=== PATIENT | male | born 1955 | race African-American/Black ===

== ENCOUNTER 2017-08-12 15:32 | Inpatient (IN) | payer OTHER ==
[2017-08-12] MEDS ORDERED: LOPERAMIDE HCL 2 MG CAPSULE PO PRN (16:23)
[2017-08-12] MEDS ORDERED: POLYETHYL GLY 3350 17 GM/DOSE PO PRN (16:23)
[2017-08-12] MEDS ORDERED: ALBUTEROL 2.5 MG/3 ML NEB SOL IH PRN (16:23)
[2017-08-12] MEDS ORDERED: DIPHENHYDRAMINE 25 MG TAB/CAP PO PRN (16:23)
[2017-08-12] MEDS ORDERED: ONDANSETRON 4 MG (ODT) TAB PO PRN (16:23)
[2017-08-12 16:47] LABS: Absolute Monocytes 0.9 K/uL (0.1-1.3); Absolute Neutrophil 11.1 K/uL (1.8-8.0); Basophils % 0.3 % (0-1.3); Hematocrit 47.3 % (39.6-49.0); Lymphocytes % 7.4 % (15.3-44.8); MCH 25.8 pg (27.0-35.0); MCV 80.7 fL (80-100); MPV 8.1 fL (7.6-11.3); Monocytes % 7.2 % (3.3-12.3); RBC Red Blood Cell Count 5.86 M/uL (4.33-5.43)
[2017-08-12 16:59] LABS: Magnesium 2.2 mg/dL (1.8-2.5); Potassium 4.8 mEq/L (3.6-5.0)
[2017-08-12] MEDS ORDERED: PNEUMOCOCCAL VACCINE 0.5 ML IMVAC ONE (17:00)
[2017-08-12] MEDS: NACHLORIDE 0.45% 1,000 ML IV SCH (17:31)
[2017-08-12 17:33] VITALS: BMI 28.2
[2017-08-12] MEDS: METOPROLOL TARTRATE 5 MG/5 ML INJ IV SCH ×3 (18:00→23:03)
[2017-08-12] MEDS: LEVALBUTEROL 1.25 MG/3 ML NEB IH SCH (20:00)
[2017-08-12] MEDS: IPRATROPIUM BROM 0.5MG/2.5ML IH SCH (20:03)
--- NOTE | 2017-08-12 20:55 | RAD REPORT ---
EXAM DESCRIPTION: RAD - Chest Pa And Lat (2 Views) - 08/12/2017 8:18 pm CLINICAL HISTORY: Bowel obstruction, abdominal pain COMPARISON: October 2014 TECHNIQUE: PA and lateral views of the chest were obtained. FINDINGS: The lungs are clear. Heart size is normal and central vasculature is within normal limit s. No pleural effusion or pneumothorax seen. No acute bony finding noted. No aortic abnormality. No free air under the diaphragm. IMPRESSION: No acute cardiopulmonary process.
[2017-08-13] MEDS: ONDANSETRON 4 MG/2 ML VIAL IV PRN (00:31)
[2017-08-13] MEDS: IPRATROPIUM BROM 0.5MG/2.5ML IH SCH ×4 (01:52→19:34)
[2017-08-13] MEDS: LEVALBUTEROL 1.25 MG/3 ML NEB IH SCH ×4 (01:53→19:34)
[2017-08-13] MEDS: NACHLORIDE 0.45% 1,000 ML IV SCH ×2 (02:49→17:04)
[2017-08-13 05:02] LABS: Absolute Lymphocytes (CBC) 0.9 K/uL (0.7-4.9); Absolute Monocytes 1.2 K/uL (0.1-1.3); Absolute Neutrophil 7.9 K/uL (1.8-8.0); Basophils % 0.3 % (0-1.3); Hematocrit 41.6 % (39.6-49.0); Lymphocytes % 9.3 % (15.3-44.8); MCH 26.5 pg (27.0-35.0); MCV 80.5 fL (80-100); MPV 8.5 fL (7.6-11.3); RBC Red Blood Cell Count 5.16 M/uL (4.33-5.43)
[2017-08-13 05:19] LABS: Magnesium 2.1 mg/dL (1.8-2.5); Potassium 4.7 mEq/L (3.6-5.0)
[2017-08-13] MEDS: METOPROLOL TARTRATE 5 MG/5 ML INJ IV SCH ×3 (05:28→17:04)
[2017-08-13 06:00] LABS: Urine Appearance CLEAR; Urine Blood NEGATIVE (NEG); Urine Color DK YELLOW; Urine Glucose NEGATIVE (NEG); Urine Protein 2+ (NEG); Urine Specific Gravity >=1.030 (1.005-1.030)
[2017-08-13 06:11] LABS: Urine Bilirubin NEGATIVE (NEG); Urine Microscopic Reflex ORDER UMIC
[2017-08-13 06:18] LABS: Urine Bacteria <20 /HPF (NONE SEEN); Urine RBC NONE SEEN /HPF (NONE SEEN)
[2017-08-13 06:19] LABS: Urine Culture Reflex Order NOT NEEDED; Urine Mucus LIGHT /HPF (NONE SEEN)
--- NOTE | 2017-08-13 07:36 | EKG ---
Test Date: 2017-08-12 Test Time: 16:58:53 Grain Drier Operator: LISA MEASUREMENT RESULTS: Intervals: Rate: 100 MA: 130 QRSD: 74 QT: 328 QTc: 423 [place]: P: 59 MA: 130 QRS: 3 T: 53 INTERPRETIVE STATEMENTS: Normal sinus rhythm Low voltage QRS Borderline ECG Compared to ECG 10/28/2014 07:31:56 Low QRS voltage now present Sinus bradycardia no longer present Electronically Signed On 08-13-17 07:34:55 CDT by Josh Jones
[2017-08-13] MEDS ORDERED: HYDRALAZINE HCL 20 MG/ML VIAL IV PRN ×2 (12:11→20:51)
[2017-08-13] MEDS: Levofloxacin 750mg IV 750 MG/150 ML BAG IV SCH (20:23)
[2017-08-13] MEDS ORDERED: CLONIDINE 0.2 MG/PATCH TD SCH (21:15)
--- NOTE | 2017-08-13 21:19 | P.PN ---
Subjective Date of Service: 08/13/17 Chief Complaint: ABD PAIN, NPO. NOT SURE ABOUT SURGERY. Subjective: No new changes Review of Systems 10-point ROS is otherwise unremarkable General: Weakness Physical Examination - Vital Signs Temperature: 99.6 F Blood Pressure: 187/113 Pulse: 97 Respirations: 18 Pulse Ox (%): 98 - Physical Exam General: Alert, Mild distress HEENT: Atraumatic, PERRLA, EOMI Neck: Supple, JVD not distended Respiratory: Clear to auscultation bilaterally, Normal air movement Cardiovascular: Regular rate/rhythm, Normal S1 S2 Gastrointestinal: Normal bowel sounds, Tenderness Musculoskeletal: No tenderness Integumentary: No rashes Neurological: Normal speech, Normal tone, Normal affect Lymphatics: No axilla or inguinal lymphadenopathy - Studies Laboratory Data (last 24 hrs) 08/13/17 04:10: Sodium 136, Potassium 4.7, BUN 21 H, Creatinine 1.29 H, Glucose 119, Magnesium 2.1 08/13/17 04:10: WBC 10.1 D, Hgb 13.7, Hct 41.6, Plt Count 375 Medications List Reviewed: Yes Assessment And Plan - Current Problems (Diagnosis) (1) Colon cancer Current Visit: Yes Status: Acute (2) Bowel obstruction Current Visit: Yes Status: Acute Plan: MR Ashley GOODSON HAS TR COLON CANCER ABOUT [address] SCAN. THIS WAS DOES HE CAME TO OFFICE WITH ABDOMEN PAIN. HE NEVER WANTED TO DO COLONOSCOPY. HE IS NOT SURE WHY HE NEEDS SURGERY . I EXPLAINED TO HIM AND TODAY HIS UNDERSTANDING LEVEL IS POOR. (3) Uncontrolled hypertension Current Visit: Yes Status: Chronic Plan: HE IS ON HIGH DOSE OF MEDS TO CONTROL BP I HAVE ADDED HYDRLAZINE IV AND CLONIDINE PATCH UNTIL HE IS ABLE TO TAKE PO AGAIN. (4) Preoperative clearance Current Visit: Yes Status: Acute Plan: MEDICALLY CLEARED WITH MILD TO MOD RISK WRITTEN IN ORDER.S Orders (last 24 hrs) 08/12/17 22:55 Cardiac Monitoring (telemetry) CONT 08/13/17 06:07 SBAR Routine 08/13/17 12:12 Nursing Orders Routine 08/13/17 20:51 Hydralazine [Apresoline] 25 mg IV Q6HP PRN 08/13/17 21:15 Clonidine Patch [Catapres-Tts 2] 0.2 mg TD EVERY 7TH DAY 08/14/17 05:00 Basic Metabolic Panel DAILY CBC with Automated Diff DAILY Magnesium DAILY 08/15/17 05:00 Basic Metabolic Panel DAILY CBC with Automated Diff DAILY Magnesium DAILY 08/16/17 05:00 Basic Metabolic Panel DAILY CBC with Automated Diff DAILY Magnesium DAILY 08/17/17 05:00 Basic Metabolic Panel DAILY CBC with Automated Diff DAILY Magnesium DAILY 08/18/17 05:00 Basic Metabolic Panel DAILY CBC with Automated Diff DAILY Magnesium DAILY 08/19/17 05:00 Basic Metabolic Panel DAILY CBC with Automated Diff DAILY Magnesium DAILY 08/20/17 05:00 Basic Metabolic Panel DAILY CBC with Automated Diff DAILY Magnesium DAILY 08/21/17 05:00 Basic Metabolic Panel DAILY CBC with Automated Diff DAILY Magnesium DAILY 08/22/17 05:00 Basic Metabolic Panel DAILY CBC with Automated Diff DAILY Magnesium DAILY
[2017-08-14] MEDS: METRONIDAZOLE 500mg IVPB 500 MG/100 ML BAG IV SCH ×5 (00:57→23:56)
[2017-08-14] MEDS: METOPROLOL TARTRATE 5 MG/5 ML INJ IV SCH ×5 (00:58→23:57)
[2017-08-14] MEDS: IPRATROPIUM BROM 0.5MG/2.5ML IH SCH ×4 (01:10→20:00)
[2017-08-14] MEDS: LEVALBUTEROL 1.25 MG/3 ML NEB IH SCH ×4 (01:11→20:00)
[2017-08-14] MEDS: ONDANSETRON 4 MG/2 ML VIAL IV PRN (04:07)
[2017-08-14 06:09] LABS: Magnesium 2.1 mg/dL (1.8-2.5); Potassium 4.7 mEq/L (3.6-5.0)
[2017-08-14 06:12] LABS: Absolute Lymphocytes (CBC) 0.5 K/uL (0.7-4.9); Absolute Monocytes 0.9 K/uL (0.1-1.3); Absolute Neutrophil 3.4 K/uL (1.8-8.0); Basophils % 0.2 % (0-1.3); Lymphocytes % 9.9 % (15.3-44.8); MCH 26.4 pg (27.0-35.0); MCV 80.8 fL (80-100); MPV 8.1 fL (7.6-11.3); Monocytes % 17.9 % (3.3-12.3); RBC Red Blood Cell Count 4.95 M/uL (4.33-5.43)
[2017-08-14 07:00] LABS: Urine White Blood Cell Casts DIFF
[2017-08-14 07:01] LABS: Blood Morphology Comment NOT SEEN (NOT SEEN); Platelet Estimate ADEQ; Platelets, Giant OCC
--- NOTE | 2017-08-14 09:09 | RAD REPORT ---
EXAM DESCRIPTION: Josie Single View08/14/2017 8:38 am CLINICAL HISTORY: Device placement nasogastric tube placement FINDINGS: A nasogastric tube has its tip at the junction of the gastric fundus and body.
[2017-08-14] MEDS: NACHLORIDE 0.45% 1,000 ML IV SCH ×2 (09:40→22:20)
[2017-08-14] MEDS ORDERED: Ringers Lactate 1,000 ML IV ONE ×2 (16:01→19:00)
[2017-08-14] MEDS ORDERED: LABETALOL HCL 100 MG/20 ML ONE (16:17)
[2017-08-14] MEDS ORDERED: HYDRALAZINE HCL 20 MG/ML VIAL ONE (16:31)
[2017-08-14] MEDS ORDERED: NA CHLORIDE 0.9% 1,000 ML ONE (16:54)
[2017-08-14] MEDS ORDERED: PROPOFOL 200 MG/20 ML VIAL IV ONE (17:15)
[2017-08-14] MEDS ORDERED: MIDAZOLAM HCL 2 MG/2 ML INJ ONE (17:16)
[2017-08-14] MEDS ORDERED: LIDOCAINE 2% MPF 5 ML VIAL ONE (17:16)
[2017-08-14] MEDS ORDERED: ONDANSETRON 4 MG/2 ML VIAL ONE (17:17)
[2017-08-14] MEDS ORDERED: ROCURONIUM 50 MG/5 ML VIAL IV ONE ×2 (17:17→18:05)
[2017-08-14] MEDS ORDERED: FENTANYL CITR 100 MCG/2 ML ONE (17:18)
[2017-08-14] MEDS ORDERED: METRONIDAZOLE 500mg IVPB 500 MG/100 ML BAG IV ONE (17:30)
[2017-08-14] MEDS ORDERED: GLYCOPYRROLATE 0.2 MG/ML SYR ONE ×3 (18:04→19:39)
[2017-08-14] MEDS ORDERED: MORPHINE 10 MG/ML VIAL ONE (18:04)
[2017-08-14] MEDS ORDERED: KETOROLAC 30 MG/ML INJ ONE (18:04)
[2017-08-14] MEDS ORDERED: NEOSTIGMINE 1 MG/ML -5 ML SYRINGE ONE (18:19)
--- NOTE | 2017-08-14 20:13 | P.BOP ---
Preoperative diagnosis: complete colon obtruction, colonic mass possible cancer Postoperative diagnosis: same Primary procedure: 1 Exploratory laparatomy Secondary procedure: 2. Right hemicolectomy Other procedure(s): 3. liver biopsy Fans Clerk: ESTEFANÍA DELACRUZ Estimated blood loss: <150cc Specimen: right colon, liver bx Findings: Large proximal tranverse colon obstructive mass Anesthesia: General Complications: None Drain(s): Nasogastric, Urinary catheter Transferred to: Recovery Room Condition: Good
[2017-08-14] MEDS ORDERED: MEPERIDINE HCL 25 MG/0.5 ML ONE (21:06)
--- NOTE | 2017-08-14 21:19 | P.PN ---
Subjective Date of Service: 08/14/17 Chief Complaint: ABD PAIN, NPO. NOT SURE ABOUT SURGERY. Subjective: Worsening (THIS AM , NAUSEA, VOMITING, DISTENSION. I ASKED FOR NGT WITH LIS URGENTLY. SURGERY IS PLANNED TODAY.) Review of Systems 10-point ROS is otherwise unremarkable Gastrointestinal: Nausea, Vomiting, Abdominal Pain, Distention Physical Examination - Vital Signs Temperature: 98.9 F Blood Pressure: 127/85 Pulse: 95 Respirations: 18 Pulse Ox (%): 18 - Physical Exam General: Alert, Moderate distress HEENT: Atraumatic, PERRLA, EOMI Neck: Supple, JVD not distended Respiratory: Clear to auscultation bilaterally, Normal air movement Cardiovascular: Regular rate/rhythm, Normal S1 S2 Gastrointestinal: Distended, Tenderness Musculoskeletal: No tenderness Integumentary: No rashes Neurological: Normal speech, Normal tone, Normal affect Lymphatics: No axilla or inguinal lymphadenopathy - Studies Laboratory Data (last 24 hrs) 08/14/17 05:18: Sodium 133 L, Potassium 4.7, BUN 19, Creatinine 1.28 H, Glucose 117, Magnesium 2.1 08/14/17 05:18: WBC 4.8 D, Hgb 13.1 L, Hct 40.0, Plt Count 332 Medications List Reviewed: Yes Assessment And Plan - Current Problems (Diagnosis) (1) Colon cancer Current Visit: Yes Status: Acute Plan: SURGERY TO BE DONE TODAY BY THE TIME OF THIS NOTE- DR. FISH CALLED AND HE HAS COMPLETED SURGERY. (2) Bowel obstruction Current Visit: Yes Status: Acute Plan: MR Ashley GOODSON HAS TR COLON CANCER ABOUT [address] SCAN. THIS WAS DOES HE CAME TO OFFICE WITH ABDOMEN PAIN. HE NEVER WANTED TO DO COLONOSCOPY. HE IS NOT SURE WHY HE NEEDS SURGERY . I EXPLAINED TO HIM AND TODAY HIS UNDERSTANDING LEVEL IS POOR. (3) Uncontrolled hypertension Current Visit: Yes Status: Chronic Plan: HE IS ON HIGH DOSE OF MEDS TO CONTROL BP I HAVE ADDED HYDRLAZINE IV AND CLONIDINE PATCH UNTIL HE IS ABLE TO TAKE PO AGAIN. STABLE ON IV MEDS. (4) Preoperative clearance Current Visit: Yes Status: Acute Plan: MEDICALLY CLEARED WITH MILD TO MOD RISK WRITTEN IN ORDER.S Orders (last 24 hrs) 08/12/17 22:55 Cardiac Monitoring (telemetry) CONT 08/13/17 06:07 SBAR Routine 08/13/17 12:12 Nursing Orders Routine 08/13/17 20:51 Hydralazine [Apresoline] 25 mg IV Q6HP PRN 08/13/17 21:15 Clonidine Patch [Catapres-Tts 2] 0.2 mg TD EVERY 7TH DAY 08/14/17 05:00 Basic Metabolic Panel DAILY CBC with Automated Diff DAILY Magnesium DAILY 08/15/17 05:00 Basic Metabolic Panel DAILY CBC with Automated Diff DAILY Magnesium DAILY 08/16/17 05:00 Basic Metabolic Panel DAILY CBC with Automated Diff DAILY Magnesium DAILY 08/17/17 05:00 Basic Metabolic Panel DAILY CBC with Automated Diff DAILY Magnesium DAILY 08/18/17 05:00 Basic Metabolic Panel DAILY CBC with Automated Diff DAILY Magnesium DAILY 08/19/17 05:00 Basic Metabolic Panel DAILY CBC with Automated Diff DAILY Magnesium DAILY 08/20/17 05:00 Basic Metabolic Panel DAILY CBC with Automated Diff DAILY Magnesium DAILY 08/21/17 05:00 Basic Metabolic Panel DAILY CBC with Automated Diff DAILY Magnesium DAILY 08/22/17 05:00 Basic Metabolic Panel DAILY CBC with Automated Diff DAILY Magnesium DAILY
[2017-08-14] MEDS ORDERED: MORPHINE 2 MG/ML SYR IV PRN (21:48)
[2017-08-14] MEDS ORDERED: MORPHINE 5 MG/ML VIAL IV PRN (21:51)
[2017-08-14] MEDS: Ringers Lactate 1,000 ML IV SCH (21:57)
[2017-08-14] MEDS: Levofloxacin 750mg IV 750 MG/150 ML BAG IV SCH (22:07)
[2017-08-14] MEDS: MORPHINE 4 MG/ML SYR IV PRN (22:34)
[2017-08-15] MEDS: MORPHINE 4 MG/ML SYR IV PRN ×2 (01:01→03:11)
[2017-08-15] MEDS: LEVALBUTEROL 1.25 MG/3 ML NEB IH SCH ×4 (01:14→19:41)
[2017-08-15] MEDS: IPRATROPIUM BROM 0.5MG/2.5ML IH SCH ×4 (01:19→19:41)
[2017-08-15] MEDS: ONDANSETRON 4 MG/2 ML VIAL IV PRN (03:11)
[2017-08-15] MEDS: Ringers Lactate 1,000 ML IV SCH ×4 (03:40→23:35)
[2017-08-15 05:39] LABS: Absolute Lymphocytes (CBC) 0.5 K/uL (0.7-4.9); Absolute Monocytes 1.1 K/uL (0.1-1.3); Basophils % 0.1 % (0-1.3); Lymphocytes % 6.1 % (15.3-44.8); MCH 26.3 pg (27.0-35.0); MCV 82.1 fL (80-100); MPV 8.3 fL (7.6-11.3); Monocytes % 12.4 % (3.3-12.3); RBC Red Blood Cell Count 4.63 M/uL (4.33-5.43)
[2017-08-15 05:56] LABS: Magnesium 1.6 mg/dL (1.8-2.5); Potassium 4.6 mEq/L (3.6-5.0)
[2017-08-15] MEDS: METOPROLOL TARTRATE 5 MG/5 ML INJ IV SCH ×4 (06:53→21:55)
[2017-08-15] MEDS: METRONIDAZOLE 500mg IVPB 500 MG/100 ML BAG IV SCH ×4 (06:54→23:36)
[2017-08-15] MEDS: NACHLORIDE 0.45% 1,000 ML IV SCH (11:25)
--- NOTE | 2017-08-15 12:50 | P.PN ---
Subjective Date of Service: 08/15/17 Chief Complaint: s/p Exploratory lapatoromy and right hemicolectomy for obsyructive mass Subjective: Improving Review of Systems General: Unremarkable Eyes: As per HPI ENT: Unremarkable Respiratory: Unremarkable Gastrointestinal: As per HPI (intact surgical site) Musculoskeletal: Unremarkable Integumentary: Unremarkable Physical Examination - Vital Signs Temperature: 98 F Blood Pressure: 146/88 Pulse: 94 Respirations: 20 Pulse Ox (%): 100 - Physical Exam General: Alert, Oriented x3 HEENT: PERRLA, EOMI, Abnormal EOM Respiratory: Normal air movement Cardiovascular: No edema, Normal pulses Gastrointestinal: Soft and benign, Absent bowel sounds, Distended Musculoskeletal: No erythema, No tenderness, No warmth Integumentary: No rashes, No breakdown - Studies Laboratory Data (last 24 hrs) 08/15/17 05:04: Sodium 135, Potassium 4.6, BUN 15, Creatinine 1.33 H, Glucose 115, Magnesium 1.6 L D 08/15/17 05:04: WBC 8.5 D, Hgb 12.2 L, Hct 38.0 L, Plt Count 302 Medications List Reviewed: Yes Assessment And Plan - Plan is oob ngy iv abx npo PPN discussed
--- NOTE | 2017-08-15 13:34 | P.PN ---
Subjective Date of Service: 08/15/17 Chief Complaint: s/p Exploratory lapatoromy and right hemicolectomy for obsyructive mass Subjective: Improving (STABLE) Review of Systems 10-point ROS is otherwise unremarkable General: Weakness, Malaise Physical Examination - Vital Signs Temperature: 98 F Blood Pressure: 146/88 Pulse: 94 Respirations: 20 Pulse Ox (%): 100 - Physical Exam General: Alert, Oriented x3 HEENT: Atraumatic, PERRLA, EOMI Neck: Supple, JVD not distended Respiratory: Clear to auscultation bilaterally, Normal air movement Cardiovascular: Regular rate/rhythm, Normal S1 S2 Gastrointestinal: Tenderness (POST OP) Musculoskeletal: No tenderness Integumentary: No rashes Neurological: Normal speech, Normal tone, Normal affect Lymphatics: No axilla or inguinal lymphadenopathy - Studies Laboratory Data (last 24 hrs) 08/15/17 05:04: Sodium 135, Potassium 4.6, BUN 15, Creatinine 1.33 H, Glucose 115, Magnesium 1.6 L D 08/15/17 05:04: WBC 8.5 D, Hgb 12.2 L, Hct 38.0 L, Plt Count 302 Medications List Reviewed: Yes Assessment And Plan - Current Problems (Diagnosis) (1) Colon cancer Current Visit: Yes Status: Acute Plan: SURGERY TO BE DONE TODAY BY THE TIME OF THIS NOTE- DR. FISH CALLED AND HE HAS COMPLETED SURGERY. SP PARTIAL COLECTOMY STABLE FOR FLOOR. (2) Bowel obstruction Current Visit: Yes Status: Acute Plan: MR Ashley GOODSON HAS TR COLON CANCER ABOUT [address] SCAN. THIS WAS DOES HE CAME TO OFFICE WITH ABDOMEN PAIN. HE NEVER WANTED TO DO COLONOSCOPY. HE IS NOT SURE WHY HE NEEDS SURGERY . I EXPLAINED TO HIM AND TODAY HIS UNDERSTANDING LEVEL IS POOR. (3) Uncontrolled hypertension Current Visit: Yes Status: Chronic Plan: HE IS ON HIGH DOSE OF MEDS TO CONTROL BP I HAVE ADDED HYDRLAZINE IV AND CLONIDINE PATCH UNTIL HE IS ABLE TO TAKE PO AGAIN. STABLE ON IV MEDS. (4) Preoperative clearance Current Visit: Yes Status: Acute Plan: MEDICALLY CLEARED WITH MILD TO MOD RISK WRITTEN IN ORDER.S Orders (last 24 hrs) 08/12/17 22:55 Cardiac Monitoring (telemetry) CONT 08/13/17 06:07 SBAR Routine 08/13/17 12:12 Nursing Orders Routine 08/13/17 20:51 Hydralazine [Apresoline] 25 mg IV Q6HP PRN 08/13/17 21:15 Clonidine Patch [Catapres-Tts 2] 0.2 mg TD EVERY 7TH DAY 08/14/17 05:00 Basic Metabolic Panel DAILY CBC with Automated Diff DAILY Magnesium DAILY 08/15/17 05:00 Basic Metabolic Panel DAILY CBC with Automated Diff DAILY Magnesium DAILY 08/16/17 05:00 Basic Metabolic Panel DAILY CBC with Automated Diff DAILY Magnesium DAILY 08/17/17 05:00 Basic Metabolic Panel DAILY CBC with Automated Diff DAILY Magnesium DAILY 08/18/17 05:00 Basic Metabolic Panel DAILY CBC with Automated Diff DAILY Magnesium DAILY 08/19/17 05:00 Basic Metabolic Panel DAILY CBC with Automated Diff DAILY Magnesium DAILY 08/20/17 05:00 Basic Metabolic Panel DAILY CBC with Automated Diff DAILY Magnesium DAILY 08/21/17 05:00 Basic Metabolic Panel DAILY CBC with Automated Diff DAILY Magnesium DAILY 08/22/17 05:00 Basic Metabolic Panel DAILY CBC with Automated Diff DAILY Magnesium DAILY (5) Hypomagnesemia Current Visit: Yes Status: Acute Plan: STABLE FU REPLACE (6) Dehydration Current Visit: Yes Status: Acute (7) Hypokalemia Onset Date: 10/28/14 Current Visit: No Status: Acute
[2017-08-15] MEDS: Levofloxacin 750mg IV 750 MG/150 ML BAG IV SCH (20:42)
[2017-08-15] MEDS: CLONIDINE 0.2 MG/PATCH TD SCH (20:58)
[2017-08-16] MEDS: LEVALBUTEROL 1.25 MG/3 ML NEB IH SCH ×4 (01:35→19:37)
[2017-08-16] MEDS: IPRATROPIUM BROM 0.5MG/2.5ML IH SCH ×4 (01:35→19:37)
[2017-08-16 05:06] LABS: Absolute Lymphocytes (CBC) 0.6 K/uL (0.7-4.9); Absolute Neutrophil 6.8 K/uL (1.8-8.0); Basophils % 0.2 % (0-1.3); Hematocrit 34.9 % (39.6-49.0); Lymphocytes % 7.5 % (15.3-44.8); MCH 26.5 pg (27.0-35.0); MCV 82.2 fL (80-100); MPV 8.2 fL (7.6-11.3); RBC Red Blood Cell Count 4.25 M/uL (4.33-5.43)
[2017-08-16] MEDS: METRONIDAZOLE 500mg IVPB 500 MG/100 ML BAG IV SCH ×4 (05:17→23:48)
[2017-08-16] MEDS: METOPROLOL TARTRATE 5 MG/5 ML INJ IV SCH ×4 (05:17→23:49)
[2017-08-16 05:21] LABS: Magnesium 1.8 mg/dL (1.8-2.5); Potassium 3.8 mEq/L (3.6-5.0)
--- NOTE | 2017-08-16 14:31 | P.PN ---
Subjective Date of Service: 08/16/17 Chief Complaint: s/p Exploratory lapatoromy and right hemicolectomy for obsyructive mass Subjective: Improving (POST OP DAY 1) Review of Systems 10-point ROS is otherwise unremarkable General: Weakness, Malaise Gastrointestinal: Unremarkable (SP PARTIAL COLECTOMY.) Physical Examination - Vital Signs Temperature: 98.7 F Blood Pressure: 158/97 Pulse: 108 Respirations: 18 Pulse Ox (%): 97 - Physical Exam General: Alert, Mild distress HEENT: Atraumatic, PERRLA, EOMI Neck: Supple, JVD not distended Respiratory: Clear to auscultation bilaterally, Normal air movement Cardiovascular: Regular rate/rhythm, Normal S1 S2 Gastrointestinal: Tenderness (POST OP TENDERNESS.) Musculoskeletal: No tenderness Integumentary: No rashes Neurological: Normal speech, Normal tone, Normal affect Lymphatics: No axilla or inguinal lymphadenopathy - Studies Laboratory Data (last 24 hrs) 08/16/17 04:25: Sodium 137, Potassium 3.8, BUN 12, Creatinine 1.28 H, Glucose 108, Magnesium 1.8 08/16/17 04:25: WBC 8.4, Hgb 11.2 L, Hct 34.9 L, Plt Count 273 Medications List Reviewed: Yes Assessment And Plan - Current Problems (Diagnosis) (1) Colon cancer Current Visit: Yes Status: Acute Plan: SURGERY TO BE DONE TODAY BY THE TIME OF THIS NOTE- DR. FISH CALLED AND HE HAS COMPLETED SURGERY. SP PARTIAL COLECTOMY STABLE FOR FLOOR. SP SURGERY DOING WELL DAY 2 NO ISSUES ADVISED AMBULATION. (2) Bowel obstruction Current Visit: Yes Status: Acute Plan: MR Ashley GOODSON HAS TR COLON CANCER ABOUT [address] SCAN. THIS WAS DOES HE CAME TO OFFICE WITH ABDOMEN PAIN. HE NEVER WANTED TO DO COLONOSCOPY. HE IS NOT SURE WHY HE NEEDS SURGERY . I EXPLAINED TO HIM AND TODAY HIS UNDERSTANDING LEVEL IS POOR. (3) Uncontrolled hypertension Current Visit: Yes Status: Chronic Plan: HE IS ON HIGH DOSE OF MEDS TO CONTROL BP I HAVE ADDED HYDRLAZINE IV AND CLONIDINE PATCH UNTIL HE IS ABLE TO TAKE PO AGAIN. STABLE ON IV MEDS. (4) Preoperative clearance Current Visit: Yes Status: Acute Plan: MEDICALLY CLEARED WITH MILD TO MOD RISK WRITTEN IN ORDER.S Orders (last 24 hrs) 08/12/17 22:55 Cardiac Monitoring (telemetry) CONT 08/13/17 06:07 SBAR Routine 08/13/17 12:12 Nursing Orders Routine 08/13/17 20:51 Hydralazine [Apresoline] 25 mg IV Q6HP PRN 08/13/17 21:15 Clonidine Patch [Catapres-Tts 2] 0.2 mg TD EVERY 7TH DAY 08/14/17 05:00 Basic Metabolic Panel DAILY CBC with Automated Diff DAILY Magnesium DAILY 08/15/17 05:00 Basic Metabolic Panel DAILY CBC with Automated Diff DAILY Magnesium DAILY 08/16/17 05:00 Basic Metabolic Panel DAILY CBC with Automated Diff DAILY Magnesium DAILY 08/17/17 05:00 Basic Metabolic Panel DAILY CBC with Automated Diff DAILY Magnesium DAILY 08/18/17 05:00 Basic Metabolic Panel DAILY CBC with Automated Diff DAILY Magnesium DAILY 08/19/17 05:00 Basic Metabolic Panel DAILY CBC with Automated Diff DAILY Magnesium DAILY 08/20/17 05:00 Basic Metabolic Panel DAILY CBC with Automated Diff DAILY Magnesium DAILY 08/21/17 05:00 Basic Metabolic Panel DAILY CBC with Automated Diff DAILY Magnesium DAILY 08/22/17 05:00 Basic Metabolic Panel DAILY CBC with Automated Diff DAILY Magnesium DAILY (5) Hypomagnesemia Current Visit: Yes Status: Acute Plan: STABLE FU REPLACE (6) Dehydration Current Visit: Yes Status: Acute (7) Hypokalemia Onset Date: 10/28/14 Current Visit: No Status: Acute
[2017-08-16] MEDS: Ringers Lactate 1,000 ML IV SCH ×2 (16:42→21:04)
[2017-08-16] MEDS ORDERED: GLUCAGON 1 MG/VIAL IM PRN (19:52)
[2017-08-16] MEDS ORDERED: D50W 25 GM/50 ML SYRINGE IV PRN (19:52)
[2017-08-16] MEDS: Levofloxacin 750mg IV 750 MG/150 ML BAG IV SCH (21:02)
[2017-08-17] MEDS: IPRATROPIUM BROM 0.5MG/2.5ML IH SCH ×4 (01:20→19:16)
[2017-08-17] MEDS: LEVALBUTEROL 1.25 MG/3 ML NEB IH SCH ×4 (01:20→19:16)
[2017-08-17] MEDS: MORPHINE 4 MG/ML SYR IV PRN ×2 (01:24→22:17)
--- NOTE | 2017-08-17 04:51 | OP ---
Date of Procedure: 08/14/2017 Surgeon: Deonte Chen MD Graining Press Operator: NADIR Gregg. Preoperative Diagnoses: Complete colon obstruction, colonic mass, possible cancer. Postoperative Diagnoses: Complete colon obstruction, colonic mass, possible cancer. Procedures: 1.Exploratory laparotomy. 2.Right hemicolectomy. 3.Liver biopsy. Estimated Blood Loss: 150 cc. Specimen: Right colon and liver biopsy. Findings: A large proximal transverse colon. No obstructive mass. Anesthesia: General plus local. Indication For Procedure: This is the case of a male, who came to us with a complete obstruction of the bowel, found to have a large tumor of that region, suspicious for cancer. The patient fully expl ained the need for laparotomy, possible bowel resection, possible ostomy with benefits, alternatives, and risks including, but not limited to infection, bleeding, damage to adjacent structures, anesthes ia complication, recurrence, [place], and even . He also understands this, may not relieve any sympt oms. He might need more than one surgical intervention. He does understand the importance of no hea vy lifting, the importance also of following with the oncologist if we find out that he has colon can cer. At this moment, bowel prep cannot be done due to complete bowel obstruction, the abdomen is dis tended including small bowel and even stomach. The patient understood and signed a consent. Description Of Procedure: The patient was brought to the operating room, placed in supine position. Anesthesia was done without complication. A time-out was called. The abdomen was prepped and drape d in usual sterile fashion. Nasogastric tube was already in place. Quintana catheter was placed by the ER staff. A vertical midline incision was made from the xiphoid down to the periumbilical region. Incision was carried down to the subcutaneous tissue until we found the fascia, which was opened under direct vis ion. The abdomen was then explored. The patient has lot of distention of the small bowel and large bowel. We were able to eviscerate the intestines to be able to find the area of concern. The mass w as palpated on the right hepatic flexure region in the area of the proximal transverse colon. The om entum seemed to be intact. The small lesion on the liver that was biopsied. This was sent to the pa thologist. The small bowel was inspected. The abdomen was inspected, distended but no masses seen. The area of the pelvis looks free from any masses. Using a combination of electrocautery, LigaSure, and [place] scissors, we proceeded to free the peritoneal attachments of the line of Toldt from the cec um to the hepatic flexure and proximal transverse colon region. The dissection was extended passing the ileocolic junction and terminal ileum also was mobilized. Ureters on left and right side were id entified and protected. As we went into the hepatic flexure, also duodenum, the right kidney was indigo ntified and preserved. The hepatic flexure was carefully mobilized with the help of LigaSure once ag ain protecting the structures mentioned above. The point of the proximal and distal transection was selected. The area of the terminal ileum was transected with the JOSEPH-75. The mesentery was carefull y cauterized. The ileocolic artery was identified and double ligated with 0 silk. The right branch of the middle colic was also identified and the right colic artery ligated with 0 silk. The remainin g mesentery and the rest of the lymph node tissue were divided carefully with the help of LigaSure. Once again, protecting the duodenum, stomach, and ureters. The specimen was removed. The area was i rrigated. Hemostasis was checked. At that moment, we proceeded to place the proximal and distal seg ment together. We connected the terminal ileum, left to the transverse colon. We obtained good posi tion without any traction. Stay sutures were placed to secure the in place. We made sure the bowel was not twisting either. Small incisions were made in the proximal and distal. Suction w as obtained to decompress some of the small bowel that was just so distended from complete obstructio n. After the enterotomies were made, we proceeded to place a JOSEPH-75. This was done in the antimesen teric border. The JOSEPH was fired. No bleeding. The enterotomies were then closed with the use of a TA-55 after checking for hemostasis. Excellent anastomosis. No bleeding. Good color. The area was profusely irrigated. Stomach checked with NG tube in place. Once again, bowel was notic eable with peristalsis. The mesentery was closed with 3-0 chromic. Then, after that, I proceeded to irrigated the abdomen, suctioned, once again checked for hemostasis, and I proceeded then to close w ith #2 nylon in a running fashion and 3-0 chromic for the subcutaneous tissue and skin with gardenia. Sponge count and instrument counts were correct. The patient tolerated the procedure well. The pat ient was sent to the ICU in stable condition. LEX/QIANA Voice ID: [id number] Report ID: [id number]
[2017-08-17 05:28] LABS: Absolute Lymphocytes (CBC) 0.8 K/uL (0.7-4.9); Absolute Neutrophil 7.6 K/uL (1.8-8.0); Basophils % 0.2 % (0-1.3); Eosinophils % 0.2 % (0-4.4); Hematocrit 28.4 % (39.6-49.0); Lymphocytes % 8.5 % (15.3-44.8); MCH 26.9 pg (27.0-35.0); MCV 81.1 fL (80-100); MPV 8.1 fL (7.6-11.3); Monocytes % 10.2 % (3.3-12.3)
[2017-08-17 05:50] LABS: Magnesium 1.9 mg/dL (1.8-2.5); Phosphorus 2.8 mg/dL (2.5-4.3); Potassium 3.8 mEq/L (3.6-5.0)
[2017-08-17] MEDS: METOPROLOL TARTRATE 5 MG/5 ML INJ IV SCH ×3 (06:02→17:15)
[2017-08-17] MEDS: METRONIDAZOLE 500mg IVPB 500 MG/100 ML BAG IV SCH ×3 (06:02→17:15)
[2017-08-17] MEDS: Ringers Lactate 1,000 ML IV SCH ×2 (06:03→15:24)
--- NOTE | 2017-08-17 08:35 | RAD REPORT ---
EXAM DESCRIPTION: RAD - Chest Single View - 08/17/2017 3:44 am CLINICAL HISTORY: Device placement PICC line placement COMPARISON: none FINDINGS: A PICC line has been inserted with its tip in the distal superior vena cava. Nasogastric tube is present within the stomach The lungs appear clear of acute infiltrate. The heart is normal size. Prominence of the ascending tho racic aorta is without significant change from prior exams IMPRESSION: PICC line with its tip in the distal superior vena cava
[2017-08-17] MEDS: AA 5%/D20W/ELECTROLYTES-TPN 2,000 ML, Lipids 20% 250 ML with MULTIVITAMINS INJ 10 ML IV SCH ×3 (09:42)
[2017-08-17] MEDS: INSULIN -REGULAR HUMAN 50 UNIT/0.5 ML ML SQ SCH ×2 (11:34→18:00)
--- NOTE | 2017-08-17 17:20 | P.PN ---
Subjective Date of Service: 08/17/17 Chief Complaint: s/p Exploratory lapatoromy and right hemicolectomy for obsyructive mass Subjective: Improving (DOING GREAT) Review of Systems General: Weakness Gastrointestinal: Abdominal Pain ( POST OP), No Distention Physical Examination - Vital Signs Temperature: 99.1 F Blood Pressure: 121/78 Pulse: 84 Respirations: 16 Pulse Ox (%): 96 - Physical Exam General: Alert, Mild distress HEENT: Atraumatic, PERRLA, EOMI Neck: Supple, JVD not distended Respiratory: Clear to auscultation bilaterally, Normal air movement Cardiovascular: Regular rate/rhythm, Normal S1 S2 Gastrointestinal: Absent bowel sounds (POST OP) Musculoskeletal: No tenderness Integumentary: No rashes Neurological: Normal speech, Normal tone, Normal affect Lymphatics: No axilla or inguinal lymphadenopathy - Studies Laboratory Data (last 24 hrs) 08/17/17 04:59: Sodium 139, Potassium 3.8, BUN 14, Creatinine 1.25 H, Glucose 96 , Phosphorus 2.8, Magnesium 1.9, Triglycerides 60 08/17/17 04:59: WBC 9.3, Hgb 9.4 L, Hct 28.4 L D, Plt Count 207 D Microbiology Data (last 24 hrs): 08/12/17 16:30 Blood - Blood Aerobic Blood Culture - Final No growth in 5 days. 08/12/17 16:30 Blood - Blood Anaerobic Blood Culture - Final No growth in 5 days. Medications List Reviewed: Yes Assessment And Plan - Current Problems (Diagnosis) (1) Colon cancer Current Visit: Yes Status: Acute Plan: SURGERY TO BE DONE TODAY BY THE TIME OF THIS NOTE- DR. FISH CALLED AND HE HAS COMPLETED SURGERY. SP PARTIAL COLECTOMY STABLE FOR FLOOR. SP SURGERY DOING WELL DAY 2 NO ISSUES ADVISED AMBULATION. ILEUS POST OP FEW DAYS WILL TAKE TO RECOVER. (2) Bowel obstruction Current Visit: Yes Status: Acute Plan: MR Ashley GOODSON HAS TR COLON CANCER ABOUT [address] SCAN. THIS WAS DOES HE CAME TO OFFICE WITH ABDOMEN PAIN. HE NEVER WANTED TO DO COLONOSCOPY. HE IS NOT SURE WHY HE NEEDS SURGERY . I EXPLAINED TO HIM AND TODAY HIS UNDERSTANDING LEVEL IS POOR. (3) Uncontrolled hypertension Current Visit: Yes Status: Chronic Plan: HE IS ON HIGH DOSE OF MEDS TO CONTROL BP I HAVE ADDED HYDRLAZINE IV AND CLONIDINE PATCH UNTIL HE IS ABLE TO TAKE PO AGAIN. STABLE ON IV MEDS. (4) Preoperative clearance Current Visit: Yes Status: Acute Plan: MEDICALLY CLEARED WITH MILD TO MOD RISK WRITTEN IN ORDER.S Orders (last 24 hrs) 08/12/17 22:55 Cardiac Monitoring (telemetry) CONT 08/13/17 06:07 SBAR Routine 08/13/17 12:12 Nursing Orders Routine 08/13/17 20:51 Hydralazine [Apresoline] 25 mg IV Q6HP PRN 08/13/17 21:15 Clonidine Patch [Catapres-Tts 2] 0.2 mg TD EVERY 7TH DAY 08/14/17 05:00 Basic Metabolic Panel DAILY CBC with Automated Diff DAILY Magnesium DAILY 08/15/17 05:00 Basic Metabolic Panel DAILY CBC with Automated Diff DAILY Magnesium DAILY 08/16/17 05:00 Basic Metabolic Panel DAILY CBC with Automated Diff DAILY Magnesium DAILY 08/17/17 05:00 Basic Metabolic Panel DAILY CBC with Automated Diff DAILY Magnesium DAILY 08/18/17 05:00 Basic Metabolic Panel DAILY CBC with Automated Diff DAILY Magnesium DAILY 08/19/17 05:00 Basic Metabolic Panel DAILY CBC with Automated Diff DAILY Magnesium DAILY 08/20/17 05:00 Basic Metabolic Panel DAILY CBC with Automated Diff DAILY Magnesium DAILY 08/21/17 05:00 Basic Metabolic Panel DAILY CBC with Automated Diff DAILY Magnesium DAILY 08/22/17 05:00 Basic Metabolic Panel DAILY CBC with Automated Diff DAILY Magnesium DAILY (5) Hypomagnesemia Current Visit: Yes Status: Acute Plan: STABLE FU REPLACE (6) Dehydration Current Visit: Yes Status: Acute (7) Hypokalemia Onset Date: 10/28/14 Current Visit: No Status: Acute
[2017-08-17] MEDS: Levofloxacin 750mg IV 750 MG/150 ML BAG IV SCH (21:05)
[2017-08-18] MEDS: METRONIDAZOLE 500mg IVPB 500 MG/100 ML BAG IV SCH ×4 (00:45→17:01)
[2017-08-18] MEDS: METOPROLOL TARTRATE 5 MG/5 ML INJ IV SCH ×4 (00:46→17:01)
[2017-08-18] MEDS: Ringers Lactate 1,000 ML IV SCH ×3 (01:24→17:01)
[2017-08-18] MEDS: LEVALBUTEROL 1.25 MG/3 ML NEB IH SCH ×4 (01:35→19:44)
[2017-08-18] MEDS: IPRATROPIUM BROM 0.5MG/2.5ML IH SCH ×4 (01:35→19:42)
[2017-08-18 05:11] LABS: Absolute Monocytes 0.7 K/uL (0.1-1.3); Absolute Neutrophil 4.5 K/uL (1.8-8.0); Basophils % 0.5 % (0-1.3); Hematocrit 28.3 % (39.6-49.0); Lymphocytes % 15.3 % (15.3-44.8); MCH 26.9 pg (27.0-35.0); MCV 82.7 fL (80-100); MPV 7.9 fL (7.6-11.3); RBC Red Blood Cell Count 3.42 M/uL (4.33-5.43)
[2017-08-18 05:26] LABS: Magnesium 1.9 mg/dL (1.8-2.5); Potassium 3.2 mEq/L (3.6-5.0)
[2017-08-18] MEDS: INSULIN -REGULAR HUMAN 50 UNIT/0.5 ML ML SQ SCH ×4 (06:00→17:54)
--- NOTE | 2017-08-18 08:59 | P.PN ---
Subjective Date of Service: 08/18/17 Chief Complaint: s/p Exploratory lapatoromy and right hemicolectomy for obsyructive mass Subjective: Improving (NG TUBE IS OUT AND BONILLA IS OUT.) Review of Systems 10-point ROS is otherwise unremarkable Physical Examination - Vital Signs Temperature: 98.1 F Blood Pressure: 131/87 Pulse: 73 Respirations: 16 Pulse Ox (%): 99 - Physical Exam General: Alert, In no apparent distress HEENT: Atraumatic, PERRLA, EOMI Neck: Supple, JVD not distended Respiratory: Clear to auscultation bilaterally, Normal air movement Cardiovascular: Regular rate/rhythm, Normal S1 S2 Gastrointestinal: Hypoactive Musculoskeletal: No tenderness Integumentary: No rashes Neurological: Normal speech, Normal tone, Normal affect Lymphatics: No axilla or inguinal lymphadenopathy - Studies Laboratory Data (last 24 hrs) 08/18/17 04:40: Sodium 138, Potassium 3.2 L, BUN 16, Creatinine 1.05, Glucose 132 H, Magnesium 1.9 08/18/17 04:40: WBC 6.2 D, Hgb 9.2 L, Hct 28.3 L, Plt Count 222 Microbiology Data (last 24 hrs): 08/12/17 16:30 Blood - Blood Aerobic Blood Culture - Final No growth in 5 days. 08/12/17 16:30 Blood - Blood Anaerobic Blood Culture - Final No growth in 5 days. Medications List Reviewed: Yes Assessment And Plan - Current Problems (Diagnosis) (1) Colon cancer Current Visit: Yes Status: Acute Plan: SURGERY TO BE DONE TODAY BY THE TIME OF THIS NOTE- DR. FISH CALLED AND HE HAS COMPLETED SURGERY. SP PARTIAL COLECTOMY STABLE FOR FLOOR. SP SURGERY DOING WELL DAY 2 NO ISSUES ADVISED AMBULATION. ILEUS POST OP FEW DAYS WILL TAKE TO RECOVER. SP SURGERY PENDING PATH ONCOLOGY CONSULT OUT PATIENT. (2) Bowel obstruction Current Visit: Yes Status: Acute Plan: MR Ashley GOODSON HAS TR COLON CANCER ABOUT [address] SCAN. THIS WAS DOES HE CAME TO OFFICE WITH ABDOMEN PAIN. HE NEVER WANTED TO DO COLONOSCOPY. HE IS NOT SURE WHY HE NEEDS SURGERY . I EXPLAINED TO HIM AND TODAY HIS UNDERSTANDING LEVEL IS POOR. (3) Uncontrolled hypertension Current Visit: Yes Status: Chronic Plan: HE IS ON HIGH DOSE OF MEDS TO CONTROL BP I HAVE ADDED HYDRLAZINE IV AND CLONIDINE PATCH UNTIL HE IS ABLE TO TAKE PO AGAIN. STABLE ON IV MEDS. (4) Preoperative clearance Current Visit: Yes Status: Acute Plan: MEDICALLY CLEARED WITH MILD TO MOD RISK WRITTEN IN ORDER.S Orders (last 24 hrs) 08/12/17 22:55 Cardiac Monitoring (telemetry) CONT 08/13/17 06:07 SBAR Routine 08/13/17 12:12 Nursing Orders Routine 08/13/17 20:51 Hydralazine [Apresoline] 25 mg IV Q6HP PRN 08/13/17 21:15 Clonidine Patch [Catapres-Tts 2] 0.2 mg TD EVERY 7TH DAY 08/14/17 05:00 Basic Metabolic Panel DAILY CBC with Automated Diff DAILY Magnesium DAILY 08/15/17 05:00 Basic Metabolic Panel DAILY CBC with Automated Diff DAILY Magnesium DAILY 08/16/17 05:00 Basic Metabolic Panel DAILY CBC with Automated Diff DAILY Magnesium DAILY 08/17/17 05:00 Basic Metabolic Panel DAILY CBC with Automated Diff DAILY Magnesium DAILY 08/18/17 05:00 Basic Metabolic Panel DAILY CBC with Automated Diff DAILY Magnesium DAILY 08/19/17 05:00 Basic Metabolic Panel DAILY CBC with Automated Diff DAILY Magnesium DAILY 08/20/17 05:00 Basic Metabolic Panel DAILY CBC with Automated Diff DAILY Magnesium DAILY 08/21/17 05:00 Basic Metabolic Panel DAILY CBC with Automated Diff DAILY Magnesium DAILY 08/22/17 05:00 Basic Metabolic Panel DAILY CBC with Automated Diff DAILY Magnesium DAILY (5) Hypomagnesemia Current Visit: Yes Status: Acute Plan: STABLE FU REPLACE (6) Dehydration Current Visit: Yes Status: Acute (7) Hypokalemia Onset Date: 10/28/14 Current Visit: No Status: Acute
[2017-08-18] MEDS: AA 5%/D20W/ELECTROLYTES-TPN 2,000 ML, Lipids 20% 250 ML with MULTIVITAMINS INJ 10 ML IV SCH ×3 (09:19)
[2017-08-18] MEDS ORDERED: METOPROLOL TARTRATE 5 MG/5 ML INJ IV PRN (20:19)
--- NOTE | 2017-08-18 20:22 | P.PN ---
Subjective Date of Service: 08/18/17 Chief Complaint: s/p Exploratory lapatoromy and right hemicolectomy for obsyructive mass Subjective: Improving (SP REMOVAL OF NGT, DOING WELL.) Review of Systems 10-point ROS is otherwise unremarkable Gastrointestinal: Abdominal Pain (POST OP) Physical Examination - Vital Signs Temperature: 99.6 F Blood Pressure: 135/85 Pulse: 90 Respirations: 16 Pulse Ox (%): 95 - Physical Exam General: Alert, Mild distress HEENT: Atraumatic, PERRLA, EOMI Neck: Supple, JVD not distended Respiratory: Clear to auscultation bilaterally, Normal air movement Cardiovascular: Regular rate/rhythm, Normal S1 S2 Gastrointestinal: Normal bowel sounds, No tenderness Musculoskeletal: No tenderness Integumentary: No rashes Neurological: Normal speech, Normal tone, Normal affect Lymphatics: No axilla or inguinal lymphadenopathy - Studies Laboratory Data (last 24 hrs) 08/18/17 04:40: Sodium 138, Potassium 3.2 L, BUN 16, Creatinine 1.05, Glucose 132 H, Magnesium 1.9 08/18/17 04:40: WBC 6.2 D, Hgb 9.2 L, Hct 28.3 L, Plt Count 222 Microbiology Data (last 24 hrs): 08/12/17 16:30 Blood - Blood Aerobic Blood Culture - Final No growth in 5 days. 08/12/17 16:30 Blood - Blood Anaerobic Blood Culture - Final No growth in 5 days. Medications List Reviewed: Yes Assessment And Plan - Current Problems (Diagnosis) (1) Colon cancer Current Visit: Yes Status: Acute Plan: SURGERY TO BE DONE TODAY BY THE TIME OF THIS NOTE- DR. FISH CALLED AND HE HAS COMPLETED SURGERY. SP PARTIAL COLECTOMY STABLE FOR FLOOR. SP SURGERY DOING WELL DAY 2 NO ISSUES ADVISED AMBULATION. ILEUS POST OP FEW DAYS WILL TAKE TO RECOVER. SP SURGERY PENDING PATH ONCOLOGY CONSULT OUT PATIENT. 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 MOD DIFF. (2) Bowel obstruction Onset Date: 08/18/17 Current Visit: Yes Status: Acute Plan: MR Ashley GOODSON HAS TR COLON CANCER ABOUT [address] SCAN. THIS WAS DOES HE CAME TO OFFICE WITH ABDOMEN PAIN. HE NEVER WANTED TO DO COLONOSCOPY. HE IS NOT SURE WHY HE NEEDS SURGERY . I EXPLAINED TO HIM AND TODAY HIS UNDERSTANDING LEVEL IS POOR. (3) Uncontrolled hypertension Current Visit: Yes Status: Chronic Plan: HE IS ON HIGH DOSE OF MEDS TO CONTROL BP I HAVE ADDED HYDRLAZINE IV AND CLONIDINE PATCH UNTIL HE IS ABLE TO TAKE PO AGAIN. STABLE ON IV MEDS. CHANGED TO ORAL MEDS. (4) Preoperative clearance Current Visit: Yes Status: Acute Plan: MEDICALLY CLEARED WITH MILD TO MOD RISK WRITTEN IN ORDER.S Orders (last 24 hrs) 08/12/17 22:55 Cardiac Monitoring (telemetry) CONT 08/13/17 06:07 SBAR Routine 08/13/17 12:12 Nursing Orders Routine 08/13/17 20:51 Hydralazine [Apresoline] 25 mg IV Q6HP PRN 08/13/17 21:15 Clonidine Patch [Catapres-Tts 2] 0.2 mg TD EVERY 7TH DAY 08/14/17 05:00 Basic Metabolic Panel DAILY CBC with Automated Diff DAILY Magnesium DAILY 08/15/17 05:00 Basic Metabolic Panel DAILY CBC with Automated Diff DAILY Magnesium DAILY 08/16/17 05:00 Basic Metabolic Panel DAILY CBC with Automated Diff DAILY Magnesium DAILY 08/17/17 05:00 Basic Metabolic Panel DAILY CBC with Automated Diff DAILY Magnesium DAILY 08/18/17 05:00 Basic Metabolic Panel DAILY CBC with Automated Diff DAILY Magnesium DAILY 08/19/17 05:00 Basic Metabolic Panel DAILY CBC with Automated Diff DAILY Magnesium DAILY 08/20/17 05:00 Basic Metabolic Panel DAILY CBC with Automated Diff DAILY Magnesium DAILY 08/21/17 05:00 Basic Metabolic Panel DAILY CBC with Automated Diff DAILY Magnesium DAILY 08/22/17 05:00 Basic Metabolic Panel DAILY CBC with Automated Diff DAILY Magnesium DAILY (5) Hypomagnesemia Current Visit: Yes Status: Acute Plan: STABLE FU REPLACE (6) Dehydration Current Visit: Yes Status: Acute (7) Hypokalemia Onset Date: 10/28/14 Current Visit: No Status: Acute
[2017-08-18] MEDS: Levofloxacin 750mg IV 750 MG/150 ML BAG IV SCH (20:27)
[2017-08-18] MEDS ORDERED: NIFEDIPINE XL 60 MG TABLET PO SCH (21:00)
[2017-08-18] MEDS: CLONIDINE HCL 0.3 MG TAB PO SCH ×2 (21:00→21:49)
[2017-08-18] MEDS: ONDANSETRON 4 MG/2 ML VIAL IV PRN (21:54)
[2017-08-19] MEDS: METRONIDAZOLE 500mg IVPB 500 MG/100 ML BAG IV SCH ×4 (00:42→17:24)
[2017-08-19] MEDS: IPRATROPIUM BROM 0.5MG/2.5ML IH SCH ×4 (01:41→19:46)
[2017-08-19] MEDS: LEVALBUTEROL 1.25 MG/3 ML NEB IH SCH ×4 (01:41→19:46)
[2017-08-19 05:01] LABS: Absolute Lymphocytes (CBC) 0.9 K/uL (0.7-4.9); Absolute Monocytes 0.7 K/uL (0.1-1.3); Absolute Neutrophil 4.8 K/uL (1.8-8.0); Basophils % 0.3 % (0-1.3); Eosinophils % 0.9 % (0-4.4); Hematocrit 28.8 % (39.6-49.0); Lymphocytes % 13.7 % (15.3-44.8); MCH 26.1 pg (27.0-35.0); MCV 82.3 fL (80-100); MPV 7.4 fL (7.6-11.3); Monocytes % 10.9 % (3.3-12.3)
[2017-08-19 05:24] LABS: BUN Blood Urea Nitrogen 14 mg/dL (6-20); Bicarbonate 26 mEq/L (21-31); Glucose Level 141 mg/dL (65-120); Magnesium 1.9 mg/dL (1.8-2.5); Potassium 3.3 mEq/L (3.6-5.0); Sodium Level 137 mEq/L (135-145)
[2017-08-19] MEDS: INSULIN -REGULAR HUMAN 50 UNIT/0.5 ML ML SQ SCH ×4 (05:51→17:46)
[2017-08-19] MEDS: Ringers Lactate 1,000 ML IV SCH ×2 (07:24→16:06)
[2017-08-19] MEDS: AA 5%/D20W/ELECTROLYTES-TPN 2,000 ML, Lipids 20% 250 ML with MULTIVITAMINS INJ 10 ML IV SCH ×3 (08:59)
[2017-08-19] MEDS: CLONIDINE HCL 0.3 MG TAB PO SCH ×2 (09:00→20:58)
[2017-08-19] MEDS: NIFEDIPINE XL 90 MG TABLET PO SCH ×2 (09:00→20:59)
[2017-08-19] MEDS: METOPROLOL XL 25 MG TAB PO SCH (09:00)
[2017-08-19] MEDS: FINASTERIDE 5 MG TAB PO SCH (09:01)
[2017-08-19] MEDS: AMILORIDE HCL 5 MG TABLET PO SCH (16:03)
--- NOTE | 2017-08-19 22:05 | P.PN ---
Subjective Date of Service: 08/19/17 Chief Complaint: s/p Exploratory lapatoromy and right hemicolectomy for obsyructive mass Subjective: Improving Review of Systems 10-point ROS is otherwise unremarkable General: Weakness, Malaise Physical Examination - Vital Signs Temperature: 99.3 F Blood Pressure: 124/81 Pulse: 88 Respirations: 16 Pulse Ox (%): 97 - Physical Exam General: Alert, Mild distress HEENT: Atraumatic, PERRLA, EOMI Neck: Supple, JVD not distended Respiratory: Clear to auscultation bilaterally, Normal air movement Cardiovascular: Regular rate/rhythm, Normal S1 S2 Gastrointestinal: Normal bowel sounds, No tenderness Musculoskeletal: No tenderness Integumentary: No rashes Neurological: Normal speech, Normal tone, Normal affect Lymphatics: No axilla or inguinal lymphadenopathy Urinary: Other (RETAINED 650ML POST VOID RESIDUAL.) - Studies Laboratory Data (last 24 hrs) 08/19/17 04:40: Sodium 137, Potassium 3.3 L, BUN 14, Creatinine 0.96, Glucose 141 H, Magnesium 1.9 08/19/17 04:40: WBC 6.5, Hgb 9.1 L, Hct 28.8 L, Plt Count 256 Medications List Reviewed: Yes Assessment And Plan - Current Problems (Diagnosis) (1) Colon cancer Current Visit: Yes Status: Acute Plan: SURGERY TO BE DONE TODAY BY THE TIME OF THIS NOTE- DR. FISH CALLED AND HE HAS COMPLETED SURGERY. SP PARTIAL COLECTOMY STABLE FOR FLOOR. SP SURGERY DOING WELL DAY 2 NO ISSUES ADVISED AMBULATION. ILEUS POST OP FEW DAYS WILL TAKE TO RECOVER. SP SURGERY PENDING PATH ONCOLOGY CONSULT OUT PATIENT. 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 MOD DIFF. (2) Bowel obstruction Onset Date: 08/18/17 Current Visit: Yes Status: Acute Plan: MR Ashley GOODSON HAS TR COLON CANCER ABOUT [address] SCAN. THIS WAS DOES HE CAME TO OFFICE WITH ABDOMEN PAIN. HE NEVER WANTED TO DO COLONOSCOPY. HE IS NOT SURE WHY HE NEEDS SURGERY . I EXPLAINED TO HIM AND TODAY HIS UNDERSTANDING LEVEL IS POOR. (3) Uncontrolled hypertension Current Visit: Yes Status: Chronic Plan: HE IS ON HIGH DOSE OF MEDS TO CONTROL BP I HAVE ADDED HYDRLAZINE IV AND CLONIDINE PATCH UNTIL HE IS ABLE TO TAKE PO AGAIN. STABLE ON IV MEDS. CHANGED TO ORAL MEDS. (4) Preoperative clearance Current Visit: Yes Status: Acute Plan: MEDICALLY CLEARED WITH MILD TO MOD RISK WRITTEN IN ORDER.S Orders (last 24 hrs) 08/12/17 22:55 Cardiac Monitoring (telemetry) CONT 08/13/17 06:07 SBAR Routine 08/13/17 12:12 Nursing Orders Routine 08/13/17 20:51 Hydralazine [Apresoline] 25 mg IV Q6HP PRN 08/13/17 21:15 Clonidine Patch [Catapres-Tts 2] 0.2 mg TD EVERY 7TH DAY 08/14/17 05:00 Basic Metabolic Panel DAILY CBC with Automated Diff DAILY Magnesium DAILY 08/15/17 05:00 Basic Metabolic Panel DAILY CBC with Automated Diff DAILY Magnesium DAILY 08/16/17 05:00 Basic Metabolic Panel DAILY CBC with Automated Diff DAILY Magnesium DAILY 08/17/17 05:00 Basic Metabolic Panel DAILY CBC with Automated Diff DAILY Magnesium DAILY 08/18/17 05:00 Basic Metabolic Panel DAILY CBC with Automated Diff DAILY Magnesium DAILY 08/19/17 05:00 Basic Metabolic Panel DAILY CBC with Automated Diff DAILY Magnesium DAILY 08/20/17 05:00 Basic Metabolic Panel DAILY CBC with Automated Diff DAILY Magnesium DAILY 08/21/17 05:00 Basic Metabolic Panel DAILY CBC with Automated Diff DAILY Magnesium DAILY 08/22/17 05:00 Basic Metabolic Panel DAILY CBC with Automated Diff DAILY Magnesium DAILY (5) Hypomagnesemia Current Visit: Yes Status: Acute Plan: STABLE FU REPLACE (6) Dehydration Current Visit: Yes Status: Acute (7) Hypokalemia Onset Date: 10/28/14 Current Visit: No Status: Acute (8) Urinary retention Current Visit: Yes Status: Acute Plan: BONILLA RESUME FLOMAX AND PROSCAR.
[2017-08-20] MEDS: METRONIDAZOLE 500mg IVPB 500 MG/100 ML BAG IV SCH
[2017-08-20] MEDS ORDERED: METRONIDAZOLE 500mg IVPB 500 MG/100 ML BAG IV ONE (00:11)
[2017-08-20] MEDS: ONDANSETRON 4 MG/2 ML VIAL IV PRN ×2 (00:38→17:10)
[2017-08-20] MEDS: LEVALBUTEROL 1.25 MG/3 ML NEB IH SCH ×4 (01:11→21:10)
[2017-08-20] MEDS: IPRATROPIUM BROM 0.5MG/2.5ML IH SCH ×4 (01:11→21:11)
[2017-08-20] MEDS: Ringers Lactate 1,000 ML IV SCH ×2 (03:24→13:15)
[2017-08-20 05:08] LABS: Absolute Lymphocytes (CBC) 0.8 K/uL (0.7-4.9); Absolute Monocytes 0.8 K/uL (0.1-1.3); Absolute Neutrophil 5.4 K/uL (1.8-8.0); Basophils % 0.7 % (0-1.3); Hematocrit 28.7 % (39.6-49.0); MCH 27.1 pg (27.0-35.0); MCV 82.6 fL (80-100); MPV 7.9 fL (7.6-11.3); Monocytes % 11.1 % (3.3-12.3); RBC Red Blood Cell Count 3.48 M/uL (4.33-5.43)
[2017-08-20] MEDS: INSULIN -REGULAR HUMAN 50 UNIT/0.5 ML ML SQ SCH ×4 (05:17→17:55)
[2017-08-20 05:28] LABS: BUN Blood Urea Nitrogen 10 mg/dL (6-20); Bicarbonate 26 mEq/L (21-31); Glucose Level 176 mg/dL (65-120); Magnesium 1.9 mg/dL (1.8-2.5); Potassium 3.7 mEq/L (3.6-5.0); Sodium Level 136 mEq/L (135-145)
[2017-08-20] MEDS: AMILORIDE HCL 5 MG TABLET PO SCH (09:00)
[2017-08-20] MEDS: NIFEDIPINE XL 90 MG TABLET PO SCH ×2 (09:02→21:00)
[2017-08-20] MEDS: AA 5%/D20W/ELECTROLYTES-TPN 2,000 ML, Lipids 20% 250 ML with MULTIVITAMINS INJ 10 ML IV SCH ×3 (09:02)
[2017-08-20] MEDS: CLONIDINE HCL 0.3 MG TAB PO SCH ×2 (09:02→21:00)
[2017-08-20] MEDS: FINASTERIDE 5 MG TAB PO SCH (09:03)
[2017-08-20] MEDS: METOPROLOL XL 25 MG TAB PO SCH (09:03)
--- NOTE | 2017-08-20 10:53 | P.PN ---
Subjective Date of Service: 08/20/17 Chief Complaint: s/p Exploratory lapatoromy and right hemicolectomy for obsyructive mass Subjective: Tolerating diet (clears), Ambulating, Improving Review of Systems General: Weakness, As per HPI Eyes: Unremarkable ENT: Unremarkable Respiratory: Unremarkable Gastrointestinal: Nausea, Vomiting (no), No Distention, Melena (no), Hematochezia (n), As per HPI (+flatus) Genitourinary: Retention Physical Examination - Vital Signs Temperature: 98.7 F Blood Pressure: 122/78 Pulse: 96 Respirations: 18 Pulse Ox (%): 99 - Physical Exam General: Alert, Oriented x3, Cooperative HEENT: PERRLA, EOMI Neck: Supple Cardiovascular: Normal pulses Gastrointestinal: Soft and benign, No rebound, No guarding Musculoskeletal: No erythema, No tenderness, No warmth Neurological: Normal speech - Studies Laboratory Data (last 24 hrs) 08/20/17 04:30: Sodium 136, Potassium 3.7, BUN 10, Creatinine 0.99, Glucose 176 H, Magnesium 1.9 08/20/17 04:30: WBC 7.2, Hgb 9.4 L, Hct 28.7 L, Plt Count 256 Medications List Reviewed: Yes Assessment And Plan - Plan is oob advance diet iv abx ok to discharge home from surgical standpoint when tolerating diet PPN tapering
[2017-08-20] MEDS ORDERED: AA 5%/D20W/ELECTROLYTES-TPN 2,000 ML, Lipids 20% 250 ML with MULTIVITAMINS INJ 10 ML IV SCH ×3 (12:01)
--- NOTE | 2017-08-20 13:12 | P.PN ---
Subjective Date of Service: 08/20/17 Chief Complaint: s/p Exploratory lapatoromy and right hemicolectomy for obsyructive mass Subjective: Improving (NOT EATING YET.) Review of Systems 10-point ROS is otherwise unremarkable General: Weakness, Malaise Physical Examination - Vital Signs Temperature: 98.2 F Blood Pressure: 110/72 Pulse: 98 Respirations: 16 Pulse Ox (%): 100 - Physical Exam General: Alert, In no apparent distress HEENT: Atraumatic, PERRLA, EOMI Neck: Supple, JVD not distended Respiratory: Clear to auscultation bilaterally, Normal air movement Cardiovascular: Regular rate/rhythm, Normal S1 S2 Gastrointestinal: Normal bowel sounds, Non-distended, No tenderness Musculoskeletal: No tenderness Integumentary: No rashes Neurological: Normal speech, Normal tone, Normal affect Lymphatics: No axilla or inguinal lymphadenopathy - Studies Laboratory Data (last 24 hrs) 08/20/17 04:30: Sodium 136, Potassium 3.7, BUN 10, Creatinine 0.99, Glucose 176 H, Magnesium 1.9 08/20/17 04:30: WBC 7.2, Hgb 9.4 L, Hct 28.7 L, Plt Count 256 Medications List Reviewed: Yes Assessment And Plan - Current Problems (Diagnosis) (1) Colon cancer Current Visit: Yes Status: Acute Plan: SURGERY TO BE DONE TODAY BY THE TIME OF THIS NOTE- DR. FISH CALLED AND HE HAS COMPLETED SURGERY. SP PARTIAL COLECTOMY STABLE FOR FLOOR. SP SURGERY DOING WELL DAY 2 NO ISSUES ADVISED AMBULATION. ILEUS POST OP FEW DAYS WILL TAKE TO RECOVER. SP SURGERY PENDING PATH ONCOLOGY CONSULT OUT PATIENT. 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 MOD DIFF. NOT EATIN GYET HE HAD SEVERE GASTRO PARESIS FROM BOWEL OBST. PER DR. FISH. (2) Bowel obstruction Onset Date: 08/18/17 Current Visit: Yes Status: Acute Plan: MR Ashley GOODSON HAS TR COLON CANCER ABOUT [address] SCAN. THIS WAS DOES HE CAME TO OFFICE WITH ABDOMEN PAIN. HE NEVER WANTED TO DO COLONOSCOPY. HE IS NOT SURE WHY HE NEEDS SURGERY . I EXPLAINED TO HIM AND TODAY HIS UNDERSTANDING LEVEL IS POOR. (3) Uncontrolled hypertension Current Visit: Yes Status: Chronic Plan: HE IS ON HIGH DOSE OF MEDS TO CONTROL BP I HAVE ADDED HYDRLAZINE IV AND CLONIDINE PATCH UNTIL HE IS ABLE TO TAKE PO AGAIN. STABLE ON IV MEDS. CHANGED TO ORAL MEDS. (4) Preoperative clearance Current Visit: Yes Status: Acute Plan: MEDICALLY CLEARED WITH MILD TO MOD RISK WRITTEN IN ORDER.S Orders (last 24 hrs) 08/12/17 22:55 Cardiac Monitoring (telemetry) CONT 08/13/17 06:07 SBAR Routine 08/13/17 12:12 Nursing Orders Routine 08/13/17 20:51 Hydralazine [Apresoline] 25 mg IV Q6HP PRN 08/13/17 21:15 Clonidine Patch [Catapres-Tts 2] 0.2 mg TD EVERY 7TH DAY 08/14/17 05:00 Basic Metabolic Panel DAILY CBC with Automated Diff DAILY Magnesium DAILY 08/15/17 05:00 Basic Metabolic Panel DAILY CBC with Automated Diff DAILY Magnesium DAILY 08/16/17 05:00 Basic Metabolic Panel DAILY CBC with Automated Diff DAILY Magnesium DAILY 08/17/17 05:00 Basic Metabolic Panel DAILY CBC with Automated Diff DAILY Magnesium DAILY 08/18/17 05:00 Basic Metabolic Panel DAILY CBC with Automated Diff DAILY Magnesium DAILY 08/19/17 05:00 Basic Metabolic Panel DAILY CBC with Automated Diff DAILY Magnesium DAILY 08/20/17 05:00 Basic Metabolic Panel DAILY CBC with Automated Diff DAILY Magnesium DAILY 08/21/17 05:00 Basic Metabolic Panel DAILY CBC with Automated Diff DAILY Magnesium DAILY 08/22/17 05:00 Basic Metabolic Panel DAILY CBC with Automated Diff DAILY Magnesium DAILY (5) Hypomagnesemia Current Visit: Yes Status: Acute Plan: STABLE FU REPLACE (6) Dehydration Current Visit: Yes Status: Acute (7) Hypokalemia Onset Date: 10/28/14 Current Visit: No Status: Acute (8) Urinary retention Current Visit: Yes Status: Acute Plan: BONILLA RESUME FLOMAX AND PROSCAR. FU WITH DR LIAO.
[2017-08-20] MEDS: TAMSULOSIN 0.4 MG SR CAP PO SCH (22:20)
--- NOTE | 2017-08-20 23:00 | CON ---
History Of Present Illness: Mr. 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 He is status post right hemicolectomy, showing invasive ulcerated moderately differentiated colonic adenocarcinoma, 7 cm in diameter. Tumor invades through the muscularis propri a into the pericolic tissue, focally involved the serosal surface, proximal and distal ends. Margins were free of tumor. He had metastatic 1 of 2028 lymph nodes. He also has metastatic lesion to the liver. He also had 2 small colonic tubular adenomas 7 mm and 4 mm. Appendix was negative. Liver we dge biopsy shows metastatic adenocarcinoma compatible with primary colon region. The patient's surge ry was done on 08/15/2017. Today is 08/20/2017. I went into urinary retention postoperative and he has a history BPH. He is on Proscar before surgery, but he was not taking his medications after surg wilina. He says if he misses medication for a day, he will go into some difficulty with lower urinary t ract symptomatology. He has all the classic lower urinary tract symptomatology of BPH including weak stream, nocturia, frequency, or urgency. We have started him on Proscar and tamsulosin for now. I would leave the catheter in until he has recovered up and walking, making bowel movements. Allergies: NO KNOWN DRUG ALLERGIES. Home Medications: He is taking now is Tylenol, Proventil, amiloride, multivitamins, clonidine, Benad ryl, finasteride, glucagon, hydralazine, insulin, Atrovent, Zenapax, metoprolol, morphine p.r.n., stock sulosin. Past Medical History: BPH, benign hypertension, thoracic aneurysm, no rupture, benign hypertension. Review of Systems: General: No fever, no chills. HEENT: Atraumatic, normocephalic. No complaints. Respiratory: No shortness of breath. Cardiovascular: No chest pain or heart irregularities. GI: As mentioned above. : As mentioned above. Musculoskeletal: No joint pain or swelling. Neurology: Alert and orient x3. Skin: No rash. Physical Examination: General: The patient is afebrile. Stable. Vital Signs: Most specifically temperature 98.2, pulse 98, respirations 16, BP 110/72, saturations 1 00% on room air. HEENT: Atraumatic, normocephalic. Eyes, no discharge. PERRLA. Neck: Supple. No JVD. Respiratory: Clear. Abdomen: Soft, nontender. Has an abdominal binder. : Quintana catheter draining dark colored urine. Testicles descended. ANISA enlarged prostate gland 4 050 g. Questionable small lesion on the right. Skin: No rashes. Psych: Normal. Laboratory Data: Reviewed. Had a PSA last year 2017 that was about 2.8, and Proscar, we need to cody ble that, would essentially be about 5.6 in a 62-year-old. Chemistries reviewed, urine reviewed. Cu lture is negative. UA showed no microscopic hematuria. Assessment: Benign prostatic hyperplasia, retention after surgery for stage IV colon cancer. Plan: Plan is for the patient to get well, voiding trial, possible going on to chemo. He does not w ant to have any surgeries on the prostate, does not like visiting doctors, and has been noncompliant with his physician's recommendations in the past. He wants conservative management, so we will treat him with both medications, Flomax and Proscar for now. We may repeat a ANISA at a later date, padmaja de guzman lesion on the right. Thank you very much. ALYSIA/QIANA Voice ID: [id number] Report ID: [id number]
[2017-08-21] MEDS: LEVALBUTEROL 1.25 MG/3 ML NEB IH SCH (01:43)
[2017-08-21] MEDS: IPRATROPIUM BROM 0.5MG/2.5ML IH SCH (01:43)
[2017-08-21 05:41] LABS: Absolute Lymphocytes (CBC) 1.2 K/uL (0.7-4.9); Absolute Neutrophil 6.4 K/uL (1.8-8.0); Basophils % 0.4 % (0-1.3); Eosinophils % 0.8 % (0-4.4); Hematocrit 28.3 % (39.6-49.0); Lymphocytes % 14.2 % (15.3-44.8); MCH 27.5 pg (27.0-35.0); MCV 82.5 fL (80-100); MPV 7.7 fL (7.6-11.3); Monocytes % 11.7 % (3.3-12.3); RBC Red Blood Cell Count 3.43 M/uL (4.33-5.43)
[2017-08-21 05:50] LABS: BUN Blood Urea Nitrogen 13 mg/dL (6-20); Bicarbonate 27 mEq/L (21-31); Glucose Level 122 mg/dL (65-120); Magnesium 1.9 mg/dL (1.8-2.5); Potassium 3.9 mEq/L (3.6-5.0); Sodium Level 133 mEq/L (135-145)
[2017-08-21] MEDS: INSULIN -REGULAR HUMAN 50 UNIT/0.5 ML ML SQ SCH ×4 (05:52→18:00)
[2017-08-21] MEDS: METOPROLOL XL 25 MG TAB PO SCH (09:00)
[2017-08-21] MEDS: CLONIDINE HCL 0.3 MG TAB PO SCH ×2 (09:00→20:58)
[2017-08-21] MEDS: AMILORIDE HCL 5 MG TABLET PO SCH (09:00)
[2017-08-21] MEDS: NIFEDIPINE XL 90 MG TABLET PO SCH ×2 (09:00→20:59)
[2017-08-21] MEDS: ONDANSETRON 4 MG/2 ML VIAL IV PRN ×2 (09:22→20:54)
[2017-08-21] MEDS: ACETAMINOPHEN 325 MG TABLET PO PRN (09:22)
[2017-08-21] MEDS: FINASTERIDE 5 MG TAB PO SCH (11:50)
[2017-08-21] MEDS: AA 5%/D20W/ELECTROLYTES-TPN 2,000 ML, Lipids 20% 250 ML with MULTIVITAMINS INJ 10 ML IV SCH ×3 (16:05)
--- NOTE | 2017-08-21 18:05 | P.PN ---
Subjective Date of Service: 08/21/17 Chief Complaint: s/p Exploratory lapatoromy and right hemicolectomy for obstructive mass Subjective: Ambulating (with assistance), Improving Review of Systems General: Weakness, Malaise ENT: Unremarkable Respiratory: Unremarkable Cardiovascular: Unremarkable Gastrointestinal: Nausea (occasional) Genitourinary: Retention Physical Examination - Vital Signs Temperature: 98.4 F Blood Pressure: 109/67 Pulse: 81 Respirations: 18 Pulse Ox (%): 97 - Physical Exam General: Alert, In no apparent distress, Oriented x3 HEENT: PERRLA, EOMI Neck: Supple Cardiovascular: No edema Gastrointestinal: Hypoactive, Soft and benign - Studies Laboratory Data (last 24 hrs) 08/21/17 05:25: Sodium 133 L, Potassium 3.9, BUN 13, Creatinine 0.98, Glucose 122 H, Magnesium 1.9 08/21/17 05:25: WBC 8.7 D, Hgb 9.4 L, Hct 28.3 L, Plt Count 256 Medications List Reviewed: Yes Assessment And Plan - Plan hx of preoperative gastroparesis and prolongued ileus in part trigger by long standing bowel obstruction . We expect slow recovery with diet advances slowly and rehabilitation, recondition oob advance diet consider REhab/LTAC PPN tapering
[2017-08-21] MEDS: TAMSULOSIN 0.4 MG SR CAP PO SCH (20:55)
--- NOTE | 2017-08-21 22:08 | P.PN ---
Subjective Date of Service: 08/21/17 Chief Complaint: s/p Exploratory lapatoromy and right hemicolectomy for obstructive mass Subjective: No new changes (NOT EATING YET) Review of Systems 10-point ROS is otherwise unremarkable General: Weakness Gastrointestinal: Diarrhea, Distention Physical Examination - Vital Signs Temperature: 98.4 F Blood Pressure: 108/73 Pulse: 93 Respirations: 18 Pulse Ox (%): 97 - Physical Exam General: Alert, In no apparent distress HEENT: Atraumatic, PERRLA, EOMI Neck: Supple, JVD not distended Respiratory: Clear to auscultation bilaterally, Normal air movement Cardiovascular: Regular rate/rhythm, Normal S1 S2 Gastrointestinal: No tenderness, Distended Musculoskeletal: No tenderness Integumentary: No rashes Neurological: Normal speech, Normal tone, Normal affect Lymphatics: No axilla or inguinal lymphadenopathy - Studies Laboratory Data (last 24 hrs) 08/21/17 05:25: Sodium 133 L, Potassium 3.9, BUN 13, Creatinine 0.98, Glucose 122 H, Magnesium 1.9 08/21/17 05:25: WBC 8.7 D, Hgb 9.4 L, Hct 28.3 L, Plt Count 256 Medications List Reviewed: Yes Assessment And Plan - Current Problems (Diagnosis) (1) Colon cancer Current Visit: Yes Status: Acute Plan: SURGERY TO BE DONE TODAY BY THE TIME OF THIS NOTE- DR. FISH CALLED AND HE HAS COMPLETED SURGERY. SP PARTIAL COLECTOMY STABLE FOR FLOOR. SP SURGERY DOING WELL DAY 2 NO ISSUES ADVISED AMBULATION. ILEUS POST OP FEW DAYS WILL TAKE TO RECOVER. SP SURGERY PENDING PATH ONCOLOGY CONSULT OUT PATIENT. 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 MOD DIFF. NOT EATIN GYET HE HAD SEVERE GASTRO PARESIS FROM BOWEL OBST. PER DR. FISH. (2) Bowel obstruction Onset Date: 08/18/17 Current Visit: Yes Status: Acute Plan: MR Ashley GOODSON HAS TR COLON CANCER ABOUT [address] SCAN. THIS WAS DOES HE CAME TO OFFICE WITH ABDOMEN PAIN. HE NEVER WANTED TO DO COLONOSCOPY. HE IS NOT SURE WHY HE NEEDS SURGERY . I EXPLAINED TO HIM AND TODAY HIS UNDERSTANDING LEVEL IS POOR. (3) Uncontrolled hypertension Current Visit: Yes Status: Chronic Plan: HE IS ON HIGH DOSE OF MEDS TO CONTROL BP I HAVE ADDED HYDRLAZINE IV AND CLONIDINE PATCH UNTIL HE IS ABLE TO TAKE PO AGAIN. STABLE ON IV MEDS. CHANGED TO ORAL MEDS. (4) Preoperative clearance Current Visit: Yes Status: Acute Plan: MEDICALLY CLEARED WITH MILD TO MOD RISK WRITTEN IN ORDER.S Orders (last 24 hrs) 08/12/17 22:55 Cardiac Monitoring (telemetry) CONT 08/13/17 06:07 SBAR Routine 08/13/17 12:12 Nursing Orders Routine 08/13/17 20:51 Hydralazine [Apresoline] 25 mg IV Q6HP PRN 08/13/17 21:15 Clonidine Patch [Catapres-Tts 2] 0.2 mg TD EVERY 7TH DAY 08/14/17 05:00 Basic Metabolic Panel DAILY CBC with Automated Diff DAILY Magnesium DAILY 08/15/17 05:00 Basic Metabolic Panel DAILY CBC with Automated Diff DAILY Magnesium DAILY 08/16/17 05:00 Basic Metabolic Panel DAILY CBC with Automated Diff DAILY Magnesium DAILY 08/17/17 05:00 Basic Metabolic Panel DAILY CBC with Automated Diff DAILY Magnesium DAILY 08/18/17 05:00 Basic Metabolic Panel DAILY CBC with Automated Diff DAILY Magnesium DAILY 08/19/17 05:00 Basic Metabolic Panel DAILY CBC with Automated Diff DAILY Magnesium DAILY 08/20/17 05:00 Basic Metabolic Panel DAILY CBC with Automated Diff DAILY Magnesium DAILY 08/21/17 05:00 Basic Metabolic Panel DAILY CBC with Automated Diff DAILY Magnesium DAILY 08/22/17 05:00 Basic Metabolic Panel DAILY CBC with Automated Diff DAILY Magnesium DAILY (5) Hypomagnesemia Current Visit: Yes Status: Acute Plan: STABLE FU REPLACE (6) Dehydration Current Visit: Yes Status: Acute (7) Hypokalemia Onset Date: 10/28/14 Current Visit: No Status: Acute (8) Urinary retention Current Visit: Yes Status: Acute Plan: BONILLA RESUME FLOMAX AND PROSCAR. FU WITH DR LIAO. (9) Gastroparesis Current Visit: Yes Status: Acute Plan: FROM OBSTRUCTION BARIUM TEST IN AM. CHECK STOOL FOR C DIFF.
[2017-08-22 05:35] LABS: Absolute Lymphocytes (CBC) 0.9 K/uL (0.7-4.9); Absolute Monocytes 0.9 K/uL (0.1-1.3); Absolute Neutrophil 6.7 K/uL (1.8-8.0); Basophils % 0.6 % (0-1.3); Eosinophils % 0.6 % (0-4.4); Hematocrit 28.9 % (39.6-49.0); Lymphocytes % 10.5 % (15.3-44.8); MCH 27.3 pg (27.0-35.0); MCV 82.3 fL (80-100); MPV 7.8 fL (7.6-11.3); RBC Red Blood Cell Count 3.51 M/uL (4.33-5.43)
[2017-08-22 05:57] LABS: BUN Blood Urea Nitrogen 15 mg/dL (6-20); Bicarbonate 27 mEq/L (21-31); Glucose Level 150 mg/dL (65-120); Potassium 4.2 mEq/L (3.6-5.0); Sodium Level 135 mEq/L (135-145)
[2017-08-22] MEDS: INSULIN -REGULAR HUMAN 50 UNIT/0.5 ML ML SQ SCH ×4 (06:00→18:00)
[2017-08-22] MEDS: METOPROLOL XL 25 MG TAB PO SCH (09:00)
[2017-08-22] MEDS: CLONIDINE HCL 0.3 MG TAB PO SCH (09:00)
[2017-08-22] MEDS: CLONIDINE 0.2 MG/PATCH TD SCH (09:00)
[2017-08-22] MEDS: NIFEDIPINE XL 90 MG TABLET PO SCH (09:00)
[2017-08-22] MEDS: AMILORIDE HCL 5 MG TABLET PO SCH (09:00)
[2017-08-22] MEDS: FINASTERIDE 5 MG TAB PO SCH (10:59)
[2017-08-22] MEDS: AA 5%/D20W/ELECTROLYTES-TPN 2,000 ML, Lipids 20% 250 ML with MULTIVITAMINS INJ 10 ML IV SCH ×3 (12:41)
[2017-08-22] MEDS ORDERED: DEXAMETHASONE 4 MG/ML VIAL IV ONE (13:02)
--- NOTE | 2017-08-22 13:08 | P.PN ---
Subjective Date of Service: 08/22/17 Chief Complaint: s/p Exploratory lapatoromy and right hemicolectomy for obstructive mass Subjective: No new changes (ATE A BITE TODAY. NOW HAS BACK PAIN R SIDE AFTER WALKING) Review of Systems 10-point ROS is otherwise unremarkable Neurological: As per HPI Physical Examination - Vital Signs Temperature: 98.4 F Blood Pressure: 119/84 Pulse: 95 Respirations: 18 Pulse Ox (%): 100 - Physical Exam General: Alert, Moderate distress (BACK) HEENT: Atraumatic, PERRLA, EOMI Neck: Supple, JVD not distended Respiratory: Clear to auscultation bilaterally, Normal air movement Cardiovascular: Regular rate/rhythm, Normal S1 S2 Gastrointestinal: Normal bowel sounds, No tenderness Musculoskeletal: Tenderness (RIGHT SIDE LAT LOWER BACK) Integumentary: No rashes Neurological: Normal speech, Normal tone, Normal affect Lymphatics: No axilla or inguinal lymphadenopathy - Studies Laboratory Data (last 24 hrs) 08/22/17 05:10: Sodium 135, Potassium 4.2, BUN 15, Creatinine 0.96, Glucose 150 H, Magnesium 2.0 08/22/17 05:10: WBC 8.7, Hgb 9.6 L, Hct 28.9 L, Plt Count 273 Medications List Reviewed: Yes Assessment And Plan - Current Problems (Diagnosis) (1) Colon cancer Current Visit: Yes Status: Acute Plan: SURGERY TO BE DONE TODAY BY THE TIME OF THIS NOTE- DR. FISH CALLED AND HE HAS COMPLETED SURGERY. SP PARTIAL COLECTOMY STABLE FOR FLOOR. SP SURGERY DOING WELL DAY 2 NO ISSUES ADVISED AMBULATION. ILEUS POST OP FEW DAYS WILL TAKE TO RECOVER. SP SURGERY PENDING PATH ONCOLOGY CONSULT OUT PATIENT. 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 MOD DIFF. NOT EATIN GYET HE HAD SEVERE GASTRO PARESIS FROM BOWEL OBST. PER DR. FISH. (2) Bowel obstruction Onset Date: 08/18/17 Current Visit: Yes Status: Acute Plan: MR Ashley GOODSON HAS TR COLON CANCER ABOUT [address] SCAN. THIS WAS DOES HE CAME TO OFFICE WITH ABDOMEN PAIN. HE NEVER WANTED TO DO COLONOSCOPY. HE IS NOT SURE WHY HE NEEDS SURGERY . I EXPLAINED TO HIM AND TODAY HIS UNDERSTANDING LEVEL IS POOR. (3) Uncontrolled hypertension Current Visit: Yes Status: Chronic Plan: HE IS ON HIGH DOSE OF MEDS TO CONTROL BP I HAVE ADDED HYDRLAZINE IV AND CLONIDINE PATCH UNTIL HE IS ABLE TO TAKE PO AGAIN. STABLE ON IV MEDS. CHANGED TO ORAL MEDS. (4) Preoperative clearance Current Visit: Yes Status: Acute Plan: MEDICALLY CLEARED WITH MILD TO MOD RISK WRITTEN IN ORDER.S Orders (last 24 hrs) 08/12/17 22:55 Cardiac Monitoring (telemetry) CONT 08/13/17 06:07 SBAR Routine 08/13/17 12:12 Nursing Orders Routine 08/13/17 20:51 Hydralazine [Apresoline] 25 mg IV Q6HP PRN 08/13/17 21:15 Clonidine Patch [Catapres-Tts 2] 0.2 mg TD EVERY 7TH DAY 08/14/17 05:00 Basic Metabolic Panel DAILY CBC with Automated Diff DAILY Magnesium DAILY 08/15/17 05:00 Basic Metabolic Panel DAILY CBC with Automated Diff DAILY Magnesium DAILY 08/16/17 05:00 Basic Metabolic Panel DAILY CBC with Automated Diff DAILY Magnesium DAILY 08/17/17 05:00 Basic Metabolic Panel DAILY CBC with Automated Diff DAILY Magnesium DAILY 08/18/17 05:00 Basic Metabolic Panel DAILY CBC with Automated Diff DAILY Magnesium DAILY 08/19/17 05:00 Basic Metabolic Panel DAILY CBC with Automated Diff DAILY Magnesium DAILY 08/20/17 05:00 Basic Metabolic Panel DAILY CBC with Automated Diff DAILY Magnesium DAILY 08/21/17 05:00 Basic Metabolic Panel DAILY CBC with Automated Diff DAILY Magnesium DAILY 08/22/17 05:00 Basic Metabolic Panel DAILY CBC with Automated Diff DAILY Magnesium DAILY (5) Hypomagnesemia Current Visit: Yes Status: Acute Plan: STABLE FU REPLACE (6) Dehydration Current Visit: Yes Status: Acute (7) Hypokalemia Onset Date: 10/28/14 Current Visit: No Status: Acute (8) Urinary retention Current Visit: Yes Status: Acute Plan: BONILLA RESUME FLOMAX AND PROSCAR. FU WITH DR LIAO. (9) Gastroparesis Current Visit: Yes Status: Acute Plan: FROM OBSTRUCTION BARIUM TEST IN AM. CHECK STOOL FOR C DIFF. NOT ABLE TO EAT YEAT X RAY ABDOMEN NO GASTROGRAFFIN- DR. FISH STABLE BUT NOT RECOVERING YET
--- NOTE | 2017-08-22 14:26 | RAD REPORT ---
EXAM DESCRIPTION: RAD - Abdomen 1 View (KUB) - 08/22/2017 2:18 pm CLINICAL HISTORY: Abdominal distention COMPARISON: None. FINDINGS: Diffuse nonspecific distention of large and small bowel loops noted in a non-organized pat tern. This likely indicates diffuse adynamic ileus. Midline skin gardenia noted. IMPRESSION: Moderate diffuse adynamic ileus is suspected.
[2017-08-22] MEDS: ACETAMINOPHEN 325 MG TABLET PO PRN (14:55)
[2017-08-22] MEDS: CEPHALEXIN 500 MG CAP PO SCH ×2 (15:09→20:59)
--- NOTE | 2017-08-22 19:02 | PN ---
Subjective: The patient is going to have an x-ray done today, status post exploratory laparotomy, an d right hemicolectomy for colon cancer, stage 4. Objective: Vital Signs: 98.4, 95, 18, 119/84, and sats are 100%. I's and O's, total intake 1180, o utput 1450, negative 270. Assessment: Urinary retention, status post benign prostatic hyperplasia. The patient is on Flomax a nd Proscar. We will wait until the patient is ambulating, doing well to remove his catheter. He is still not ambulating that well. He had some abdominal pain and is going to get an x-ray performed no w. Continue management. ALYSIA/QIANA Voice ID: [id number] Report ID: [id number]
[2017-08-22] MEDS: TAMSULOSIN 0.4 MG SR CAP PO SCH (20:59)
[2017-08-22] MEDS: cloNIDine HCl 0.1 MG TAB PO SCH (20:59)
[2017-08-22] MEDS: ENOXAPARIN 40 MG/0.4 ML SQ SCH (21:00)
[2017-08-23] MEDS: INSULIN -REGULAR HUMAN 50 UNIT/0.5 ML ML SQ SCH ×4 (05:21→18:00)
[2017-08-23] MEDS: ACETAMINOPHEN 325 MG TABLET PO PRN ×2 (09:34→20:37)
[2017-08-23] MEDS: cloNIDine HCl 0.1 MG TAB PO SCH ×2 (09:34→20:37)
[2017-08-23] MEDS: METOPROLOL XL 25 MG TAB PO SCH (09:34)
[2017-08-23] MEDS: CLONIDINE 0.2 MG/PATCH TD SCH (09:35)
[2017-08-23] MEDS: CEPHALEXIN 500 MG CAP PO SCH ×2 (09:35→20:37)
[2017-08-23] MEDS: FINASTERIDE 5 MG TAB PO SCH (09:35)
[2017-08-23] MEDS: AA 5%/D20W/ELECTROLYTES-TPN 2,000 ML, Lipids 20% 250 ML with MULTIVITAMINS INJ 10 ML IV SCH ×3 (11:42)
--- NOTE | 2017-08-23 12:29 | P.PN ---
Subjective Date of Service: 08/23/17 Chief Complaint: s/p Exploratory lapatoromy and right hemicolectomy for obstructive mass Subjective: Improving (somewhat. Eats a little more. Scrotum swelling.) Review of Systems 10-point ROS is otherwise unremarkable General: Weakness, Malaise Gastrointestinal: Distention (mild) Physical Examination - Vital Signs Temperature: 98.8 F Blood Pressure: 150/96 Pulse: 89 Respirations: 18 Pulse Ox (%): 99 - Physical Exam General: Alert, Mild distress HEENT: Atraumatic, PERRLA, EOMI Neck: Supple, JVD not distended Respiratory: Clear to auscultation bilaterally, Normal air movement Cardiovascular: Regular rate/rhythm, Normal S1 S2 Gastrointestinal: Hypoactive Musculoskeletal: No tenderness Integumentary: No rashes Neurological: Normal speech, Normal tone, Normal affect Lymphatics: No axilla or inguinal lymphadenopathy - Studies Medications List Reviewed: Yes Assessment And Plan - Current Problems (Diagnosis) (1) Colon cancer Current Visit: Yes Status: Acute Plan: SURGERY TO BE DONE TODAY BY THE TIME OF THIS NOTE- DR. FISH CALLED AND HE HAS COMPLETED SURGERY. SP PARTIAL COLECTOMY STABLE FOR FLOOR. SP SURGERY DOING WELL DAY 2 NO ISSUES ADVISED AMBULATION. ILEUS POST OP FEW DAYS WILL TAKE TO RECOVER. SP SURGERY PENDING PATH ONCOLOGY CONSULT OUT PATIENT. 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 MOD DIFF. NOT EATIN GYET HE HAD SEVERE GASTRO PARESIS FROM BOWEL OBST. PER DR. FISH. (2) Bowel obstruction Onset Date: 08/18/17 Current Visit: Yes Status: Acute Plan: MR Ashley GOODSON HAS TR COLON CANCER ABOUT [address] SCAN. THIS WAS DOES HE CAME TO OFFICE WITH ABDOMEN PAIN. HE NEVER WANTED TO DO COLONOSCOPY. HE IS NOT SURE WHY HE NEEDS SURGERY . I EXPLAINED TO HIM AND TODAY HIS UNDERSTANDING LEVEL IS POOR. (3) Uncontrolled hypertension Current Visit: Yes Status: Chronic Plan: HE IS ON HIGH DOSE OF MEDS TO CONTROL BP I HAVE ADDED HYDRLAZINE IV AND CLONIDINE PATCH UNTIL HE IS ABLE TO TAKE PO AGAIN. STABLE ON IV MEDS. CHANGED TO ORAL MEDS. (4) Preoperative clearance Current Visit: Yes Status: Acute Plan: MEDICALLY CLEARED WITH MILD TO MOD RISK WRITTEN IN ORDER.S Orders (last 24 hrs) 08/12/17 22:55 Cardiac Monitoring (telemetry) CONT 08/13/17 06:07 SBAR Routine 08/13/17 12:12 Nursing Orders Routine 08/13/17 20:51 Hydralazine [Apresoline] 25 mg IV Q6HP PRN 08/13/17 21:15 Clonidine Patch [Catapres-Tts 2] 0.2 mg TD EVERY 7TH DAY 08/14/17 05:00 Basic Metabolic Panel DAILY CBC with Automated Diff DAILY Magnesium DAILY 08/15/17 05:00 Basic Metabolic Panel DAILY CBC with Automated Diff DAILY Magnesium DAILY 08/16/17 05:00 Basic Metabolic Panel DAILY CBC with Automated Diff DAILY Magnesium DAILY 08/17/17 05:00 Basic Metabolic Panel DAILY CBC with Automated Diff DAILY Magnesium DAILY 08/18/17 05:00 Basic Metabolic Panel DAILY CBC with Automated Diff DAILY Magnesium DAILY 08/19/17 05:00 Basic Metabolic Panel DAILY CBC with Automated Diff DAILY Magnesium DAILY 08/20/17 05:00 Basic Metabolic Panel DAILY CBC with Automated Diff DAILY Magnesium DAILY 08/21/17 05:00 Basic Metabolic Panel DAILY CBC with Automated Diff DAILY Magnesium DAILY 08/22/17 05:00 Basic Metabolic Panel DAILY CBC with Automated Diff DAILY Magnesium DAILY (5) Hypomagnesemia Current Visit: Yes Status: Acute Plan: STABLE FU REPLACE (6) Dehydration Current Visit: Yes Status: Acute (7) Hypokalemia Onset Date: 10/28/14 Current Visit: No Status: Acute (8) Urinary retention Current Visit: Yes Status: Acute Plan: BONILLA RESUME FLOMAX AND PROSCAR. FU WITH DR LIAO. (9) Gastroparesis Current Visit: Yes Status: Acute Plan: FROM OBSTRUCTION BARIUM TEST IN AM. CHECK STOOL FOR C DIFF. NOT ABLE TO EAT YEAT X RAY ABDOMEN NO GASTROGRAFFIN- DR. FISH STABLE BUT NOT RECOVERING YET GRADUAL IMPROVEMENT NOT READY YET. C DIFF PENDING. (10) Adynamic ileus Current Visit: Yes Status: Acute Plan: POST OP NOTABLE TO EAT YET DIARRHEA POS BUT UPPER PART ILEUS CONTINUES.
--- NOTE | 2017-08-23 14:18 | PN ---
Subjective: The patient is doing okay. Objective: KUB shows ileus, still feels like does not want to eat. Assessment: Urinary retention, ileus, stage IV colon cancer. Plan: Ambulation. ALYSIA/QIANA Voice ID: [id number] Report ID: [id number] [id number]
[2017-08-23] MEDS: ENOXAPARIN 40 MG/0.4 ML SQ SCH (16:14)
[2017-08-23] MEDS: TAMSULOSIN 0.4 MG SR CAP PO SCH (20:38)
[2017-08-23 22:53] LABS: Hematocrit 32.6 % (39.6-49.0)
[2017-08-24] MEDS: INSULIN -REGULAR HUMAN 50 UNIT/0.5 ML ML SQ SCH ×4 (06:00→18:00)
[2017-08-24 06:06] LABS: Phosphorus 4.6 mg/dL (2.5-4.3); Prealbumin 25.9 mg/dl (18-38)
[2017-08-24] MEDS: FINASTERIDE 5 MG TAB PO SCH (09:49)
[2017-08-24] MEDS: METOPROLOL XL 25 MG TAB PO SCH (09:49)
[2017-08-24] MEDS: CEPHALEXIN 500 MG CAP PO SCH ×2 (09:49→21:00)
[2017-08-24] MEDS: cloNIDine HCl 0.1 MG TAB PO SCH ×2 (09:50→21:00)
--- NOTE | 2017-08-24 11:19 | P.PN ---
Subjective Date of Service: 08/24/17 Chief Complaint: ILEUS FU, COLON CANCER, SYNCOPE YESTERDAY Subjective: No new changes (HE HAS NO CHEST PAIN, NAUSEA, PALPITATIONS.) HE YESTERDAY HAD SYNCOPE EPISODE WHILE SITTING ON COMMODE. Review of Systems 10-point ROS is otherwise unremarkable General: Weakness, Malaise Physical Examination - Vital Signs Temperature: 98.8 F Blood Pressure: 140/89 Pulse: 99 Respirations: 17 Pulse Ox (%): 98 - Physical Exam General: Alert, In no apparent distress HEENT: Atraumatic, PERRLA, EOMI Neck: Supple, JVD not distended Respiratory: Clear to auscultation bilaterally, Normal air movement Cardiovascular: Regular rate/rhythm, Normal S1 S2 Gastrointestinal: Hypoactive (SOFTER.) Musculoskeletal: No tenderness Integumentary: No rashes Neurological: Normal speech, Normal tone, Normal affect Lymphatics: No axilla or inguinal lymphadenopathy - Studies Laboratory Data (last 24 hrs) 08/24/17 05:15: Phosphorus 4.6 H, Triglycerides 103 08/23/17 22:43: Hgb 10.7 L, Hct 32.6 L Microbiology Data (last 24 hrs): 08/22/17 11:40 Stool Clostridium difficile Toxin Assay - Final Medications List Reviewed: Yes Assessment And Plan - Current Problems (Diagnosis) (1) Colon cancer Current Visit: Yes Status: Acute Plan: SURGERY TO BE DONE TODAY BY THE TIME OF THIS NOTE- DR. FISH CALLED AND HE HAS COMPLETED SURGERY. SP PARTIAL COLECTOMY STABLE FOR FLOOR. SP SURGERY DOING WELL DAY 2 NO ISSUES ADVISED AMBULATION. ILEUS POST OP FEW DAYS WILL TAKE TO RECOVER. SP SURGERY PENDING PATH ONCOLOGY CONSULT OUT PATIENT. 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 MOD DIFF. NOT EATIN GYET HE HAD SEVERE GASTRO PARESIS FROM BOWEL OBST. PER DR. FISH. (2) Bowel obstruction Onset Date: 08/18/17 Current Visit: Yes Status: Acute Plan: MR Ashley GOODSON HAS TR COLON CANCER ABOUT [address] SCAN. THIS WAS DOES HE CAME TO OFFICE WITH ABDOMEN PAIN. HE NEVER WANTED TO DO COLONOSCOPY. HE IS NOT SURE WHY HE NEEDS SURGERY . I EXPLAINED TO HIM AND TODAY HIS UNDERSTANDING LEVEL IS POOR. (3) Uncontrolled hypertension Current Visit: Yes Status: Chronic Plan: HE IS ON HIGH DOSE OF MEDS TO CONTROL BP I HAVE ADDED HYDRLAZINE IV AND CLONIDINE PATCH UNTIL HE IS ABLE TO TAKE PO AGAIN. STABLE ON IV MEDS. CHANGED TO ORAL MEDS. (4) Preoperative clearance Current Visit: Yes Status: Acute Plan: MEDICALLY CLEARED WITH MILD TO MOD RISK WRITTEN IN ORDER.S Orders (last 24 hrs) 08/12/17 22:55 Cardiac Monitoring (telemetry) CONT 08/13/17 06:07 SBAR Routine 08/13/17 12:12 Nursing Orders Routine 08/13/17 20:51 Hydralazine [Apresoline] 25 mg IV Q6HP PRN 08/13/17 21:15 Clonidine Patch [Catapres-Tts 2] 0.2 mg TD EVERY 7TH DAY 08/14/17 05:00 Basic Metabolic Panel DAILY CBC with Automated Diff DAILY Magnesium DAILY 08/15/17 05:00 Basic Metabolic Panel DAILY CBC with Automated Diff DAILY Magnesium DAILY 08/16/17 05:00 Basic Metabolic Panel DAILY CBC with Automated Diff DAILY Magnesium DAILY 08/17/17 05:00 Basic Metabolic Panel DAILY CBC with Automated Diff DAILY Magnesium DAILY 08/18/17 05:00 Basic Metabolic Panel DAILY CBC with Automated Diff DAILY Magnesium DAILY 08/19/17 05:00 Basic Metabolic Panel DAILY CBC with Automated Diff DAILY Magnesium DAILY 08/20/17 05:00 Basic Metabolic Panel DAILY CBC with Automated Diff DAILY Magnesium DAILY 08/21/17 05:00 Basic Metabolic Panel DAILY CBC with Automated Diff DAILY Magnesium DAILY 08/22/17 05:00 Basic Metabolic Panel DAILY CBC with Automated Diff DAILY Magnesium DAILY (5) Hypomagnesemia Current Visit: Yes Status: Acute Plan: STABLE FU REPLACE (6) Dehydration Current Visit: Yes Status: Acute (7) Hypokalemia Onset Date: 10/28/14 Current Visit: No Status: Acute (8) Urinary retention Current Visit: Yes Status: Acute Plan: BONILLA RESUME FLOMAX AND PROSCAR. FU WITH DR LIAO. (9) Gastroparesis Current Visit: Yes Status: Acute Plan: FROM OBSTRUCTION BARIUM TEST IN AM. CHECK STOOL FOR C DIFF. NOT ABLE TO EAT YEAT X RAY ABDOMEN NO GASTROGRAFFIN- DR. FISH STABLE BUT NOT RECOVERING YET GRADUAL IMPROVEMENT NOT READY YET. C DIFF PENDING. (10) Adynamic ileus Current Visit: Yes Status: Acute Plan: POST OP NOTABLE TO EAT YET DIARRHEA POS BUT UPPER PART ILEUS CONTINUES. ABDOMEN IS A LOT SOFTER STILL VERY FEW BS C DIF NEGATIVE RESUME TPN UNTIL ABLE TO EAT (11) Syncope Current Visit: Yes Status: Acute Plan: MOST LIKELY FROM FLOMAX THAT IS NEW FOR HIM. STOP FLOMAX WATCH TELEMETRY I SEE NO SIGNS OF ARRHTYMIA OR CORONARY EVENT.
[2017-08-24] MEDS: METOPROLOL XL 50 MG TAB PO SCH (12:00)
[2017-08-24] MEDS: AA 5%/D20W/ELECTROLYTES-TPN 2,000 ML, Lipids 20% 250 ML with MULTIVITAMINS INJ 10 ML IV SCH ×3 (12:00)
--- NOTE | 2017-08-24 14:13 | PN ---
Subjective: The patient is ambulating more yesterday and is trying to ambulate more today. Objective: Vital Signs: Temperature 98.6, pulse 99, BP 140/89, saturation 98%. I's and O's 1459 in and 1700 out, and his Quintana catheter is draining clear urine. General: He has come down a little bit with some testicular irritation, possible from the Quintana cath eter going to the prostate. Assessment: Small-bowel ileus, status post right hemicolectomy. Plan: To remove his catheter in the morning and see if he can void. ALYSIA/MODL Voice ID: [id number] Report ID: [id number]
[2017-08-24] MEDS: ENOXAPARIN 40 MG/0.4 ML SQ SCH (17:39)
[2017-08-25 05:16] LABS: Absolute Lymphocytes (CBC) 0.8 K/uL (0.7-4.9); Absolute Monocytes 0.8 K/uL (0.1-1.3); Absolute Neutrophil 3.8 K/uL (1.8-8.0); Basophils % 0.3 % (0-1.3); Eosinophils % 0.6 % (0-4.4); Hematocrit 31.1 % (39.6-49.0); Lymphocytes % 14.8 % (15.3-44.8); MCV 82.5 fL (80-100); MPV 8.2 fL (7.6-11.3); Monocytes % 15.2 % (3.3-12.3); RBC Red Blood Cell Count 3.77 M/uL (4.33-5.43)
[2017-08-25] MEDS: INSULIN -REGULAR HUMAN 50 UNIT/0.5 ML ML SQ SCH ×4 (05:18→18:00)
[2017-08-25 05:33] LABS: BUN Blood Urea Nitrogen 17 mg/dL (6-20); Bicarbonate 25 mEq/L (21-31); Glucose Level 136 mg/dL (65-120); Potassium 4.3 mEq/L (3.6-5.0); Sodium Level 133 mEq/L (135-145)
[2017-08-25 06:56] LABS: Blood Morphology Comment NOT SEEN (NOT SEEN); Platelet Estimate ADEQ
[2017-08-25] MEDS: CEPHALEXIN 500 MG CAP PO SCH ×2 (08:23→21:07)
[2017-08-25] MEDS: METOPROLOL XL 50 MG TAB PO SCH (08:23)
[2017-08-25] MEDS: FINASTERIDE 5 MG TAB PO SCH (08:23)
[2017-08-25] MEDS: cloNIDine HCl 0.1 MG TAB PO SCH ×2 (08:23→21:07)
[2017-08-25] MEDS: ACETAMINOPHEN 325 MG TABLET PO PRN (09:23)
--- NOTE | 2017-08-25 12:12 | EKG ---
Test Date: 2017-08-23 Test Time: 22:36:27 Management Technician: RT MEASUREMENT RESULTS: Intervals: Rate: 84 AK: 128 QRSD: 74 QT: 374 QTc: 441 [place]: P: 45 AK: 128 QRS: -2 T: 32 INTERPRETIVE STATEMENTS: Normal sinus rhythm Normal ECG Compared to ECG 08/12/2017 16:58:53 No significant changes Electronically Signed On 08-25-17 12:11:29 CDT by Zaheer Madrid
--- NOTE | 2017-08-25 12:12 | EKG ---
Test Date: 2017-08-24 Test Time: 13:06:13 Sales Coordinator: CHANTE MEASUREMENT RESULTS: Intervals: Rate: 80 [place]: 132 QRSD: 72 QT: 366 QTc: 422 [place]: P: 35 [place]: 132 QRS: -19 T: 13 INTERPRETIVE STATEMENTS: Normal sinus rhythm Possible Lateral infarct, age undetermined Abnormal ECG Compared to ECG 08/23/2017 22:36:27 Myocardial infarct finding now present Electronically Signed On 08-25-17 12:11:26 CDT by Zaheer Madrid
--- NOTE | 2017-08-25 12:30 | P.PN ---
Subjective Date of Service: 08/25/17 Chief Complaint: ILEUS FU, COLON CANCER, SYNCOPE YESTERDAY Subjective: Improving Review of Systems General: Malaise Respiratory: Shortness of Breath (no) Gastrointestinal: No Distention, Melena (no), Hematochezia (no), Other (+ flatus , BM) Physical Examination - Vital Signs Temperature: 99.4 F Blood Pressure: 143/87 Pulse: 84 Respirations: 18 Pulse Ox (%): 99 - Physical Exam HEENT: PERRLA Neck: Supple Gastrointestinal: Hypoactive, Soft and benign, Other (midline intact) Musculoskeletal: No swelling, No erythema, No tenderness, No warmth Integumentary: No rashes, No breakdown - Studies Laboratory Data (last 24 hrs) 08/25/17 04:34: Sodium 133 L, Potassium 4.3, BUN 17, Creatinine 0.88, Glucose 136 H, Magnesium 2.0 08/25/17 04:34: WBC 5.6 D, Hgb 10.2 L, Hct 31.1 L, Plt Count 312 08/24/17 19:59: Troponin I < 0.03 08/24/17 13:00: Troponin I < 0.03 Medications List Reviewed: Yes Assessment And Plan - Plan hx of preoperative gastroparesis and prolongued ileus in part trigger by long standing bowel obstruction . We expect slow recovery with diet advances slowly and rehabilitation, recondition oob advance diet Rehab believe he need LTAC consider LTAC (rehab, nutrition)
[2017-08-25] MEDS: AA 5%/D20W/ELECTROLYTES-TPN 2,000 ML, Lipids 20% 250 ML with MULTIVITAMINS INJ 10 ML IV SCH ×3 (13:39)
--- NOTE | 2017-08-25 13:52 | RAD REPORT ---
EXAM DESCRIPTION: MRI - Brain Wo Cont - 08/25/2017 1:08 pm CLINICAL HISTORY: Left-sided headache, dizziness, altered mental status COMPARISON: MRI 2011 TECHNIQUE: Sagittal T1-weighted images were obtained along with axial PD, heavily T2-weighted and T2 -FLAIR images. Axial DWI and ADC mapping sequences were also obtained along with coronal heavily T2-w eighted images. FINDINGS: No intracranial hemorrhage, mass or acute infarction. There is no edema or shift of midlin e structures. No extra-axial fluid collections. Garcia-matter/white matter junction is preserved. Signa l voids are seen as a normal finding in the major intracranial vessels. No significant atrophy change s are present. There is minimal T2 signal abnormality in the bilateral frontal lobe white matter. In a patient this age this is most likely chronic ischemic change. Ventricles are normal. No globe or orbital content abnormality. No tonsillar ectopia present. Sella and suprasellar regions show no suspicious findings. Mastoid air cells and paranasal sinuses are clear. IMPRESSION: Minimal chronic ischemic changes are present in the frontal lobe white matter. No acute intracranial findings noted.
--- NOTE | 2017-08-25 16:16 | CON ---
History Of Present Illness: Mr. Madrid is a 62-year-old man. I am asked to evaluate him for possibl e syncope. Mr. Madrid has been in our hospital for several days at least. He was found to have colo n cancer. His transverse colon has been resected. He has been lethargic since the surgery. He is o n a lot of medications which might contribute to lethargy. He was having a bowel movement on August 10 at about 10:30 in the evening he was on telemetry. We do not have telemetry strips from the exac t moment. We do have telemetry strips from being in the hospital for more than 5 days. He has had n o pauses. The technicians at that time stated in the chart that he apparently had a vagal reaction. I did not note any pauses or ventricular tachycardia or atrial fibrillation according to written rep orts, but we do not have telemetry strips from right at the moment. He woke up within a few minutes of being laid down in bed. Mr. Madrid has a 4.6 cm ascending aortic diameter. It is a small aneurys m that would not normally be the size that would recommend correcting. His most recent CAT scan of t he chest was done on November 04, 2016, and the aneurysm was said to be 4.5 cm unchanging over about a 4 year period of time. Since he has been on telemetry, he has had a few nonsustained runs of ventricul ar tachycardia, brief episodes of some kind of SVT which most likely is atrial fibrillation. He has not seen us for any of those reasons. His EKG on August 12 revealed normal sinus rhythm low voltage. He has never had coronary heart disease, bypass surgery, stents, myocardial infarction, other vascu lar disease. He uses no tobacco. Rare alcohol. No illegal drugs. He has hypertension and now he h as colon cancer that is metastatic without liver mets. I think it has a more complex staging, but I have not actually seen the staging numbers. Outpatient medications are clonidine, Proscar, metoprolo l, amiloride, and nifedipine. He has mild anemia, most recent hemoglobin 10.2, not really different from hemoglobin on August 23 around the time of his syncope. His creatinine is 0.88. Blood sugars have been running from 120-150. I think the highest 1 we seen is 161. Medications since being in [facility] are Zofran, metoprolol, insulin, hydralazine, glucagon, Proscar, Lovenox, Benadryl, D5W, c lonidine, cephalexin, and acetaminophen. Impression: The patient's cause of syncope most likely was vasovagal. We have recorded impressions of the people who were there at the time. We cannot go back and look at those strips and they were n ot recorded from the exact time that he had syncope, but before and after by about [address], I do not think it is anything more serious than that, keeping him on a beta-silvestre has a good chance of helping to prevent vasovagal syncope. His clonidine could be contributing to his lethargy. Like caroline, the Zofran and neurological consult might be in order to see if he has had a stroke associated with his episode. At this point, I am not really able to assess his condition for ruling out or ruli ng in a stroke. TAE/QIANA Voice ID: [id number] Report ID: [id number]
[2017-08-25] MEDS: ENOXAPARIN 40 MG/0.4 ML SQ SCH (16:44)
[2017-08-25] MEDS: METOCLOPRAMIDE 5 MG TAB PO SCH ×2 (16:44→21:07)
--- NOTE | 2017-08-25 18:01 | PN ---
Subjective: The patient went for MRI today for change in mental status, neurological changes. Objective: Quintana catheter came out this morning, voided 2 or 3 times so far, 200 cc each. We are go ing to be checking a postvoid residual today, which was emptying well. Plan: Plan is to continue Flomax, continue Proscar, and continue medical treatment and check a postv oid residual. ALYSIA/QIANA Voice ID: [id number] Report ID: [id number]
--- NOTE | 2017-08-25 21:17 | P.PN ---
Subjective Date of Service: 08/25/17 Chief Complaint: ILEUS FU, COLON CANCER, SYNCOPE YESTERDAY HE YESTERDAY HAD SYNCOPE EPISODE WHILE SITTING ON COMMODE. HE GETS GROGGY AFTER FOOD AND HAD ONE EPISODE OF SYNCOPE. Review of Systems 10-point ROS is otherwise unremarkable General: Weakness, Malaise Gastrointestinal: As per HPI Physical Examination - Vital Signs Temperature: 99 F Blood Pressure: 151/94 Pulse: 88 Respirations: 18 Pulse Ox (%): 100 - Physical Exam General: Alert, Mild distress HEENT: Atraumatic, PERRLA, EOMI Neck: Supple, JVD not distended Respiratory: Clear to auscultation bilaterally, Normal air movement Cardiovascular: Regular rate/rhythm, Normal S1 S2 Gastrointestinal: Hypoactive Musculoskeletal: No tenderness Integumentary: No rashes Neurological: Normal speech, Normal tone, Normal affect Lymphatics: No axilla or inguinal lymphadenopathy - Studies Laboratory Data (last 24 hrs) 08/25/17 04:34: Sodium 133 L, Potassium 4.3, BUN 17, Creatinine 0.88, Glucose 136 H, Magnesium 2.0 08/25/17 04:34: WBC 5.6 D, Hgb 10.2 L, Hct 31.1 L, Plt Count 312 Medications List Reviewed: Yes Assessment And Plan - Current Problems (Diagnosis) (1) Colon cancer Current Visit: Yes Status: Acute Plan: SURGERY TO BE DONE TODAY BY THE TIME OF THIS NOTE- DR. FISH CALLED AND HE HAS COMPLETED SURGERY. SP PARTIAL COLECTOMY STABLE FOR FLOOR. SP SURGERY DOING WELL DAY 2 NO ISSUES ADVISED AMBULATION. ILEUS POST OP FEW DAYS WILL TAKE TO RECOVER. SP SURGERY PENDING PATH ONCOLOGY CONSULT OUT PATIENT. 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 MOD DIFF. NOT EATIN GYET HE HAD SEVERE GASTRO PARESIS FROM BOWEL OBST. PER DR. FISH. (2) Bowel obstruction Onset Date: 08/18/17 Current Visit: Yes Status: Acute Plan: MR Ashley GOODSON HAS TR COLON CANCER ABOUT [address] SCAN. THIS WAS DOES HE CAME TO OFFICE WITH ABDOMEN PAIN. HE NEVER WANTED TO DO COLONOSCOPY. HE IS NOT SURE WHY HE NEEDS SURGERY . I EXPLAINED TO HIM AND TODAY HIS UNDERSTANDING LEVEL IS POOR. (3) Uncontrolled hypertension Current Visit: Yes Status: Chronic Plan: HE IS ON HIGH DOSE OF MEDS TO CONTROL BP I HAVE ADDED HYDRLAZINE IV AND CLONIDINE PATCH UNTIL HE IS ABLE TO TAKE PO AGAIN. STABLE ON IV MEDS. CHANGED TO ORAL MEDS. (4) Preoperative clearance Current Visit: Yes Status: Acute Plan: MEDICALLY CLEARED WITH MILD TO MOD RISK WRITTEN IN ORDER.S Orders (last 24 hrs) 08/12/17 22:55 Cardiac Monitoring (telemetry) CONT 08/13/17 06:07 SBAR Routine 08/13/17 12:12 Nursing Orders Routine 08/13/17 20:51 Hydralazine [Apresoline] 25 mg IV Q6HP PRN 08/13/17 21:15 Clonidine Patch [Catapres-Tts 2] 0.2 mg TD EVERY 7TH DAY 08/14/17 05:00 Basic Metabolic Panel DAILY CBC with Automated Diff DAILY Magnesium DAILY 08/15/17 05:00 Basic Metabolic Panel DAILY CBC with Automated Diff DAILY Magnesium DAILY 08/16/17 05:00 Basic Metabolic Panel DAILY CBC with Automated Diff DAILY Magnesium DAILY 08/17/17 05:00 Basic Metabolic Panel DAILY CBC with Automated Diff DAILY Magnesium DAILY 08/18/17 05:00 Basic Metabolic Panel DAILY CBC with Automated Diff DAILY Magnesium DAILY 08/19/17 05:00 Basic Metabolic Panel DAILY CBC with Automated Diff DAILY Magnesium DAILY 08/20/17 05:00 Basic Metabolic Panel DAILY CBC with Automated Diff DAILY Magnesium DAILY 08/21/17 05:00 Basic Metabolic Panel DAILY CBC with Automated Diff DAILY Magnesium DAILY 08/22/17 05:00 Basic Metabolic Panel DAILY CBC with Automated Diff DAILY Magnesium DAILY (5) Hypomagnesemia Current Visit: Yes Status: Acute Plan: STABLE FU REPLACE (6) Dehydration Current Visit: Yes Status: Acute (7) Hypokalemia Onset Date: 10/28/14 Current Visit: No Status: Acute (8) Urinary retention Current Visit: Yes Status: Acute Plan: BONILLA RESUME FLOMAX AND PROSCAR. FU WITH DR LIAO. (9) Gastroparesis Current Visit: Yes Status: Acute Plan: FROM OBSTRUCTION BARIUM TEST IN AM. CHECK STOOL FOR C DIFF. NOT ABLE TO EAT YEAT X RAY ABDOMEN NO GASTROGRAFFIN- DR. FISH STABLE BUT NOT RECOVERING YET GRADUAL IMPROVEMENT NOT READY YET. C DIFF PENDING. (10) Adynamic ileus Current Visit: Yes Status: Acute Plan: POST OP NOTABLE TO EAT YET DIARRHEA POS BUT UPPER PART ILEUS CONTINUES. ABDOMEN IS A LOT SOFTER STILL VERY FEW BS C DIF NEGATIVE RESUME TPN UNTIL ABLE TO EAT (11) Syncope Current Visit: Yes Status: Acute Plan: MOST LIKELY FROM FLOMAX THAT IS NEW FOR HIM. STOP FLOMAX WATCH TELEMETRY I SEE NO SIGNS OF ARRHTYMIA OR CORONARY EVENT. VASOVAGAL LIKELY BUT TODAY HE HAD NO BRADYCARDIA OR LOW BP WHEN I VISITED HIM AND HE DID NOT PASS OUT BUT HE HAD PRESYCOPE EPISODE.
--- NOTE | 2017-08-26 00:49 | CON ---
Reason For Consultation: Consultation called by Dr. Salomon because of syncopal type episodes to rule out a neurological cause. History Of Present Illness: Mr. Madrid is a 62-year-old patient who is admitted with bowel obstructi on and colon cancer. The patient reportedly has history of orthostatic type related syncopal episode s, in particular in relationship to taking alpha blockers for prostate related problems. The patient said his symptoms of near-syncope and syncope only occur on changing position from sitting to standi ng or while ambulating. He denies any history of syncopal episodes or near-syncope while lying flat. A review of his blood pressures during hospitalization do indicate a few readings with systolic in the high 90s and low 100s. The patient says that his symptoms do resolve on lying back. He did have a brain MRI done, which showed minimal small-vessel ischemic disease and was otherwise un remarkable. Past Medical History: Hypertension, atrial fibrillation. Past Surgical History: Abdominal surgery. Allergies: NO KNOWN DRUG ALLERGIES. Medications: Keflex 500 mg twice daily, clonidine 0.2 mg patch every 7 today, Lovenox 40 mg subcutan eously daily, Proscar 5 mg daily, Apresoline 25 mg 6 hours as needed, Reglan 5 mg at night, Toprol 50 mg daily. Review of Systems: The patient does report some abdominal pain at surgical site. Otherwise, denies any myalgias, arthra lgias, headache, weight change, or rash. No psychiatric complaints. No gastrointestinal or genitour inary issues. Physical Examination: Vital Signs: Blood pressure currently 121/88, pulse 93, respiratory rate 18, temperature 99, oxygen saturation 100% on 2 L oxygen. General: Mr. Madrid is resting in bed. He is in no acute distress. HEENT: He is normocephalic, atraumatic. Sclerae anicteric. Oropharynx is moist and pink. Neck: Supple chest. Chest: Clear. Heart: Regular. Extremities: No cyanosis or edema in his extremities. Neurologic: Alert, oriented to situation, place, and person. Cranial nerves 2 through 12 intact by exam. Motor examination in the upper and lower extremities 5/5 proximally and distally. Sensory exa m intact in upper and lower extremities. Reflexes 1 to 2 +in upper and lower extremities. Coordinat ion intact. Gait with stance, stride, and arm swing. Laboratory Studies: White blood cell count 5.6, hemoglobin 10.2, hematocrit 31.1, platelets 312. Ch emistry; sodium 131, potassium 4.3, chloride 102, carbon dioxide 25. BUN 17, glucose ranged from 97- 140, calcium 8.5, magnesium 2.0. Assessment: Mr. Madrid is a 62-year-old patient with blood pressure medication and orthostasis relat ed to prostate hypertrophy medications. The patient has no evidence of focal neurologic deficits and no evidence of stroke on brain MRI. Plan: 1.We will do routine EEG in the morning. 2.No other neurological workup required at this point. 3.The patient should continue with management as per primary care, and if able to, should be on aspi rin 81 mg daily to reduce risk of stroke. May also, if his LDL is greater than 70, be on high-dose s tatin and may be on folate 1 mg daily for additional stroke risk reduction. NILES Voice ID: [id number] Report ID: [id number]
[2017-08-26 05:09] LABS: Absolute Lymphocytes (CBC) 1.1 K/uL (0.7-4.9); Absolute Neutrophil 4.3 K/uL (1.8-8.0); Basophils % 0.4 % (0-1.3); Eosinophils % 0.8 % (0-4.4); Hematocrit 32.6 % (39.6-49.0); Lymphocytes % 16.5 % (15.3-44.8); MCH 26.9 pg (27.0-35.0); MCV 82.5 fL (80-100); MPV 8.4 fL (7.6-11.3); Monocytes % 15.9 % (3.3-12.3); RBC Red Blood Cell Count 3.95 M/uL (4.33-5.43)
[2017-08-26 05:25] LABS: BUN Blood Urea Nitrogen 17 mg/dL (6-20); Bicarbonate 23 mEq/L (21-31); Glucose Level 125 mg/dL (65-120); Potassium 4.1 mEq/L (3.6-5.0); Sodium Level 132 mEq/L (135-145)
[2017-08-26] MEDS: INSULIN -REGULAR HUMAN 50 UNIT/0.5 ML ML SQ SCH ×4 (05:57→18:00)
[2017-08-26] MEDS: METOCLOPRAMIDE 5 MG TAB PO SCH ×4 (07:43→21:37)
[2017-08-26] MEDS: CEPHALEXIN 500 MG CAP PO SCH ×2 (08:56→21:37)
[2017-08-26] MEDS: FINASTERIDE 5 MG TAB PO SCH (08:56)
[2017-08-26] MEDS: METOPROLOL XL 50 MG TAB PO SCH (09:00)
[2017-08-26] MEDS: cloNIDine HCl 0.1 MG TAB PO SCH ×2 (09:00→21:38)
--- NOTE | 2017-08-26 11:30 | PN ---
Date of Progress Note: 08/26/2017 The patient was seen by Dr. Madrid yesterday for possible vasovagal syncope. It was suggested to get off the Zofran and consider weaning off clonidine. Urology consultation is pending. Overnight, he is in sinus rhythm. No syncope. No pauses. We will sign off his case. DOUG/QIANA Voice ID: [id number] Report ID: [id number]
[2017-08-26] MEDS: AA 5%/D20W/ELECTROLYTES-TPN 2,000 ML, Lipids 20% 250 ML with MULTIVITAMINS INJ 10 ML IV SCH ×3 (11:45)
--- NOTE | 2017-08-26 12:17 | P.PN ---
Subjective Date of Service: 08/26/17 Chief Complaint: colon cancer with complete obstruction Review of Systems General: Weakness Cardiovascular: As per HPI Gastrointestinal: As per HPI Musculoskeletal: Pedal edema (no) Integumentary: Unremarkable Neurological: Weakness Physical Examination - Vital Signs Temperature: 98.7 F Blood Pressure: 115/78 Pulse: 93 Respirations: 18 Pulse Ox (%): 100 - Physical Exam General: Alert, In no apparent distress, Oriented x3 HEENT: PERRLA, EOMI Gastrointestinal: Soft and benign, Other (intact midline incision) Musculoskeletal: No erythema, No tenderness, No warmth - Studies Laboratory Data (last 24 hrs) 08/26/17 04:25: Sodium 132 L, Potassium 4.1, BUN 17, Creatinine 0.92, Glucose 125 H 08/26/17 04:25: WBC 6.5 D, Hgb 10.7 L, Hct 32.6 L, Plt Count 361 Medications List Reviewed: Yes Assessment And Plan - Plan . We expect slow recovery with diet advances slowly and rehabilitation, recondition oob advance diet consider LTAC (rehab, nutrition) oob
--- NOTE | 2017-08-26 13:36 | PN ---
Subjective: The patient is feeling well. Objective: MR study was negative for any acute brain changes. Assessment: The thought was that the hypotensive episode was most likely due to Flomax, so Flomax lazo s been stopped. His post-voided residual volume is 380 cc, but he is still voiding well. I am not s ure what his baseline post-voided residual volume was, but I would not be surprised if it is somethin g like that, so I would have him continue just the finasteride alone, no alpha blockers, and most lik katiuska is going to need a TURP in the future. I will like him to get over his ileus and his right hemic olectomy recovery first. He is also going to need chemo, so possible no TURP until 6-12 months out. His PSA screen was 2.8, done in October 2016. ALYSIA/QIANA Voice ID: [id number] Report ID: [id number]
[2017-08-26] MEDS: ENOXAPARIN 40 MG/0.4 ML SQ SCH (16:34)
[2017-08-26 18:28] LABS: RBC Red Blood Cell Count 4.17 M/uL (4.33-5.43)
[2017-08-26 19:09] LABS: Bilirubin Direct 0.1 mg/dL (0-0.2); Bilirubin Total 0.4 mg/dL (0.3-1.2); C-Reactive Protein 5.7 mg/L (<10.0); Ferritin 46.1 ng/ml (23.9-336.2); Protein, Total 6.5 g/dL (6.0-8.3)
--- NOTE | 2017-08-26 21:29 | P.PN ---
Subjective Date of Service: 08/26/17 Chief Complaint: ILEUS, ANOREXIA, NEAR SYNCOPE Subjective: Improving HE YESTERDAY HAD SYNCOPE EPISODE WHILE SITTING ON COMMODE. HE GETS GROGGY AFTER FOOD AND HAD ONE EPISODE OF SYNCOPE. MR GOODSON LOKS LITTLE BETTER TODAY. HOPEFULLY HE WILL CONTINUE TO IMPROVE. Physical Examination - Vital Signs Temperature: 99 F Blood Pressure: 121/78 Pulse: 95 Respirations: 18 Pulse Ox (%): 100 - Studies Laboratory Data (last 24 hrs) 08/26/17 17:55: Total Bilirubin 0.4, AST 50 H, ALT 56, Alkaline Phosphatase 150 H 08/26/17 04:25: Sodium 132 L, Potassium 4.1, BUN 17, Creatinine 0.92, Glucose 125 H 08/26/17 04:25: WBC 6.5 D, Hgb 10.7 L, Hct 32.6 L, Plt Count 361 Medications List Reviewed: Yes Assessment And Plan - Current Problems (Diagnosis) (1) Colon cancer Current Visit: Yes Status: Acute Plan: SURGERY TO BE DONE TODAY BY THE TIME OF THIS NOTE- DR. FISH CALLED AND HE HAS COMPLETED SURGERY. SP PARTIAL COLECTOMY STABLE FOR FLOOR. SP SURGERY DOING WELL DAY 2 NO ISSUES ADVISED AMBULATION. ILEUS POST OP FEW DAYS WILL TAKE TO RECOVER. SP SURGERY PENDING PATH ONCOLOGY CONSULT OUT PATIENT. 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 MOD DIFF. NOT EATIN GYET HE HAD SEVERE GASTRO PARESIS FROM BOWEL OBST. PER DR. FISH. (2) Bowel obstruction Onset Date: 08/18/17 Current Visit: Yes Status: Acute Plan: MR Ashley GOODSON HAS TR COLON CANCER ABOUT [address] SCAN. THIS WAS DOES HE CAME TO OFFICE WITH ABDOMEN PAIN. HE NEVER WANTED TO DO COLONOSCOPY. HE IS NOT SURE WHY HE NEEDS SURGERY . I EXPLAINED TO HIM AND TODAY HIS UNDERSTANDING LEVEL IS POOR. (3) Uncontrolled hypertension Current Visit: Yes Status: Chronic Plan: HE IS ON HIGH DOSE OF MEDS TO CONTROL BP I HAVE ADDED HYDRLAZINE IV AND CLONIDINE PATCH UNTIL HE IS ABLE TO TAKE PO AGAIN. STABLE ON IV MEDS. CHANGED TO ORAL MEDS. (4) Preoperative clearance Current Visit: Yes Status: Acute Plan: MEDICALLY CLEARED WITH MILD TO MOD RISK WRITTEN IN ORDER.S Orders (last 24 hrs) 08/12/17 22:55 Cardiac Monitoring (telemetry) CONT 08/13/17 06:07 SBAR Routine 08/13/17 12:12 Nursing Orders Routine 08/13/17 20:51 Hydralazine [Apresoline] 25 mg IV Q6HP PRN 08/13/17 21:15 Clonidine Patch [Catapres-Tts 2] 0.2 mg TD EVERY 7TH DAY 08/14/17 05:00 Basic Metabolic Panel DAILY CBC with Automated Diff DAILY Magnesium DAILY 08/15/17 05:00 Basic Metabolic Panel DAILY CBC with Automated Diff DAILY Magnesium DAILY 08/16/17 05:00 Basic Metabolic Panel DAILY CBC with Automated Diff DAILY Magnesium DAILY 08/17/17 05:00 Basic Metabolic Panel DAILY CBC with Automated Diff DAILY Magnesium DAILY 08/18/17 05:00 Basic Metabolic Panel DAILY CBC with Automated Diff DAILY Magnesium DAILY 08/19/17 05:00 Basic Metabolic Panel DAILY CBC with Automated Diff DAILY Magnesium DAILY 08/20/17 05:00 Basic Metabolic Panel DAILY CBC with Automated Diff DAILY Magnesium DAILY 08/21/17 05:00 Basic Metabolic Panel DAILY CBC with Automated Diff DAILY Magnesium DAILY 08/22/17 05:00 Basic Metabolic Panel DAILY CBC with Automated Diff DAILY Magnesium DAILY (5) Hypomagnesemia Current Visit: Yes Status: Acute Plan: STABLE FU REPLACE (6) Dehydration Current Visit: Yes Status: Acute (7) Hypokalemia Onset Date: 10/28/14 Current Visit: No Status: Acute (8) Urinary retention Current Visit: Yes Status: Acute Plan: BONILLA RESUME FLOMAX AND PROSCAR. FU WITH DR LIAO. (9) Gastroparesis Current Visit: Yes Status: Acute Plan: FROM OBSTRUCTION BARIUM TEST IN AM. CHECK STOOL FOR C DIFF. NOT ABLE TO EAT YEAT X RAY ABDOMEN NO GASTROGRAFFIN- DR. FISH STABLE BUT NOT RECOVERING YET GRADUAL IMPROVEMENT NOT READY YET. C DIFF PENDING. (10) Adynamic ileus Current Visit: Yes Status: Acute Plan: POST OP NOTABLE TO EAT YET DIARRHEA POS BUT UPPER PART ILEUS CONTINUES. ABDOMEN IS A LOT SOFTER STILL VERY FEW BS C DIF NEGATIVE RESUME TPN UNTIL ABLE TO EAT (11) Syncope Current Visit: Yes Status: Acute Plan: MOST LIKELY FROM FLOMAX THAT IS NEW FOR HIM. STOP FLOMAX WATCH TELEMETRY I SEE NO SIGNS OF ARRHTYMIA OR CORONARY EVENT. VASOVAGAL LIKELY BUT TODAY HE HAD NO BRADYCARDIA OR LOW BP WHEN I VISITED HIM AND HE DID NOT PASS OUT BUT HE HAD PRESYCOPE EPISODE.
--- NOTE | 2017-08-26 21:42 | CON ---
Date of Consultation: 08/26/2017 Additional Consulting Physician: Rd Salomon M.D. Reason For Consultation: Metastatic colon cancer. History Of Present Illness: Mr. Madrid is a 62-year-old gentleman, who was hospitalized on the August with complaints of nausea and vomiting, a 20-pound weight loss, and abdominal pain. He was diagnosed with colon cancer on a CT scan, which revealed an irregular circumferential mass 6 cm in length in the right side of the transverse colon with numerous adjacent enlarged lymph nodes suspicious for cancer. There was evidence of dilatation of the right colon and small bowel due to an obstruction from the mass. Few subcentimeter low-density lesions were seen in the liver on the CAT scan, not definitive for metastases. He underwent right hemicolectomy with wedge biopsy of liver lesion on 08/15/2017. Final pathology revealed a moderately differentiated adenocarcinoma invading through the muscularis propria into the pericolonic soft tissue and focally into the serosal surface with 1 of 28 lymph nodes positive for metastatic carcinoma. The wedge biopsy of the liver revealed metastatic adenocarcinoma compatible with his colon primary. Final pathological stage was a T4a N1a M1a i.e. stage IV metastatic colon cancer. Mr. Madrid' postoperative course has been complicated by prolonged ileus necessitating parenteral nutrition through a central line. More recently, he suffered a syncopal episode yesterday and Neurological evaluation with an EEG was done earlier today. He continues to be weak and taking very small amounts orally. He denies any abdominal pain at this time. No complaints of nausea or vomiting. He says he has diarrhea intermittently, but no rectal bleeding. He denies any chest pain, shortness of breath or hemoptysis. He denies any headaches, dizziness, diplopia or paresis. There is no history of fever or night sweats, as noted he has lost approximately 20 pounds since the beginning of this illness. Past Medical History: Significant for: 1. Hypertension. 2. Hyperlipidemia. 3. Benign prostatic hypertrophy. 4. Atrial fibrillation. Past Surgical History: Consists of this abdominal surgery done on the 15 of August. Current Medications: As follows; Keflex 500 mg p.o. b.i.d., clonidine 0.2 mg transdermally every seventh day, clonidine 0.1 mg p.o. b.i.d. scheduled, parental nutrition, Lovenox 40 mg subcu daily, Proscar 5 mg p.o. daily, hydralazine 25 mg IV push q.6 hours p.r.n. for elevated blood pressure, Reglan 5 mg p.o. before meals and at bedtime, metoprolol 50 mg p.o. daily, ondansetron 4 mg IV q.6 hours p.r.n. for nausea, and insulin on a sliding scale. Allergies: HE HAS NO KNOWN DRUG ALLERGIES. Social And Family History: Mr. Madrid is . 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 He denies any family history of colorectal cancer in his immediate family. They have 1 son who was in generally good health. Mr. Madrid is a nonsmoker and denies any excess alcohol use or drug use. Physical Examination: Vital Signs: Reveal that he has been afebrile. Temperature was 98.7 around noon today, pulse 93, respirations 18 per minute, blood pressure 115/78, saturating at 100% on 2 L by nasal cannula. General: He is in no significant pain. General physical examination reveals pallor. No cyanosis or clubbing or icterus is noted. HEENT: Examination is unremarkable for mucositis or thrush. Lymph Node: Survey reveals no palpable lymphadenopathy in the neck, axilla, or groin. Chest: Clear to auscultation. Heart: Sounds reveal normal S1, S2 with an LV S4 gallop at the base. No murmurs were heard. Abdomen: Somewhat distended, soft to palpation. Bowel sounds are sluggish. Neurologic: He is alert and oriented with no acute deficits. Extremities: Show no significant edema. Lab Studies: CBC earlier today revealed a white count of 6500, hemoglobin is 10.7, hematocrit 32.6 with a platelet count of 361,000. Chemistries revealed a sodium of 132, BUN and creatinine was normal. Blood glucose has been mildly elevated. CEA done preoperatively on 08/14/2017 was normal at 1.3 ng/mL. Assessment And Plan: 1. Stage IV metastatic colon cancer. Mr. Madrid has biopsy documented metastases to the liver from his primary colon cancer. We discussed that this is not a curable cancer. However, palliative chemotherapy can help improve symptoms and prolong survival. His current performance status is poor, he is on parenteral nutrition and the goal is to have him to where he is able to maintain his weight per orally. He is most likely going to be transitioned to a long-term acute care setting. We will reassess his performance status 1 week after discharge and discuss details of chemotherapy at that time. His has my contact information and will let us know ahead of time so that he can be seen through the clinic. 2. Anemia,. Most likely due to chronic blood loss and/or chronic disease given the numerous complications postoperatively. I will check his iron profile and replace iron as necessary. Thank you for asking me to see him. Please do not hesitate to call me if you have any other questions. MITCH/QIANA Voice ID: [id number] Report ID: [id number] HERBER
[2017-08-27 05:16] LABS: Absolute Lymphocytes (CBC) 1.2 K/uL (0.7-4.9); Absolute Monocytes 0.9 K/uL (0.1-1.3); Absolute Neutrophil 4.7 K/uL (1.8-8.0); Basophils % 0.6 % (0-1.3); Eosinophils % 1.3 % (0-4.4); Hematocrit 31.3 % (39.6-49.0); Lymphocytes % 17.7 % (15.3-44.8); MCH 26.9 pg (27.0-35.0); MPV 8.5 fL (7.6-11.3); Monocytes % 12.9 % (3.3-12.3); RBC Red Blood Cell Count 3.77 M/uL (4.33-5.43)
[2017-08-27 05:32] LABS: Potassium 4.1 mEq/L (3.6-5.0)
[2017-08-27] MEDS: INSULIN -REGULAR HUMAN 50 UNIT/0.5 ML ML SQ SCH ×4 (05:58→18:00)
[2017-08-27] MEDS: FINASTERIDE 5 MG TAB PO SCH (08:33)
[2017-08-27] MEDS: CEPHALEXIN 500 MG CAP PO SCH ×2 (08:33→20:21)
[2017-08-27] MEDS: METOCLOPRAMIDE 5 MG TAB PO SCH ×4 (08:33→20:21)
[2017-08-27] MEDS: cloNIDine HCl 0.1 MG TAB PO SCH ×2 (08:34→20:21)
[2017-08-27] MEDS: METOPROLOL XL 50 MG TAB PO SCH (08:35)
[2017-08-27] MEDS: AA 5%/D20W/ELECTROLYTES-TPN 2,000 ML, Lipids 20% 250 ML with MULTIVITAMINS INJ 10 ML IV SCH ×3 (12:31)
[2017-08-27] MEDS: ENOXAPARIN 40 MG/0.4 ML SQ SCH (17:25)
--- NOTE | 2017-08-27 19:52 | PN ---
Diagnosis: Metastatic colon cancer with gastroparesis and also complete bowel obstruction. Subjective: The patient is improving. He is trying to tolerate some liquid diet, but it is a small quantity. Calorie count is very minimal, so TPN will continue. Objective: Abdomen: Soft and depressible. Intact surgical site. Extremities: No calf tenderness. Laboratory Data: Blood work shows WBC count of 7 and 10.1. Chemistry shows potassium 4.1. Assessment: A 62-year-old patient with complete obstruction of intestines, relieved with right hemic olectomy after found to have a metastatic colon cancer. The patient is cachectic, is very weak, and nutrition is very poor. So, we have requested LTAC evaluation for nutrition, conditioning including rehab, and getting him ready for the next step in the future that may require more treatment for his colon cancer that may include also chemotherapy. He understands the plan. It was explained to him i n details. Incentive spirometry. Ambulation is important too. LEX/QIANA Voice ID: [id number] Report ID: [id number]
--- NOTE | 2017-08-27 20:31 | P.PN ---
Subjective Date of Service: 08/27/17 Chief Complaint: STARTED TO FEEL BETTER Subjective: Ambulating HE YESTERDAY HAD SYNCOPE EPISODE WHILE SITTING ON COMMODE. HE GETS GROGGY AFTER FOOD AND HAD ONE EPISODE OF SYNCOPE. MR GOODSON LOKS LITTLE BETTER TODAY. HOPEFULLY HE WILL CONTINUE TO IMPROVE. Review of Systems 10-point ROS is otherwise unremarkable General: Weakness, Malaise Musculoskeletal: As per HPI Physical Examination - Vital Signs Temperature: 98.8 F Blood Pressure: 140/86 Pulse: 93 Respirations: 16 Pulse Ox (%): 100 - Physical Exam General: Mild distress HEENT: Atraumatic, PERRLA, EOMI Neck: Supple, JVD not distended Respiratory: Clear to auscultation bilaterally, Normal air movement Cardiovascular: Regular rate/rhythm, Normal S1 S2 Gastrointestinal: Normal bowel sounds (LOT BETTER SOUNDS NOW.), No tenderness Musculoskeletal: No tenderness Integumentary: No rashes Neurological: Normal speech, Normal tone, Normal affect Lymphatics: No axilla or inguinal lymphadenopathy - Studies Laboratory Data (last 24 hrs) 08/27/17 04:35: Sodium 135, Potassium 4.1, BUN 22 H, Creatinine 1.05, Glucose 124 H 08/27/17 04:35: WBC 7.0, Hgb 10.1 L, Hct 31.3 L, Plt Count 386 Medications List Reviewed: Yes Assessment And Plan - Current Problems (Diagnosis) (1) Colon cancer Current Visit: Yes Status: Acute Plan: SURGERY TO BE DONE TODAY BY THE TIME OF THIS NOTE- DR. FISH CALLED AND HE HAS COMPLETED SURGERY. SP PARTIAL COLECTOMY STABLE FOR FLOOR. SP SURGERY DOING WELL DAY 2 NO ISSUES ADVISED AMBULATION. ILEUS POST OP FEW DAYS WILL TAKE TO RECOVER. SP SURGERY PENDING PATH ONCOLOGY CONSULT OUT PATIENT. 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 MOD DIFF. NOT EATIN GYET HE HAD SEVERE GASTRO PARESIS FROM BOWEL OBST. PER DR. FISH. (2) Bowel obstruction Onset Date: 08/18/17 Current Visit: Yes Status: Acute Plan: MR Ashley GOODSON HAS TR COLON CANCER ABOUT [address] SCAN. THIS WAS DOES HE CAME TO OFFICE WITH ABDOMEN PAIN. HE NEVER WANTED TO DO COLONOSCOPY. HE IS NOT SURE WHY HE NEEDS SURGERY . I EXPLAINED TO HIM AND TODAY HIS UNDERSTANDING LEVEL IS POOR. (3) Uncontrolled hypertension Current Visit: Yes Status: Chronic Plan: HE IS ON HIGH DOSE OF MEDS TO CONTROL BP I HAVE ADDED HYDRLAZINE IV AND CLONIDINE PATCH UNTIL HE IS ABLE TO TAKE PO AGAIN. STABLE ON IV MEDS. CHANGED TO ORAL MEDS. (4) Preoperative clearance Current Visit: Yes Status: Acute Plan: MEDICALLY CLEARED WITH MILD TO MOD RISK WRITTEN IN ORDER.S Orders (last 24 hrs) 08/12/17 22:55 Cardiac Monitoring (telemetry) CONT 08/13/17 06:07 SBAR Routine 08/13/17 12:12 Nursing Orders Routine 08/13/17 20:51 Hydralazine [Apresoline] 25 mg IV Q6HP PRN 08/13/17 21:15 Clonidine Patch [Catapres-Tts 2] 0.2 mg TD EVERY 7TH DAY 08/14/17 05:00 Basic Metabolic Panel DAILY CBC with Automated Diff DAILY Magnesium DAILY 08/15/17 05:00 Basic Metabolic Panel DAILY CBC with Automated Diff DAILY Magnesium DAILY 08/16/17 05:00 Basic Metabolic Panel DAILY CBC with Automated Diff DAILY Magnesium DAILY 08/17/17 05:00 Basic Metabolic Panel DAILY CBC with Automated Diff DAILY Magnesium DAILY 08/18/17 05:00 Basic Metabolic Panel DAILY CBC with Automated Diff DAILY Magnesium DAILY 08/19/17 05:00 Basic Metabolic Panel DAILY CBC with Automated Diff DAILY Magnesium DAILY 08/20/17 05:00 Basic Metabolic Panel DAILY CBC with Automated Diff DAILY Magnesium DAILY 08/21/17 05:00 Basic Metabolic Panel DAILY CBC with Automated Diff DAILY Magnesium DAILY 08/22/17 05:00 Basic Metabolic Panel DAILY CBC with Automated Diff DAILY Magnesium DAILY (5) Hypomagnesemia Current Visit: Yes Status: Acute Plan: STABLE FU REPLACE (6) Dehydration Current Visit: Yes Status: Acute (7) Hypokalemia Onset Date: 10/28/14 Current Visit: No Status: Acute (8) Urinary retention Current Visit: Yes Status: Acute Plan: BONILLA RESUME FLOMAX AND PROSCAR. FU WITH DR LIAO. (9) Gastroparesis Current Visit: Yes Status: Acute Plan: FROM OBSTRUCTION BARIUM TEST IN AM. CHECK STOOL FOR C DIFF. NOT ABLE TO EAT YEAT X RAY ABDOMEN NO GASTROGRAFFIN- DR. FISH STABLE BUT NOT RECOVERING YET GRADUAL IMPROVEMENT NOT READY YET. C DIFF PENDING. (10) Adynamic ileus Current Visit: Yes Status: Acute Plan: POST OP NOTABLE TO EAT YET DIARRHEA POS BUT UPPER PART ILEUS CONTINUES. ABDOMEN IS A LOT SOFTER STILL VERY FEW BS C DIF NEGATIVE RESUME TPN UNTIL ABLE TO EAT (11) Syncope Current Visit: Yes Status: Acute Plan: MOST LIKELY FROM FLOMAX THAT IS NEW FOR HIM. STOP FLOMAX WATCH TELEMETRY I SEE NO SIGNS OF ARRHTYMIA OR CORONARY EVENT. VASOVAGAL LIKELY BUT TODAY HE HAD NO BRADYCARDIA OR LOW BP WHEN I VISITED HIM AND HE DID NOT PASS OUT BUT HE HAD PRESYCOPE EPISODE. (12) Hypoalbuminemia due to protein-calorie malnutrition Current Visit: Yes Status: Acute Plan: THIS IS FROM ACUTE CONDITION. IT SHOULD IMPROVE WHEN HE IS ABLE TO FULLY RECOVER. HE CURRENTLY IS ON TPN.
[2017-08-28 04:56] LABS: Absolute Lymphocytes (CBC) 1.3 K/uL (0.7-4.9); Absolute Monocytes 0.8 K/uL (0.1-1.3); Absolute Neutrophil 4.8 K/uL (1.8-8.0); Basophils % 1.1 % (0-1.3); Eosinophils % 0.8 % (0-4.4); Hematocrit 33.3 % (39.6-49.0); MCH 26.6 pg (27.0-35.0); MCV 82.9 fL (80-100); MPV 8.3 fL (7.6-11.3); Monocytes % 11.2 % (3.3-12.3); RBC Red Blood Cell Count 4.02 M/uL (4.33-5.43)
[2017-08-28 05:05] LABS: Potassium 4.1 mEq/L (3.6-5.0)
[2017-08-28] MEDS: INSULIN -REGULAR HUMAN 50 UNIT/0.5 ML ML SQ SCH ×4 (06:00→18:00)
[2017-08-28] MEDS: FINASTERIDE 5 MG TAB PO SCH (08:34)
[2017-08-28] MEDS: CEPHALEXIN 500 MG CAP PO SCH ×2 (08:34→21:04)
[2017-08-28] MEDS: METOCLOPRAMIDE 5 MG TAB PO SCH ×4 (08:34→21:00)
[2017-08-28] MEDS: cloNIDine HCl 0.1 MG TAB PO SCH ×2 (08:35→21:04)
[2017-08-28] MEDS: METOPROLOL XL 50 MG TAB PO SCH (08:35)
--- NOTE | 2017-08-28 09:50 | EEG ---
CHART: [id number] TEST ID#: [id number] DATE OF STUDY: 08/26/2017 THE EEG WAS RECORDED PORTABLE IN THE PATIENT'S ROOM ON A 17 CHANNEL MACHINE. ELECTRODES WERE APPLIED IN THE USUAL MANNER USING THE INTERNATIONAL 10-20 SYSTEM. THE WAKING BACKGROUND RHYTHM IN THIS RECORD CONSISTS OF FAIRLY WELL DEVELOPED AND FAIRLY WELL ORGANIZED WAVES OF 9.5 HZ., MAXIMAL IN THE POSTERIOR HEAD REGIONS WHICH ATTENUATE NORMALLY WITH EYE OPENING. LOW-VOLTAGE 18-22 HZ ACTIVITY IS EXPRESSED IN THE FRONTAL REGIONS. THERE ARE NO FOCAL OR LATERALIZING FEATURES. NO EPILEPTIFORM ACTIVITY APPEARS. SLEEP OCCURRED NATURALLY. IN ADDITION NORMAL SLEEP PATTERNS ARE PRESENT. HYPERVENTILATION WAS NOT PERFORMED. PHOTIC STIMULATION PRODUCED FAIR DRIVING BILATERALLY. IMPRESSION: NORMAL EEG FOR THE AGE OF THE PATIENT IN [place], DROWSINESS AND SLEEP.
[2017-08-28] MEDS: AA 5%/D20W/ELECTROLYTES-TPN 2,000 ML, Lipids 20% 250 ML with MULTIVITAMINS INJ 10 ML IV SCH ×3 (12:51)
[2017-08-28] MEDS ORDERED: SUMATRIPTAN SUCCI 50 MG TAB PO PRN (13:38)
[2017-08-28] MEDS ORDERED: TOPIRAMATE 25 MG TAB PO ONE (14:00)
[2017-08-28] MEDS: ENOXAPARIN 40 MG/0.4 ML SQ SCH (16:49)
[2017-08-28] MEDS ORDERED: TOPIRAMATE 25 MG TAB PO SCH (21:00)
--- NOTE | 2017-08-28 21:10 | P.PN ---
Subjective Date of Service: 08/28/17 Chief Complaint: EPISODE TODAY HE YESTERDAY HAD SYNCOPE EPISODE WHILE SITTING ON COMMODE. HE GETS GROGGY AFTER FOOD AND HAD ONE EPISODE OF SYNCOPE. MR GOODSON LOKS LITTLE BETTER TODAY. HOPEFULLY HE WILL CONTINUE TO IMPROVE. MR. GOODSON HAS SOME STRANGE EPISODE WHEN HE FEELS THAT NECK, HEAD ARE GETTING HOT AND HE BECOMES VERY SENSITIVE TO NOISE PER . Review of Systems 10-point ROS is otherwise unremarkable General: Weakness, Malaise Physical Examination - Vital Signs Temperature: 98.3 F Blood Pressure: 134/87 Pulse: 95 Respirations: 17 Pulse Ox (%): 100 - Physical Exam General: Alert, Mild distress HEENT: Atraumatic, PERRLA, EOMI Neck: Supple, JVD not distended Respiratory: Clear to auscultation bilaterally, Normal air movement Cardiovascular: Regular rate/rhythm, Normal S1 S2 Gastrointestinal: Normal bowel sounds, No tenderness Musculoskeletal: No tenderness Integumentary: No rashes Neurological: Normal speech, Normal tone, Normal affect Lymphatics: No axilla or inguinal lymphadenopathy - Studies Laboratory Data (last 24 hrs) 08/28/17 04:35: Sodium 133 L, Potassium 4.1, BUN 21 H, Creatinine 1.12, Glucose 129 H 08/28/17 04:35: WBC 7.0, Hgb 10.7 L, Hct 33.3 L, Plt Count 399 Medications List Reviewed: Yes Assessment And Plan - Current Problems (Diagnosis) (1) Colon cancer Current Visit: Yes Status: Acute Plan: SURGERY TO BE DONE TODAY BY THE TIME OF THIS NOTE- DR. FISH CALLED AND HE HAS COMPLETED SURGERY. SP PARTIAL COLECTOMY STABLE FOR FLOOR. SP SURGERY DOING WELL DAY 2 NO ISSUES ADVISED AMBULATION. ILEUS POST OP FEW DAYS WILL TAKE TO RECOVER. SP SURGERY PENDING PATH ONCOLOGY CONSULT OUT PATIENT. 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 MOD DIFF. NOT EATIN GYET HE HAD SEVERE GASTRO PARESIS FROM BOWEL OBST. PER DR. FISH. DR. HARTMAN SAW HIM. WILL SEE HIM AFTER DC (2) Bowel obstruction Onset Date: 08/18/17 Current Visit: Yes Status: Acute Plan: MR Ashley GOODSON HAS TR COLON CANCER ABOUT [address] SCAN. THIS WAS DOES HE CAME TO OFFICE WITH ABDOMEN PAIN. HE NEVER WANTED TO DO COLONOSCOPY. HE IS NOT SURE WHY HE NEEDS SURGERY . I EXPLAINED TO HIM AND TODAY HIS UNDERSTANDING LEVEL IS POOR. (3) Uncontrolled hypertension Current Visit: Yes Status: Chronic Plan: HE IS ON HIGH DOSE OF MEDS TO CONTROL BP I HAVE ADDED HYDRLAZINE IV AND CLONIDINE PATCH UNTIL HE IS ABLE TO TAKE PO AGAIN. STABLE ON IV MEDS. CHANGED TO ORAL MEDS. (4) Preoperative clearance Current Visit: Yes Status: Acute Plan: MEDICALLY CLEARED WITH MILD TO MOD RISK WRITTEN IN ORDER.S Orders (last 24 hrs) 08/12/17 22:55 Cardiac Monitoring (telemetry) CONT 08/13/17 06:07 SBAR Routine 08/13/17 12:12 Nursing Orders Routine 08/13/17 20:51 Hydralazine [Apresoline] 25 mg IV Q6HP PRN 08/13/17 21:15 Clonidine Patch [Catapres-Tts 2] 0.2 mg TD EVERY 7TH DAY 08/14/17 05:00 Basic Metabolic Panel DAILY CBC with Automated Diff DAILY Magnesium DAILY 08/15/17 05:00 Basic Metabolic Panel DAILY CBC with Automated Diff DAILY Magnesium DAILY 08/16/17 05:00 Basic Metabolic Panel DAILY CBC with Automated Diff DAILY Magnesium DAILY 08/17/17 05:00 Basic Metabolic Panel DAILY CBC with Automated Diff DAILY Magnesium DAILY 08/18/17 05:00 Basic Metabolic Panel DAILY CBC with Automated Diff DAILY Magnesium DAILY 08/19/17 05:00 Basic Metabolic Panel DAILY CBC with Automated Diff DAILY Magnesium DAILY 08/20/17 05:00 Basic Metabolic Panel DAILY CBC with Automated Diff DAILY Magnesium DAILY 08/21/17 05:00 Basic Metabolic Panel DAILY CBC with Automated Diff DAILY Magnesium DAILY 08/22/17 05:00 Basic Metabolic Panel DAILY CBC with Automated Diff DAILY Magnesium DAILY (5) Hypomagnesemia Current Visit: Yes Status: Acute Plan: STABLE FU REPLACE (6) Dehydration Current Visit: Yes Status: Acute (7) Hypokalemia Onset Date: 10/28/14 Current Visit: No Status: Acute (8) Urinary retention Current Visit: Yes Status: Acute Plan: BONILLA RESUME FLOMAX AND PROSCAR. FU WITH DR LIAO. (9) Gastroparesis Current Visit: Yes Status: Acute Plan: FROM OBSTRUCTION BARIUM TEST IN AM. CHECK STOOL FOR C DIFF. NOT ABLE TO EAT YEAT X RAY ABDOMEN NO GASTROGRAFFIN- DR. FISH STABLE BUT NOT RECOVERING YET GRADUAL IMPROVEMENT NOT READY YET. C DIFF PENDING. (10) Adynamic ileus Current Visit: Yes Status: Acute Plan: POST OP NOTABLE TO EAT YET DIARRHEA POS BUT UPPER PART ILEUS CONTINUES. ABDOMEN IS A LOT SOFTER STILL VERY FEW BS C DIF NEGATIVE RESUME TPN UNTIL ABLE TO EAT (11) Syncope Current Visit: Yes Status: Acute Plan: MOST LIKELY FROM FLOMAX THAT IS NEW FOR HIM. STOP FLOMAX WATCH TELEMETRY I SEE NO SIGNS OF ARRHTYMIA OR CORONARY EVENT. VASOVAGAL LIKELY BUT TODAY HE HAD NO BRADYCARDIA OR LOW BP WHEN I VISITED HIM AND HE DID NOT PASS OUT BUT HE HAD PRESYCOPE EPISODE. (12) Hypoalbuminemia due to protein-calorie malnutrition Current Visit: Yes Status: Acute Plan: THIS IS FROM ACUTE CONDITION. IT SHOULD IMPROVE WHEN HE IS ABLE TO FULLY RECOVER. HE CURRENTLY IS ON TPN. (13) Migraine variant Current Visit: Yes Status: Acute Plan: I TALKED TO DR. SANCHEZ I HAVE SEEN THIS KIND OF INCREASED SENSITIVITY TO SOUND IS SEEN IN PATIENTS WITH MIGRAINES. I GAVE HIM A DOSE OF SUMATRIPTAN AND HE STARTED HIM ON TOPIRAMATE.
--- NOTE | 2017-08-29 00:59 | PN ---
Subjective: Mr. Madrid reports having an episode today where he felt a tingling, flushing sensation in his jaws, associated with pressure in his head along with light and sound hypersensitivity and sen sitivity to touch. Dr. Salomon had seen him earlier and prescribed an Imitrex to help resolve the mike ent's symptoms with consideration for migraine being in the patient's differential. He did receive t he injection; however at this point, it is not clear if the patient's pain had resolved, although rev iewing the chart earlier on noon time, the patient did have a pain score of 0, and a repeat pain eval uation done at 4 o'clock did show a pain level of 3/10. Objective: Vital Signs: Blood pressure 137/87, pulse ranged from 80 to 95, respiratory rate 14 to 1 8, temperature 98.3 up to 99.2, oxygen saturation 100% on room air. General: Mr. Madrid is resting comfortably. He is in no acute distress. He has no focal deficits. He does report as mentioned above pain around the face along with light and sound hypersensitivity, and some sensitivity to touch in the face and scalp. Laboratory Studies: White blood cell count 7.2, hemoglobin 10.7, hematocrit 33.3, platelets 399. So dium 133, potassium 4.1, chloride of 105, carbon dioxide of 25, BUN 21, creatinine 1.12, glucose rang ed from 129 to 132, calcium 8.8. EEG from 2 days ago was unremarkable. Assessment: Mr. Madrid is a 62-year-old patient with potential migraines and migraines with aura. H e has had a normal EEG and his brain MRI shows no focal findings. There is however small-vessel dise ase that is minimal. Possibility of migraine with aura is being considered. Plan: 1.We will start Topamax 25 mg at night, give the patient first dose now, and see if he can decrease hypersensitivity of the fifth cranial nerve. 2.Okay to try Imitrex for management of the pain for abortive treatment. 3.The patient will have an event diary maintained. 4.The patient will be followed again in the morning. TIFFANY/QIANA Voice ID: [id number] Report ID: [id number]
[2017-08-29 05:50] LABS: Absolute Lymphocytes (CBC) 0.9 K/uL (0.7-4.9); Absolute Neutrophil 5.4 K/uL (1.8-8.0); Basophils % 0.6 % (0-1.3); Eosinophils % 0.4 % (0-4.4); Hematocrit 32.6 % (39.6-49.0); Lymphocytes % 12.2 % (15.3-44.8); MCH 27.1 pg (27.0-35.0); MCV 82.4 fL (80-100); MPV 8.1 fL (7.6-11.3); Monocytes % 13.3 % (3.3-12.3); RBC Red Blood Cell Count 3.96 M/uL (4.33-5.43)
[2017-08-29] MEDS: INSULIN -REGULAR HUMAN 50 UNIT/0.5 ML ML SQ SCH ×3 (06:00→12:00)
[2017-08-29 06:09] LABS: BUN Blood Urea Nitrogen 22 mg/dL (6-20); Bicarbonate 23 mEq/L (21-31); Glucose Level 123 mg/dL (65-120); Potassium 4.6 mEq/L (3.6-5.0); Sodium Level 131 mEq/L (135-145)
[2017-08-29] MEDS: METOCLOPRAMIDE 5 MG TAB PO SCH ×3 (07:30→16:30)
[2017-08-29 08:18] VITALS: O2SAT 99
[2017-08-29] MEDS ORDERED: SUMATRIPTAN SUCCI 50 MG TAB PO SCH (09:00)
[2017-08-29] MEDS: cloNIDine HCl 0.1 MG TAB PO SCH (09:00)
[2017-08-29] MEDS: CEPHALEXIN 500 MG CAP PO SCH (09:26)
[2017-08-29] MEDS: METOPROLOL XL 50 MG TAB PO SCH (09:26)
[2017-08-29] MEDS: CLONIDINE 0.2 MG/PATCH TD SCH (09:27)
[2017-08-29] MEDS: FINASTERIDE 5 MG TAB PO SCH (09:31)
[2017-08-29] MEDS: AA 5%/D20W/ELECTROLYTES-TPN 2,000 ML, Lipids 20% 250 ML with MULTIVITAMINS INJ 10 ML IV SCH ×3 (12:32)
[2017-08-29] MEDS: ENOXAPARIN 40 MG/0.4 ML SQ SCH (17:04)
--- NOTE | 2017-08-29 17:23 | P.DS ---
Admission Date: 08/12/17 Discharge Date: 08/29/17 Reason for Admission: EPISODE TODAY - Problems (1) Colon cancer Current Visit: Yes Status: Acute (2) Bowel obstruction Onset Date: 08/18/17 Current Visit: Yes Status: Acute (3) Uncontrolled hypertension Current Visit: Yes Status: Chronic (4) Preoperative clearance Current Visit: Yes Status: Acute (5) Hypomagnesemia Current Visit: Yes Status: Acute (6) Dehydration Current Visit: Yes Status: Acute (7) Hypokalemia Onset Date: 10/28/14 Current Visit: No Status: Acute (8) Urinary retention Current Visit: Yes Status: Acute (9) Gastroparesis Current Visit: Yes Status: Acute (10) Adynamic ileus Current Visit: Yes Status: Acute (11) Syncope Current Visit: Yes Status: Acute (12) Hypoalbuminemia due to protein-calorie malnutrition Current Visit: Yes Status: Acute (13) Migraine variant Current Visit: Yes Status: Acute Hospital Course: MR. GOODSON COMES TO OFFICE WITH SEVERE ABDOMEN PAIN WAS FOUND TO HAVE BOWEL OBSTRUCTION. HE UNDERWENT URGENT SURGERY, FOUND TO HAVE COLON CANCER, MOD DIFF WITH METS TO LIVER. HE HAS TAKEN LONG TIME TO RECOVER. HE HAS SEVERE ILEUS AND GASTROPARESIS FROM THE PROLONGED OBSTRUCTION BEFORE HE CAME TO OFFICE. HE HAS BEEN ON TPN, HE HAS BEEN ABLE TO EAT ONLY A FEW BITES DAILY. HE GETS SOME STRANGE EPISODE OF WARM ,HEAVY FEELING IN THE HEAD. ONCE HE HAD SYNCOPE. THIS CAN BE FROM VASOVAGAL EPISODE. I STOPPED HIS FLOMAX THAT CAN BE A REASON. WE DID MRI AND EEG WITHOUT ANY CLUES. HE HAS NOT SHOWN TO HAVE ANY ARRHTHMIAS. HE HAD MORE SYMPTOMS FROM REGLAN WITH HOT BODY AND HE DOES NOT WANT TO TAKE IT. HE IS STABLE FOR REHAB BUT NOT READY TO GO HOME YET. Vital Signs/Physical Exam: Temp Pulse Resp BP Pulse Ox 98.3 F 96 H 16 133/92 H 100 08/29/17 12:00 08/29/17 12:00 08/29/17 12:00 08/29/17 12:00 08/29/17 12:00 Laboratory Data at Discharge: WBC 7.3 K/uL (4.3-10.9) 08/29/17 05:35 Hgb 10.7 g/dL (13.6-17.9) L 08/29/17 05:35 Hct 32.6 % (39.6-49.0) L 08/29/17 05:35 Plt Count 428 K/uL (152-406) H 08/29/17 05:35 Sodium 131 mEq/L (135-145) L 08/29/17 05:35 Potassium 4.6 mEq/L (3.6-5.0) 08/29/17 05:35 BUN 22 mg/dL (6-20) H 08/29/17 05:35 Creatinine 0.94 mg/dL (0.61-1.24) 08/29/17 05:35 Glucose 123 mg/dL (65-120) H 08/29/17 05:35 Phosphorus 4.6 mg/dL (2.5-4.3) H 08/24/17 05:15 Magnesium 2.0 mg/dL (1.8-2.5) 08/25/17 04:34 Total Bilirubin 0.4 mg/dL (0.3-1.2) 08/26/17 17:55 AST 50 IU/L (10-42) H 08/26/17 17:55 ALT 56 IU/L (10-60) 08/26/17 17:55 Alkaline Phosphatase 150 IU/L (42-121) H 08/26/17 17:55 Troponin I < 0.03 ng/mL (<0.03) 08/24/17 19:59 Triglycerides 103 mg/dL (35-160) 08/24/17 05:15 Home Medications: Finasteride [Proscar*] 5 mg PO DAILY 10/28/14 Metoprolol Succinate [Toprol Xl] 25 mg PO DAILY 08/12/17 Amino Acids 5 %/Dextrose 20 % [Clinimix 5%-20% Solution] 90 ml IV DIRECTED # 1 iv.soln 08/29/17 Clonidine HCl [Catapres*] 0.1 mg PO BID #60 tab 08/29/17 Clonidine [Catapres-Tts 2] 0.2 mg TD Q7D #10 patch.tdwk 08/29/17 Enoxaparin Sodium [Lovenox 40 MG INJ] 40 mg SQ DAILY #30 syr 08/29/17 Insulin -Regular Human [Novolin -R*] See Protocol SQ Q6H #30 ml 04/20/18 Sumatriptan [Imitrex] 25 mg PO DAILY PRN #30 tab 08/29/17 Topiramate [Topamax] 25 mg PO BEDTIME #30 tab 08/29/17 New Medications: Amino Acids 5 %/Dextrose 20 % [Clinimix 5%-20% Solution] 90 ml IV DIRECTED # 1 iv.soln Clonidine [Catapres-Tts 2] 0.2 mg TD Q7D #10 patch.tdwk Clonidine HCl [Catapres*] 0.1 mg PO BID #60 tab Enoxaparin Sodium [Lovenox 40 MG INJ] 40 mg SQ DAILY #30 syr Insulin -Regular Human [Novolin -R*] See Protocol SQ Q6H #30 ml Sumatriptan [Imitrex] 25 mg PO DAILY PRN #30 tab PRN Reason: Headache Topiramate [Topamax] 25 mg PO BEDTIME #30 tab Followup: Rd Salomon MD [Primary Care Provider] - (WILL CONTINUE TO FOLLOW UP IN REHAB)
[2017-08-29 17:25] VITALS: BP 130/88; TEMP 99.3
[2017-08-29] MEDS ORDERED: TOPIRAMATE 25 MG TAB PO SCH (21:00)
--- NOTE | 2017-09-14 14:21 | P.CNS ---
Date of Consult: 08/12/17 Reason for Consult: bowel obstruction Chief Complaint: EPISODE TODAY History of Present Illness: 62 y/o male with complete bowel obstruction by a mass. Pt has no previous colonoscopy. Allergies No Known Drug Allergies Allergy (Verified 10/27/14 20:58) Unknown Home Medications: Finasteride [Proscar*] 5 mg PO DAILY 10/28/14 Metoprolol Succinate [Toprol Xl*] 25 mg PO DAILY 08/12/17 Clonidine HCl [Catapres*] 0.1 mg PO BID #60 tab 08/29/17 Sumatriptan [Imitrex*] 25 mg PO DAILY PRN #30 tab 08/29/17 Aspirin 81 mg PO DAILY #30 tab.chew 09/11/17 Colestipol HCl [Colestid] 1 gm PO BID #60 tab 09/11/17 Nifedipine Xl [Procardia Xl*] 90 mg PO DAILY #30 tab 09/11/17 Tamsulosin [Flomax*] 0.4 mg PO BEDTIME #30 cap 09/11/17 - Past Medical/Surgical History Diabetic: No -: HTN -: A-FIB -: PROSTRATE PROBLEMS - Family History Father Medical History: Hypertension, Other (see notes) Notes: prostrate problems Mother Medical History: Hypertension, Diabetes, Other (see notes) Notes: Pacemaker - Social History Alcohol use: No CD- Drugs: No Caffeine use: Yes Place of Residence: Home Review of Systems General: Weakness, Malaise Eyes: Unremarkable ENT: Unremarkable Respiratory: Unremarkable Cardiovascular: Unremarkable Gastrointestinal: Nausea, Vomiting, Abdominal Pain, Distention, Melena (no), Hematochezia (no), As per HPI Genitourinary: Unremarkable Musculoskeletal: Unremarkable Integumentary: Unremarkable Neurological: Unremarkable Physical Examination Temp Pulse Resp BP Pulse Ox 99.3 F 96 H 16 130/88 99 08/29/17 16:00 08/29/17 16:00 08/29/17 16:00 08/29/17 16:00 08/29/17 16:00 General: Alert, In no apparent distress, Oriented x3, Cooperative HEENT: PERRLA, EOMI Neck: Supple Respiratory: Clear to auscultation bilaterally Cardiovascular: No edema, Normal pulses Gastrointestinal: No rebound, No guarding, Hyperactive, Distended, Tenderness Musculoskeletal: No erythema, No tenderness, No warmth Integumentary: No erythema, No warmth, No cyanosis Neurological: Normal speech Imagings Data: ct scan reviewed with pt and Conclusions/Impression: npo.. Exploratory laparotomy, possible bowel resection BAR fully explained including but not limited to infection, bleeding, damage to adjacent structures , recurrence Mi even Pt explained the diff dx. He will discuss with family and make a decision
--- NOTE | 2017-09-14 14:25 | P.PN ---
Subjective Date of Service: 08/13/17 Chief Complaint: obstructive colonic mass Subjective: No new changes Review of Systems General: Unremarkable Eyes: Unremarkable ENT: Unremarkable Respiratory: Unremarkable Cardiovascular: Unremarkable Gastrointestinal: Abdominal Pain, Distention Musculoskeletal: Unremarkable Physical Examination - Vital Signs Temperature: 99.3 F Blood Pressure: 130/88 Pulse: 96 Respirations: 16 Pulse Ox (%): 99 - Physical Exam General: Alert, In no apparent distress, Oriented x3, Cooperative HEENT: PERRLA, EOMI Neck: Supple Gastrointestinal: No rebound, No guarding, Distended, Tenderness (mild) - Studies Medications List Reviewed: Yes Assessment And Plan - Plan no major improvements Surgery options BAR fully explaines again oob
== END 2017-08-29 17:34 | DRG 330 ==
LOC: 2ND 15:38 → OBSVTOIN 15:38 → 3RD-ICU 08-14 20:31 → 2ND 08-15 14:36
PROVIDERS: ADMIT Internal Medicine; ATTEND Internal Medicine
PROC: 0DTF0ZZ Resection of Right Large Intestine, Open Approach (ICD-10-PCS; principal; 2017-08-16)
PROC: 0FB00ZX Excision of Liver, Open Approach, Diagnostic (ICD-10-PCS; 2017-08-16)
PROC: 02HV33Z Insertion of Infusion Device into Superior Vena Cava, Percutaneous Approach (ICD-10-PCS; 2017-08-17)
DX: C18.9 Malignant neoplasm of colon, unspecified (principal); K56.0 Paralytic ileus; C78.7 Secondary malignant neoplasm of liver and intrahepatic bile duct; D50.0 Iron deficiency anemia secondary to blood loss (chronic); K31.84 Gastroparesis; I10 Essential (primary) hypertension; E83.42 Hypomagnesemia; E86.0 Dehydration; E87.6 Hypokalemia; R33.8 Other retention of urine; R55 Syncope and collapse; N40.1 Benign prostatic hyperplasia with lower urinary tract symptoms
CPT/HCPCS: 36415; 70551; 71045; 71046; 74018; 80048; 80076; 81003; 81015; 82378; 82728; 82962; 83540; 83735; 84100; 84134; 84466; 84478; 84484; 85014; 85018; 85025; 85044; 85652; 86140; 86850; 86900; 86901; 87040; 87493; 88305; 88307; 88309; 93005; 94640; 95816; 97163; J0360; J1650; J2175; J2250; J2405; J2710; J3010; J7030

== ENCOUNTER 2017-08-29 12:13 | Inpatient (IN) | payer OTHER ==
--- NOTE | 2017-08-29 15:02 | R.PREADM ---
SCREENING DATE AND TIME 08/29/2017 12:23 (CDT) ANTICIPATED REHAB ADMISSION DATE 08/31/2017 REFERRING FACILITY [facility] REFERRAL DATE AND TIME 08/29/2017 12:23 (CDT) ACUTE ADMIT DATE 08/12/2017 Previous Rehabilitation(s): No. ATTENDING PHYSICIAN Dr. Migel Ray REFERRING PHYSICIAN [facility] CLINICAL LIAISON Sofia Pastor PHYSICIAN REVIEWER Dr. Migel Ray M.D. MR# [id number] NAME BETY MADRID ADDRESS [address] [place] [place] [address] DATE OF 1955 AGE 62 SSN# [id number] GENDER male MARITAL STATUS RACE white ADMIT FROM 02 - [facility] PRE-HOSPITAL LIVING SETTING 01 - Home (private home/apt. board/care, assisted living, senior care, transitional living) HOME TYPE AND DETAILS Type of home: single family house # of steps within the residence: 0 # of steps to enter the residence: 3 # of levels in the residence: 1 PRE-HOSPITAL LIVING WITH Family/Relatives FAMILY SUPPORT Yes PRIMARY FAMILY CONTACT NAME Briana Madrid PRIMARY FAMILY CONTACT PHONE PRIMARY FAMILY CONTACT ALT. PHONE PRIMARY FAMILY CONTACT RELATIONSHIP Spouse PHONE PRIMARY FAMILY CONTACT ON ADM.? no IS PRIMARY FAMILY CONTACT AUTH. REP.? no 1ST EMERGENCY CONTACT Briana Madrid 1ST CONTACT PHONE 1ST CONTACT ALT. PHONE 1ST CONTACT RELATIONSHIP Spouse PHONE 1ST CONTACT ON ADM. no IS 1ST CONTACT AUTH. REP.? no PHONE 2ND CONTACT ON ADM.? no PATIENT EMPLOYMENT STATUS Not Working PATIENT EMPLOYER No Employer PAYOR INFORMATION: 1ST PAYOR NAME [employer] 1ST PAYOR PHONE [phone] 1ST PAYOR INJURY/ILLNESS DUE TO ACCIDENT? No ANOTHER GREEN PARTY RESPONSIBLE? No PRIMARY REHAB/ACUTE DIAGNOSIS: Bowel Obstruction, Colon Cancer ONSET DATE 08/12/2017 REHAB IMPAIRMENT CATEGORY (DENZEL): 20 Miscellaneous (Misc) does NOT meet 60% rule PRIMARY DIAGNOSIS-RELATED SURGERIES: Exlap R Hemicolectomy Liver Biopsy COMORBID REHAB/ACUTE DIAGNOSES: - N/A Colon Cancer, Bowel Obstruction,Uncontrolled HTN, BPH,Atrial Fibrillation, Hyperlipidimia SUMMARY OF ACUTE HOSPITALIZATION: Pt. is a 62 yo Right-handed white male. On 08/12/2017 he was admitted to [facility] with diagnosis Bowel Obstruction, C olon Cancer. His impairment category is Debility 16 - Debility (16). Pre-morbidly, Pt. was independent/mod-I in Self-Care, Locomotion, Sphincter Control, Transfers Contro l, Communication, and Social Cognition; and he had good Sphincter Control. Currently, he has deficits of Locomotion, Endurance, Safety Awareness, Transfers Control, Balance, an d Self-Care. Pt. is now referred to [facility] for acute in-patient rehabilitation in order to maximize patient's functional independence in activities of daily living, strength, ROM, and mobi lity. Patient has realistic goal of being discharged at assistance level 6-Lucero to reside at Home with Fam nereida/Relatives. PAST MEDICAL HISTORY Colon Cancer, Bowel Obstruction,Uncontrolled HTN, BPH,Atrial Fibrillation, Hyperlipidimia MEDICATION ALLERGIES: No Known Drug Allergies (NKDA) ENVIRONMENTAL ALLERGIES: None Known - Substance Allergies None Known - Other Allergies None Known CODE STATUS: Full code WEIGHT/HEIGHT/BMI: WEIGHT 169 lbs HEIGHT 5' 6" BMI 27.3 DIET: - Diet Type GI SOFT - Diet - Solid Texture Regular - Diet - Liquid Texture Regular - Tube Feed N/A SKIN DIAGRAM: Incision on Abdomen; extent - small; stage - NS(Not Stageable). Treatment - Per Physician's Orders. REVIEW OF SYSTEMS: - Gen Alert and awake Lying in bed No apparent distress Oriented to: person, time, and place - Vital Signs Temperature: 98 F SBP/DBP: 125/87 Pulse: 82 Resp: 16 Vital signs stable, afebrile - CVS RRR VITAL SIGNS Temperature: 98 F SBP/DBP: 125/87 Pulse: 82 Resp: 16 Vital signs stable, afebrile CURRENT SPHINCTER CONTROL: Pre-hospital bladder status: continent # of bladder accidents in the last 7 days prior to screenin Pre-hospital bowel status: continent # of bowel accidents in the last 7 days prior to screenin Last Bowel Movement Date: 08/29/2017 DETAILED CURRENT FUNCTIONAL STATUS: - Bladder accident frequency: Dep - No accidents in the past 7 days - Bowel accident frequency: Ind - No accidents in the past 7 days - Walking score based on distance walked: 3(>=150ft) - Wheelchair score based on distance traveled: 0(N/A) FUNCTIONAL STATUS: - Self-Care A. Eating Ind [place] B. Grooming Ind [place] C. Bathing Ind sup D. Dressing - Upper Ind sup E. Dressing - Lower Ind sup F. Toileting Ind sup - Sphincter Control G: Bladder control Ind Dep H: Bowel control Ind Ind - Transfers Control I. Bed/Chair/Wheelchair Ind sup J. Toilet Ind sup K. Tub/Shower Ind sup - Locomotion L. Walk/Wheelchair (C) Ind sup L. Walk/Wheelchair (W) Ind sup M. Stairs Ind ADNO - Communication N. Comprehension (B) Ind Ind O. Expression (B) Ind Ind - Social Cognition P. Social Interaction Ind Ind Q. Problem Solving Ind Ind R. Memory Ind Ind - Endurance Fair - Balance Fair - Safety Awareness Fair CURRENT FUNC. DEFICITS: Locomotion, Endurance, Safety Awareness, Transfers Control, Balance, and Self-Care THERAPY NOTES FROM ACUTE CARE: Attached. SPECIAL NEEDS: - Safety Concerns Skin breakdown precautions needed due to skin breakdown risk PRECAUTIONS: - Fall Precaution chair alarm,bed alarm PATIENT NEEDS ACTIVE AND ONGOING THERAPEUTIC INTERVENTION OF MULTIPLE THERAPY DISCIPLINES, INCLUDING: - Occupational Therapy Evaluate and Treat. - Physical Therapy Evaluate and Treat. PATIENT NEEDS CLOSE MEDICAL SUPERVISION BY A REHABILITATION PHYSICIAN FOR: Bowel and Bladder Management Coordination of Treatment Team Medical and Co-Morbidity Management Wound Care Pain Management Post-Op Complications Balance/Coordination Medication Management DVT Management PATIENT REQUIRES 24X7 REHAB NURSING FOR MEDICAL AND FUNCTIONAL MGT. OF THE FOLLOWING DEFICITS: ADL's Ambulation Bowel and Bladder Management Communication Disease Management Medication Management Patient/Family Education Providing Safe Environment Skin Integrity Transfers Pain Management Muscle weakness PATIENT REQUIRES INTENSIVE, COORDINATED INTERDISCIPLINARY APPROACH TO REHAB: Arranging Home Equipment/Services Discharge Planning Family Intervention/Training Engineer Design And Construction/Case Management PATIENT REHAB POTENTIAL: Expected level of measurable improvement will be of a practical value to patient's functional capacit y or adaptations to impairments Has a viable Discharge Plan Medically appropriate; condition is sufficiently stable to participate in intensive rehab program Patient is able and expected to receive 3 hours of individualized therapy daily on at least 5 of ever y 7 days Patient's prognosis for significant practical improvement within a reasonable period of time appears Good DISCHARGE PLAN: - Estimated Length of Stay (days) 13. - Consensus on plan Discharge plan has been discussed with primary caregiver. Patient/Family is in agreement with the melba n. Primary caregiver is in agreement with the plan. - Patient/Family Goals Return home with assistance. - Planned Living Setting Upon Discharge Home, to live with Family/Relatives. RECOMMENDED CARE LEVEL: IRF RECOMMENDATION DETAILS: Recommended Admission to Comprehensive Rehabilitation Program to Increase Functional [place] SCREENER'S COMPLETENESS CONFIRMATION: - Screening Confirmation The patient data collection on this preadmission screening form is finished PHYSICIANS REVIEW AND ADMISSION DETERMINATION Admit - Based on my review of the Pre-Admission Screening results, in my medical judgment and experie nce, I concur with the findings and recommend admission to [facility], as this patient requires an IRF level of care. SIGNATURE PANEL: Clinical Liaison - [electronically] signed by Kiley Dinero on 08/29/2017 at 13:46 (CDT) Clinical Liaison - [electronically] signed by Kiley Dinero on 08/29/2017 at 13:48 (CDT) Clinical Liaison - [electronically] signed by Sofia Pastor RN on 08/29/2017 at 13:50 (CDT) Physician Reviewer - [electronically] signed by Dr. Migel Ray M.D. on 08/29/2017 at 14:03 (CDT )
[2017-08-29] MEDS ORDERED: SUMATRIPTAN SUCCI 50 MG TAB PO PRN (18:37)
[2017-08-29] MEDS ORDERED: GLUCAGON 1 MG/VIAL IM PRN (18:44)
[2017-08-29] MEDS ORDERED: D50W 25 GM/50 ML SYRINGE IV PRN (18:44)
[2017-08-29] MEDS ORDERED: TOPIRAMATE 25 MG TAB PO SCH (21:00)
[2017-08-29] MEDS: cloNIDine HCl 0.1 MG TAB PO SCH (21:33)
[2017-08-30 03:46] LABS: Urine Appearance CLEAR; Urine Bilirubin NEGATIVE (NEG); Urine Blood NEGATIVE (NEG); Urine Color YELLOW; Urine Glucose NEGATIVE (NEG); Urine Protein NEGATIVE (NEG); Urine Urobilinogen 0.2 mg/dL (0.2-1.0); Urine pH 5.5 (5.0-7.0)
[2017-08-30 04:18] LABS: Urine Bacteria <20 /HPF (NONE SEEN); Urine Culture Reflex Order NOT NEEDED; Urine RBC <5 /HPF (NONE SEEN)
[2017-08-30] MEDS: METOPROLOL XL 25 MG TAB PO SCH (05:36)
[2017-08-30] MEDS: INSULIN -REGULAR HUMAN 50 UNIT/0.5 ML ML SQ SCH ×5 (05:47→23:27)
[2017-08-30 06:00] VITALS: BMI 28.1
[2017-08-30 06:27] LABS: Absolute Lymphocytes (CBC) 0.9 K/uL (0.7-4.9); Absolute Neutrophil 2.2 K/uL (1.8-8.0); Basophils % 0.5 % (0-1.3); Eosinophils % 0.8 % (0-4.4); Hematocrit 33.4 % (39.6-49.0); Lymphocytes % 21.6 % (15.3-44.8); MCH 26.7 pg (27.0-35.0); MPV 8.3 fL (7.6-11.3); Monocytes % 23.2 % (3.3-12.3); RBC Red Blood Cell Count 4.08 M/uL (4.33-5.43)
[2017-08-30 06:51] LABS: Potassium 4.4 mEq/L (3.6-5.0); Prealbumin 30.5 mg/dl (18-38)
[2017-08-30] MEDS: FINASTERIDE 5 MG TAB PO SCH (07:51)
[2017-08-30] MEDS: cloNIDine HCl 0.1 MG TAB PO SCH ×2 (07:51→19:09)
[2017-08-30] MEDS: ENOXAPARIN 40 MG/0.4 ML SQ SCH (07:52)
[2017-08-30] MEDS ORDERED: ENOXAPARIN 40 MG/0.4 ML SQ SCH (08:00)
[2017-08-30 08:28] LABS: Blood Morphology Comment NOT SEEN (NOT SEEN); Platelet Estimate ADEQ; Urine White Blood Cell Casts OK
[2017-08-30] MEDS ORDERED: AA 5%/D20W/ELECTROLYTES-TPN 2,000 ML, Lipids 20% 250 ML with MULTIVITAMINS INJ 10 ML IV SCH ×3 (12:00)
--- NOTE | 2017-08-30 12:03 | P.PN ---
Subjective Date of Service: 08/30/17 Chief Complaint: SP SURGERY FOR COLON CANCER INDUCED OBST OF COLON. MR GOODSON HAD COME WITH BOWEL OBSTRUCTION. HAS HAD SURGERY BY DR FISH, TOOK A LONG TIME TO RECOVER. STILL IS VERY WEAK, HAS HAD STRANGE EPISODE OF HEAD LAZO,ONE EPISODE OF SYNCOPE AND HYPERSENSITIVE TO NOISE. I ASKED DR SANCHEZ IF IT CAN BE MIGRAINE VARIANT. HE STARTED TOPAMAX. MRI AND EEG WERE NEGATIVE. HE IS SENT TO REHAB TO GET STRONGER. Review of Systems 10-point ROS is otherwise unremarkable General: Weakness, Malaise Physical Examination - Vital Signs Temperature: 97.2 F Blood Pressure: 107/76 Pulse: 106 Respirations: 16 Pulse Ox (%): 99 - Physical Exam General: Alert, Mild distress HEENT: Atraumatic, PERRLA, EOMI Neck: Supple, JVD not distended Respiratory: Clear to auscultation bilaterally, Normal air movement Cardiovascular: Regular rate/rhythm, Normal S1 S2 Gastrointestinal: Normal bowel sounds, No tenderness Musculoskeletal: No tenderness Integumentary: No rashes Neurological: Normal speech, Normal tone, Normal affect Lymphatics: No axilla or inguinal lymphadenopathy - Studies Laboratory Data (last 24 hrs) 08/30/17 05:52: Sodium 128 L, Potassium 4.4, BUN 19, Creatinine 1.05, Glucose 132 H, Magnesium 2.0 08/30/17 05:52: WBC 4.1 L D, Hgb 10.9 L, Hct 33.4 L, Plt Count 445 H Medications List Reviewed: Yes Assessment And Plan - Current Problems (Diagnosis) (1) Adynamic ileus Current Visit: No Status: Acute Plan: POST SURGICAL HE HAS LIQUD DIARRHEA NOW AND WILL FU WITH X .RAY ABLE TO EAT A LITTLE. (2) Colon cancer Current Visit: No Status: Chronic Plan: DR HARTMAN WILL FU (3) Hypoalbuminemia due to protein-calorie malnutrition Current Visit: No Status: Acute (4) Syncope Current Visit: No Status: Acute Plan: NO MOER BUT WILL FU ON WEAK SPELLS HE GETS WITH NO NEUROLOGICAL SYMPTOMS. (5) Urinary retention Current Visit: No Status: Acute
--- NOTE | 2017-08-30 13:58 | R.HP ---
FACILITY: [facility] ENCOUNTER DATE AND TIME: 08/30/2017 12:56 (CDT) MR#: [id number] NAME BETY GOODSON ADDRESS: [address] [place] [address]: [place]IP [id number] PHONE: DATE OF : 1955 AGE: 62 SSN# [id number] GENDER: Male DEXTERITY Right-handed MARITAL STATUS RACE White PRE-HOSPITAL LIVING SETTING 01 - Home (private home/apt. board/care, assisted living, intermediate, transitional living) PRE-HOSPITAL LIVING WITH Family/Relatives ENCOUNTER PHYSICIAN: Dr. Migel Ray M.D. REFERRING DOCTOR: LEYDI ERICKSON DATE OF ADMISSION: 08/30/2017 12:57 (Central Daylight Time) REFERRING FACILITY [facility] HOME TYPE AND DETAILS: Type of home: single family house # of steps within the residence: 0 # of steps to enter the residence: 3 # of levels in the residence: 1 ADMISSION DIAGNOSIS: Bowel Obstruction, Colon Cancer ONSET DATE: 08/12/2017 PRIMARY DIAGNOSIS-RELATED SURGERIES: Exlap R Hemicolectomy Liver Biopsy SECONDARY/COMORBID DIAGNOSES (TIERED): - N/A Colon Cancer, Bowel Obstruction,Uncontrolled HTN, BPH,Atrial Fibrillation, Hyperlipidimia HISTORY OF PRESENT ILLNESS (HPI): Pt. is a 62 yo Right-handed white male. On 08/12/2017 he was admitted to [facility] with diagnosis Bowel Obstruction, C olon Cancer. His impairment category is Debility 16 - Debility (16). Pre-morbidly, Pt. was independent/mod-I in Self-Care, Locomotion, Sphincter Control, Transfers Contro l, Communication, and Social Cognition; and he had good Sphincter Control. Currently, he has deficits of Locomotion, Endurance, Safety Awareness, Transfers Control, Balance, an d Self-Care. Pt. is now referred to [facility] for acute in-patient rehabilitation in order to maximize patient's functional independence in activities of daily living, strength, ROM, and mobi lity. Patient has realistic goal of being discharged at assistance level 6-Lucero to reside at Home with Fam nereida/Relatives. MEDICATION ALLERGIES: No Known Drug Allergies (NKDA) ENVIRONMENTAL ALLERGIES: None Known - Substance Allergies None Known - Other Allergies None Known PAST MEDICAL HISTORY: Colon Cancer, Bowel Obstruction,Uncontrolled HTN, BPH,Atrial Fibrillation, Hyperlipidimia FAMILY HISTORY: Family history is not contributory. SOCIAL HISTORY: - Home Living Family/Relatives REVIEW OF SYSTEMS: - Gen No Chills No Fatigue No Fever - Eyes No Double Vision No itchiness - ENMT No Difficulty Swallowing - CVS No Chest Discomfort No Chest Pain No Fatigue No Weight Gain - Resp No Cough No Shortness of Breath - GI Continent No Abdominal Pain No Constipation No Diarrhea - Continent No Kidney Pain No Painful Urination No Urinary Urgency - MSK No Joint Pain No Muscle Cramps No Stiffness - Skin No Itching No Rash No Suspicious Lesions - Neuro No Coordination Difficulty No Difficulty with Concentration No Memory Loss No Seizures No Weakness - Psych No Anxiety No Depression No HIV Exposure No Persistent Infections No Seasonal Allergies - Endo No Cold/Heat Intolerance No Excessive Hunger No Excessive Thirst No Excessive Urination PHYSICAL EXAM - Gen Alert and awake Lying in bed No apparent distress Oriented to: person, time, and place - Vital Signs Temperature: 98 F SBP/DBP: 125/87 Pulse: 82 Resp: 16 Vital signs stable, afebrile - Skin incisions intact Normacephalic - Eyes No abnormalities - ENMT No abnormalities - Neck No abnormalities - CVS RRR - Chest Clear - Abd Soft - GI nondistended Deferred - No abnormalities - Ext No significant edema - MSK 4/5 weakness in both lower extremities. - Neuro No focal deficits - Psych No abnormalities VITAL SIGNS Temperature: 98 F SBP/DBP: 125/87 Pulse: 82 Resp: 16 Vital signs stable, afebrile NURSING: - Shower allowing shower PRECAUTIONS: - Fall Precaution chair alarm,bed alarm ACTIVITIES OOB only with supervision FUNCTIONAL STATUS: - Self-Care A. Eating Ind Lucero B. Grooming Ind Lucero C. Bathing Ind sup D. Dressing - Upper Ind sup E. Dressing - Lower Ind sup F. Toileting Ind sup - Sphincter Control G: Bladder control Ind Dep H: Bowel control Ind Ind - Transfers Control I. Bed/Chair/Wheelchair Ind sup J. Toilet Ind sup K. Tub/Shower Ind sup - Locomotion L. Walk/Wheelchair (C) Ind sup L. Walk/Wheelchair (W) Ind sup M. Stairs Ind ADNO - Communication N. Comprehension (B) Ind Ind O. Expression (B) Ind Ind - Social Cognition P. Social Interaction Ind Ind Q. Problem Solving Ind Ind R. Memory Ind Ind - Endurance Fair - Balance Fair - Safety Awareness Fair CURRENT FUNC. DEFICITS: Locomotion, Endurance, Safety Awareness, Transfers Control, Balance, and Self-Care ASSESSMENT: Pt. is a 62 yo Right-handed white male.On 08/12/2017 he was admitted to [facility] with diagnosis Bowel Obstruction, Colon Cancer.His impairment category is Debility 16 - Debility (16).Pre-morbidly, Pt. was independent/mod-I in Self-Care, Locomotion, Sphincter Control, Transfers Control, Communication, and Social Cognition; and he had good Sphincter Control.Currently, he has def icits of Locomotion, Endurance, Safety Awareness, Transfers Control, Balance, and Self-Care.Pt. is no w referred to [facility] for acute in-patient rehabilitation in order to maxim ize patient's functional independence in activities of daily living, strength, ROM, and mobility.- Re hab Goal Patient has realistic goal of being discharged at assistance level 6-Lucero to reside at Home with Fam nereida/Relatives. REHAB PLAN: - Physical Therapy Gait dysfunction - to improve, our physical therapists will perform initial evaluation of pt's status upon admission and devise an individualized program for Gait Training, and Wheel Chair mobility Inability to transfer - to improve, our physical therapists will perform initial evaluation of pt's s tatus upon admission and devise an individualized program for Bed mobility Need for home safety evaluation - to improve, our physical therapists will perform initial evaluation of pt's status upon admission and devise an individualized program for Home Evaluation Need in caregiver upon discharge - to improve, our physical therapists will perform initial evaluatio n of pt's status upon admission and devise an individualized program for Caregiver Training New precaution - to improve, our physical therapists will perform initial evaluation of pt's status u imelda admission and devise an individualized program for Patient precaution education Edema - to improve, our physical therapists will perform initial evaluation of pt's status upon admi ssion and devise an individualized program for Elevation Training, and Lymphedema Therapy Poor balance - to improve, our physical therapists will perform initial evaluation of pt's status upo n admission and devise an individualized program for Balance Training Poor endurance - to improve, our physical therapists will perform initial evaluation of pt's status u imelda admission and devise an individualized program for Endurance Training Weakness - to improve, our physical therapists will perform initial evaluation of pt's status upon ad mission and devise an individualized program for Aquatic Therapy, Neuromuscular Reeducation, and Stre ngthening Achieving independence - to improve, our physical therapists will perform initial evaluation of pt's status upon admission and devise an individualized program for Community Reintegration Activities - Occupational Therapy ADL deficits - to improve, our occupation therapists will perform initial evaluation of pt's status u imelda admission and devise an individualized program for Bathing, Bed mobility, Community Reintegration , Cooking, Dressing, Eating, Fine Motor Skills, Grooming, Homemaking, Kitchen Mobility, Laundry, Meghana ent Education, Safety Awareness, Splinting - Positioning, Transfers(Toilet, Tub, Shower), and Wheel C hair Management Need for geriatric care manager - to improve, our occupation therapists will perform initial evaluation of pt's s tatus upon admission and devise an individualized program for Caregiver Training Weakness - to improve, our occupation therapists will perform initial evaluation of pt's status upon admission and devise an individualized program for Aquatic Therapy, Balance, Endurance, UE ROM, and U E strengthening MEDICAL PLAN: - Diet Type Start GI SOFT - Diet - Liquid Texture Start Regular - Tube Feed Start N/A - Fall Precaution chair alarm,bed alarm - Diet - Solid Texture Regular - Shower shower DISCHARGE PLAN: - Estimated Length of Stay (days) 13. - Consensus on plan Discharge plan has been discussed with primary caregiver. Patient/Family is in agreement with the melba n. Primary caregiver is in agreement with the plan. - Patient/Family Goals Return home with assistance. - Planned Living Setting Upon Discharge Home, to live with Family/Relatives. SIGNATURE PANEL: (CDT)
--- NOTE | 2017-08-30 13:59 | PAPE ---
PATIENT: [facility] MR# [id number] REFERRING DOCTOR LEYDI ERICKSON EVALUATION DATE AND TIME 08/30/2017 12:59 (CDT) NAME BETY GOODSON DATE OF 1955 AGE 62 PHONE N# [id number] GENDER male EVALUATING PHYSICIAN Dr. Migel Ray M.D. ADMISSION DIAGNOSIS: Bowel Obstruction, Colon Cancer ONSET DATE 08/12/2017 SECONDARY/COMORBID DIAGNOSES TIERED: - N/A Colon Cancer, Bowel Obstruction,Uncontrolled HTN, BPH,Atrial Fibrillation, Hyperlipidimia POST-ADMISSION FUNCTIONAL/MEDICAL STATUS: - Bladder Same accident frequency: Dep - No accidents in the past 7 days - Bowel Same accident frequency: Ind - No accidents in the past 7 days - Walking Same score based on distance walked: 3(>=150ft) - Wheelchair Same score based on distance traveled: 0(N/A) STATUS CHANGE EVALUATION: No change in Functional or Medical Status is identified compared with Pre-Admission screening. PATIENT NEEDS CLOSE MEDICAL SUPERVISION BY A REHABILITATION PHYSICIAN FOR: Bowel and Bladder Management Coordination of Treatment Team Medical and Co-Morbidity Management Wound Care Pain Management Post-Op Complications Balance/Coordination Medication Management DVT Management PATIENT REQUIRES 24X7 REHAB NURSING FOR MEDICAL AND FUNCTIONAL MGT. OF THE FOLLOWING DEFICITS: ADL's Ambulation Bowel and Bladder Management Communication Disease Management Medication Management Patient/Family Education Providing Safe Environment Skin Integrity Transfers Pain Management Muscle weakness PATIENT REQUIRES INTENSIVE, COORDINATED INTERDISCIPLINARY APPROACH TO REHAB: Arranging Home Equipment/Services Discharge Planning Family Intervention/Training Dental Laboratory Worker/Case Management LIST OF IDENTIFIED AND POTENTIAL PROBLEMS: Alteration in leisure activities Bladder, Incontinence Bowel, Incontinence Infection, Actual or Potential Mobility Impaired Pain, Alteration in Comfort Self Care Deficit Skin Integrity, Actual or Potential Urinary Tract Infection (UTI), Actual or Potential PATIENT COULD BE AT RISK FOR COMPLICATIONS FROM ADVERSE MEDICAL CONDITIONS DUE TO HIS/HER COMORBIDITI ES AND THE RIGORS OF THE INTENSIVE REHABILLITATION PROGRAM. METHODS OR INTERVENTIONS TO AVOID COMPLIC ATIONS INCLUDE: - Deep Vein Thrombosis (DVT) Prophylaxis therapy for prevention . Sequential Compression Device (SCD). TE D Hosjean. - Bleeding Assess lab values and manage abnormalities. Nursing to teach precautions for anti-coagulation therapy . Wound to be assessed every shift. - Infection Clinical staff to assess and manage the signs and symptoms of infection including fever, redness, war mth, etc. - Urinary Tract Infection - Falls Patient will be evaluated for Fall Precautions and will be placed on Fall Precautions as indicated pe r protocol. - Skin Breakdown Nursing will assess skin daily using assessment tool and will place on Skin Breakdown Precautions as indicated per protocol. - Pain Clinical staff may employ non-medication methods such as massage, distraction, decrease stimulus, etc . as needed. Clinical staff will assess patient's pain level every shift per protocol to assess and e nsure pain management effectiveness. Medications will be given and the pain level re-assessed. PRELIMINARY PLAN OF CARE: - Physical Therapy Patient needs Physical Therapy for a daily minimum of 1.5 hours at least 5 out of 7 days, to improve: Mobility, Strengthening, Transfers, Stretching, ROM, Endurance, Ability to manage stairs, Gait, and Balance. - Speech Therapy Patient needs Speech Therapy for a daily minimum of 0.5 hours at least 5 out of 7 days, to improve: S wallowing, Cognition, Language Skills, and Compensatory Strategies. - Rehabilitation Nursing Patient requires 24x7 Rehabilitation Nursing for: Pain Issues, Identifying and preventing risk factor s, Monitoring and reporting current medical conditions, Assisting with ambulation and transfer, Luz ting with all ADL-s, Teaching patients about disease process and medications, Family teaching, Provid ing safe environment, Bowel and Bladder Issues, Skin Integrity, and Medication Management. Patient needs Dental Laboratory Worker and/or Case Management for: Discharge Planning, Arranging Home Equipmen t or Services, and Family Interventions. - Dietary and Nutrition Services Patient needs Dietary and Nutrition Services for: Adequate Nutrition, Nutritional Supplements, and Nu tritional Education. - Occupational Therapy Patient needs Occupational Therapy for a daily minimum of 1.5 hours at least 5 out of 7 days, to impr ove Activities of Daily Living, including: Eating, Grooming, Bathing, Dressing, Toileting, Toilet Tra nsfers, Community Reintegration, Higher functional activities, Adaptive Equipment, Splinting, Househo ld Tasks, and Other activities as determined. POTENTIAL FUNCTIONAL GOALS FOR PATIENT TO ACHIEVE BY DISCHARGE: - Safety Precaution Patient will remain free from falls or injury at time of discharge. - Bed Mobility Patient will perform bed mobility at 4-Sirena level of assistance. - Transfers Patient will complete transfers from bed to chair at 4-Sirena level of assistance. - Mobility Patient will ambulate 150 ft with 4-Sirena level of assistance with RW. PATIENT REHAB POTENTIAL Expected level of measurable improvement will be of a practical value to patient's functional capacit y or adaptations to impairments Has a viable Discharge Plan Medically appropriate; condition is sufficiently stable to participate in intensive rehab program Patient is able and expected to receive 3 hours of individualized therapy daily on at least 5 of ever y 7 days Patient's prognosis for significant practical improvement within a reasonable period of time appears Good DISCHARGE PLAN: - Estimated Length of Stay (days) 13. - Consensus on plan Discharge plan has been discussed with primary caregiver. Patient/Family is in agreement with the melba n. Primary caregiver is in agreement with the plan. - Patient/Family Goals Return home with assistance. - Planned Living Setting Upon Discharge Home, to live with Family/Relatives. CONCLUSION ON REHABILITATION NECESSITY: I have evaluated patient's pre-admission functional status and, comparing it to the patient's post-ad mission functional status now, I conclude that the pre-admission assessment was accurate. Patient's c ondition on admission supports the medical necessity of admission to [facility]. It is safe to proceed with patient's therapy program. SIGNATURE PANEL: (CDT)
--- NOTE | 2017-08-30 14:56 | FAST ---
ENCOUNTER DATE AND TIME: 08/30/2017 08:00 (CDT) NAME BETY GOODSON DATE OF : 1955 DATE OF ADMISSION: 08/30/2017 12:57 (CDT) PHONE: AGE: 62 N# [id number] GENDER: Male ENCOUNTER PHYSICIAN: Dr. Migel Ray M.D. ADMISSION DIAGNOSIS: - Debility 16 - Debility (16) Bowel Obstruction, Colon Cancer. EATING: Activity did not occur on this shift EATING - SCORE: 0-UNK GROOMING: Activity did not occur on this shift GROOMING - SCORE: 0-UNK BATHING: Activity did not occur on this shift BATHING - SCORE: 0-UNK DRESSING - UPPER BODY: Activity did not occur on this shift Patient is not dressing in public clothing ARTICLES SCORE Total number of steps: 0 DRESSING - UPPER BODY - SCORE: 0-UNK DRESSING - LOWER BODY: Activity did not occur on this shift Patient is not dressing in public clothing ARTICLES SCORE Total number of steps: 0 DRESSING - LOWER BODY - SCORE: 0-UNK TOILETING: Activity did not occur on this shift TOILETING - SCORE: 0-UNK BLADDER MANAGEMENT: Activity did not occur on this shift BLADDER MANAGEMENT - SCORE: 7-IND BOWEL MANAGEMENT: Activity did not occur on this shift BOWEL MANAGEMENT - SCORE: 7-IND TRANSFERS: BED, CHAIR, WHEELCHAIR: TRANSFERS: BED, CHAIR, WHEELCHAIR - STEP 1: Does the patient require assistance with bed, chair, or wheelchair transfers? Yes. TRANSFERS: BED, CHAIR, WHEELCHAIR - STEP 2: Does the patient require the assistance of a helper? Yes. TRANSFERS: BED, CHAIR, WHEELCHAIR - STEP 3: How much assistance does the patient require from the helper? Only supervision TRANSFERS: BED, CHAIR, WHEELCHAIR - SCORE: 5-SUP TRANSFERS: TOILET: TRANSFERS: TOILET - STEP 1: Does the patient require assistance with toilet transfers? Yes. TRANSFERS: TOILET - STEP 2: Does the patient require the assistance of a helper? Yes. TRANSFERS: TOILET - STEP 3: How much assistance does the patient require from the helper? Only supervision, cuing, coaxing, OR he lp to set out transfer equipment or to lock brakes and/or lift foot rests TRANSFERS: TOILET - SCORE: 5-SUP TRANSFERS: SHOWER: Activity did not occur on this shift TRANSFERS: SHOWER - SCORE: 0-UNK TRANSFERS: TUB: Activity did not occur on this shift TRANSFERS: TUB - SCORE: 0-UNK LOCOMOTION: WALK: LOCOMOTION: WALK - STEP 1: Does the patient need help to walk 150 feet? Yes. LOCOMOTION: WALK - STEP 2: How much assistance does the patient require to walk a minimum of 150 feet? Only supervision, cuing, or coaxing LOCOMOTION: WALK - SCORE: 5-SUP LOCOMOTION: WHEELCHAIR: LOCOMOTION: WHEELCHAIR - STEP 1: Does the patient need help to go 150 feet in a wheelchair? Yes. LOCOMOTION: WHEELCHAIR - STEP 2: How much assistance does the patient need from the helper? Only supervision, cuing, or coaxing LOCOMOTION: WHEELCHAIR - SCORE: 5-SUP LOCOMOTION: STAIRS: Activity did not occur on this shift LOCOMOTION: STAIRS - SCORE: 0-UNK COMPREHENSION: COMPREHENSION - SCORE: 0-UNK EXPRESSION EXPRESSION - SCORE: 0-UNK SOCIAL INTERACTION: SOCIAL INTERACTION - SCORE: 0-UNK PROBLEM SOLVING: PROBLEM SOLVING - SCORE: 0-UNK MEMORY: MEMORY - SCORE: 0-UNK SIGNATURE PANEL: The following modified sections: Transfers: Bed, Chair, Wheelchair - Score, Transfers: Toilet - Score , Locomotion: Walk - Score, Locomotion: Wheelchair - Score, Locomotion: Stairs - Score were [spencer [email or web address]] signed by Dorcas Olivia PTA on Sat Aug 30 2017 13:58:07 GMT-0500 (Central Daylight Time)
--- NOTE | 2017-08-30 15:49 | FAST ---
SHIFT START DATE/TIME: 08/30/2017 07:00 (CDT) SHIFT END DATE/TIME: 08/30/2017 19:00 (CDT) NAME BETY GOODSON DATE OF : 1955 DATE OF ADMISSION: 08/30/2017 12:57 (CDT) PHONE: AGE: 62 [facility]# [id number] GENDER: Male ENCOUNTER PHYSICIAN: Dr. Migel Ray M.D. ADMISSION DIAGNOSIS: - Debility 16 - Debility (16) Bowel Obstruction, Colon Cancer. EATING: EATING - STEP 1: Does the patient require assistance when eating? Yes. EATING - STEP 2: Does the patient require the assistance of a helper? Yes. EATING - STEP 3: Does the patient perform half or more of the eating tasks? Yes. EATING - STEP 4: Does the patient need only supervision, cuing, coaxing OR help to apply an orthosis OR help to cut fo od, open containers, pour liquids, or butter bread? Yes. EATING - SCORE: 5-SUP GROOMING: Comb/brush hair Oral care Wash, rinse, and dry face Wash, rinse, and dry hands GROOMING - STEP 1: Does the patient require assistance when grooming? Yes. GROOMING - STEP 2: Does the patient require the assistance of a helper? No. The patient only requires an assistive devic e, OR takes more than reasonable time to groom, OR there is a concern for safety as the patient groom s GROOMING - SCORE: 6-CAIO BATHING: Activity did not occur on this shift BATHING - SCORE: 0-UNK DRESSING - UPPER BODY: Activity did not occur on this shift ARTICLES SCORE Total number of steps: 0 DRESSING - UPPER BODY - SCORE: 0-UNK DRESSING - LOWER BODY: Activity did not occur on this shift ARTICLES SCORE Total number of steps: 0 DRESSING - LOWER BODY - SCORE: 0-UNK TOILETING: TOILETING - STEP 1: Does the patient require assistance with toileting? Yes. TOILETING - STEP 2: Does the patient require the assistance of a helper? Yes. TOILETING - STEP 3: How much assistance does the patient require from the helper? Hands-on assistance from the helper TOILETING - STEP 4: Of the 3 tasks: 1) Adjusting clothing prior to use, 2) Cleansing of perineal area, 3) Adjusting clot jer after use; How many tasks does the patient perform WITHOUT assistance of the helper? Three tasks with steadying assistance from the helper TOILETING - SCORE: 4-MIN BLADDER MANAGEMENT: BLADDER MANAGEMENT - STEP 1: Does the patient control the bladder completely and intentionally without equipment or devices or med ications, and is always continent? No. BLADDER MANAGEMENT - STEP 2: Does the patient require the assistance of a helper? No, patient requires and independently uses an a ssistive device, such as a urinal, bedpan, bedside commode, catheter, absorbent pad, or collecting de vice BLADDER MANAGEMENT - SCORE: 6-CAIO BOWEL MANAGEMENT: Activity did not occur on this shift BOWEL MANAGEMENT - SCORE: 7-IND TRANSFERS: BED, CHAIR, WHEELCHAIR: TRANSFERS: BED, CHAIR, WHEELCHAIR - STEP 1: Does the patient require assistance with bed, chair, or wheelchair transfers? Yes. TRANSFERS: BED, CHAIR, WHEELCHAIR - STEP 2: Does the patient require the assistance of a helper? Yes. TRANSFERS: BED, CHAIR, WHEELCHAIR - STEP 3: How much assistance does the patient require from the helper? Steadying/guiding assistance TRANSFERS: BED, CHAIR, WHEELCHAIR - SCORE: 4-MIN TRANSFERS: TOILET: TRANSFERS: TOILET - STEP 1: Does the patient require assistance with toilet transfers? Yes. TRANSFERS: TOILET - STEP 2: Does the patient require the assistance of a helper? Yes. TRANSFERS: TOILET - STEP 3: How much assistance does the patient require from the helper? Patient performs half or more of the tr ansferring tasks TRANSFERS: TOILET - STEP 4: Does the patient need only incidental help such as contact guard or steadying during toilet transfer? Yes. TRANSFERS: TOILET - SCORE: 4-MIN TRANSFERS: SHOWER: Activity did not occur on this shift TRANSFERS: SHOWER - SCORE: 0-UNK TRANSFERS: TUB: Activity did not occur on this shift TRANSFERS: TUB - SCORE: 0-UNK LOCOMOTION: WALK: Activity did not occur on this shift LOCOMOTION: WALK - SCORE: 0-UNK LOCOMOTION: WHEELCHAIR: Activity did not occur on this shift LOCOMOTION: WHEELCHAIR - SCORE: 0-UNK COMPREHENSION: COMPREHENSION - SCORE: 0-UNK EXPRESSION EXPRESSION - SCORE: 0-UNK SOCIAL INTERACTION: SOCIAL INTERACTION - SCORE: 0-UNK PROBLEM SOLVING: PROBLEM SOLVING - SCORE: 0-UNK MEMORY: MEMORY - SCORE: 0-UNK SIGNATURE PANEL: The following modified sections: Eating - Score, Grooming - Score, Bathing - Score, Dressing - Upper Body - Score, Dressing - Lower Body - Score, Toileting - Score, Bladder Management - Score, Bowel Man agement - Score, Transfers: Bed, Chair, Wheelchair - Score, Transfers: Toilet - Score, Transfers: Yessica wer - Score, Transfers: Tub - Score, Locomotion: Walk - Score, Locomotion: Wheelchair - Score, Compre hension - Score, Expression - Score, Social Interaction - Score, Problem Solving - Score, Memory - Sc ore were [electronically] signed by Xavier Lange on Sat Aug 30 2017 14:51:41 [id number] (Central Daylight Time)
[2017-08-30] MEDS: TOPIRAMATE 25 MG TAB PO SCH (19:09)
--- NOTE | 2017-08-30 20:36 | RAD REPORT ---
EXAM DESCRIPTION: RAD - Abdomen 1 View (KUB) - 08/30/2017 8:26 pm CLINICAL HISTORY: Abdomen pain. FINDINGS: Loops of small and large bowel are mildly to moderately dilated probably representing an a dynamic ileus. The dilatation is mildly diminished when compared to an August 22 exam Surgical staple overlies the abdomen and pelvis.
--- NOTE | 2017-08-31 04:28 | FAST ---
SHIFT START DATE/TIME: 08/30/2017 19:00 (CDT) SHIFT END DATE/TIME: 08/31/2017 07:00 (CDT) NAME BETY GOODSON DATE OF : 1955 DATE OF ADMISSION: 08/30/2017 12:57 (CDT) PHONE: AGE: 62 [facility]# [id number] GENDER: Male ENCOUNTER PHYSICIAN: Dr. Migel Ray M.D. ADMISSION DIAGNOSIS: - Debility 16 - Debility (16) Bowel Obstruction, Colon Cancer. EATING: Patient requires I/V fluids for hydration and/or caloric supplementation EATING - SCORE: 1-DEP GROOMING: Wash, rinse, and dry face Wash, rinse, and dry hands GROOMING - STEP 1: Does the patient require assistance when grooming? Yes. GROOMING - STEP 2: Does the patient require the assistance of a helper? Yes. GROOMING - STEP 3: How much assistance does the patient require from the helper? Only prior equipment preparation/set up from the helper GROOMING - SCORE: 5-SUP BATHING: Activity did not occur on this shift BATHING - SCORE: 0-UNK DRESSING - UPPER BODY: Patient is not dressing in public clothing ARTICLES SCORE Total number of steps: 0 DRESSING - UPPER BODY - SCORE: 0-UNK DRESSING - LOWER BODY: Patient is not dressing in public clothing ARTICLES SCORE Total number of steps: 0 DRESSING - LOWER BODY - SCORE: 0-UNK TOILETING: TOILETING - STEP 1: Does the patient require assistance with toileting? Yes. TOILETING - STEP 2: Does the patient require the assistance of a helper? Yes. TOILETING - STEP 3: How much assistance does the patient require from the helper? Hands-on assistance from the helper TOILETING - STEP 4: Of the 3 tasks: 1) Adjusting clothing prior to use, 2) Cleansing of perineal area, 3) Adjusting clot jer after use; How many tasks does the patient perform WITHOUT assistance of the helper? Three tasks with steadying assistance from the helper TOILETING - SCORE: 4-MIN BLADDER MANAGEMENT: BLADDER MANAGEMENT - STEP 1: Does the patient control the bladder completely and intentionally without equipment or devices or med ications, and is always continent? No. BLADDER MANAGEMENT - STEP 2: Does the patient require the assistance of a helper? Yes. BLADDER MANAGEMENT - STEP 3: How much assistance does the patient require from the helper? Only set-up of equipment - such as plac ing it within reach of the patient or emptying a device - to maintain either satisfactory voiding pat tern or managing an external device, such as an absorbent pad, ileal device, or catheter BLADDER MANAGEMENT - SCORE: 5-SUP BLADDER MANAGEMENT - FREQUENCY OF ACCIDENTS: BLADDER MANAGEMENT(FA) - STEP 1: How many accidents has the patient had during the current shift? 0 BOWEL MANAGEMENT: BOWEL MANAGEMENT - STEP 1: Does the patient control bowels completely and intentionally without equipment devices or medications AND is always continent? No. BOWEL MANAGEMENT - STEP 2: Does the patient require the assistance of a helper? Yes. BOWEL MANAGEMENT - STEP 3: How much assistance does the patient require from the helper? [place] provides less than 25% assistanc e to position patient on / off bedpan BOWEL MANAGEMENT - SCORE: 4-MIN BOWEL MANAGEMENT - FREQUENCY OF ACCIDENTS: BOWEL MANAGEMENT(FA) - STEP 1: How many accidents has the patient had during the current shift? 0 TRANSFERS: BED, CHAIR, WHEELCHAIR: TRANSFERS: BED, CHAIR, WHEELCHAIR - STEP 1: Does the patient require assistance with bed, chair, or wheelchair transfers? Yes. TRANSFERS: BED, CHAIR, WHEELCHAIR - STEP 2: Does the patient require the assistance of a helper? Yes. TRANSFERS: BED, CHAIR, WHEELCHAIR - STEP 3: How much assistance does the patient require from the helper? Steadying/guiding assistance TRANSFERS: BED, CHAIR, WHEELCHAIR - SCORE: 4-MIN TRANSFERS: TOILET: TRANSFERS: TOILET - STEP 1: Does the patient require assistance with toilet transfers? Yes. TRANSFERS: TOILET - STEP 2: Does the patient require the assistance of a helper? Yes. TRANSFERS: TOILET - STEP 3: How much assistance does the patient require from the helper? Patient performs half or more of the tr ansferring tasks TRANSFERS: TOILET - STEP 4: Does the patient need only incidental help such as contact guard or steadying during toilet transfer? Yes. TRANSFERS: TOILET - SCORE: 4-MIN TRANSFERS: SHOWER: Activity did not occur on this shift TRANSFERS: SHOWER - SCORE: 0-UNK TRANSFERS: TUB: Activity did not occur on this shift TRANSFERS: TUB - SCORE: 0-UNK LOCOMOTION: WALK: Activity did not occur on this shift LOCOMOTION: WALK - SCORE: 0-UNK LOCOMOTION: WHEELCHAIR: Activity did not occur on this shift LOCOMOTION: WHEELCHAIR - SCORE: 0-UNK COMPREHENSION: COMPREHENSION: TYPE: Both COMPREHENSION - STEP 1: Does the patient require help to understand complex and abstract ideas (such as current events, finan uma, discharge planning, medical issues, relationships, etc)? No. COMPREHENSION - STEP 2: Does the patient need extra time, require an assistive device (such as glasses, hearing aids, or an a ugmentative communication system), OR does s/he have mild difficulty expressing complex and abstract ideas (including mild dysarthria or mild word-finding problems)? Yes. COMPREHENSION - SCORE: 6-CAIO EXPRESSION EXPRESSION: TYPE: Both EXPRESSION - STEP 1: Does the patient require help expressing complex and abstract ideas (such as current events, finances , discharge planning, medical issues, relationships, etc)? No. EXPRESSION - STEP 2: Does the patient need extra time, require an assistive device (such as augmentive communication syste m or a communication board), OR does s/he have mild difficulty expressing complex and abstract ideas (including mild dysarthria or mild word-find problems)? Yes. EXPRESSION - SCORE: 6-CAIO SOCIAL INTERACTION: SOCIAL INTERACTION - STEP 1: Does the patient require a helper to interact with others in social and therapeutic situations? No. SOCIAL INTERACTION - STEP 2: Does the patient need extra time in social situations, OR does s/he interact with staff, other patien ts, and family members ONLY in structured environments, OR does s/he require medication for social in teraction? Yes, patient needs extra time SOCIAL INTERACTION - SCORE: 6-CAIO PROBLEM SOLVING: PROBLEM SOLVING - STEP 1: Does the patient need help to solve complex problems such as managing a checking account or confronti ng interpersonal problems? No. PROBLEM SOLVING - STEP 2: Does the patient require extra time to make decisions or solve problems, OR does s/he have slight dif ficulty reading, initiating, or self-correcting in unfamiliar situations? Yes, patient needs extra ti me. PROBLEM SOLVING - SCORE: 6-CAIO MEMORY: MEMORY - STEP 1: Does the patient need help to remember frequently encountered people, daily routines, and executing r equests? No. MEMORY - STEP 2: Does the patient have slight difficulty recognizing frequently encountered people, daily routines, or executing requests without the need for repetition or using self-initiated or environmental cues to remember? Yes. MEMORY - SCORE: 6-CAIO SIGNATURE PANEL: The following modified sections: Eating - Score, Grooming - Score, Bathing - Score, Dressing - Upper Body - Score, Dressing - Lower Body - Score, Toileting - Score, Bladder Management - Score, Bowel Man agement - Score, Transfers: Bed, Chair, Wheelchair - Score, Transfers: Toilet - Score, Transfers: Yessica wer - Score, Transfers: Tub - Score, Locomotion: Walk - Score, Locomotion: Wheelchair - Score, Compre hension - Score, Expression - Score, Social Interaction - Score, Problem Solving - Score, Memory - Sc ore were [electronically] signed by Cathy SaucedaNAmrit on FriAug 31 2017 03:29:49 T-0500 ( Central Daylight Time)
[2017-08-31] MEDS: METOPROLOL XL 25 MG TAB PO SCH (05:37)
[2017-08-31] MEDS: INSULIN -REGULAR HUMAN 50 UNIT/0.5 ML ML SQ SCH (05:37)
[2017-08-31] MEDS: cloNIDine HCl 0.1 MG TAB PO SCH ×2 (08:00→19:43)
[2017-08-31] MEDS: TOPIRAMATE 25 MG TAB PO SCH (08:35)
[2017-08-31] MEDS: FINASTERIDE 5 MG TAB PO SCH (08:36)
[2017-08-31] MEDS: ENOXAPARIN 40 MG/0.4 ML SQ SCH (08:37)
--- NOTE | 2017-08-31 11:27 | P.PN ---
Subjective Date of Service: 08/31/17 Chief Complaint: FEELS BETTER, DID NOT LIKE TOPAMAX, SIDE EFFECT, STILL HAS CLONIDINE PATCH Subjective: Improving MR GOODSON HAD COME WITH BOWEL OBSTRUCTION. HAS HAD SURGERY BY DR FISH, TOOK A LONG TIME TO RECOVER. STILL IS VERY WEAK, HAS HAD STRANGE EPISODE OF HEAD LAZO,ONE EPISODE OF SYNCOPE AND HYPERSENSITIVE TO NOISE. I ASKED DR SANCHEZ IF IT CAN BE MIGRAINE VARIANT. HE STARTED TOPAMAX. MRI AND EEG WERE NEGATIVE. HE IS SENT TO REHAB TO GET STRONGER. Review of Systems 10-point ROS is otherwise unremarkable Physical Examination - Vital Signs Temperature: 97.4 F Blood Pressure: 132/86 Pulse: 83 Respirations: 16 Pulse Ox (%): 99 - Physical Exam General: Alert, In no apparent distress HEENT: Atraumatic, PERRLA, EOMI Neck: Supple, JVD not distended Respiratory: Clear to auscultation bilaterally, Normal air movement Cardiovascular: Regular rate/rhythm, Normal S1 S2 Gastrointestinal: Normal bowel sounds, No tenderness Musculoskeletal: No tenderness Integumentary: No rashes Neurological: Normal speech, Normal tone, Normal affect Lymphatics: No axilla or inguinal lymphadenopathy - Studies Medications List Reviewed: Yes Assessment And Plan - Current Problems (Diagnosis) (1) Adynamic ileus Current Visit: No Status: Acute Plan: POST SURGICAL HE HAS LIQUD DIARRHEA NOW AND WILL FU WITH X .RAY ABLE TO EAT A LITTLE. LOT BETTER RESUME CARE STOP TPN ATE BF TODAY. (2) Colon cancer Current Visit: No Status: Chronic Plan: DR HARTMAN WILL FU (3) Hypoalbuminemia due to protein-calorie malnutrition Current Visit: No Status: Acute (4) Syncope Current Visit: No Status: Acute Plan: NO MOER BUT WILL FU ON WEAK SPELLS HE GETS WITH NO NEUROLOGICAL SYMPTOMS. (5) Urinary retention Current Visit: No Status: Acute (6) Syncope Current Visit: Yes Status: Suspected Plan: EPISODES OF NEAR SYNCOPE. UNCLEAR ETIOLOGY. TOPAMAX DID NOT WORK. HE HAS SE. STOP IT. AND WILL DO IMITREX PRN.
--- NOTE | 2017-08-31 12:11 | FAST ---
SHIFT START DATE/TIME: 08/31/2017 07:00 (CDT) SHIFT END DATE/TIME: 08/31/2017 19:00 (CDT) NAME BETY GOODSON DATE OF : 1955 DATE OF ADMISSION: 08/30/2017 12:57 (CDT) PHONE: AGE: 62 [facility]# [id number] GENDER: Male ENCOUNTER PHYSICIAN: Dr. Migel Ray M.D. ADMISSION DIAGNOSIS: - Debility 16 - Debility (16) Bowel Obstruction, Colon Cancer. EATING: EATING - STEP 1: Does the patient require assistance when eating? Yes. EATING - STEP 2: Does the patient require the assistance of a helper? No, patient only requires an assistive device, O R s/he takes more than reasonable time to eat, OR there is a safety concern, OR s/he requires modifie d food consistency EATING - SCORE: 6-CAIO GROOMING: Comb/brush hair Oral care Wash, rinse, and dry face Wash, rinse, and dry hands GROOMING - STEP 1: Does the patient require assistance when grooming? Yes. GROOMING - STEP 2: Does the patient require the assistance of a helper? No. The patient only requires an assistive devic e, OR takes more than reasonable time to groom, OR there is a concern for safety as the patient groom s GROOMING - SCORE: 6-CAIO BATHING: Activity did not occur on this shift BATHING - SCORE: 0-UNK DRESSING - UPPER BODY: Patient is not dressing in public clothing ARTICLES SCORE Total number of steps: 0 DRESSING - UPPER BODY - SCORE: 0-UNK DRESSING - LOWER BODY: Patient is not dressing in public clothing ARTICLES SCORE Total number of steps: 0 DRESSING - LOWER BODY - SCORE: 0-UNK TOILETING: TOILETING - STEP 1: Does the patient require assistance with toileting? Yes. TOILETING - STEP 2: Does the patient require the assistance of a helper? Yes. TOILETING - STEP 3: How much assistance does the patient require from the helper? Only supervision TOILETING - SCORE: 5-SUP BLADDER MANAGEMENT: BLADDER MANAGEMENT - STEP 1: Does the patient control the bladder completely and intentionally without equipment or devices or med ications, and is always continent? Yes. BLADDER MANAGEMENT - SCORE: 7-IND BOWEL MANAGEMENT: BOWEL MANAGEMENT - STEP 1: Does the patient control bowels completely and intentionally without equipment devices or medications AND is always continent? Yes. BOWEL MANAGEMENT - SCORE: 7-IND TRANSFERS: BED, CHAIR, WHEELCHAIR: TRANSFERS: BED, CHAIR, WHEELCHAIR - STEP 1: Does the patient require assistance with bed, chair, or wheelchair transfers? Yes. TRANSFERS: BED, CHAIR, WHEELCHAIR - STEP 2: Does the patient require the assistance of a helper? Yes. TRANSFERS: BED, CHAIR, WHEELCHAIR - STEP 3: How much assistance does the patient require from the helper? Only supervision TRANSFERS: BED, CHAIR, WHEELCHAIR - SCORE: 5-SUP TRANSFERS: TOILET: TRANSFERS: TOILET - STEP 1: Does the patient require assistance with toilet transfers? Yes. TRANSFERS: TOILET - STEP 2: Does the patient require the assistance of a helper? Yes. TRANSFERS: TOILET - STEP 3: How much assistance does the patient require from the helper? Only supervision, cuing, coaxing, OR he lp to set out transfer equipment or to lock brakes and/or lift foot rests TRANSFERS: TOILET - SCORE: 5-SUP TRANSFERS: SHOWER: Activity did not occur on this shift TRANSFERS: SHOWER - SCORE: 0-UNK TRANSFERS: TUB: Activity did not occur on this shift TRANSFERS: TUB - SCORE: 0-UNK LOCOMOTION: WALK: Activity did not occur on this shift LOCOMOTION: WALK - SCORE: 0-UNK LOCOMOTION: WHEELCHAIR: Activity did not occur on this shift LOCOMOTION: WHEELCHAIR - SCORE: 0-UNK COMPREHENSION: COMPREHENSION - STEP 1: Does the patient require help to understand complex and abstract ideas (such as current events, finan uma, discharge planning, medical issues, relationships, etc)? No. COMPREHENSION - STEP 2: Does the patient need extra time, require an assistive device (such as glasses, hearing aids, or an a ugmentative communication system), OR does s/he have mild difficulty expressing complex and abstract ideas (including mild dysarthria or mild word-finding problems)? Yes. COMPREHENSION - SCORE: 6-CAIO EXPRESSION EXPRESSION - STEP 1: Does the patient require help expressing complex and abstract ideas (such as current events, finances , discharge planning, medical issues, relationships, etc)? No. EXPRESSION - STEP 2: Does the patient need extra time, require an assistive device (such as augmentive communication syste m or a communication board), OR does s/he have mild difficulty expressing complex and abstract ideas (including mild dysarthria or mild word-find problems)? Yes. EXPRESSION - SCORE: 6-CAIO SOCIAL INTERACTION: SOCIAL INTERACTION - STEP 1: Does the patient require a helper to interact with others in social and therapeutic situations? No. SOCIAL INTERACTION - STEP 2: Does the patient need extra time in social situations, OR does s/he interact with staff, other patien ts, and family members ONLY in structured environments, OR does s/he require medication for social in teraction? No. SOCIAL INTERACTION - SCORE: 7-IND PROBLEM SOLVING: PROBLEM SOLVING - STEP 1: Does the patient need help to solve complex problems such as managing a checking account or confronti ng interpersonal problems? No. PROBLEM SOLVING - STEP 2: Does the patient require extra time to make decisions or solve problems, OR does s/he have slight dif ficulty reading, initiating, or self-correcting in unfamiliar situations? Yes, patient needs extra ti me. PROBLEM SOLVING - SCORE: 6-CAIO MEMORY: MEMORY - STEP 1: Does the patient need help to remember frequently encountered people, daily routines, and executing r equests? No. MEMORY - STEP 2: Does the patient have slight difficulty recognizing frequently encountered people, daily routines, or executing requests without the need for repetition or using self-initiated or environmental cues to remember? Yes. MEMORY - SCORE: 6-CAIO SIGNATURE PANEL: The following modified sections: Eating - Score, Grooming - Score, Bathing - Score, Dressing - Upper Body - Score, Dressing - Lower Body - Score, Toileting - Score, Bladder Management - Score, Bowel Man agement - Score, Transfers: Bed, Chair, Wheelchair - Score, Transfers: Toilet - Score, Transfers: Yessica wer - Score, Transfers: Tub - Score, Locomotion: Walk - Score, Locomotion: Wheelchair - Score, Compre hension - Score, Expression - Score, Social Interaction - Score, Problem Solving - Score, Memory - Sc ore were [electronically] signed by Xavier Lange on FriAug 31 2017 11:13:06 GMT-0500 (Central Daylight Time)
--- NOTE | 2017-09-01 03:43 | FAST ---
SHIFT START DATE/TIME: 08/31/2017 19:00 (CDT) SHIFT END DATE/TIME: 09/01/2017 07:00 (CDT) NAME BETY GOODSON DATE OF : 1955 DATE OF ADMISSION: 08/30/2017 12:57 (CDT) PHONE: AGE: 62 [facility]# [id number] GENDER: Male ENCOUNTER PHYSICIAN: Dr. Migel Ray M.D. ADMISSION DIAGNOSIS: - Debility 16 - Debility (16) Bowel Obstruction, Colon Cancer. EATING: EATING - STEP 1: Does the patient require assistance when eating? Yes. EATING - STEP 2: Does the patient require the assistance of a helper? Yes. EATING - STEP 3: Does the patient perform half or more of the eating tasks? Yes. EATING - STEP 4: Does the patient need only supervision, cuing, coaxing OR help to apply an orthosis OR help to cut fo od, open containers, pour liquids, or butter bread? Yes. EATING - SCORE: 5-SUP GROOMING: Oral care Wash, rinse, and dry face Wash, rinse, and dry hands GROOMING - STEP 1: Does the patient require assistance when grooming? Yes. GROOMING - STEP 2: Does the patient require the assistance of a helper? Yes. GROOMING - STEP 3: How much assistance does the patient require from the helper? Steadying assistance from the helper GROOMING - SCORE: 4-MIN BATHING: Activity did not occur on this shift BATHING - SCORE: 0-UNK DRESSING - UPPER BODY: Patient is not dressing in public clothing ARTICLES SCORE Total number of steps: 0 DRESSING - UPPER BODY - SCORE: 0-UNK DRESSING - LOWER BODY: Patient is not dressing in public clothing ARTICLES SCORE Total number of steps: 0 DRESSING - LOWER BODY - SCORE: 0-UNK TOILETING: TOILETING - STEP 1: Does the patient require assistance with toileting? Yes. TOILETING - STEP 2: Does the patient require the assistance of a helper? Yes. TOILETING - STEP 3: How much assistance does the patient require from the helper? Hands-on assistance from the helper TOILETING - STEP 4: Of the 3 tasks: 1) Adjusting clothing prior to use, 2) Cleansing of perineal area, 3) Adjusting clot jer after use; How many tasks does the patient perform WITHOUT assistance of the helper? Three tasks with steadying assistance from the helper TOILETING - SCORE: 4-MIN BLADDER MANAGEMENT: BLADDER MANAGEMENT - STEP 1: Does the patient control the bladder completely and intentionally without equipment or devices or med ications, and is always continent? No. BLADDER MANAGEMENT - STEP 2: Does the patient require the assistance of a helper? Yes. BLADDER MANAGEMENT - STEP 3: How much assistance does the patient require from the helper? Patient requires contact assistance fro m the helper BLADDER MANAGEMENT - STEP 4: How much contact assistance does the patient require from the helper? Patient requires minimal assist ance to maintain an external device - by positioning, and the patient performs 75% or more of bladder management tasks, while the helper provides less than 25% of the assistance to position patient on / off bedpan BLADDER MANAGEMENT - SCORE: 4-MIN BLADDER MANAGEMENT - FREQUENCY OF ACCIDENTS: BLADDER MANAGEMENT(FA) - STEP 1: How many accidents has the patient had during the current shift? 0 BOWEL MANAGEMENT: BOWEL MANAGEMENT - STEP 1: Does the patient control bowels completely and intentionally without equipment devices or medications AND is always continent? No. BOWEL MANAGEMENT - STEP 2: Does the patient require the assistance of a helper? Yes. BOWEL MANAGEMENT - STEP 3: How much assistance does the patient require from the helper? [place] provides less than 25% assistanc e to position patient on / off bedpan BOWEL MANAGEMENT - SCORE: 4-MIN BOWEL MANAGEMENT - FREQUENCY OF ACCIDENTS: BOWEL MANAGEMENT(FA) - STEP 1: How many accidents has the patient had during the current shift? 0 TRANSFERS: BED, CHAIR, WHEELCHAIR: TRANSFERS: BED, CHAIR, WHEELCHAIR - STEP 1: Does the patient require assistance with bed, chair, or wheelchair transfers? Yes. TRANSFERS: BED, CHAIR, WHEELCHAIR - STEP 2: Does the patient require the assistance of a helper? Yes. TRANSFERS: BED, CHAIR, WHEELCHAIR - STEP 3: How much assistance does the patient require from the helper? Steadying/guiding assistance TRANSFERS: BED, CHAIR, WHEELCHAIR - SCORE: 4-MIN TRANSFERS: TOILET: TRANSFERS: TOILET - STEP 1: Does the patient require assistance with toilet transfers? Yes. TRANSFERS: TOILET - STEP 2: Does the patient require the assistance of a helper? Yes. TRANSFERS: TOILET - STEP 3: How much assistance does the patient require from the helper? Patient performs half or more of the tr ansferring tasks TRANSFERS: TOILET - STEP 4: Does the patient need only incidental help such as contact guard or steadying during toilet transfer? Yes. TRANSFERS: TOILET - SCORE: 4-MIN TRANSFERS: SHOWER: Activity did not occur on this shift TRANSFERS: SHOWER - SCORE: 0-UNK TRANSFERS: TUB: Activity did not occur on this shift TRANSFERS: TUB - SCORE: 0-UNK LOCOMOTION: WALK: Activity did not occur on this shift LOCOMOTION: WALK - SCORE: 0-UNK LOCOMOTION: WHEELCHAIR: Activity did not occur on this shift LOCOMOTION: WHEELCHAIR - SCORE: 0-UNK COMPREHENSION: COMPREHENSION: TYPE: Both COMPREHENSION - STEP 1: Does the patient require help to understand complex and abstract ideas (such as current events, finan uma, discharge planning, medical issues, relationships, etc)? No. COMPREHENSION - STEP 2: Does the patient need extra time, require an assistive device (such as glasses, hearing aids, or an a ugmentative communication system), OR does s/he have mild difficulty expressing complex and abstract ideas (including mild dysarthria or mild word-finding problems)? Yes. COMPREHENSION - SCORE: 6-CAIO EXPRESSION EXPRESSION: TYPE: Both EXPRESSION - STEP 1: Does the patient require help expressing complex and abstract ideas (such as current events, finances , discharge planning, medical issues, relationships, etc)? No. EXPRESSION - STEP 2: Does the patient need extra time, require an assistive device (such as augmentive communication syste m or a communication board), OR does s/he have mild difficulty expressing complex and abstract ideas (including mild dysarthria or mild word-find problems)? Yes. EXPRESSION - SCORE: 6-CAIO SOCIAL INTERACTION: SOCIAL INTERACTION - STEP 1: Does the patient require a helper to interact with others in social and therapeutic situations? No. SOCIAL INTERACTION - STEP 2: Does the patient need extra time in social situations, OR does s/he interact with staff, other patien ts, and family members ONLY in structured environments, OR does s/he require medication for social in teraction? No. SOCIAL INTERACTION - SCORE: 7-IND PROBLEM SOLVING: PROBLEM SOLVING - STEP 1: Does the patient need help to solve complex problems such as managing a checking account or confronti ng interpersonal problems? No. PROBLEM SOLVING - STEP 2: Does the patient require extra time to make decisions or solve problems, OR does s/he have slight dif ficulty reading, initiating, or self-correcting in unfamiliar situations? Yes, patient needs extra ti me. PROBLEM SOLVING - SCORE: 6-CAIO MEMORY: MEMORY - STEP 1: Does the patient need help to remember frequently encountered people, daily routines, and executing r equests? No. MEMORY - STEP 2: Does the patient have slight difficulty recognizing frequently encountered people, daily routines, or executing requests without the need for repetition or using self-initiated or environmental cues to remember? Yes. MEMORY - SCORE: 6-CAIO SIGNATURE PANEL: The following modified sections: Eating - Score, Grooming - Score, Bathing - Score, Dressing - Upper Body - Score, Dressing - Lower Body - Score, Toileting - Score, Bladder Management - Score, Bowel Man agement - Score, Transfers: Bed, Chair, Wheelchair - Score, Transfers: Toilet - Score, Transfers: Yessica wer - Score, Transfers: Tub - Score, Locomotion: Walk - Score, Locomotion: Wheelchair - Score, Compre hension - Score, Expression - Score, Social Interaction - Score, Problem Solving - Score, Memory - Sc ore were [electronically] signed by Cathy SaucedaNAmrit on FriSep 01 2017 02:44:48 T-0500 ( Central Daylight Time)
[2017-09-01] MEDS: METOPROLOL XL 25 MG TAB PO SCH (05:15)
[2017-09-01] MEDS: ENOXAPARIN 40 MG/0.4 ML SQ SCH (07:19)
[2017-09-01] MEDS: FINASTERIDE 5 MG TAB PO SCH (08:17)
[2017-09-01] MEDS: cloNIDine HCl 0.1 MG TAB PO SCH ×2 (08:17→19:54)
--- NOTE | 2017-09-01 16:01 | FAST ---
ENCOUNTER DATE AND TIME: 09/01/2017 08:00 (CDT) NAME BETY GOODSON DATE OF : 1955 DATE OF ADMISSION: 08/30/2017 12:57 (CDT) PHONE: AGE: 62 N# [id number] GENDER: Male ENCOUNTER PHYSICIAN: Dr. Migel Ray M.D. ADMISSION DIAGNOSIS: - Debility 16 - Debility (16) Bowel Obstruction, Colon Cancer. EATING: Activity did not occur on this shift EATING - SCORE: 0-UNK GROOMING: Activity did not occur on this shift GROOMING - SCORE: 0-UNK BATHING: Activity did not occur on this shift BATHING - SCORE: 0-UNK DRESSING - UPPER BODY: Activity did not occur on this shift Patient is not dressing in public clothing ARTICLES SCORE Total number of steps: 0 DRESSING - UPPER BODY - SCORE: 0-UNK DRESSING - LOWER BODY: Activity did not occur on this shift Patient is not dressing in public clothing ARTICLES SCORE Total number of steps: 0 DRESSING - LOWER BODY - SCORE: 0-UNK TOILETING: Activity did not occur on this shift TOILETING - SCORE: 0-UNK BLADDER MANAGEMENT: Activity did not occur on this shift BLADDER MANAGEMENT - SCORE: 7-IND BOWEL MANAGEMENT: Activity did not occur on this shift BOWEL MANAGEMENT - SCORE: 7-IND TRANSFERS: BED, CHAIR, WHEELCHAIR: TRANSFERS: BED, CHAIR, WHEELCHAIR - STEP 1: Does the patient require assistance with bed, chair, or wheelchair transfers? Yes. TRANSFERS: BED, CHAIR, WHEELCHAIR - STEP 2: Does the patient require the assistance of a helper? Yes. TRANSFERS: BED, CHAIR, WHEELCHAIR - STEP 3: How much assistance does the patient require from the helper? Only supervision TRANSFERS: BED, CHAIR, WHEELCHAIR - SCORE: 5-SUP TRANSFERS: TOILET: Activity did not occur on this shift TRANSFERS: TOILET - SCORE: 0-UNK TRANSFERS: SHOWER: Activity did not occur on this shift TRANSFERS: SHOWER - SCORE: 0-UNK TRANSFERS: TUB: Activity did not occur on this shift TRANSFERS: TUB - SCORE: 0-UNK LOCOMOTION: WALK: LOCOMOTION: WALK - STEP 1: Does the patient need help to walk 150 feet? No. LOCOMOTION: WALK - STEP 2: Does the patient need an assistive device (such as an orthosis, prosthesis, crutches, or walker) to g o 150 feet, OR does s/he take more than reasonable time, OR is there a concern for safety? Yes, the p atient needs an assistive device LOCOMOTION: WALK - SCORE: 6-CAIO LOCOMOTION: WHEELCHAIR: LOCOMOTION: WHEELCHAIR - STEP 1: Does the patient need help to go 150 feet in a wheelchair? Yes. LOCOMOTION: WHEELCHAIR - STEP 2: How much assistance does the patient need from the helper? Only supervision, cuing, or coaxing LOCOMOTION: WHEELCHAIR - SCORE: 5-SUP LOCOMOTION: STAIRS: LOCOMOTION: STAIRS - STEP 1: Does the patient need help to go up and down 12 to 14 stairs? No. LOCOMOTION: STAIRS - STEP 2: Does the patient require an assistive device - such as handrails or cane - to go up and down one flig ht of stairs, OR does s/he take more than reasonable time, OR is there a concern for safety? Yes, the patient requires an assistive device LOCOMOTION: STAIRS - SCORE: 6-CAIO COMPREHENSION: COMPREHENSION - SCORE: 0-UNK EXPRESSION EXPRESSION - SCORE: 0-UNK SOCIAL INTERACTION: SOCIAL INTERACTION - SCORE: 0-UNK PROBLEM SOLVING: PROBLEM SOLVING - SCORE: 0-UNK MEMORY: MEMORY - SCORE: 0-UNK SIGNATURE PANEL: The following modified sections: Transfers: Bed, Chair, Wheelchair - Score, Transfers: Toilet - Score , Locomotion: Walk - Score, Locomotion: Wheelchair - Score, Locomotion: Stairs - Score were [electron elyssa] signed by Madhu Paez PTA on FriSep 01 2017 15:03:42 GMT-0500 (Central Daylight Time)
--- NOTE | 2017-09-01 16:09 | FAST ---
SHIFT START DATE/TIME: 09/01/2017 07:00 (CDT) SHIFT END DATE/TIME: 09/01/2017 19:00 (CDT) NAME BETY GOODSON DATE OF : 1955 DATE OF ADMISSION: 08/30/2017 12:57 (CDT) PHONE: AGE: 62 [facility]# [id number] GENDER: Male ENCOUNTER PHYSICIAN: Dr. Migel Ray M.D. ADMISSION DIAGNOSIS: - Debility 16 - Debility (16) Bowel Obstruction, Colon Cancer. EATING: EATING - STEP 1: Does the patient require assistance when eating? Yes. EATING - STEP 2: Does the patient require the assistance of a helper? No, patient only requires an assistive device, O R s/he takes more than reasonable time to eat, OR there is a safety concern, OR s/he requires modifie d food consistency EATING - SCORE: 6-CAIO GROOMING: Comb/brush hair Oral care Wash, rinse, and dry face Wash, rinse, and dry hands GROOMING - STEP 1: Does the patient require assistance when grooming? Yes. GROOMING - STEP 2: Does the patient require the assistance of a helper? No. The patient only requires an assistive devic e, OR takes more than reasonable time to groom, OR there is a concern for safety as the patient groom s GROOMING - SCORE: 6-CAIO BATHING: Activity did not occur on this shift BATHING - SCORE: 0-UNK DRESSING - UPPER BODY: Activity did not occur on this shift ARTICLES SCORE Total number of steps: 0 DRESSING - UPPER BODY - SCORE: 0-UNK DRESSING - LOWER BODY: Activity did not occur on this shift ARTICLES SCORE Total number of steps: 0 DRESSING - LOWER BODY - SCORE: 0-UNK TOILETING: TOILETING - STEP 1: Does the patient require assistance with toileting? Yes. TOILETING - STEP 2: Does the patient require the assistance of a helper? Yes. TOILETING - STEP 3: How much assistance does the patient require from the helper? Only supervision TOILETING - SCORE: 5-SUP BLADDER MANAGEMENT: BLADDER MANAGEMENT - STEP 1: Does the patient control the bladder completely and intentionally without equipment or devices or med ications, and is always continent? Yes. BLADDER MANAGEMENT - SCORE: 7-IND BLADDER MANAGEMENT - FREQUENCY OF ACCIDENTS: BLADDER MANAGEMENT(FA) - STEP 1: How many accidents has the patient had during the current shift? 0 BOWEL MANAGEMENT: BOWEL MANAGEMENT - STEP 1: Does the patient control bowels completely and intentionally without equipment devices or medications AND is always continent? No. BOWEL MANAGEMENT - STEP 2: Does the patient require the assistance of a helper? No, patient requires extra time BOWEL MANAGEMENT - SCORE: 6-CAIO BOWEL MANAGEMENT - FREQUENCY OF ACCIDENTS: BOWEL MANAGEMENT(FA) - STEP 1: How many accidents has the patient had during the current shift? 0 TRANSFERS: BED, CHAIR, WHEELCHAIR: TRANSFERS: BED, CHAIR, WHEELCHAIR - STEP 1: Does the patient require assistance with bed, chair, or wheelchair transfers? Yes. TRANSFERS: BED, CHAIR, WHEELCHAIR - STEP 2: Does the patient require the assistance of a helper? Yes. TRANSFERS: BED, CHAIR, WHEELCHAIR - STEP 3: How much assistance does the patient require from the helper? Steadying/guiding assistance TRANSFERS: BED, CHAIR, WHEELCHAIR - SCORE: 4-MIN TRANSFERS: TOILET: TRANSFERS: TOILET - STEP 1: Does the patient require assistance with toilet transfers? Yes. TRANSFERS: TOILET - STEP 2: Does the patient require the assistance of a helper? No. Patient only requires an assistive device ospina ch as a grab bar or special seat, OR s/he takes more than reasonable time to perform toilet transfers , OR there is a safety concern when s/he performs toilet transfers. TRANSFERS: TOILET - SCORE: 6-CAIO TRANSFERS: SHOWER: Activity did not occur on this shift TRANSFERS: SHOWER - SCORE: 0-UNK TRANSFERS: TUB: Activity did not occur on this shift TRANSFERS: TUB - SCORE: 0-UNK LOCOMOTION: WALK: Activity did not occur on this shift LOCOMOTION: WALK - SCORE: 0-UNK LOCOMOTION: WHEELCHAIR: LOCOMOTION: WHEELCHAIR - STEP 1: Does the patient need help to go 150 feet in a wheelchair? Yes. LOCOMOTION: WHEELCHAIR - STEP 2: How much assistance does the patient need from the helper? Only supervision, cuing, or coaxing LOCOMOTION: WHEELCHAIR - SCORE: 5-SUP COMPREHENSION: COMPREHENSION: TYPE: Both COMPREHENSION - STEP 1: Does the patient require help to understand complex and abstract ideas (such as current events, finan uma, discharge planning, medical issues, relationships, etc)? No. COMPREHENSION - STEP 2: Does the patient need extra time, require an assistive device (such as glasses, hearing aids, or an a ugmentative communication system), OR does s/he have mild difficulty expressing complex and abstract ideas (including mild dysarthria or mild word-finding problems)? Yes. COMPREHENSION - SCORE: 6-CAIO EXPRESSION EXPRESSION: TYPE: Both EXPRESSION - STEP 1: Does the patient require help expressing complex and abstract ideas (such as current events, finances , discharge planning, medical issues, relationships, etc)? No. EXPRESSION - STEP 2: Does the patient need extra time, require an assistive device (such as augmentive communication syste m or a communication board), OR does s/he have mild difficulty expressing complex and abstract ideas (including mild dysarthria or mild word-find problems)? Yes. EXPRESSION - SCORE: 6-CAIO SOCIAL INTERACTION: SOCIAL INTERACTION - STEP 1: Does the patient require a helper to interact with others in social and therapeutic situations? No. SOCIAL INTERACTION - STEP 2: Does the patient need extra time in social situations, OR does s/he interact with staff, other patien ts, and family members ONLY in structured environments, OR does s/he require medication for social in teraction? No. SOCIAL INTERACTION - SCORE: 7-IND PROBLEM SOLVING: PROBLEM SOLVING - STEP 1: Does the patient need help to solve complex problems such as managing a checking account or confronti ng interpersonal problems? No. PROBLEM SOLVING - STEP 2: Does the patient require extra time to make decisions or solve problems, OR does s/he have slight dif ficulty reading, initiating, or self-correcting in unfamiliar situations? Yes, patient needs extra ti me. PROBLEM SOLVING - SCORE: 6-CAIO MEMORY: MEMORY - STEP 1: Does the patient need help to remember frequently encountered people, daily routines, and executing r equests? No. MEMORY - STEP 2: Does the patient have slight difficulty recognizing frequently encountered people, daily routines, or executing requests without the need for repetition or using self-initiated or environmental cues to remember? Yes. MEMORY - SCORE: 6-CAIO SIGNATURE PANEL: The following modified sections: Eating - Score, Grooming - Score, Bathing - Score, Dressing - Upper Body - Score, Dressing - Lower Body - Score, Toileting - Score, Bladder Management - Score, Bowel Man agement - Score, Transfers: Bed, Chair, Wheelchair - Score, Transfers: Toilet - Score, Transfers: Yessica wer - Score, Transfers: Tub - Score, Locomotion: Walk - Score, Locomotion: Wheelchair - Score, Compre hension - Score, Expression - Score, Social Interaction - Score, Problem Solving - Score, Memory - Sc ore were [electronically] signed by Santa Nam C.N.A. on FriSep 01 2017 15:10:58 T-0500 (Centra l Daylight Time)
--- NOTE | 2017-09-01 19:42 | R.PN ---
ENCOUNTER DATE AND TIME: 09/01/2017 18:40 (CDT) NAME BETY GOODSON DATE OF : 1955 DATE OF ADMISSION: 08/30/2017 12:57 (CDT) Bowel Obstruction, Colon CancerCHIEF COMPLAINT: Debility, bowel obstruction SUBJECTIVE: Pt denied any Shortness of Breath. Pt denied any depression. He ambulated 750' with modified independence using a rolling walker. Up and down 15 steps with modifi ed independence. VITAL SIGNS Temperature: 98 F SBP/DBP: 136/90 Pulse: 95 Resp: 16 MEDICATION ALLERGIES: No Known Drug Allergies (NKDA) ENVIRONMENTAL ALLERGIES: None Known - Substance Allergies None Known - Other Allergies None Known NURSING: - Shower allowing shower PRECAUTIONS: - Fall Precaution chair alarm,bed alarm ACTIVITIES OOB only with supervision THERAPIES: - Occupational Therapy Evaluate and Treat. - Physical Therapy Evaluate and Treat. PHYSICAL EXAM - Gen Alert and awake Lying in bed No apparent distress Oriented to: person, time, and place - Vital Signs Temperature: 98 F SBP/DBP: 125/87 Pulse: 82 Resp: 16 Vital signs stable, afebrile - Skin incisions intact Normacephalic - Eyes No abnormalities - ENMT No abnormalities - Neck No abnormalities - CVS RRR - Chest Clear - Abd Soft - GI nondistended Deferred - No abnormalities - Ext No significant edema - MSK 4/5 weakness in both lower extremities. - Neuro No focal deficits - Psych No abnormalities ASSESSMENT: Pt. is a 62 yo Right-handed white male.On 08/12/2017 he was admitted to [facility] with diagnosis Bowel Obstruction, Colon Cancer.His impairment category is Debility 16 - Debility (16).Pre-morbidly, Pt. was independent/mod-I in Self-Care, Locomotion, Sphincter Control, Transfers Control, Communication, and Social Cognition; and he had good Sphincter Control.Currently, he has def icits of Locomotion, Endurance, Safety Awareness, Transfers Control, Balance, and Self-Care.Pt. is no w referred to [facility] for acute in-patient rehabilitation in order to maxim ize patient's functional independence in activities of daily living, strength, ROM, and mobility.- Re hab Goal Patient has realistic goal of being discharged at assistance level 6-Lucero to reside at Home with Fam nereida/Relatives. MDM/PLAN: - Diet Type Continue GI SOFT - Physical Therapy Gait dysfunction - to improve, our physical therapists will perform initial evaluation of pt's statu s upon admission and devise an individualized program for Gait Training, and Wheel Chair mobility Inability to transfer - to improve, our physical therapists will perform initial evaluation of pt's status upon admission and devise an individualized program for Bed mobility Need for home safety evaluation - to improve, our physical therapists will perform initial evaluatio n of pt's status upon admission and devise an individualized program for Home Evaluation Need in caregiver upon discharge - to improve, our physical therapists will perform initial evaluati on of pt's status upon admission and devise an individualized program for Caregiver Training New precaution - to improve, our physical therapists will perform initial evaluation of pt's status upon admission and devise an individualized program for Patient precaution education Edema - to improve, our physical therapists will perform initial evaluation of pt's status upon admis chantale and devise an individualized program for Elevation Training, and Lymphedema Therapy Poor balance - to improve, our physical therapists will perform initial evaluation of pt's status up on admission and devise an individualized program for Balance Training Poor endurance - to improve, our physical therapists will perform initial evaluation of pt's status upon admission and devise an individualized program for Endurance Training Weakness - to improve, our physical therapists will perform initial evaluation of pt's status upon a dmission and devise an individualized program for Aquatic Therapy, Neuromuscular Reeducation, and Str engthening Achieving independence - to improve, our physical therapists will perform initial evaluation of pt's status upon admission and devise an individualized program for Community Reintegration Activities - Diet - Liquid Texture Continue Regular - Tube Feed Continue N/A - Fall Precaution chair alarm,bed alarm - Diet - Solid Texture Continue Regular - Shower allowing shower - Occupational Therapy ADL deficits - to improve, our occupation therapists will perform initial evaluation of pt's status upon admission and devise an individualized program for Bathing, Bed mobility, Community Reintegratio n, Cooking, Dressing, Eating, Fine Motor Skills, Grooming, Homemaking, Kitchen Mobility, Laundry, Pat ient Education, Safety Awareness, Splinting - Positioning, Transfers(Toilet, Tub, Shower), and Wheel Chair Management Need for care rep - to improve, our occupation therapists will perform initial evaluation of pt's status upon admission and devise an individualized program for Caregiver Training Weakness - to improve, our occupation therapists will perform initial evaluation of pt's status upon admission and devise an individualized program for Aquatic Therapy, Balance, Endurance, UE ROM, and UE strengthening FUNCTIONAL STATUS: UPDATED AT WEEKLY TEAM CONFERENCE - Bladder Same accident frequency: 1-Dep - No accidents in the past 7 days - Bowel Same accident frequency: 7-Ind - No accidents in the past 7 days - Walking Same score based on distance walked: 3(>=150ft) - Wheelchair Same score based on distance traveled: 0(N/A) FUNCTIONAL STATUS: - Self-Care A. Eating [place] B. Grooming [place] C. Bathing sup D. Dressing - Upper sup E. Dressing - Lower sup F. Toileting sup - Sphincter Control G: Bladder control Dep H: Bowel control Ind - Transfers Control I. Bed/Chair/Wheelchair sup J. Toilet sup K. Tub/Shower sup - Locomotion L. Walk/Wheelchair (C) sup L. Walk/Wheelchair (W) sup M. Stairs ADNO - Communication N. Comprehension (B) Ind O. Expression (B) Ind - Social Cognition P. Social Interaction Ind Q. Problem Solving Ind R. Memory Ind - Endurance Fair - Balance Fair - Safety Awareness Fair CURRENT FUNC. DEFICITS: Locomotion, Endurance, Safety Awareness, Transfers Control, Balance, and Self-Care SIGNATURE PANEL: (CDT)
--- NOTE | 2017-09-01 20:18 | P.PN ---
Subjective Date of Service: 09/01/17 Chief Complaint: FEELS BETTER, DID NOT LIKE TOPAMAX, SIDE EFFECT, STILL HAS CLONIDINE PATCH MR GOODSON HAD COME WITH BOWEL OBSTRUCTION. HAS HAD SURGERY BY DR FISH, TOOK A LONG TIME TO RECOVER. STILL IS VERY WEAK, HAS HAD STRANGE EPISODE OF HEAD LAZO,ONE EPISODE OF SYNCOPE AND HYPERSENSITIVE TO NOISE. I ASKED DR SANCHEZ IF IT CAN BE MIGRAINE VARIANT. HE STARTED TOPAMAX. MRI AND EEG WERE NEGATIVE. HE IS SENT TO REHAB TO GET STRONGER. HE IS A LOT BETTER STARTING TO EAT Review of Systems 10-point ROS is otherwise unremarkable Physical Examination - Vital Signs Temperature: 97 F Blood Pressure: 125/89 Pulse: 107 Respirations: 16 Pulse Ox (%): 99 - Physical Exam General: Alert, In no apparent distress HEENT: Atraumatic, PERRLA, EOMI Neck: Supple, JVD not distended Respiratory: Clear to auscultation bilaterally, Normal air movement Cardiovascular: Regular rate/rhythm, Normal S1 S2 Gastrointestinal: Normal bowel sounds, No tenderness Musculoskeletal: No tenderness Integumentary: No rashes Neurological: Normal speech, Normal tone, Normal affect Lymphatics: No axilla or inguinal lymphadenopathy - Studies Microbiology Data (last 24 hrs): 08/30/17 02:54 Clean Catch Urine [place] Count - Final <10,000 CFU/ML. 08/30/17 02:54 Clean Catch Urine - Final Medications List Reviewed: Yes Assessment And Plan - Current Problems (Diagnosis) (1) Adynamic ileus Current Visit: No Status: Acute Plan: POST SURGICAL HE HAS LIQUD DIARRHEA NOW AND WILL FU WITH X .RAY ABLE TO EAT A LITTLE. LOT BETTER RESUME CARE STOP TPN ATE BF TODAY. X RAY SHOWS IMPROVEMENT. (2) Colon cancer Onset Date: 09/01/17 Current Visit: Yes Status: Chronic Plan: DR HARTMAN WILL FU (3) Hypoalbuminemia due to protein-calorie malnutrition Current Visit: No Status: Acute (4) Syncope Current Visit: No Status: Acute Plan: NO MOER BUT WILL FU ON WEAK SPELLS HE GETS WITH NO NEUROLOGICAL SYMPTOMS. (5) Urinary retention Current Visit: No Status: Acute (6) Syncope Onset Date: 09/01/17 Current Visit: Yes Status: Suspected Plan: EPISODES OF NEAR SYNCOPE. UNCLEAR ETIOLOGY. TOPAMAX DID NOT WORK. HE HAS SE. STOP IT. AND WILL DO IMITREX PRN.
--- NOTE | 2017-09-02 02:50 | FAST ---
SHIFT START DATE/TIME: 09/01/2017 19:00 (CDT) SHIFT END DATE/TIME: 09/02/2017 07:00 (CDT) NAME BETY GOODSON DATE OF : 1955 DATE OF ADMISSION: 08/30/2017 12:57 (CDT) PHONE: AGE: 62 [facility]# [id number] GENDER: Male ENCOUNTER PHYSICIAN: Dr. Migel Ray M.D. ADMISSION DIAGNOSIS: - Debility 16 - Debility (16) Bowel Obstruction, Colon Cancer. EATING: Activity did not occur on this shift EATING - SCORE: 0-UNK GROOMING: Wash, rinse, and dry face Wash, rinse, and dry hands GROOMING - STEP 1: Does the patient require assistance when grooming? Yes. GROOMING - STEP 2: Does the patient require the assistance of a helper? Yes. GROOMING - STEP 3: How much assistance does the patient require from the helper? Only prior equipment preparation/set up from the helper GROOMING - SCORE: 5-SUP BATHING: Activity did not occur on this shift BATHING - SCORE: 0-UNK DRESSING - UPPER BODY: Patient is not dressing in public clothing ARTICLES SCORE Total number of steps: 0 DRESSING - UPPER BODY - SCORE: 0-UNK DRESSING - LOWER BODY: Patient is not dressing in public clothing ARTICLES SCORE Total number of steps: 0 DRESSING - LOWER BODY - SCORE: 0-UNK TOILETING: TOILETING - STEP 1: Does the patient require assistance with toileting? Yes. TOILETING - STEP 2: Does the patient require the assistance of a helper? Yes. TOILETING - STEP 3: How much assistance does the patient require from the helper? Hands-on assistance from the helper TOILETING - STEP 4: Of the 3 tasks: 1) Adjusting clothing prior to use, 2) Cleansing of perineal area, 3) Adjusting clot jer after use; How many tasks does the patient perform WITHOUT assistance of the helper? Three tasks with steadying assistance from the helper TOILETING - SCORE: 4-MIN BLADDER MANAGEMENT: BLADDER MANAGEMENT - STEP 1: Does the patient control the bladder completely and intentionally without equipment or devices or med ications, and is always continent? No. BLADDER MANAGEMENT - STEP 2: Does the patient require the assistance of a helper? Yes. BLADDER MANAGEMENT - STEP 3: How much assistance does the patient require from the helper? Only set-up of equipment - such as plac ing it within reach of the patient or emptying a device - to maintain either satisfactory voiding pat tern or managing an external device, such as an absorbent pad, ileal device, or catheter BLADDER MANAGEMENT - SCORE: 5-SUP BOWEL MANAGEMENT: BOWEL MANAGEMENT - STEP 1: Does the patient control bowels completely and intentionally without equipment devices or medications AND is always continent? No. BOWEL MANAGEMENT - STEP 2: Does the patient require the assistance of a helper? Yes. BOWEL MANAGEMENT - STEP 3: How much assistance does the patient require from the helper? Patient requires supervision, stand by, cueing, coaxing, or setup of equipment - placing within reach of patient and emptying device / bedpa nd or BSC bucket - to maintain either satisfactory bowel pattern or managing an external device such as an absorbent pad, colostomy bag / ileostomy bag BOWEL MANAGEMENT - SCORE: 5-SUP TRANSFERS: BED, CHAIR, WHEELCHAIR: TRANSFERS: BED, CHAIR, WHEELCHAIR - STEP 1: Does the patient require assistance with bed, chair, or wheelchair transfers? Yes. TRANSFERS: BED, CHAIR, WHEELCHAIR - STEP 2: Does the patient require the assistance of a helper? Yes. TRANSFERS: BED, CHAIR, WHEELCHAIR - STEP 3: How much assistance does the patient require from the helper? Steadying/guiding assistance TRANSFERS: BED, CHAIR, WHEELCHAIR - SCORE: 4-MIN TRANSFERS: TOILET: TRANSFERS: TOILET - STEP 1: Does the patient require assistance with toilet transfers? Yes. TRANSFERS: TOILET - STEP 2: Does the patient require the assistance of a helper? Yes. TRANSFERS: TOILET - STEP 3: How much assistance does the patient require from the helper? Only supervision, cuing, coaxing, OR he lp to set out transfer equipment or to lock brakes and/or lift foot rests TRANSFERS: TOILET - SCORE: 5-SUP TRANSFERS: SHOWER: Activity did not occur on this shift TRANSFERS: SHOWER - SCORE: 0-UNK TRANSFERS: TUB: Activity did not occur on this shift TRANSFERS: TUB - SCORE: 0-UNK LOCOMOTION: WALK: Activity did not occur on this shift LOCOMOTION: WALK - SCORE: 0-UNK LOCOMOTION: WHEELCHAIR: Activity did not occur on this shift LOCOMOTION: WHEELCHAIR - SCORE: 0-UNK COMPREHENSION: COMPREHENSION - STEP 1: Does the patient require help to understand complex and abstract ideas (such as current events, finan uma, discharge planning, medical issues, relationships, etc)? No. COMPREHENSION - STEP 2: Does the patient need extra time, require an assistive device (such as glasses, hearing aids, or an a ugmentative communication system), OR does s/he have mild difficulty expressing complex and abstract ideas (including mild dysarthria or mild word-finding problems)? Yes. COMPREHENSION - SCORE: 6-CAIO EXPRESSION EXPRESSION - STEP 1: Does the patient require help expressing complex and abstract ideas (such as current events, finances , discharge planning, medical issues, relationships, etc)? No. EXPRESSION - STEP 2: Does the patient need extra time, require an assistive device (such as augmentive communication syste m or a communication board), OR does s/he have mild difficulty expressing complex and abstract ideas (including mild dysarthria or mild word-find problems)? No. EXPRESSION - SCORE: 7-IND SOCIAL INTERACTION: SOCIAL INTERACTION - STEP 1: Does the patient require a helper to interact with others in social and therapeutic situations? No. SOCIAL INTERACTION - STEP 2: Does the patient need extra time in social situations, OR does s/he interact with staff, other patien ts, and family members ONLY in structured environments, OR does s/he require medication for social in teraction? No. SOCIAL INTERACTION - SCORE: 7-IND PROBLEM SOLVING: PROBLEM SOLVING - STEP 1: Does the patient need help to solve complex problems such as managing a checking account or confronti ng interpersonal problems? No. PROBLEM SOLVING - STEP 2: Does the patient require extra time to make decisions or solve problems, OR does s/he have slight dif ficulty reading, initiating, or self-correcting in unfamiliar situations? Yes, patient needs extra ti me. PROBLEM SOLVING - SCORE: 6-CAIO MEMORY: MEMORY - STEP 1: Does the patient need help to remember frequently encountered people, daily routines, and executing r equests? No. MEMORY - STEP 2: Does the patient have slight difficulty recognizing frequently encountered people, daily routines, or executing requests without the need for repetition or using self-initiated or environmental cues to remember? No. MEMORY - SCORE: 7-IND SIGNATURE PANEL: The following modified sections: Eating - Score, Grooming - Score, Dressing - Upper Body - Score, James ssing - Lower Body - Score, Toileting - Score, Bladder Management - Score, Bowel Management - Score, Transfers: Bed, Chair, Wheelchair - Score, Transfers: Toilet - Score, Transfers: Shower - Score, Ordaz sfers: Tub - Score, Locomotion: Walk - Score, Locomotion: Wheelchair - Score, Comprehension - Score, Expression - Score, Social Interaction - Score, Problem Solving - Score, Memory - Score were [electro nically] signed by Giovanna Jean-Baptiste CNA on FriSep 02 2017 01:52:01 T-0500 (Central Daylight Time)
[2017-09-02] MEDS: METOPROLOL XL 25 MG TAB PO SCH (05:17)
[2017-09-02] MEDS: ENOXAPARIN 40 MG/0.4 ML SQ SCH (07:43)
[2017-09-02] MEDS: FINASTERIDE 5 MG TAB PO SCH (07:43)
[2017-09-02] MEDS: cloNIDine HCl 0.1 MG TAB PO SCH ×2 (07:44→19:43)
[2017-09-02] MEDS: PROMOD 30 ML DOSE PO SCH ×2 (08:00→19:43)
[2017-09-02] MEDS: ENSURE CLEAR 200 ML CAN PO SCH ×2 (08:00→19:42)
--- NOTE | 2017-09-02 15:42 | FAST ---
ENCOUNTER DATE AND TIME: 09/02/2017 08:00 (CDT) NAME BETY GOODSON DATE OF : 1955 DATE OF ADMISSION: 08/29/2017 17:49 (CDT) PHONE: AGE: 62 N# [id number] GENDER: Male ENCOUNTER PHYSICIAN: Dr. Migel Ray M.D. ADMISSION DIAGNOSIS: - Debility 16 - Debility (16) Bowel Obstruction, Colon Cancer. EATING: Activity did not occur on this shift EATING - SCORE: 0-UNK GROOMING: Activity did not occur on this shift GROOMING - SCORE: 0-UNK BATHING: Activity did not occur on this shift BATHING - SCORE: 0-UNK DRESSING - UPPER BODY: Activity did not occur on this shift Patient is not dressing in public clothing ARTICLES SCORE Total number of steps: 0 DRESSING - UPPER BODY - SCORE: 0-UNK DRESSING - LOWER BODY: Activity did not occur on this shift Patient is not dressing in public clothing ARTICLES SCORE Total number of steps: 0 DRESSING - LOWER BODY - SCORE: 0-UNK TOILETING: Activity did not occur on this shift TOILETING - SCORE: 0-UNK BLADDER MANAGEMENT: Activity did not occur on this shift BLADDER MANAGEMENT - SCORE: 7-IND BOWEL MANAGEMENT: Activity did not occur on this shift BOWEL MANAGEMENT - SCORE: 7-IND TRANSFERS: BED, CHAIR, WHEELCHAIR: TRANSFERS: BED, CHAIR, WHEELCHAIR - STEP 1: Does the patient require assistance with bed, chair, or wheelchair transfers? Yes. TRANSFERS: BED, CHAIR, WHEELCHAIR - STEP 2: Does the patient require the assistance of a helper? No. Patient only requires an assistive device fo r bed, chair, wheelchair transfers such as a sliding board, grab bar, or brace, OR s/he takes more th an reasonable time, OR there is a safety concern when s/he performs the transfers TRANSFERS: BED, CHAIR, WHEELCHAIR - SCORE: 6-CAIO TRANSFERS: TOILET: Activity did not occur on this shift TRANSFERS: TOILET - SCORE: 0-UNK TRANSFERS: SHOWER: Activity did not occur on this shift TRANSFERS: SHOWER - SCORE: 0-UNK TRANSFERS: TUB: Activity did not occur on this shift TRANSFERS: TUB - SCORE: 0-UNK LOCOMOTION: WALK: LOCOMOTION: WALK - STEP 1: Does the patient need help to walk 150 feet? No. LOCOMOTION: WALK - STEP 2: Does the patient need an assistive device (such as an orthosis, prosthesis, crutches, or walker) to g o 150 feet, OR does s/he take more than reasonable time, OR is there a concern for safety? Yes, the p atient needs an assistive device LOCOMOTION: WALK - SCORE: 6-CAIO LOCOMOTION: WHEELCHAIR: LOCOMOTION: WHEELCHAIR - STEP 1: Does the patient need help to go 150 feet in a wheelchair? Yes. LOCOMOTION: WHEELCHAIR - STEP 2: How much assistance does the patient need from the helper? Only supervision, cuing, or coaxing LOCOMOTION: WHEELCHAIR - SCORE: 5-SUP LOCOMOTION: STAIRS: LOCOMOTION: STAIRS - STEP 1: Does the patient need help to go up and down 12 to 14 stairs? No. LOCOMOTION: STAIRS - STEP 2: Does the patient require an assistive device - such as handrails or cane - to go up and down one flig ht of stairs, OR does s/he take more than reasonable time, OR is there a concern for safety? Yes, the patient requires an assistive device LOCOMOTION: STAIRS - SCORE: 6-CAIO COMPREHENSION: COMPREHENSION - SCORE: 0-UNK EXPRESSION EXPRESSION - SCORE: 0-UNK SOCIAL INTERACTION: SOCIAL INTERACTION - SCORE: 0-UNK PROBLEM SOLVING: PROBLEM SOLVING - SCORE: 0-UNK MEMORY: MEMORY - SCORE: 0-UNK SIGNATURE PANEL: The following modified sections: Transfers: Bed, Chair, Wheelchair - Score, Transfers: Toilet - Score , Locomotion: Walk - Score, Locomotion: Wheelchair - Score, Locomotion: Stairs - Score were [spencer bergeron] signed by Madhu Paez PTA on FriSep 02 2017 14:44:07 T-0500 (Central Daylight Time)
--- NOTE | 2017-09-02 15:50 | FAST ---
SHIFT START DATE/TIME: 09/02/2017 07:00 (CDT) SHIFT END DATE/TIME: 09/02/2017 19:00 (CDT) NAME BETY GOODSON DATE OF : 1955 DATE OF ADMISSION: 08/29/2017 17:49 (CDT) PHONE: AGE: 62 [facility]# [id number] GENDER: Male ENCOUNTER PHYSICIAN: Dr. Migel Ray M.D. ADMISSION DIAGNOSIS: - Debility 16 - Debility (16) Bowel Obstruction, Colon Cancer. EATING: EATING - STEP 1: Does the patient require assistance when eating? Yes. EATING - STEP 2: Does the patient require the assistance of a helper? No, patient only requires an assistive device, O R s/he takes more than reasonable time to eat, OR there is a safety concern, OR s/he requires modifie d food consistency EATING - SCORE: 6-CAIO GROOMING: Comb/brush hair Oral care Wash, rinse, and dry face Wash, rinse, and dry hands GROOMING - STEP 1: Does the patient require assistance when grooming? Yes. GROOMING - STEP 2: Does the patient require the assistance of a helper? No. The patient only requires an assistive devic e, OR takes more than reasonable time to groom, OR there is a concern for safety as the patient groom s GROOMING - SCORE: 6-CAIO BATHING: Activity did not occur on this shift BATHING - SCORE: 0-UNK DRESSING - UPPER BODY: Activity did not occur on this shift ARTICLES SCORE Total number of steps: 0 DRESSING - UPPER BODY - SCORE: 0-UNK DRESSING - LOWER BODY: Activity did not occur on this shift ARTICLES SCORE Total number of steps: 0 DRESSING - LOWER BODY - SCORE: 0-UNK TOILETING: TOILETING - STEP 1: Does the patient require assistance with toileting? Yes. TOILETING - STEP 2: Does the patient require the assistance of a helper? Yes. TOILETING - STEP 3: How much assistance does the patient require from the helper? Only supervision TOILETING - SCORE: 5-SUP BLADDER MANAGEMENT: BLADDER MANAGEMENT - STEP 1: Does the patient control the bladder completely and intentionally without equipment or devices or med ications, and is always continent? No. BLADDER MANAGEMENT - STEP 2: Does the patient require the assistance of a helper? No, patient requires and independently uses an a ssistive device, such as a urinal, bedpan, bedside commode, catheter, absorbent pad, or collecting de vice BLADDER MANAGEMENT - SCORE: 6-CAIO BLADDER MANAGEMENT - FREQUENCY OF ACCIDENTS: BLADDER MANAGEMENT(FA) - STEP 1: How many accidents has the patient had during the current shift? 0 BOWEL MANAGEMENT: BOWEL MANAGEMENT - STEP 1: Does the patient control bowels completely and intentionally without equipment devices or medications AND is always continent? No. BOWEL MANAGEMENT - STEP 2: Does the patient require the assistance of a helper? No, patient requires and manages independently a n assistive device such as a bedpan, bedside commode, absorbent pad, incontinent device, or collectin g device BOWEL MANAGEMENT - SCORE: 6-CAIO BOWEL MANAGEMENT - FREQUENCY OF ACCIDENTS: BOWEL MANAGEMENT(FA) - STEP 1: How many accidents has the patient had during the current shift? 0 TRANSFERS: BED, CHAIR, WHEELCHAIR: TRANSFERS: BED, CHAIR, WHEELCHAIR - STEP 1: Does the patient require assistance with bed, chair, or wheelchair transfers? Yes. TRANSFERS: BED, CHAIR, WHEELCHAIR - STEP 2: Does the patient require the assistance of a helper? Yes. TRANSFERS: BED, CHAIR, WHEELCHAIR - STEP 3: How much assistance does the patient require from the helper? Only supervision TRANSFERS: BED, CHAIR, WHEELCHAIR - SCORE: 5-SUP TRANSFERS: TOILET: TRANSFERS: TOILET - STEP 1: Does the patient require assistance with toilet transfers? Yes. TRANSFERS: TOILET - STEP 2: Does the patient require the assistance of a helper? Yes. TRANSFERS: TOILET - STEP 3: How much assistance does the patient require from the helper? Only supervision, cuing, coaxing, OR he lp to set out transfer equipment or to lock brakes and/or lift foot rests TRANSFERS: TOILET - SCORE: 5-SUP TRANSFERS: SHOWER: Activity did not occur on this shift TRANSFERS: SHOWER - SCORE: 0-UNK TRANSFERS: TUB: Activity did not occur on this shift TRANSFERS: TUB - SCORE: 0-UNK LOCOMOTION: WALK: Activity did not occur on this shift LOCOMOTION: WALK - SCORE: 0-UNK LOCOMOTION: WHEELCHAIR: LOCOMOTION: WHEELCHAIR - STEP 1: Does the patient need help to go 150 feet in a wheelchair? Yes. LOCOMOTION: WHEELCHAIR - STEP 2: How much assistance does the patient need from the helper? Only supervision, cuing, or coaxing LOCOMOTION: WHEELCHAIR - SCORE: 5-SUP COMPREHENSION: COMPREHENSION: TYPE: Both COMPREHENSION - STEP 1: Does the patient require help to understand complex and abstract ideas (such as current events, finan uma, discharge planning, medical issues, relationships, etc)? No. COMPREHENSION - STEP 2: Does the patient need extra time, require an assistive device (such as glasses, hearing aids, or an a ugmentative communication system), OR does s/he have mild difficulty expressing complex and abstract ideas (including mild dysarthria or mild word-finding problems)? Yes. COMPREHENSION - SCORE: 6-CAIO EXPRESSION EXPRESSION: TYPE: Both EXPRESSION - STEP 1: Does the patient require help expressing complex and abstract ideas (such as current events, finances , discharge planning, medical issues, relationships, etc)? No. EXPRESSION - STEP 2: Does the patient need extra time, require an assistive device (such as augmentive communication syste m or a communication board), OR does s/he have mild difficulty expressing complex and abstract ideas (including mild dysarthria or mild word-find problems)? Yes. EXPRESSION - SCORE: 6-CAIO SOCIAL INTERACTION: SOCIAL INTERACTION - STEP 1: Does the patient require a helper to interact with others in social and therapeutic situations? No. SOCIAL INTERACTION - STEP 2: Does the patient need extra time in social situations, OR does s/he interact with staff, other patien ts, and family members ONLY in structured environments, OR does s/he require medication for social in teraction? No. SOCIAL INTERACTION - SCORE: 7-IND PROBLEM SOLVING: PROBLEM SOLVING - STEP 1: Does the patient need help to solve complex problems such as managing a checking account or confronti ng interpersonal problems? No. PROBLEM SOLVING - STEP 2: Does the patient require extra time to make decisions or solve problems, OR does s/he have slight dif ficulty reading, initiating, or self-correcting in unfamiliar situations? Yes, patient needs extra ti me. PROBLEM SOLVING - SCORE: 6-CAIO MEMORY: MEMORY - STEP 1: Does the patient need help to remember frequently encountered people, daily routines, and executing r equests? No. MEMORY - STEP 2: Does the patient have slight difficulty recognizing frequently encountered people, daily routines, or executing requests without the need for repetition or using self-initiated or environmental cues to remember? Yes. MEMORY - SCORE: 6-CAIO SIGNATURE PANEL: The following modified sections: Eating - Score, Grooming - Score, Bathing - Score, Dressing - Upper Body - Score, Dressing - Lower Body - Score, Toileting - Score, Bladder Management - Score, Bowel Man agement - Score, Transfers: Bed, Chair, Wheelchair - Score, Transfers: Toilet - Score, Transfers: Yessica wer - Score, Transfers: Tub - Score, Locomotion: Walk - Score, Locomotion: Wheelchair - Score, Compre hension - Score, Expression - Score, Social Interaction - Score, Problem Solving - Score, Memory - Sc ore were [electronically] signed by Santa Nam C.N.A. on FriSep 02 2017 14:52:20 T-0500 (Centra l Daylight Time)
--- NOTE | 2017-09-02 16:19 | FAST ---
ENCOUNTER DATE AND TIME: 09/02/2017 08:00 (CDT) NAME BETY GOODSON DATE OF : 1955 DATE OF ADMISSION: 08/29/2017 17:49 (CDT) PHONE: AGE: 62 N# [id number] GENDER: Male ENCOUNTER PHYSICIAN: Dr. Migel Ray M.D. ADMISSION DIAGNOSIS: - Debility 16 - Debility (16) Bowel Obstruction, Colon Cancer. EATING: Activity did not occur on this shift EATING - SCORE: 0-UNK GROOMING: Activity did not occur on this shift GROOMING - SCORE: 0-UNK BATHING: Activity did not occur on this shift BATHING - SCORE: 0-UNK DRESSING - UPPER BODY: Activity did not occur on this shift ARTICLES SCORE Total number of steps: 0 DRESSING - UPPER BODY - SCORE: 0-UNK DRESSING - LOWER BODY: Activity did not occur on this shift ARTICLES SCORE Total number of steps: 0 DRESSING - LOWER BODY - SCORE: 0-UNK TOILETING: Activity did not occur on this shift TOILETING - SCORE: 0-UNK BLADDER MANAGEMENT: Activity did not occur on this shift BLADDER MANAGEMENT - SCORE: 7-IND BOWEL MANAGEMENT: Activity did not occur on this shift BOWEL MANAGEMENT - SCORE: 7-IND TRANSFERS: BED, CHAIR, WHEELCHAIR: Activity did not occur on this shift TRANSFERS: BED, CHAIR, WHEELCHAIR - SCORE: 0-UNK TRANSFERS: TOILET: Activity did not occur on this shift TRANSFERS: TOILET - SCORE: 0-UNK TRANSFERS: SHOWER: Activity did not occur on this shift TRANSFERS: SHOWER - SCORE: 0-UNK TRANSFERS: TUB: Activity did not occur on this shift TRANSFERS: TUB - SCORE: 0-UNK LOCOMOTION: WALK: Activity did not occur on this shift LOCOMOTION: WALK - SCORE: 0-UNK LOCOMOTION: WHEELCHAIR: Activity did not occur on this shift LOCOMOTION: WHEELCHAIR - SCORE: 0-UNK LOCOMOTION: STAIRS: Activity did not occur on this shift LOCOMOTION: STAIRS - SCORE: 0-UNK COMPREHENSION: COMPREHENSION - STEP 1: Does the patient require help to understand complex and abstract ideas (such as current events, finan uma, discharge planning, medical issues, relationships, etc)? No. COMPREHENSION - STEP 2: Does the patient need extra time, require an assistive device (such as glasses, hearing aids, or an a ugmentative communication system), OR does s/he have mild difficulty expressing complex and abstract ideas (including mild dysarthria or mild word-finding problems)? No. COMPREHENSION - SCORE: 7-IND EXPRESSION EXPRESSION: TYPE: Non-Vocal EXPRESSION - STEP 1: Does the patient require help expressing complex and abstract ideas (such as current events, finances , discharge planning, medical issues, relationships, etc)? No. EXPRESSION - STEP 2: Does the patient need extra time, require an assistive device (such as augmentive communication syste m or a communication board), OR does s/he have mild difficulty expressing complex and abstract ideas (including mild dysarthria or mild word-find problems)? No. EXPRESSION - SCORE: 7-IND SOCIAL INTERACTION: SOCIAL INTERACTION - STEP 1: Does the patient require a helper to interact with others in social and therapeutic situations? No. SOCIAL INTERACTION - STEP 2: Does the patient need extra time in social situations, OR does s/he interact with staff, other patien ts, and family members ONLY in structured environments, OR does s/he require medication for social in teraction? No. SOCIAL INTERACTION - SCORE: 7-IND PROBLEM SOLVING: PROBLEM SOLVING - STEP 1: Does the patient need help to solve complex problems such as managing a checking account or confronti ng interpersonal problems? No. PROBLEM SOLVING - STEP 2: Does the patient require extra time to make decisions or solve problems, OR does s/he have slight dif ficulty reading, initiating, or self-correcting in unfamiliar situations? No. PROBLEM SOLVING - SCORE: 7-IND MEMORY: MEMORY - STEP 1: Does the patient need help to remember frequently encountered people, daily routines, and executing r equests? No. MEMORY - STEP 2: Does the patient have slight difficulty recognizing frequently encountered people, daily routines, or executing requests without the need for repetition or using self-initiated or environmental cues to remember? No. MEMORY - SCORE: 7-IND SIGNATURE PANEL: The following modified sections: Eating - Score, Grooming - Score, Bathing - Score, Dressing - Upper Body - Score, Dressing - Lower Body - Score, Toileting - Score, Transfers: Bed, Chair, Wheelchair - S core, Transfers: Toilet - Score, Transfers: Shower - Score, Transfers: Tub - Score, Comprehension - S core, Expression - Score, Social Interaction - Score, Problem Solving - Score, Memory - Score were [e lectronically] signed by VANDANA Fofana on FriSep 02 2017 15:21:00 [facility]-0500 (Formerly [facility], 1928–1983 Time)
--- NOTE | 2017-09-02 19:29 | R.PN ---
ENCOUNTER DATE AND TIME: 09/02/2017 18:29 (CDT) NAME BETY GOODSON DATE OF : 1955 DATE OF ADMISSION: 08/29/2017 17:49 (CDT) Bowel Obstruction, Colon CancerCHIEF COMPLAINT: Debility, bowel obstruction SUBJECTIVE: Pt denied any Shortness of Breath. Pt denied any depression. He ambulated 500' with modified independence using a rolling walker. Up and down 15 steps with modifi ed independence. VITAL SIGNS Temperature: 97.2 F SBP/DBP: 139/90 Pulse: 89 Resp: 16 MEDICATION ALLERGIES: No Known Drug Allergies (NKDA) ENVIRONMENTAL ALLERGIES: None Known - Substance Allergies None Known - Other Allergies None Known NURSING: - Shower allowing shower PRECAUTIONS: - Fall Precaution chair alarm,bed alarm ACTIVITIES OOB only with supervision THERAPIES: - Occupational Therapy Evaluate and Treat. - Physical Therapy Evaluate and Treat. PHYSICAL EXAM - Gen Alert and awake Lying in bed No apparent distress Oriented to: person, time, and place - Vital Signs Temperature: 98 F SBP/DBP: 125/87 Pulse: 82 Resp: 16 Vital signs stable, afebrile - Skin incisions intact Normacephalic - Eyes No abnormalities - ENMT No abnormalities - Neck No abnormalities - CVS RRR - Chest Clear - Abd Soft - GI nondistended Deferred - No abnormalities - Ext No significant edema - MSK 4/5 weakness in both lower extremities. - Neuro No focal deficits - Psych No abnormalities ASSESSMENT: Pt. is a 62 yo Right-handed white male.On 08/12/2017 he was admitted to [facility] with diagnosis Bowel Obstruction, Colon Cancer.His impairment category is Debility 16 - Debility (16).Pre-morbidly, Pt. was independent/mod-I in Self-Care, Locomotion, Sphincter Control, Transfers Control, Communication, and Social Cognition; and he had good Sphincter Control.Currently, he has def icits of Locomotion, Endurance, Safety Awareness, Transfers Control, Balance, and Self-Care.Pt. is no w referred to [facility] for acute in-patient rehabilitation in order to maxim ize patient's functional independence in activities of daily living, strength, ROM, and mobility.- Re hab Goal Patient has realistic goal of being discharged at assistance level 6-[place] to reside at Home with Fam nereida/Relatives. MDM/PLAN: - Diet Type Continue GI SOFT - Physical Therapy Gait dysfunction - to improve, our physical therapists will perform initial evaluation of pt's statu s upon admission and devise an individualized program for Gait Training, and Wheel Chair mobility Inability to transfer - to improve, our physical therapists will perform initial evaluation of pt's status upon admission and devise an individualized program for Bed mobility Need for home safety evaluation - to improve, our physical therapists will perform initial evaluatio n of pt's status upon admission and devise an individualized program for Home Evaluation Need in caregiver upon discharge - to improve, our physical therapists will perform initial evaluati on of pt's status upon admission and devise an individualized program for Caregiver Training New precaution - to improve, our physical therapists will perform initial evaluation of pt's status upon admission and devise an individualized program for Patient precaution education Edema - to improve, our physical therapists will perform initial evaluation of pt's status upon admi ssion and devise an individualized program for Elevation Training, and Lymphedema Therapy Poor balance - to improve, our physical therapists will perform initial evaluation of pt's status up on admission and devise an individualized program for Balance Training Poor endurance - to improve, our physical therapists will perform initial evaluation of pt's status upon admission and devise an individualized program for Endurance Training Weakness - to improve, our physical therapists will perform initial evaluation of pt's status upon a dmission and devise an individualized program for Aquatic Therapy, Neuromuscular Reeducation, and Str engthening Achieving independence - to improve, our physical therapists will perform initial evaluation of pt's status upon admission and devise an individualized program for Community Reintegration Activities - Diet - Liquid Texture Continue Regular - Tube Feed Continue N/A - Fall Precaution chair alarm,bed alarm - Diet - Solid Texture Continue Regular - Shower allowing shower - Occupational Therapy ADL deficits - to improve, our occupation therapists will perform initial evaluation of pt's status upon admission and devise an individualized program for Bathing, Bed mobility, Community Reintegratio n, Cooking, Dressing, Eating, Fine Motor Skills, Grooming, Homemaking, Kitchen Mobility, Laundry, Pat ient Education, Safety Awareness, Splinting - Positioning, Transfers(Toilet, Tub, Shower), and Wheel Chair Management Need for child care leader - to improve, our occupation therapists will perform initial evaluation of pt's status upon admission and devise an individualized program for Caregiver Training Weakness - to improve, our occupation therapists will perform initial evaluation of pt's status upon admission and devise an individualized program for Aquatic Therapy, Balance, Endurance, UE ROM, and UE strengthening FUNCTIONAL STATUS: UPDATED AT WEEKLY TEAM CONFERENCE - Bladder Same accident frequency: 1-Dep - No accidents in the past 7 days - Bowel Same accident frequency: 7-Ind - No accidents in the past 7 days - Walking Same score based on distance walked: 3(>=150ft) - Wheelchair Same score based on distance traveled: 0(N/A) FUNCTIONAL STATUS: - Self-Care A. Eating [place] B. Grooming [place] C. Bathing sup D. Dressing - Upper sup E. Dressing - Lower sup F. Toileting sup - Sphincter Control G: Bladder control Dep H: Bowel control Ind - Transfers Control I. Bed/Chair/Wheelchair sup J. Toilet sup K. Tub/Shower sup - Locomotion L. Walk/Wheelchair (C) sup L. Walk/Wheelchair (W) sup M. Stairs ADNO - Communication N. Comprehension (B) Ind O. Expression (B) Ind - Social Cognition P. Social Interaction Ind Q. Problem Solving Ind R. Memory Ind - Endurance Fair - Balance Fair - Safety Awareness Fair CURRENT FUNC. DEFICITS: Locomotion, Endurance, Safety Awareness, Transfers Control, Balance, and Self-Care SIGNATURE PANEL: (CDT)
--- NOTE | 2017-09-02 19:54 | P.PN ---
Subjective Date of Service: 09/02/17 Chief Complaint: FEELS BETTER, DID NOT LIKE TOPAMAX, SIDE EFFECT, STILL HAS CLONIDINE PATCH Subjective: Improving (ATE WHOLE ORDER OF CHICKEN TODAY AT LUNCH.) MR GOODSON HAD COME WITH BOWEL OBSTRUCTION. HAS HAD SURGERY BY DR FISH, TOOK A LONG TIME TO RECOVER. STILL IS VERY WEAK, HAS HAD STRANGE EPISODE OF HEAD LAZO,ONE EPISODE OF SYNCOPE AND HYPERSENSITIVE TO NOISE. I ASKED DR SANCHEZ IF IT CAN BE MIGRAINE VARIANT. HE STARTED TOPAMAX. MRI AND EEG WERE NEGATIVE. HE IS SENT TO REHAB TO GET STRONGER. HE IS A LOT BETTER STARTING TO EAT Review of Systems 10-point ROS is otherwise unremarkable General: Weakness Physical Examination - Vital Signs Temperature: 97.2 F Blood Pressure: 121/86 Pulse: 113 Respirations: 20 Pulse Ox (%): 99 - Physical Exam General: Alert, Mild distress HEENT: Atraumatic, PERRLA, EOMI Neck: Supple, JVD not distended Respiratory: Clear to auscultation bilaterally, Normal air movement Cardiovascular: Regular rate/rhythm, Normal S1 S2 Gastrointestinal: Normal bowel sounds, No tenderness Musculoskeletal: No tenderness Integumentary: No rashes Neurological: Normal speech, Normal tone, Normal affect Lymphatics: No axilla or inguinal lymphadenopathy - Studies Medications List Reviewed: Yes Assessment And Plan - Current Problems (Diagnosis) (1) Adynamic ileus Current Visit: No Status: Acute Plan: POST SURGICAL HE HAS LIQUD DIARRHEA NOW AND WILL FU WITH X .RAY ABLE TO EAT A LITTLE. LOT BETTER RESUME CARE STOP TPN ATE BF TODAY. X RAY SHOWS IMPROVEMENT. STARTING TO EAT LOT BETTER HOPEFULLY WELL TO GO HOME SOON. (2) Colon cancer Onset Date: 09/01/17 Current Visit: Yes Status: Chronic Plan: DR HARTMAN WILL FU (3) Hypoalbuminemia due to protein-calorie malnutrition Current Visit: No Status: Acute (4) Syncope Current Visit: No Status: Acute Plan: NO MOER BUT WILL FU ON WEAK SPELLS HE GETS WITH NO NEUROLOGICAL SYMPTOMS. (5) Urinary retention Current Visit: No Status: Acute (6) Syncope Onset Date: 09/01/17 Current Visit: Yes Status: Suspected Plan: EPISODES OF NEAR SYNCOPE. UNCLEAR ETIOLOGY. TOPAMAX DID NOT WORK. HE HAS SE. STOP IT. AND WILL DO IMITREX PRN.
--- NOTE | 2017-09-03 03:04 | FAST ---
SHIFT START DATE/TIME: 09/02/2017 19:00 (CDT) SHIFT END DATE/TIME: 09/03/2017 07:00 (CDT) NAME BETY GOODSON DATE OF : 1955 DATE OF ADMISSION: 08/29/2017 17:49 (CDT) PHONE: AGE: 62 [facility]# [id number] GENDER: Male ENCOUNTER PHYSICIAN: Dr. Migel Ray M.D. ADMISSION DIAGNOSIS: - Debility 16 - Debility (16) Bowel Obstruction, Colon Cancer. EATING: Activity did not occur on this shift EATING - SCORE: 0-UNK GROOMING: Wash, rinse, and dry hands GROOMING - STEP 1: Does the patient require assistance when grooming? Yes. GROOMING - STEP 2: Does the patient require the assistance of a helper? Yes. GROOMING - STEP 3: How much assistance does the patient require from the helper? Only prior equipment preparation/set up from the helper GROOMING - SCORE: 5-SUP BATHING: Activity did not occur on this shift BATHING - SCORE: 0-UNK DRESSING - UPPER BODY: Patient is not dressing in public clothing ARTICLES SCORE Total number of steps: 0 DRESSING - UPPER BODY - SCORE: 0-UNK DRESSING - LOWER BODY: Patient is not dressing in public clothing ARTICLES SCORE Total number of steps: 0 DRESSING - LOWER BODY - SCORE: 0-UNK TOILETING: TOILETING - STEP 1: Does the patient require assistance with toileting? Yes. TOILETING - STEP 2: Does the patient require the assistance of a helper? Yes. TOILETING - STEP 3: How much assistance does the patient require from the helper? Hands-on assistance from the helper TOILETING - STEP 4: Of the 3 tasks: 1) Adjusting clothing prior to use, 2) Cleansing of perineal area, 3) Adjusting clot jer after use; How many tasks does the patient perform WITHOUT assistance of the helper? Two tasks TOILETING - SCORE: 3-MOD BLADDER MANAGEMENT: BLADDER MANAGEMENT - STEP 1: Does the patient control the bladder completely and intentionally without equipment or devices or med ications, and is always continent? No. BLADDER MANAGEMENT - STEP 2: Does the patient require the assistance of a helper? Yes. BLADDER MANAGEMENT - STEP 3: How much assistance does the patient require from the helper? Only set-up of equipment - such as plac ing it within reach of the patient or emptying a device - to maintain either satisfactory voiding pat tern or managing an external device, such as an absorbent pad, ileal device, or catheter BLADDER MANAGEMENT - SCORE: 5-SUP BOWEL MANAGEMENT: BOWEL MANAGEMENT - STEP 1: Does the patient control bowels completely and intentionally without equipment devices or medications AND is always continent? No. BOWEL MANAGEMENT - STEP 2: Does the patient require the assistance of a helper? Yes. BOWEL MANAGEMENT - STEP 3: How much assistance does the patient require from the helper? Patient requires minimal contact assist ance / incidental help to maintain an external device such as removing / applying wafer BOWEL MANAGEMENT - SCORE: 4-MIN BOWEL MANAGEMENT - FREQUENCY OF ACCIDENTS: BOWEL MANAGEMENT(FA) - STEP 1: How many accidents has the patient had during the current shift? 1 TRANSFERS: BED, CHAIR, WHEELCHAIR: TRANSFERS: BED, CHAIR, WHEELCHAIR - STEP 1: Does the patient require assistance with bed, chair, or wheelchair transfers? Yes. TRANSFERS: BED, CHAIR, WHEELCHAIR - STEP 2: Does the patient require the assistance of a helper? Yes. TRANSFERS: BED, CHAIR, WHEELCHAIR - STEP 3: How much assistance does the patient require from the helper? Steadying/guiding assistance TRANSFERS: BED, CHAIR, WHEELCHAIR - SCORE: 4-MIN TRANSFERS: TOILET: TRANSFERS: TOILET - STEP 1: Does the patient require assistance with toilet transfers? Yes. TRANSFERS: TOILET - STEP 2: Does the patient require the assistance of a helper? Yes. TRANSFERS: TOILET - STEP 3: How much assistance does the patient require from the helper? Only supervision, cuing, coaxing, OR he lp to set out transfer equipment or to lock brakes and/or lift foot rests TRANSFERS: TOILET - SCORE: 5-SUP TRANSFERS: SHOWER: Activity did not occur on this shift TRANSFERS: SHOWER - SCORE: 0-UNK TRANSFERS: TUB: Activity did not occur on this shift TRANSFERS: TUB - SCORE: 0-UNK LOCOMOTION: WALK: Activity did not occur on this shift LOCOMOTION: WALK - SCORE: 0-UNK LOCOMOTION: WHEELCHAIR: Activity did not occur on this shift LOCOMOTION: WHEELCHAIR - SCORE: 0-UNK COMPREHENSION: COMPREHENSION - STEP 1: Does the patient require help to understand complex and abstract ideas (such as current events, finan uma, discharge planning, medical issues, relationships, etc)? No. COMPREHENSION - STEP 2: Does the patient need extra time, require an assistive device (such as glasses, hearing aids, or an a ugmentative communication system), OR does s/he have mild difficulty expressing complex and abstract ideas (including mild dysarthria or mild word-finding problems)? Yes. COMPREHENSION - SCORE: 6-CAIO EXPRESSION EXPRESSION - STEP 1: Does the patient require help expressing complex and abstract ideas (such as current events, finances , discharge planning, medical issues, relationships, etc)? No. EXPRESSION - STEP 2: Does the patient need extra time, require an assistive device (such as augmentive communication syste m or a communication board), OR does s/he have mild difficulty expressing complex and abstract ideas (including mild dysarthria or mild word-find problems)? No. EXPRESSION - SCORE: 7-IND SOCIAL INTERACTION: SOCIAL INTERACTION - STEP 1: Does the patient require a helper to interact with others in social and therapeutic situations? No. SOCIAL INTERACTION - STEP 2: Does the patient need extra time in social situations, OR does s/he interact with staff, other patien ts, and family members ONLY in structured environments, OR does s/he require medication for social in teraction? No. SOCIAL INTERACTION - SCORE: 7-IND PROBLEM SOLVING: PROBLEM SOLVING - STEP 1: Does the patient need help to solve complex problems such as managing a checking account or confronti ng interpersonal problems? No. PROBLEM SOLVING - STEP 2: Does the patient require extra time to make decisions or solve problems, OR does s/he have slight dif ficulty reading, initiating, or self-correcting in unfamiliar situations? Yes, patient needs extra ti me. PROBLEM SOLVING - SCORE: 6-CAIO MEMORY: MEMORY - STEP 1: Does the patient need help to remember frequently encountered people, daily routines, and executing r equests? No. MEMORY - STEP 2: Does the patient have slight difficulty recognizing frequently encountered people, daily routines, or executing requests without the need for repetition or using self-initiated or environmental cues to remember? No. MEMORY - SCORE: 7-IND SIGNATURE PANEL: The following modified sections: Eating - Score, Grooming - Score, Dressing - Upper Body - Score, James ssing - Lower Body - Score, Toileting - Score, Bladder Management - Score, Bowel Management - Score, Transfers: Bed, Chair, Wheelchair - Score, Transfers: Toilet - Score, Transfers: Shower - Score, Ordaz sfers: Tub - Score, Locomotion: Walk - Score, Locomotion: Wheelchair - Score, Comprehension - Score, Expression - Score, Social Interaction - Score, Problem Solving - Score, Memory - Score were [electro nically] signed by Giovanna Jean-Baptiste CNA on FriSep 03 2017 02:05:55 GMT-0500 (Central Daylight Time)
[2017-09-03] MEDS: METOPROLOL XL 25 MG TAB PO SCH (05:27)
[2017-09-03] MEDS: LOPERAMIDE HCL 2 MG CAPSULE PO SCH (06:13)
[2017-09-03] MEDS: cloNIDine HCl 0.1 MG TAB PO SCH ×2 (08:14→19:19)
[2017-09-03] MEDS: FINASTERIDE 5 MG TAB PO SCH (08:14)
[2017-09-03] MEDS: ENOXAPARIN 40 MG/0.4 ML SQ SCH (08:14)
[2017-09-03] MEDS: ENSURE CLEAR 200 ML CAN PO SCH ×2 (08:16→19:19)
[2017-09-03] MEDS: PROMOD 30 ML DOSE PO SCH ×2 (08:16→19:19)
[2017-09-03 09:41] LABS: Absolute Lymphocytes (CBC) 1.1 K/uL (0.7-4.9); Absolute Monocytes 0.8 K/uL (0.1-1.3); Absolute Neutrophil 2.6 K/uL (1.8-8.0); Basophils % 0.4 % (0-1.3); Eosinophils % 0.5 % (0-4.4); Lymphocytes % 23.9 % (15.3-44.8); MCH 26.6 pg (27.0-35.0); MCV 81.9 fL (80-100); MPV 8.2 fL (7.6-11.3); Monocytes % 17.4 % (3.3-12.3); RBC Red Blood Cell Count 4.15 M/uL (4.33-5.43)
[2017-09-03 09:58] LABS: Magnesium 1.8 mg/dL (1.8-2.5); Potassium 3.5 mEq/L (3.6-5.0)
[2017-09-03 10:14] LABS: Blood Morphology Comment NOT SEEN (NOT SEEN); Platelet Estimate ADEQ; Urine White Blood Cell Casts OK
--- NOTE | 2017-09-03 15:47 | FAST ---
SHIFT START DATE/TIME: 09/03/2017 07:00 (CDT) SHIFT END DATE/TIME: 09/03/2017 19:00 (CDT) NAME BETY GOODSON DATE OF : 1955 DATE OF ADMISSION: 08/29/2017 17:49 (CDT) PHONE: AGE: 62 [facility]# [id number] GENDER: Male ENCOUNTER PHYSICIAN: Dr. Migel Ray M.D. ADMISSION DIAGNOSIS: - Debility 16 - Debility (16) Bowel Obstruction, Colon Cancer. EATING: EATING - STEP 1: Does the patient require assistance when eating? Yes. EATING - STEP 2: Does the patient require the assistance of a helper? No, patient only requires an assistive device, O R s/he takes more than reasonable time to eat, OR there is a safety concern, OR s/he requires modifie d food consistency EATING - SCORE: 6-CAIO GROOMING: Comb/brush hair Oral care Wash, rinse, and dry face Wash, rinse, and dry hands GROOMING - STEP 1: Does the patient require assistance when grooming? Yes. GROOMING - STEP 2: Does the patient require the assistance of a helper? No. The patient only requires an assistive devic e, OR takes more than reasonable time to groom, OR there is a concern for safety as the patient groom s GROOMING - SCORE: 6-CAIO BATHING: Activity did not occur on this shift BATHING - SCORE: 0-UNK DRESSING - UPPER BODY: Activity did not occur on this shift ARTICLES SCORE Total number of steps: 0 DRESSING - UPPER BODY - SCORE: 0-UNK DRESSING - LOWER BODY: Activity did not occur on this shift ARTICLES SCORE Total number of steps: 0 DRESSING - LOWER BODY - SCORE: 0-UNK TOILETING: TOILETING - STEP 1: Does the patient require assistance with toileting? Yes. TOILETING - STEP 2: Does the patient require the assistance of a helper? No. TOILETING - SCORE: 6-CAIO BLADDER MANAGEMENT: BLADDER MANAGEMENT - STEP 1: Does the patient control the bladder completely and intentionally without equipment or devices or med ications, and is always continent? No. BLADDER MANAGEMENT - STEP 2: Does the patient require the assistance of a helper? No, patient requires and independently uses an a ssistive device, such as a urinal, bedpan, bedside commode, catheter, absorbent pad, or collecting de vice BLADDER MANAGEMENT - SCORE: 6-CAIO BOWEL MANAGEMENT: BOWEL MANAGEMENT - STEP 1: Does the patient control bowels completely and intentionally without equipment devices or medications AND is always continent? No. BOWEL MANAGEMENT - STEP 2: Does the patient require the assistance of a helper? No, patient requires and manages independently a n assistive device such as a bedpan, bedside commode, absorbent pad, incontinent device, or collectin g device BOWEL MANAGEMENT - SCORE: 6-CAIO TRANSFERS: BED, CHAIR, WHEELCHAIR: TRANSFERS: BED, CHAIR, WHEELCHAIR - STEP 1: Does the patient require assistance with bed, chair, or wheelchair transfers? Yes. TRANSFERS: BED, CHAIR, WHEELCHAIR - STEP 2: Does the patient require the assistance of a helper? No. Patient only requires an assistive device fo r bed, chair, wheelchair transfers such as a sliding board, grab bar, or brace, OR s/he takes more th an reasonable time, OR there is a safety concern when s/he performs the transfers TRANSFERS: BED, CHAIR, WHEELCHAIR - SCORE: 6-CAIO TRANSFERS: TOILET: TRANSFERS: TOILET - STEP 1: Does the patient require assistance with toilet transfers? Yes. TRANSFERS: TOILET - STEP 2: Does the patient require the assistance of a helper? No. Patient only requires an assistive device ospina ch as a grab bar or special seat, OR s/he takes more than reasonable time to perform toilet transfers , OR there is a safety concern when s/he performs toilet transfers. TRANSFERS: TOILET - SCORE: 6-CAIO TRANSFERS: SHOWER: Activity did not occur on this shift TRANSFERS: SHOWER - SCORE: 0-UNK TRANSFERS: TUB: Activity did not occur on this shift TRANSFERS: TUB - SCORE: 0-UNK LOCOMOTION: WALK: Activity did not occur on this shift LOCOMOTION: WALK - SCORE: 0-UNK LOCOMOTION: WHEELCHAIR: Activity did not occur on this shift LOCOMOTION: WHEELCHAIR - SCORE: 0-UNK COMPREHENSION: COMPREHENSION - SCORE: 0-UNK EXPRESSION EXPRESSION - SCORE: 0-UNK SOCIAL INTERACTION: SOCIAL INTERACTION - SCORE: 0-UNK PROBLEM SOLVING: PROBLEM SOLVING - SCORE: 0-UNK MEMORY: MEMORY - SCORE: 0-UNK SIGNATURE PANEL: The following modified sections: Eating - Score, Grooming - Score, Bathing - Score, Dressing - Upper Body - Score, Dressing - Lower Body - Score, Toileting - Score, Bladder Management - Score, Bowel Man agement - Score, Transfers: Bed, Chair, Wheelchair - Score, Transfers: Toilet - Score, Transfers: Yessica wer - Score, Transfers: Tub - Score, Locomotion: Walk - Score, Locomotion: Wheelchair - Score, Compre hension - Score, Expression - Score, Social Interaction - Score, Problem Solving - Score, Memory - Sc ore were [electronically] signed by Xavier Lange on FriSep 03 2017 14:49:06 GMT-0500 (Central Daylight Time)
--- NOTE | 2017-09-03 16:47 | FAST ---
ENCOUNTER DATE AND TIME: 09/03/2017 08:00 (CDT) NAME BETY GOODSON DATE OF : 1955 DATE OF ADMISSION: 08/29/2017 17:49 (CDT) PHONE: AGE: 62 N# [id number] GENDER: Male ENCOUNTER PHYSICIAN: Dr. Migel Ray M.D. ADMISSION DIAGNOSIS: - Debility 16 - Debility (16) Bowel Obstruction, Colon Cancer. EATING: Activity did not occur on this shift EATING - SCORE: 0-UNK GROOMING: Activity did not occur on this shift GROOMING - SCORE: 0-UNK BATHING: Activity did not occur on this shift BATHING - SCORE: 0-UNK DRESSING - UPPER BODY: Activity did not occur on this shift Patient is not dressing in public clothing ARTICLES SCORE Total number of steps: 0 DRESSING - UPPER BODY - SCORE: 0-UNK DRESSING - LOWER BODY: Activity did not occur on this shift Patient is not dressing in public clothing ARTICLES SCORE Total number of steps: 0 DRESSING - LOWER BODY - SCORE: 0-UNK TOILETING: Activity did not occur on this shift TOILETING - SCORE: 0-UNK BLADDER MANAGEMENT: Activity did not occur on this shift BLADDER MANAGEMENT - SCORE: 7-IND BOWEL MANAGEMENT: Activity did not occur on this shift BOWEL MANAGEMENT - SCORE: 7-IND TRANSFERS: BED, CHAIR, WHEELCHAIR: TRANSFERS: BED, CHAIR, WHEELCHAIR - STEP 1: Does the patient require assistance with bed, chair, or wheelchair transfers? Yes. TRANSFERS: BED, CHAIR, WHEELCHAIR - STEP 2: Does the patient require the assistance of a helper? No. Patient only requires an assistive device fo r bed, chair, wheelchair transfers such as a sliding board, grab bar, or brace, OR s/he takes more th an reasonable time, OR there is a safety concern when s/he performs the transfers TRANSFERS: BED, CHAIR, WHEELCHAIR - SCORE: 6-CAIO TRANSFERS: TOILET: Activity did not occur on this shift TRANSFERS: TOILET - SCORE: 0-UNK TRANSFERS: SHOWER: Activity did not occur on this shift TRANSFERS: SHOWER - SCORE: 0-UNK TRANSFERS: TUB: Activity did not occur on this shift TRANSFERS: TUB - SCORE: 0-UNK LOCOMOTION: WALK: LOCOMOTION: WALK - STEP 1: Does the patient need help to walk 150 feet? No. LOCOMOTION: WALK - STEP 2: Does the patient need an assistive device (such as an orthosis, prosthesis, crutches, or walker) to g o 150 feet, OR does s/he take more than reasonable time, OR is there a concern for safety? Yes, the p atient needs an assistive device LOCOMOTION: WALK - SCORE: 6-CAIO LOCOMOTION: WHEELCHAIR: LOCOMOTION: WHEELCHAIR - STEP 1: Does the patient need help to go 150 feet in a wheelchair? No. LOCOMOTION: WHEELCHAIR - SCORE: 6-CAIO LOCOMOTION: STAIRS: LOCOMOTION: STAIRS - STEP 1: Does the patient need help to go up and down 12 to 14 stairs? No. LOCOMOTION: STAIRS - STEP 2: Does the patient require an assistive device - such as handrails or cane - to go up and down one flig ht of stairs, OR does s/he take more than reasonable time, OR is there a concern for safety? Yes, the patient requires an assistive device LOCOMOTION: STAIRS - SCORE: 6-CAIO COMPREHENSION: COMPREHENSION - SCORE: 0-UNK EXPRESSION EXPRESSION - SCORE: 0-UNK SOCIAL INTERACTION: SOCIAL INTERACTION - SCORE: 0-UNK PROBLEM SOLVING: PROBLEM SOLVING - SCORE: 0-UNK MEMORY: MEMORY - SCORE: 0-UNK SIGNATURE PANEL: The following modified sections: Transfers: Bed, Chair, Wheelchair - Score, Transfers: Toilet - Score , Locomotion: Walk - Score, Locomotion: Wheelchair - Score, Locomotion: Stairs - Score were [electron ically] signed by Madhu Paez PTA on FriSep 03 2017 15:48:44 GMT-0500 (Central Daylight Time)
--- NOTE | 2017-09-03 17:57 | R.PN ---
ENCOUNTER DATE AND TIME: 09/03/2017 16:56 (CDT) NAME BETY GOODSON DATE OF : 1955 DATE OF ADMISSION: 08/29/2017 17:49 (CDT) Bowel Obstruction, Colon CancerCHIEF COMPLAINT: Debility, bowel obstruction SUBJECTIVE: Pt denied any Shortness of Breath. Pt denied any depression. Performed bed mobility with modified independence. He ambulated 500' with modified independence using a rolling walker. Up and down 15 steps with modified independence. VITAL SIGNS Temperature: 97.4 F SBP/DBP: 141/87 Pulse: 90 Resp: 16 MEDICATION ALLERGIES: No Known Drug Allergies (NKDA) ENVIRONMENTAL ALLERGIES: None Known - Substance Allergies None Known - Other Allergies None Known NURSING: - Shower allowing shower PRECAUTIONS: - Fall Precaution chair alarm,bed alarm ACTIVITIES OOB only with supervision THERAPIES: - Occupational Therapy Evaluate and Treat. - Physical Therapy Evaluate and Treat. PHYSICAL EXAM - Gen Alert and awake Lying in bed No apparent distress Oriented to: person, time, and place - Vital Signs Temperature: 98 F SBP/DBP: 125/87 Pulse: 82 Resp: 16 Vital signs stable, afebrile - Skin incisions intact Normacephalic - Eyes No abnormalities - ENMT No abnormalities - Neck No abnormalities - CVS RRR - Chest Clear - Abd Soft - GI nondistended Deferred - No abnormalities - Ext No significant edema - MSK 4/5 weakness in both lower extremities. - Neuro No focal deficits - Psych No abnormalities ASSESSMENT: Pt. is a 62 yo Right-handed white male.On 08/12/2017 he was admitted to [facility] with diagnosis Bowel Obstruction, Colon Cancer.His impairment category is Debility 16 - Debility (16).Pre-morbidly, Pt. was independent/mod-I in Self-Care, Locomotion, Sphincter Control, Transfers Control, Communication, and Social Cognition; and he had good Sphincter Control.Currently, he has def icits of Locomotion, Endurance, Safety Awareness, Transfers Control, Balance, and Self-Care.Pt. is no w referred to [facility] for acute in-patient rehabilitation in order to maxim ize patient's functional independence in activities of daily living, strength, ROM, and mobility.- Re hab Goal Patient has realistic goal of being discharged at assistance level 6-Lucero to reside at Home with Fam nereida/Relatives. MDM/PLAN: - Diet Type Continue GI SOFT - Physical Therapy Gait dysfunction - to improve, our physical therapists will perform initial evaluation of pt's statu s upon admission and devise an individualized program for Gait Training, and Wheel Chair mobility Inability to transfer - to improve, our physical therapists will perform initial evaluation of pt's status upon admission and devise an individualized program for Bed mobility Need for home safety evaluation - to improve, our physical therapists will perform initial evaluatio n of pt's status upon admission and devise an individualized program for Home Evaluation Need in caregiver upon discharge - to improve, our physical therapists will perform initial evaluati on of pt's status upon admission and devise an individualized program for Caregiver Training New precaution - to improve, our physical therapists will perform initial evaluation of pt's status upon admission and devise an individualized program for Patient precaution education Edema - to improve, our physical therapists will perform initial evaluation of pt's status upon admi ssion and devise an individualized program for Elevation Training, and Lymphedema Therapy Poor balance - to improve, our physical therapists will perform initial evaluation of pt's status up on admission and devise an individualized program for Balance Training Poor endurance - to improve, our physical therapists will perform initial evaluation of pt's status upon admission and devise an individualized program for Endurance Training Weakness - to improve, our physical therapists will perform initial evaluation of pt's status upon a dmission and devise an individualized program for Aquatic Therapy, Neuromuscular Reeducation, and Str engthening Achieving independence - to improve, our physical therapists will perform initial evaluation of pt's status upon admission and devise an individualized program for Community Reintegration Activities - Diet - Liquid Texture Continue Regular - Tube Feed Continue N/A - Fall Precaution chair alarm,bed alarm - Diet - Solid Texture Continue Regular - Shower allowing shower - Occupational Therapy ADL deficits - to improve, our occupation therapists will perform initial evaluation of pt's status upon admission and devise an individualized program for Bathing, Bed mobility, Community Reintegratio n, Cooking, Dressing, Eating, Fine Motor Skills, Grooming, Homemaking, Kitchen Mobility, Laundry, Pat ient Education, Safety Awareness, Splinting - Positioning, Transfers(Toilet, Tub, Shower), and Wheel Chair Management Need for health care / medical job titles - to improve, our occupation therapists will perform initial evaluation of pt's status upon admission and devise an individualized program for Caregiver Training Weakness - to improve, our occupation therapists will perform initial evaluation of pt's status upon admission and devise an individualized program for Aquatic Therapy, Balance, Endurance, UE ROM, and UE strengthening FUNCTIONAL STATUS: UPDATED AT WEEKLY TEAM CONFERENCE - Bladder Same accident frequency: 1-Dep - No accidents in the past 7 days - Bowel Same accident frequency: 7-Ind - No accidents in the past 7 days - Walking Same score based on distance walked: 3(>=150ft) - Wheelchair Same score based on distance traveled: 0(N/A) FUNCTIONAL STATUS: - Self-Care A. Eating [place] B. Grooming [place] C. Bathing sup D. Dressing - Upper sup E. Dressing - Lower sup F. Toileting sup - Sphincter Control G: Bladder control Dep H: Bowel control Ind - Transfers Control I. Bed/Chair/Wheelchair sup J. Toilet sup K. Tub/Shower sup - Locomotion L. Walk/Wheelchair (C) sup L. Walk/Wheelchair (W) sup M. Stairs ADNO - Communication N. Comprehension (B) Ind O. Expression (B) Ind - Social Cognition P. Social Interaction Ind Q. Problem Solving Ind R. Memory Ind - Endurance Fair - Balance Fair - Safety Awareness Fair CURRENT FUNC. DEFICITS: Locomotion, Endurance, Safety Awareness, Transfers Control, Balance, and Self-Care SIGNATURE PANEL: (CDT)
--- NOTE | 2017-09-03 18:36 | FAST ---
ENCOUNTER DATE AND TIME: 09/01/2017 08:00 (CDT) NAME BETY GOODSON DATE OF : 1955 DATE OF ADMISSION: 08/29/2017 17:49 (CDT) PHONE: AGE: 62 N# [id number] GENDER: Male ENCOUNTER PHYSICIAN: Dr. Migel Ray M.D. ADMISSION DIAGNOSIS: - Debility 16 - Debility (16) Bowel Obstruction, Colon Cancer. EATING: EATING - STEP 1: Does the patient require assistance when eating? No. EATING - SCORE: 7-IND GROOMING: Oral care Wash, rinse, and dry face Wash, rinse, and dry hands GROOMING - STEP 1: Does the patient require assistance when grooming? No. GROOMING - SCORE: 7-IND BATHING: Abdomen Buttocks Chest Left arm Left lower leg and foot Left upper leg Perineal area Right arm Right lower leg and foot Right upper leg BATHING - STEP 1: Does the patient require assistance when bathing? Yes. BATHING - STEP 2: Does the patient require the assistance of a helper? Yes. BATHING - STEP 3: How much assistance does the patient require from the helper? Only supervision, cuing, coaxing, instr uctions, encouragement BATHING - SCORE: 5-SUP DRESSING - UPPER BODY: T-shirt/pullover shirt (four steps) ARTICLES SCORE Total number of steps: 4 DRESSING - UPPER BODY - STEP 1: Does the patient require help when dressing above the waist? Yes. DRESSING - UPPER BODY - STEP 2: Does the patient require the assistance of a helper? Yes. DRESSING - UPPER BODY - STEP 3: Does the helper touch the patient while dressing? No. DRESSING - UPPER BODY - SCORE: 5-SUP DRESSING - LOWER BODY: Elastic waist pants (three steps) Slip-on shoe - Left foot (one step) Slip-on shoe - Right foot (one step) Sock - Left foot (one step) Sock - Right foot (one step) Underwear (three steps) ARTICLES SCORE Total number of steps: 10 DRESSING - LOWER BODY - STEP 1: Does the patient require help when dressing below the waist? Yes. DRESSING - LOWER BODY - STEP 2: Does the patient require the assistance of a helper? Yes. DRESSING - LOWER BODY - STEP 3: Does the helper touch the patient while dressing? No. DRESSING - LOWER BODY - SCORE: 5-SUP TOILETING: TOILETING - STEP 1: Does the patient require assistance with toileting? Yes. TOILETING - STEP 2: Does the patient require the assistance of a helper? No. TOILETING - SCORE: 6-CAIO BLADDER MANAGEMENT: Activity did not occur on this shift BLADDER MANAGEMENT - SCORE: 7-IND BOWEL MANAGEMENT: Activity did not occur on this shift BOWEL MANAGEMENT - SCORE: 7-IND TRANSFERS: BED, CHAIR, WHEELCHAIR: Activity did not occur on this shift TRANSFERS: BED, CHAIR, WHEELCHAIR - SCORE: 0-UNK TRANSFERS: TOILET: TRANSFERS: TOILET - STEP 1: Does the patient require assistance with toilet transfers? Yes. TRANSFERS: TOILET - STEP 2: Does the patient require the assistance of a helper? No. Patient only requires an assistive device ospina ch as a grab bar or special seat, OR s/he takes more than reasonable time to perform toilet transfers , OR there is a safety concern when s/he performs toilet transfers. TRANSFERS: TOILET - SCORE: 6-CAIO TRANSFERS: SHOWER: Activity did not occur on this shift TRANSFERS: SHOWER - SCORE: 0-UNK TRANSFERS: TUB: TRANSFERS: TUB - STEP 1: Does the patient require assistance with tub transfers? Yes. TRANSFERS: TUB - STEP 2: Does the patient require the assistance of a helper? Yes. TRANSFERS: TUB - STEP 3: How much assistance does the patient require from the helper? Only supervision, cuing, coaxing, or he lp to set out transfer equipment or to lock brakes and/or lift foot rests TRANSFERS: TUB - SCORE: 5-SUP LOCOMOTION: WALK: Activity did not occur on this shift LOCOMOTION: WALK - SCORE: 0-UNK LOCOMOTION: WHEELCHAIR: Activity did not occur on this shift LOCOMOTION: WHEELCHAIR - SCORE: 0-UNK LOCOMOTION: STAIRS: Activity did not occur on this shift LOCOMOTION: STAIRS - SCORE: 0-UNK COMPREHENSION: COMPREHENSION: TYPE: Both COMPREHENSION - STEP 1: Does the patient require help to understand complex and abstract ideas (such as current events, finan uma, discharge planning, medical issues, relationships, etc)? No. COMPREHENSION - STEP 2: Does the patient need extra time, require an assistive device (such as glasses, hearing aids, or an a ugmentative communication system), OR does s/he have mild difficulty expressing complex and abstract ideas (including mild dysarthria or mild word-finding problems)? No. COMPREHENSION - SCORE: 7-IND EXPRESSION EXPRESSION: TYPE: Both EXPRESSION - STEP 1: Does the patient require help expressing complex and abstract ideas (such as current events, finances , discharge planning, medical issues, relationships, etc)? No. EXPRESSION - STEP 2: Does the patient need extra time, require an assistive device (such as augmentive communication syste m or a communication board), OR does s/he have mild difficulty expressing complex and abstract ideas (including mild dysarthria or mild word-find problems)? No. EXPRESSION - SCORE: 7-IND SOCIAL INTERACTION: SOCIAL INTERACTION - STEP 1: Does the patient require a helper to interact with others in social and therapeutic situations? No. SOCIAL INTERACTION - STEP 2: Does the patient need extra time in social situations, OR does s/he interact with staff, other patien ts, and family members ONLY in structured environments, OR does s/he require medication for social in teraction? Yes, patient needs extra time SOCIAL INTERACTION - SCORE: 6-CAIO PROBLEM SOLVING: PROBLEM SOLVING - STEP 1: Does the patient need help to solve complex problems such as managing a checking account or confronti ng interpersonal problems? No. PROBLEM SOLVING - STEP 2: Does the patient require extra time to make decisions or solve problems, OR does s/he have slight dif ficulty reading, initiating, or self-correcting in unfamiliar situations? Yes, patient needs extra ti me. PROBLEM SOLVING - SCORE: 6-CAIO MEMORY: MEMORY - STEP 1: Does the patient need help to remember frequently encountered people, daily routines, and executing r equests? No. MEMORY - STEP 2: Does the patient have slight difficulty recognizing frequently encountered people, daily routines, or executing requests without the need for repetition or using self-initiated or environmental cues to remember? Yes. MEMORY - SCORE: 6-CAIO SIGNATURE PANEL: The following modified sections: Eating - Score, Grooming - Score, Bathing - Score, Dressing - Upper Body - Score, Dressing - Lower Body - Score, Toileting - Score, Transfers: Bed, Chair, Wheelchair - S core, Transfers: Toilet - Score, Transfers: Shower - Score, Transfers: Tub - Score, Comprehension - S core, Expression - Score, Social Interaction - Score, Problem Solving - Score, Memory - Score were [e lectronically] signed by Dipti Romero OT on FriSep 03 2017 17:38:34 [facility]-0500 ([facility])
--- NOTE | 2017-09-03 22:24 | P.PN ---
Subjective Date of Service: 09/03/17 Chief Complaint: FEELS BETTER, DID NOT LIKE TOPAMAX, SIDE EFFECT, STILL HAS CLONIDINE PATCH Subjective: Improving (EATS WELL.) MR GOODSON HAD COME WITH BOWEL OBSTRUCTION. HAS HAD SURGERY BY DR FISH, TOOK A LONG TIME TO RECOVER. STILL IS VERY WEAK, HAS HAD STRANGE EPISODE OF HEAD LAZO,ONE EPISODE OF SYNCOPE AND HYPERSENSITIVE TO NOISE. I ASKED DR SANCHEZ IF IT CAN BE MIGRAINE VARIANT. HE STARTED TOPAMAX. MRI AND EEG WERE NEGATIVE. HE IS SENT TO REHAB TO GET STRONGER. HE IS A LOT BETTER STARTING TO EAT Review of Systems 10-point ROS is otherwise unremarkable General: Weakness, Malaise Physical Examination - Vital Signs Temperature: 98.4 F Blood Pressure: 127/87 Pulse: 118 Respirations: 16 Pulse Ox (%): 94 - Physical Exam General: Alert, In no apparent distress HEENT: Atraumatic, PERRLA, EOMI Neck: Supple, JVD not distended Respiratory: Clear to auscultation bilaterally, Normal air movement Cardiovascular: Regular rate/rhythm, Normal S1 S2 Gastrointestinal: Normal bowel sounds, Other (POST OP) Musculoskeletal: No tenderness Integumentary: No rashes Neurological: Normal speech, Normal tone, Normal affect Lymphatics: No axilla or inguinal lymphadenopathy - Studies Laboratory Data (last 24 hrs) 09/03/17 08:55: Sodium 130 L, Potassium 3.5 L, BUN 22 H, Creatinine 1.33 H, Glucose 132 H, Magnesium 1.8 09/03/17 08:55: WBC 4.6, Hgb 11.0 L, Hct 34.0 L, Plt Count 388 Medications List Reviewed: Yes Assessment And Plan - Current Problems (Diagnosis) (1) Adynamic ileus Current Visit: No Status: Acute Plan: POST SURGICAL HE HAS LIQUD DIARRHEA NOW AND WILL FU WITH X .RAY ABLE TO EAT A LITTLE. LOT BETTER RESUME CARE STOP TPN ATE BF TODAY. X RAY SHOWS IMPROVEMENT. STARTING TO EAT LOT BETTER HOPEFULLY WELL TO GO HOME SOON. (2) Colon cancer Onset Date: 09/01/17 Current Visit: Yes Status: Chronic Plan: DR HARTMAN WILL FU (3) Hypoalbuminemia due to protein-calorie malnutrition Current Visit: No Status: Acute (4) Syncope Current Visit: No Status: Acute Plan: NO MOER BUT WILL FU ON WEAK SPELLS HE GETS WITH NO NEUROLOGICAL SYMPTOMS. (5) Urinary retention Current Visit: No Status: Acute (6) Syncope Onset Date: 09/01/17 Current Visit: Yes Status: Suspected Plan: EPISODES OF NEAR SYNCOPE. UNCLEAR ETIOLOGY. TOPAMAX DID NOT WORK. HE HAS SE. STOP IT. AND WILL DO IMITREX PRN. (7) Tachycardia Current Visit: Yes Status: Acute Plan: ON B ANITA ALREADY DO EKG. (8) Renal dysfunction Current Visit: Yes Status: Acute Plan: REPEAT SONOGRAM OF ABDOMEN AND CHECK FOR PVR
[2017-09-04] MEDS: METOPROLOL XL 25 MG TAB PO SCH (05:10)
--- NOTE | 2017-09-04 05:11 | FAST ---
SHIFT START DATE/TIME: 09/03/2017 19:00 (CDT) SHIFT END DATE/TIME: 09/04/2017 07:00 (CDT) NAME BETY GOODSON DATE OF : 1955 DATE OF ADMISSION: 08/29/2017 17:49 (CDT) PHONE: AGE: 62 [facility]# [id number] GENDER: Male ENCOUNTER PHYSICIAN: Dr. Migel Ray M.D. ADMISSION DIAGNOSIS: - Debility 16 - Debility (16) Bowel Obstruction, Colon Cancer. EATING: EATING - STEP 1: Does the patient require assistance when eating? Yes. EATING - STEP 2: Does the patient require the assistance of a helper? No, patient only requires an assistive device, O R s/he takes more than reasonable time to eat, OR there is a safety concern, OR s/he requires modifie d food consistency EATING - SCORE: 6-CAIO GROOMING: Comb/brush hair Oral care Wash, rinse, and dry face Wash, rinse, and dry hands GROOMING - STEP 1: Does the patient require assistance when grooming? Yes. GROOMING - STEP 2: Does the patient require the assistance of a helper? No. The patient only requires an assistive devic e, OR takes more than reasonable time to groom, OR there is a concern for safety as the patient groom s GROOMING - SCORE: 6-CAIO BATHING: Activity did not occur on this shift BATHING - SCORE: 0-UNK DRESSING - UPPER BODY: Patient is not dressing in public clothing ARTICLES SCORE Total number of steps: 0 DRESSING - UPPER BODY - SCORE: 0-UNK DRESSING - LOWER BODY: Patient is not dressing in public clothing ARTICLES SCORE Total number of steps: 0 DRESSING - LOWER BODY - SCORE: 0-UNK TOILETING: TOILETING - STEP 1: Does the patient require assistance with toileting? Yes. TOILETING - STEP 2: Does the patient require the assistance of a helper? Yes. TOILETING - STEP 3: How much assistance does the patient require from the helper? Only supervision TOILETING - SCORE: 5-SUP BLADDER MANAGEMENT: BLADDER MANAGEMENT - STEP 1: Does the patient control the bladder completely and intentionally without equipment or devices or med ications, and is always continent? No. BLADDER MANAGEMENT - STEP 2: Does the patient require the assistance of a helper? Yes. BLADDER MANAGEMENT - STEP 3: How much assistance does the patient require from the helper? Only supervision, stand-by, cuing, or c oaxing BLADDER MANAGEMENT - SCORE: 5-SUP BLADDER MANAGEMENT - FREQUENCY OF ACCIDENTS: BLADDER MANAGEMENT(FA) - STEP 1: How many accidents has the patient had during the current shift? 0 BOWEL MANAGEMENT: BOWEL MANAGEMENT - STEP 1: Does the patient control bowels completely and intentionally without equipment devices or medications AND is always continent? No. BOWEL MANAGEMENT - STEP 2: Does the patient require the assistance of a helper? Yes. BOWEL MANAGEMENT - STEP 3: How much assistance does the patient require from the helper? Patient requires supervision, stand by, cueing, coaxing, or setup of equipment - placing within reach of patient and emptying device / bedpa nd or BSC bucket - to maintain either satisfactory bowel pattern or managing an external device such as an absorbent pad, colostomy bag / ileostomy bag BOWEL MANAGEMENT - SCORE: 5-SUP BOWEL MANAGEMENT - FREQUENCY OF ACCIDENTS: BOWEL MANAGEMENT(FA) - STEP 1: How many accidents has the patient had during the current shift? 0 TRANSFERS: BED, CHAIR, WHEELCHAIR: TRANSFERS: BED, CHAIR, WHEELCHAIR - STEP 1: Does the patient require assistance with bed, chair, or wheelchair transfers? Yes. TRANSFERS: BED, CHAIR, WHEELCHAIR - STEP 2: Does the patient require the assistance of a helper? Yes. TRANSFERS: BED, CHAIR, WHEELCHAIR - STEP 3: How much assistance does the patient require from the helper? Only supervision TRANSFERS: BED, CHAIR, WHEELCHAIR - SCORE: 5-SUP TRANSFERS: TOILET: TRANSFERS: TOILET - STEP 1: Does the patient require assistance with toilet transfers? Yes. TRANSFERS: TOILET - STEP 2: Does the patient require the assistance of a helper? Yes. TRANSFERS: TOILET - STEP 3: How much assistance does the patient require from the helper? Only supervision, cuing, coaxing, OR he lp to set out transfer equipment or to lock brakes and/or lift foot rests TRANSFERS: TOILET - SCORE: 5-SUP TRANSFERS: SHOWER: Activity did not occur on this shift TRANSFERS: SHOWER - SCORE: 0-UNK TRANSFERS: TUB: Activity did not occur on this shift TRANSFERS: TUB - SCORE: 0-UNK LOCOMOTION: WALK: Activity did not occur on this shift LOCOMOTION: WALK - SCORE: 0-UNK LOCOMOTION: WHEELCHAIR: Activity did not occur on this shift LOCOMOTION: WHEELCHAIR - SCORE: 0-UNK COMPREHENSION: COMPREHENSION: TYPE: Both COMPREHENSION - STEP 1: Does the patient require help to understand complex and abstract ideas (such as current events, finan uma, discharge planning, medical issues, relationships, etc)? No. COMPREHENSION - STEP 2: Does the patient need extra time, require an assistive device (such as glasses, hearing aids, or an a ugmentative communication system), OR does s/he have mild difficulty expressing complex and abstract ideas (including mild dysarthria or mild word-finding problems)? Yes. COMPREHENSION - SCORE: 6-CAIO EXPRESSION EXPRESSION: TYPE: Both EXPRESSION - STEP 1: Does the patient require help expressing complex and abstract ideas (such as current events, finances , discharge planning, medical issues, relationships, etc)? No. EXPRESSION - STEP 2: Does the patient need extra time, require an assistive device (such as augmentive communication syste m or a communication board), OR does s/he have mild difficulty expressing complex and abstract ideas (including mild dysarthria or mild word-find problems)? Yes. EXPRESSION - SCORE: 6-CAIO SOCIAL INTERACTION: SOCIAL INTERACTION - STEP 1: Does the patient require a helper to interact with others in social and therapeutic situations? No. SOCIAL INTERACTION - STEP 2: Does the patient need extra time in social situations, OR does s/he interact with staff, other patien ts, and family members ONLY in structured environments, OR does s/he require medication for social in teraction? Yes, patient needs extra time SOCIAL INTERACTION - SCORE: 6-CAIO PROBLEM SOLVING: PROBLEM SOLVING - STEP 1: Does the patient need help to solve complex problems such as managing a checking account or confronti ng interpersonal problems? No. PROBLEM SOLVING - STEP 2: Does the patient require extra time to make decisions or solve problems, OR does s/he have slight dif ficulty reading, initiating, or self-correcting in unfamiliar situations? Yes, patient needs extra ti me. PROBLEM SOLVING - SCORE: 6-CAIO MEMORY: MEMORY - STEP 1: Does the patient need help to remember frequently encountered people, daily routines, and executing r equests? No. MEMORY - STEP 2: Does the patient have slight difficulty recognizing frequently encountered people, daily routines, or executing requests without the need for repetition or using self-initiated or environmental cues to remember? Yes. MEMORY - SCORE: 6-CAIO SIGNATURE PANEL: The following modified sections: Eating - Score, Grooming - Score, Bathing - Score, Dressing - Upper Body - Score, Dressing - Lower Body - Score, Toileting - Score, Bladder Management - Score, Bowel Man agement - Score, Transfers: Bed, Chair, Wheelchair - Score, Transfers: Toilet - Score, Transfers: Yessica wer - Score, Transfers: Tub - Score, Locomotion: Walk - Score, Locomotion: Wheelchair - Score, Compre hension - Score, Expression - Score, Social Interaction - Score, Problem Solving - Score, Memory - Sc ore were [electronically] signed by Lois Mora [email or web address] on FriSep 04 2017 04:12:56 T-0500 ( [facility] Time)
[2017-09-04 06:23] LABS: Absolute Monocytes 0.9 K/uL (0.1-1.3); Absolute Neutrophil 2.3 K/uL (1.8-8.0); Basophils % 0.4 % (0-1.3); Eosinophils % 0.7 % (0-4.4); Lymphocytes % 23.3 % (15.3-44.8); MCH 26.2 pg (27.0-35.0); MCV 81.6 fL (80-100); MPV 8.3 fL (7.6-11.3); Monocytes % 21.3 % (3.3-12.3)
[2017-09-04] MEDS: cloNIDine HCl 0.1 MG TAB PO SCH ×2 (08:00→19:34)
[2017-09-04] MEDS: ENSURE CLEAR 200 ML CAN PO SCH ×2 (08:00→19:33)
[2017-09-04 08:04] LABS: Albumin 3.1 g/dL (3.2-5.5); Potassium 3.5 mEq/L (3.6-5.0)
[2017-09-04] MEDS: ENOXAPARIN 40 MG/0.4 ML SQ SCH (08:23)
[2017-09-04] MEDS: FINASTERIDE 5 MG TAB PO SCH (08:24)
[2017-09-04] MEDS: LOPERAMIDE HCL 2 MG CAPSULE PO SCH (08:24)
[2017-09-04] MEDS: PROMOD 30 ML DOSE PO SCH ×2 (08:24→19:33)
--- NOTE | 2017-09-04 08:57 | FAST ---
ENCOUNTER DATE AND TIME: 09/03/2017 08:00 (CDT) NAME BETY GOODSON DATE OF : 1955 DATE OF ADMISSION: 08/29/2017 17:49 (CDT) PHONE: AGE: 62 N# [id number] GENDER: Male ENCOUNTER PHYSICIAN: Dr. Migel Ray M.D. ADMISSION DIAGNOSIS: - Debility 16 - Debility (16) Bowel Obstruction, Colon Cancer. EATING: Activity did not occur on this shift EATING - SCORE: 0-UNK GROOMING: Comb/brush hair Oral care Patient shaved Wash, rinse, and dry face Wash, rinse, and dry hands GROOMING - STEP 1: Does the patient require assistance when grooming? No. GROOMING - SCORE: 7-IND BATHING: Abdomen Buttocks Chest Left arm Left lower leg and foot Left upper leg Perineal area Right arm Right lower leg and foot Right upper leg BATHING - STEP 1: Does the patient require assistance when bathing? Yes. BATHING - STEP 2: Does the patient require the assistance of a helper? Yes. BATHING - STEP 3: How much assistance does the patient require from the helper? Only supervision, cuing, coaxing, instr uctions, encouragement BATHING - SCORE: 5-SUP DRESSING - UPPER BODY: T-shirt/pullover shirt (four steps) ARTICLES SCORE Total number of steps: 4 DRESSING - UPPER BODY - STEP 1: Does the patient require help when dressing above the waist? Yes. DRESSING - UPPER BODY - STEP 2: Does the patient require the assistance of a helper? Yes. DRESSING - UPPER BODY - STEP 3: Does the helper touch the patient while dressing? No. DRESSING - UPPER BODY - SCORE: 5-SUP DRESSING - LOWER BODY: Elastic waist pants (three steps) Slip-on shoe - Left foot (one step) Slip-on shoe - Right foot (one step) Sock - Left foot (one step) Sock - Right foot (one step) Underwear (three steps) ARTICLES SCORE Total number of steps: 10 DRESSING - LOWER BODY - STEP 1: Does the patient require help when dressing below the waist? Yes. DRESSING - LOWER BODY - STEP 2: Does the patient require the assistance of a helper? Yes. DRESSING - LOWER BODY - STEP 3: Does the helper touch the patient while dressing? No. DRESSING - LOWER BODY - SCORE: 5-SUP TOILETING: Activity did not occur on this shift TOILETING - SCORE: 0-UNK BLADDER MANAGEMENT: Activity did not occur on this shift BLADDER MANAGEMENT - SCORE: 7-IND BOWEL MANAGEMENT: Activity did not occur on this shift BOWEL MANAGEMENT - SCORE: 7-IND TRANSFERS: BED, CHAIR, WHEELCHAIR: Activity did not occur on this shift TRANSFERS: BED, CHAIR, WHEELCHAIR - SCORE: 0-UNK TRANSFERS: TOILET: TRANSFERS: TOILET - STEP 1: Does the patient require assistance with toilet transfers? Yes. TRANSFERS: TOILET - STEP 2: Does the patient require the assistance of a helper? Yes. TRANSFERS: TOILET - STEP 3: How much assistance does the patient require from the helper? Only supervision, cuing, coaxing, OR he lp to set out transfer equipment or to lock brakes and/or lift foot rests TRANSFERS: TOILET - SCORE: 5-SUP TRANSFERS: SHOWER: Activity did not occur on this shift TRANSFERS: SHOWER - SCORE: 0-UNK TRANSFERS: TUB: TRANSFERS: TUB - STEP 1: Does the patient require assistance with tub transfers? Yes. TRANSFERS: TUB - STEP 2: Does the patient require the assistance of a helper? Yes. TRANSFERS: TUB - STEP 3: How much assistance does the patient require from the helper? Only supervision, cuing, coaxing, or he lp to set out transfer equipment or to lock brakes and/or lift foot rests TRANSFERS: TUB - SCORE: 5-SUP LOCOMOTION: WALK: Activity did not occur on this shift LOCOMOTION: WALK - SCORE: 0-UNK LOCOMOTION: WHEELCHAIR: Activity did not occur on this shift LOCOMOTION: WHEELCHAIR - SCORE: 0-UNK LOCOMOTION: STAIRS: Activity did not occur on this shift LOCOMOTION: STAIRS - SCORE: 0-UNK COMPREHENSION: COMPREHENSION - STEP 1: Does the patient require help to understand complex and abstract ideas (such as current events, finan uma, discharge planning, medical issues, relationships, etc)? No. COMPREHENSION - STEP 2: Does the patient need extra time, require an assistive device (such as glasses, hearing aids, or an a ugmentative communication system), OR does s/he have mild difficulty expressing complex and abstract ideas (including mild dysarthria or mild word-finding problems)? No. COMPREHENSION - SCORE: 7-IND EXPRESSION EXPRESSION: TYPE: Non-Vocal EXPRESSION - STEP 1: Does the patient require help expressing complex and abstract ideas (such as current events, finances , discharge planning, medical issues, relationships, etc)? No. EXPRESSION - STEP 2: Does the patient need extra time, require an assistive device (such as augmentive communication syste m or a communication board), OR does s/he have mild difficulty expressing complex and abstract ideas (including mild dysarthria or mild word-find problems)? No. EXPRESSION - SCORE: 7-IND SOCIAL INTERACTION: SOCIAL INTERACTION - STEP 1: Does the patient require a helper to interact with others in social and therapeutic situations? No. SOCIAL INTERACTION - STEP 2: Does the patient need extra time in social situations, OR does s/he interact with staff, other patien ts, and family members ONLY in structured environments, OR does s/he require medication for social in teraction? No. SOCIAL INTERACTION - SCORE: 7-IND PROBLEM SOLVING: PROBLEM SOLVING - STEP 1: Does the patient need help to solve complex problems such as managing a checking account or confronti ng interpersonal problems? No. PROBLEM SOLVING - STEP 2: Does the patient require extra time to make decisions or solve problems, OR does s/he have slight dif ficulty reading, initiating, or self-correcting in unfamiliar situations? No. PROBLEM SOLVING - SCORE: 7-IND MEMORY: MEMORY - STEP 1: Does the patient need help to remember frequently encountered people, daily routines, and executing r equests? No. MEMORY - STEP 2: Does the patient have slight difficulty recognizing frequently encountered people, daily routines, or executing requests without the need for repetition or using self-initiated or environmental cues to remember? No. MEMORY - SCORE: 7-IND SIGNATURE PANEL: The following modified sections: Eating - Score, Grooming - Score, Bathing - Score, Dressing - Upper Body - Score, Dressing - Lower Body - Score, Toileting - Score, Transfers: Bed, Chair, Wheelchair - S core, Transfers: Toilet - Score, Transfers: Shower - Score, Transfers: Tub - Score, Comprehension - S core, Expression - Score, Social Interaction - Score, Problem Solving - Score, Memory - Score were [e lectronically] signed by VANDANA Fofana on FriSep 04 2017 07:58:30 T-0500 ([facility] [place] Time)
--- NOTE | 2017-09-04 10:19 | RAD REPORT ---
EXAM DESCRIPTION: US - Renal Ultrasound-Complete - 09/04/2017 10:04 am CLINICAL HISTORY: Chronic kidney disease. COMPARISON: 08/12/2017 FINDINGS: Both kidneys are normal in size, shape and echotexture. The right kidney measures 11.4 x 4.9 x 4.4 cm. No hydronephrosis, focal mass or perinephric fluid. The left kidney measures 10.8 x 5.7 x 4.9 cm. No hydronephrosis, focal mass or perinephric fluid. IMPRESSION: Unremarkable renal sonogram.
--- NOTE | 2017-09-04 10:20 | RAD REPORT ---
EXAM DESCRIPTION: US - Urinary Bladder - 09/04/2017 10:04 am CLINICAL HISTORY: Chronic kidney disease, assess PVR. COMPARISON: None. TECHNIQUE: Real-time sonographic evaluation of the urinary bladder with pre and postvoid volume peter urements was performed. FINDINGS: Prostate gland appears prominent in size and projects into the bladder base. Prevoid bladd er volume 126 mL. Postvoid bladder volume 35 mL. IMPRESSION: Mild postvoid residual.
--- NOTE | 2017-09-04 10:46 | FAST ---
SHIFT START DATE/TIME: 09/04/2017 07:00 (CDT) SHIFT END DATE/TIME: 09/04/2017 19:00 (CDT) NAME BETY GOODSON DATE OF : 1955 DATE OF ADMISSION: 08/29/2017 17:49 (CDT) PHONE: AGE: 62 [facility]# [id number] GENDER: Male ENCOUNTER PHYSICIAN: Dr. Migel Ray M.D. ADMISSION DIAGNOSIS: - Debility 16 - Debility (16) Bowel Obstruction, Colon Cancer. EATING: EATING - STEP 1: Does the patient require assistance when eating? Yes. EATING - STEP 2: Does the patient require the assistance of a helper? No, patient only requires an assistive device, O R s/he takes more than reasonable time to eat, OR there is a safety concern, OR s/he requires modifie d food consistency EATING - SCORE: 6-CAIO GROOMING: Comb/brush hair Oral care Wash, rinse, and dry face Wash, rinse, and dry hands GROOMING - STEP 1: Does the patient require assistance when grooming? Yes. GROOMING - STEP 2: Does the patient require the assistance of a helper? No. The patient only requires an assistive devic e, OR takes more than reasonable time to groom, OR there is a concern for safety as the patient groom s GROOMING - SCORE: 6-CAIO BATHING: Activity did not occur on this shift BATHING - SCORE: 0-UNK DRESSING - UPPER BODY: Activity did not occur on this shift ARTICLES SCORE Total number of steps: 0 DRESSING - UPPER BODY - SCORE: 0-UNK DRESSING - LOWER BODY: Activity did not occur on this shift ARTICLES SCORE Total number of steps: 0 DRESSING - LOWER BODY - SCORE: 0-UNK TOILETING: TOILETING - STEP 1: Does the patient require assistance with toileting? Yes. TOILETING - STEP 2: Does the patient require the assistance of a helper? No. TOILETING - SCORE: 6-CAIO BLADDER MANAGEMENT: BLADDER MANAGEMENT - STEP 1: Does the patient control the bladder completely and intentionally without equipment or devices or med ications, and is always continent? No. BLADDER MANAGEMENT - STEP 2: Does the patient require the assistance of a helper? No, patient requires and independently uses an a ssistive device, such as a urinal, bedpan, bedside commode, catheter, absorbent pad, or collecting de vice BLADDER MANAGEMENT - SCORE: 6-CAIO BOWEL MANAGEMENT: Activity did not occur on this shift BOWEL MANAGEMENT - SCORE: 7-IND TRANSFERS: BED, CHAIR, WHEELCHAIR: TRANSFERS: BED, CHAIR, WHEELCHAIR - STEP 1: Does the patient require assistance with bed, chair, or wheelchair transfers? Yes. TRANSFERS: BED, CHAIR, WHEELCHAIR - STEP 2: Does the patient require the assistance of a helper? No. Patient only requires an assistive device fo r bed, chair, wheelchair transfers such as a sliding board, grab bar, or brace, OR s/he takes more th an reasonable time, OR there is a safety concern when s/he performs the transfers TRANSFERS: BED, CHAIR, WHEELCHAIR - SCORE: 6-CAIO TRANSFERS: TOILET: TRANSFERS: TOILET - STEP 1: Does the patient require assistance with toilet transfers? Yes. TRANSFERS: TOILET - STEP 2: Does the patient require the assistance of a helper? No. Patient only requires an assistive device ospina ch as a grab bar or special seat, OR s/he takes more than reasonable time to perform toilet transfers , OR there is a safety concern when s/he performs toilet transfers. TRANSFERS: TOILET - SCORE: 6-CAIO TRANSFERS: SHOWER: Activity did not occur on this shift TRANSFERS: SHOWER - SCORE: 0-UNK TRANSFERS: TUB: Activity did not occur on this shift TRANSFERS: TUB - SCORE: 0-UNK LOCOMOTION: WALK: Activity did not occur on this shift LOCOMOTION: WALK - SCORE: 0-UNK LOCOMOTION: WHEELCHAIR: Activity did not occur on this shift LOCOMOTION: WHEELCHAIR - SCORE: 0-UNK COMPREHENSION: COMPREHENSION - SCORE: 0-UNK EXPRESSION EXPRESSION - SCORE: 0-UNK SOCIAL INTERACTION: SOCIAL INTERACTION - SCORE: 0-UNK PROBLEM SOLVING: PROBLEM SOLVING - SCORE: 0-UNK MEMORY: MEMORY - SCORE: 0-UNK SIGNATURE PANEL: The following modified sections: Eating - Score, Grooming - Score, Bathing - Score, Dressing - Upper Body - Score, Dressing - Lower Body - Score, Toileting - Score, Bladder Management - Score, Bowel Man agement - Score, Transfers: Bed, Chair, Wheelchair - Score, Transfers: Toilet - Score, Transfers: Yessica wer - Score, Transfers: Tub - Score, Locomotion: Walk - Score, Locomotion: Wheelchair - Score, Compre hension - Score, Expression - Score, Social Interaction - Score, Problem Solving - Score, Memory - Sc ore were [electronically] signed by Xavier Lange on FriSep 04 2017 09:47:47 GMT-0500 (Central Daylight Time)
--- NOTE | 2017-09-04 15:25 | FAST ---
ENCOUNTER DATE AND TIME: 09/04/2017 08:00 (CDT) NAME BETY GOODSON DATE OF : 1955 DATE OF ADMISSION: 08/29/2017 17:49 (CDT) PHONE: AGE: 62 N# [id number] GENDER: Male ENCOUNTER PHYSICIAN: Dr. Migel Ray M.D. ADMISSION DIAGNOSIS: - Debility 16 - Debility (16) Bowel Obstruction, Colon Cancer. EATING: Activity did not occur on this shift EATING - SCORE: 0-UNK GROOMING: Activity did not occur on this shift GROOMING - SCORE: 0-UNK BATHING: Activity did not occur on this shift BATHING - SCORE: 0-UNK DRESSING - UPPER BODY: Activity did not occur on this shift Patient is not dressing in public clothing ARTICLES SCORE Total number of steps: 0 DRESSING - UPPER BODY - SCORE: 0-UNK DRESSING - LOWER BODY: Activity did not occur on this shift Patient is not dressing in public clothing ARTICLES SCORE Total number of steps: 0 DRESSING - LOWER BODY - SCORE: 0-UNK TOILETING: Activity did not occur on this shift TOILETING - SCORE: 0-UNK BLADDER MANAGEMENT: Activity did not occur on this shift BLADDER MANAGEMENT - SCORE: 7-IND BOWEL MANAGEMENT: Activity did not occur on this shift BOWEL MANAGEMENT - SCORE: 7-IND TRANSFERS: BED, CHAIR, WHEELCHAIR: TRANSFERS: BED, CHAIR, WHEELCHAIR - STEP 1: Does the patient require assistance with bed, chair, or wheelchair transfers? Yes. TRANSFERS: BED, CHAIR, WHEELCHAIR - STEP 2: Does the patient require the assistance of a helper? No. Patient only requires an assistive device fo r bed, chair, wheelchair transfers such as a sliding board, grab bar, or brace, OR s/he takes more th an reasonable time, OR there is a safety concern when s/he performs the transfers TRANSFERS: BED, CHAIR, WHEELCHAIR - SCORE: 6-CAIO TRANSFERS: TOILET: Activity did not occur on this shift TRANSFERS: TOILET - SCORE: 0-UNK TRANSFERS: SHOWER: Activity did not occur on this shift TRANSFERS: SHOWER - SCORE: 0-UNK TRANSFERS: TUB: Activity did not occur on this shift TRANSFERS: TUB - SCORE: 0-UNK LOCOMOTION: WALK: LOCOMOTION: WALK - STEP 1: Does the patient need help to walk 150 feet? No. LOCOMOTION: WALK - STEP 2: Does the patient need an assistive device (such as an orthosis, prosthesis, crutches, or walker) to g o 150 feet, OR does s/he take more than reasonable time, OR is there a concern for safety? Yes, the p atient needs an assistive device LOCOMOTION: WALK - SCORE: 6-CAIO LOCOMOTION: WHEELCHAIR: Activity did not occur on this shift LOCOMOTION: WHEELCHAIR - SCORE: 0-UNK LOCOMOTION: STAIRS: Activity did not occur on this shift LOCOMOTION: STAIRS - SCORE: 0-UNK COMPREHENSION: COMPREHENSION - SCORE: 0-UNK EXPRESSION EXPRESSION - SCORE: 0-UNK SOCIAL INTERACTION: SOCIAL INTERACTION - SCORE: 0-UNK PROBLEM SOLVING: PROBLEM SOLVING - SCORE: 0-UNK MEMORY: MEMORY - SCORE: 0-UNK SIGNATURE PANEL: The following modified sections: Transfers: Bed, Chair, Wheelchair - Score, Transfers: Toilet - Score , Locomotion: Walk - Score, Locomotion: Wheelchair - Score, Locomotion: Stairs - Score were [electron elyssa] signed by Kodak Olivier, PT on FriSep 04 2017 14:27:19 T-0500 (Central Daylight Time)
--- NOTE | 2017-09-04 15:39 | EKG ---
Test Date: 2017-09-04 Test Time: 10:17:38 Physical Therapist Aide: LISA MEASUREMENT RESULTS: Intervals: Rate: 84 NJ: 120 QRSD: 80 QT: 370 QTc: 437 [place]: P: 43 NJ: 120 QRS: -31 T: 45 INTERPRETIVE STATEMENTS: Normal sinus rhythm Left axis deviation Nonspecific T wave abnormality Abnormal ECG Compared to ECG 08/24/2017 13:06:13 Left-axis deviation now present T-wave abnormality now present Myocardial infarct finding no longer present Electronically Signed On 09-04-17 15:37:41 CDT by Josh Jones
[2017-09-04 15:40] LABS: Prealbumin 22.5 mg/dl (18-38)
--- NOTE | 2017-09-05 04:33 | FAST ---
SHIFT START DATE/TIME: 09/04/2017 19:00 (CDT) SHIFT END DATE/TIME: 09/05/2017 07:00 (CDT) NAME BETY GOODSON DATE OF : 1955 DATE OF ADMISSION: 08/29/2017 17:49 (CDT) PHONE: AGE: 62 [facility]# [id number] GENDER: Male ENCOUNTER PHYSICIAN: Dr. Migel Ray M.D. ADMISSION DIAGNOSIS: - Debility 16 - Debility (16) Bowel Obstruction, Colon Cancer. EATING: EATING - STEP 1: Does the patient require assistance when eating? Yes. EATING - STEP 2: Does the patient require the assistance of a helper? No, patient only requires an assistive device, O R s/he takes more than reasonable time to eat, OR there is a safety concern, OR s/he requires modifie d food consistency EATING - SCORE: 6-CAIO GROOMING: Comb/brush hair Oral care Wash, rinse, and dry face Wash, rinse, and dry hands GROOMING - STEP 1: Does the patient require assistance when grooming? Yes. GROOMING - STEP 2: Does the patient require the assistance of a helper? No. The patient only requires an assistive devic e, OR takes more than reasonable time to groom, OR there is a concern for safety as the patient groom s GROOMING - SCORE: 6-CAIO BATHING: Activity did not occur on this shift BATHING - SCORE: 0-UNK DRESSING - UPPER BODY: Patient is not dressing in public clothing ARTICLES SCORE Total number of steps: 0 DRESSING - UPPER BODY - SCORE: 0-UNK DRESSING - LOWER BODY: Patient is not dressing in public clothing ARTICLES SCORE Total number of steps: 0 DRESSING - LOWER BODY - SCORE: 0-UNK TOILETING: TOILETING - STEP 1: Does the patient require assistance with toileting? Yes. TOILETING - STEP 2: Does the patient require the assistance of a helper? No. TOILETING - SCORE: 6-CAIO BLADDER MANAGEMENT: BLADDER MANAGEMENT - STEP 1: Does the patient control the bladder completely and intentionally without equipment or devices or med ications, and is always continent? No. BLADDER MANAGEMENT - STEP 2: Does the patient require the assistance of a helper? No, patient requires and independently uses an a ssistive device, such as a urinal, bedpan, bedside commode, catheter, absorbent pad, or collecting de vice BLADDER MANAGEMENT - SCORE: 6-CAIO BLADDER MANAGEMENT - FREQUENCY OF ACCIDENTS: BLADDER MANAGEMENT(FA) - STEP 1: How many accidents has the patient had during the current shift? 0 BOWEL MANAGEMENT: BOWEL MANAGEMENT - STEP 1: Does the patient control bowels completely and intentionally without equipment devices or medications AND is always continent? No. BOWEL MANAGEMENT - STEP 2: Does the patient require the assistance of a helper? No, patient requires and manages independently a n assistive device such as a bedpan, bedside commode, absorbent pad, incontinent device, or collectin g device BOWEL MANAGEMENT - SCORE: 6-CAIO BOWEL MANAGEMENT - FREQUENCY OF ACCIDENTS: BOWEL MANAGEMENT(FA) - STEP 1: How many accidents has the patient had during the current shift? 0 TRANSFERS: BED, CHAIR, WHEELCHAIR: TRANSFERS: BED, CHAIR, WHEELCHAIR - STEP 1: Does the patient require assistance with bed, chair, or wheelchair transfers? Yes. TRANSFERS: BED, CHAIR, WHEELCHAIR - STEP 2: Does the patient require the assistance of a helper? No. Patient only requires an assistive device fo r bed, chair, wheelchair transfers such as a sliding board, grab bar, or brace, OR s/he takes more th an reasonable time, OR there is a safety concern when s/he performs the transfers TRANSFERS: BED, CHAIR, WHEELCHAIR - SCORE: 6-CAIO TRANSFERS: TOILET: TRANSFERS: TOILET - STEP 1: Does the patient require assistance with toilet transfers? Yes. TRANSFERS: TOILET - STEP 2: Does the patient require the assistance of a helper? No. Patient only requires an assistive device ospina ch as a grab bar or special seat, OR s/he takes more than reasonable time to perform toilet transfers , OR there is a safety concern when s/he performs toilet transfers. TRANSFERS: TOILET - SCORE: 6-CAIO TRANSFERS: SHOWER: Activity did not occur on this shift TRANSFERS: SHOWER - SCORE: 0-UNK TRANSFERS: TUB: Activity did not occur on this shift TRANSFERS: TUB - SCORE: 0-UNK LOCOMOTION: WALK: Activity did not occur on this shift LOCOMOTION: WALK - SCORE: 0-UNK LOCOMOTION: WHEELCHAIR: Activity did not occur on this shift LOCOMOTION: WHEELCHAIR - SCORE: 0-UNK COMPREHENSION: COMPREHENSION: TYPE: Both COMPREHENSION - STEP 1: Does the patient require help to understand complex and abstract ideas (such as current events, finan uma, discharge planning, medical issues, relationships, etc)? No. COMPREHENSION - STEP 2: Does the patient need extra time, require an assistive device (such as glasses, hearing aids, or an a ugmentative communication system), OR does s/he have mild difficulty expressing complex and abstract ideas (including mild dysarthria or mild word-finding problems)? Yes. COMPREHENSION - SCORE: 6-CAIO EXPRESSION EXPRESSION: TYPE: Both EXPRESSION - STEP 1: Does the patient require help expressing complex and abstract ideas (such as current events, finances , discharge planning, medical issues, relationships, etc)? No. EXPRESSION - STEP 2: Does the patient need extra time, require an assistive device (such as augmentive communication syste m or a communication board), OR does s/he have mild difficulty expressing complex and abstract ideas (including mild dysarthria or mild word-find problems)? No. EXPRESSION - SCORE: 7-IND SOCIAL INTERACTION: SOCIAL INTERACTION - STEP 1: Does the patient require a helper to interact with others in social and therapeutic situations? No. SOCIAL INTERACTION - STEP 2: Does the patient need extra time in social situations, OR does s/he interact with staff, other patien ts, and family members ONLY in structured environments, OR does s/he require medication for social in teraction? No. SOCIAL INTERACTION - SCORE: 7-IND PROBLEM SOLVING: PROBLEM SOLVING - STEP 1: Does the patient need help to solve complex problems such as managing a checking account or confronti ng interpersonal problems? No. PROBLEM SOLVING - STEP 2: Does the patient require extra time to make decisions or solve problems, OR does s/he have slight dif ficulty reading, initiating, or self-correcting in unfamiliar situations? Yes, patient has slight dif ficulty reading, initiating, or self-correcting in unfamiliar situations. PROBLEM SOLVING - SCORE: 6-CAIO MEMORY: MEMORY - STEP 1: Does the patient need help to remember frequently encountered people, daily routines, and executing r equests? No. MEMORY - STEP 2: Does the patient have slight difficulty recognizing frequently encountered people, daily routines, or executing requests without the need for repetition or using self-initiated or environmental cues to remember? No. MEMORY - SCORE: 7-IND SIGNATURE PANEL: The following modified sections: Eating - Score, Grooming - Score, Bathing - Score, Dressing - Upper Body - Score, Dressing - Lower Body - Score, Toileting - Score, Bladder Management - Score, Bowel Man agement - Score, Transfers: Bed, Chair, Wheelchair - Score, Transfers: Toilet - Score, Transfers: Yessica wer - Score, Transfers: Tub - Score, Locomotion: Walk - Score, Locomotion: Wheelchair - Score, Compre hension - Score, Expression - Score, Social Interaction - Score, Problem Solving - Score, Memory - Sc ore were [electronically] signed by Lois Mora C.N.AAshley on FriSep 05 2017 03:34:44 T-0500 ( Central Daylight Time)
[2017-09-05] MEDS: METOPROLOL XL 25 MG TAB PO SCH (05:10)
[2017-09-05] MEDS: ENSURE CLEAR 200 ML CAN PO SCH ×2 (08:00→19:57)
[2017-09-05] MEDS ORDERED: CLONIDINE 0.2 MG/PATCH TD SCH (08:00)
[2017-09-05] MEDS: cloNIDine HCl 0.1 MG TAB PO SCH ×2 (08:27→19:53)
[2017-09-05] MEDS: FINASTERIDE 5 MG TAB PO SCH (08:28)
[2017-09-05] MEDS: ENOXAPARIN 40 MG/0.4 ML SQ SCH (08:28)
[2017-09-05] MEDS: PROMOD 30 ML DOSE PO SCH ×2 (08:29→19:53)
--- NOTE | 2017-09-05 08:47 | P.PN ---
Subjective Date of Service: 09/05/17 Chief Complaint: colon cancer Subjective: Tolerating diet, Ambulating, Improving Review of Systems Gastrointestinal: Vomiting (no), No Distention Physical Examination - Vital Signs Temperature: 97.3 F Blood Pressure: 124/88 Pulse: 95 Respirations: 16 Pulse Ox (%): 99 - Physical Exam General: Alert, In no apparent distress, Oriented x3 HEENT: PERRLA, EOMI Gastrointestinal: Soft and benign - Studies Medications List Reviewed: Yes Assessment And Plan - Plan d/c gardenia f/u my office when discharged to arrange for oncology services oob
--- NOTE | 2017-09-05 09:50 | P.RH.PN ---
Estimated Length of Stay: 14 Expected Discharge Date: 09/11/17 Discharge Disposition Plan: Home Family Support: Yes Snf Goal: Mobility, Transfers, Self Care Vital Signs: Last Vital Signs Temp 97.3 F 09/05/17 08:47 Pulse 95 H 09/05/17 08:47 Resp 16 09/05/17 08:47 BP 124/88 09/05/17 08:47 Pulse Ox 99 09/05/17 08:47 Laboratory: Laboratory Last Values WBC 4.2 K/uL (4.3-10.9) L 09/04/17 05:20 RBC 3.80 M/uL (4.33-5.43) L 09/04/17 05:20 Hgb 10.0 g/dL (13.6-17.9) L 09/04/17 05:20 Hct 31.0 % (39.6-49.0) L 09/04/17 05:20 MCV 81.6 fL (80-100) 09/04/17 05:20 MCH 26.2 pg (27.0-35.0) L 09/04/17 05:20 MCHC 32.1 g/dL (32.0-36.0) 09/04/17 05:20 RDW 15.0 % (12.1-15.2) 09/04/17 05:20 Plt Count 318 K/uL (152-406) 09/04/17 05:20 MPV 8.3 fL (7.6-11.3) 09/04/17 05:20 Neutrophils % 54.3 % (41.7-73.7) 09/04/17 05:20 Lymphocytes % 23.3 % (15.3-44.8) 09/04/17 05:20 Monocytes % 21.3 % (3.3-12.3) H 09/04/17 05:20 Eosinophils % 0.7 % (0-4.4) 09/04/17 05:20 Basophils % 0.4 % (0-1.3) 09/04/17 05:20 Absolute Neutrophils 2.3 K/uL (1.8-8.0) 09/04/17 05:20 Absolute Lymphocytes 1.0 K/uL (0.7-4.9) 09/04/17 05:20 Absolute Monocytes 0.9 K/uL (0.1-1.3) 09/04/17 05:20 Absolute Eosinophils 0.0 K/uL (0-0.5) 09/04/17 05:20 Absolute Basophils 0.0 K/uL (0-0.5) 09/04/17 05:20 Morphology Comment Not seen (NOT SEEN) 09/03/17 08:55 Sodium 131 mEq/L (135-145) L 09/04/17 05:20 Potassium 3.5 mEq/L (3.6-5.0) L 09/04/17 05:20 Chloride 102 mEq/L (101-111) 09/04/17 05:20 Carbon Dioxide 21 mEq/L (21-31) 09/04/17 05:20 BUN 20 mg/dL (6-20) 09/04/17 05:20 Creatinine 1.17 mg/dL (0.61-1.24) 09/04/17 05:20 Estimated GFR 76 mL/min (=/>90) L 09/04/17 05:20 Glucose 101 mg/dL (65-120) 09/04/17 05:20 POC Glucose 124 mg/dl (65-120) H 08/31/17 11:47 Calcium 8.6 mg/dL (8.5-10.5) 09/04/17 05:20 Magnesium 1.8 mg/dL (1.8-2.5) 09/03/17 08:55 Albumin 3.1 g/dL (3.2-5.5) L 09/04/17 05:20 Prealbumin 22.5 mg/dl (18-38) 09/04/17 05:20 Urine Color Cancelled 08/30/17 02:54 Urine Appearance Cancelled 08/30/17 02:54 Urine pH Cancelled 08/30/17 02:54 Ur Specific Reading Cancelled 08/30/17 02:54 Urine Ketones Cancelled 08/30/17 02:54 Urine Blood Cancelled 08/30/17 02:54 Urine Nitrite Cancelled 08/30/17 02:54 Urine Bilirubin Cancelled 08/30/17 02:54 Urine Urobilinogen Cancelled 08/30/17 02:54 Ur Leukocyte Esterase Cancelled 08/30/17 02:54 Urine RBC <5 /HPF (NONE SEEN) 08/30/17 02:52 Urine WBC None seen /HPF (<5) 08/30/17 02:52 Ur Squamous Epith Cells JOURNEYMAN PIPEFITTER 08/30/17 02:52 Urine Bacteria <20 /HPF (NONE SEEN) 08/30/17 02:52 Ur Microscopic Review Cancelled 08/30/17 02:54 Urine Culture Reflexed Not needed 08/30/17 02:52 Urine Glucose Cancelled 08/30/17 02:54 Urine Total Protein Cancelled 08/30/17 02:54 Weight: 174 lb 4.8 oz Wound Present: No Closed Surgical Incision Present: Yes Negative Pressure Wound Therapy Present: No Physician Update: His Hgb is mildly low at 10. Prealbumin is normal at 22.5. Will start hemocyte plus. He is doing well with physical and occupational therapy. Functional Improvement: Patient has met all goals at this time, w/ the exception of a car transfer. Will attempt to address within the next few sessions. Functional Improvement Occupational Therapy: pt can benifit with further therapy to address pt's endurance and activity tolerance for all adl tasks. cont to increase pt's UB strength/static standing tolerance and educate pt on energy conservation. cont with the POC and the goals by the supervising OTR. Summary: Patient's care plan and [facility] goals have been reviewed and revised as necessary. Please see the Rehabilitation Signature page for all necessary signatures.
--- NOTE | 2017-09-05 16:18 | FAST ---
ENCOUNTER DATE AND TIME: 09/05/2017 08:00 (CDT) NAME BETY GOODSON DATE OF : 1955 DATE OF ADMISSION: 08/29/2017 17:49 (CDT) PHONE: AGE: 62 N# [id number] GENDER: Male ENCOUNTER PHYSICIAN: Dr. Migel Ray M.D. ADMISSION DIAGNOSIS: - Debility 16 - Debility (16) Bowel Obstruction, Colon Cancer. EATING: Activity did not occur on this shift EATING - SCORE: 0-UNK GROOMING: Activity did not occur on this shift GROOMING - SCORE: 0-UNK BATHING: Activity did not occur on this shift BATHING - SCORE: 0-UNK DRESSING - UPPER BODY: Activity did not occur on this shift Patient is not dressing in public clothing ARTICLES SCORE Total number of steps: 0 DRESSING - UPPER BODY - SCORE: 0-UNK DRESSING - LOWER BODY: Activity did not occur on this shift Patient is not dressing in public clothing ARTICLES SCORE Total number of steps: 0 DRESSING - LOWER BODY - SCORE: 0-UNK TOILETING: Activity did not occur on this shift TOILETING - SCORE: 0-UNK BLADDER MANAGEMENT: Activity did not occur on this shift BLADDER MANAGEMENT - SCORE: 7-IND BOWEL MANAGEMENT: Activity did not occur on this shift BOWEL MANAGEMENT - SCORE: 7-IND TRANSFERS: BED, CHAIR, WHEELCHAIR: TRANSFERS: BED, CHAIR, WHEELCHAIR - STEP 1: Does the patient require assistance with bed, chair, or wheelchair transfers? Yes. TRANSFERS: BED, CHAIR, WHEELCHAIR - STEP 2: Does the patient require the assistance of a helper? No. Patient only requires an assistive device fo r bed, chair, wheelchair transfers such as a sliding board, grab bar, or brace, OR s/he takes more th an reasonable time, OR there is a safety concern when s/he performs the transfers TRANSFERS: BED, CHAIR, WHEELCHAIR - SCORE: 6-CAIO TRANSFERS: TOILET: Activity did not occur on this shift TRANSFERS: TOILET - SCORE: 0-UNK TRANSFERS: SHOWER: Activity did not occur on this shift TRANSFERS: SHOWER - SCORE: 0-UNK TRANSFERS: TUB: Activity did not occur on this shift TRANSFERS: TUB - SCORE: 0-UNK LOCOMOTION: WALK: LOCOMOTION: WALK - STEP 1: Does the patient need help to walk 150 feet? No. LOCOMOTION: WALK - STEP 2: Does the patient need an assistive device (such as an orthosis, prosthesis, crutches, or walker) to g o 150 feet, OR does s/he take more than reasonable time, OR is there a concern for safety? Yes, the p atient needs an assistive device LOCOMOTION: WALK - SCORE: 6-CAIO LOCOMOTION: WHEELCHAIR: LOCOMOTION: WHEELCHAIR - STEP 1: Does the patient need help to go 150 feet in a wheelchair? No. LOCOMOTION: WHEELCHAIR - SCORE: 6-CAIO LOCOMOTION: STAIRS: LOCOMOTION: STAIRS - STEP 1: Does the patient need help to go up and down 12 to 14 stairs? No. LOCOMOTION: STAIRS - STEP 2: Does the patient require an assistive device - such as handrails or cane - to go up and down one flig ht of stairs, OR does s/he take more than reasonable time, OR is there a concern for safety? Yes, the patient requires an assistive device LOCOMOTION: STAIRS - SCORE: 6-CAIO COMPREHENSION: COMPREHENSION - SCORE: 0-UNK EXPRESSION EXPRESSION - SCORE: 0-UNK SOCIAL INTERACTION: SOCIAL INTERACTION - SCORE: 0-UNK PROBLEM SOLVING: PROBLEM SOLVING - SCORE: 0-UNK MEMORY: MEMORY - SCORE: 0-UNK SIGNATURE PANEL: The following modified sections: Transfers: Bed, Chair, Wheelchair - Score, Transfers: Toilet - Score , Locomotion: Walk - Score, Locomotion: Wheelchair - Score, Locomotion: Stairs - Score were [electron ically] signed by Madhu Paez PTA on FriSep 05 2017 15:19:27 GMT-0500 (Central Daylight Time)
--- NOTE | 2017-09-05 16:31 | FAST ---
ENCOUNTER DATE AND TIME: 09/05/2017 08:00 (CDT) NAME BETY GOODSON DATE OF : 1955 DATE OF ADMISSION: 08/29/2017 17:49 (CDT) PHONE: AGE: 62 N# [id number] GENDER: Male ENCOUNTER PHYSICIAN: Dr. Migel Ray M.D. ADMISSION DIAGNOSIS: - Debility 16 - Debility (16) Bowel Obstruction, Colon Cancer. EATING: Activity did not occur on this shift EATING - SCORE: 0-UNK GROOMING: Comb/brush hair Oral care Wash, rinse, and dry face Wash, rinse, and dry hands GROOMING - STEP 1: Does the patient require assistance when grooming? No. GROOMING - SCORE: 7-IND BATHING: Abdomen Buttocks Chest Left arm Left lower leg and foot Left upper leg Perineal area Right arm Right lower leg and foot Right upper leg BATHING - STEP 1: Does the patient require assistance when bathing? Yes. BATHING - STEP 2: Does the patient require the assistance of a helper? No. The patient only requires an assistive devic e such as a bath nitesh, OR the patient takes more than reasonable time to bathe, OR there is a concern for safety such as regulating water temperature as the patient bathes. BATHING - SCORE: 6-CAIO DRESSING - UPPER BODY: T-shirt/pullover shirt (four steps) ARTICLES SCORE Total number of steps: 4 DRESSING - UPPER BODY - STEP 1: Does the patient require help when dressing above the waist? No. DRESSING - UPPER BODY - SCORE: 7-IND DRESSING - LOWER BODY: Elastic waist pants (three steps) Slip-on shoe - Left foot (one step) Slip-on shoe - Right foot (one step) Sock - Left foot (one step) Sock - Right foot (one step) Underwear (three steps) ARTICLES SCORE Total number of steps: 10 DRESSING - LOWER BODY - STEP 1: Does the patient require help when dressing below the waist? Yes. DRESSING - LOWER BODY - STEP 2: Does the patient require the assistance of a helper? No. Patient requires an assistive device such as a rail car driver. OR s/he takes more than reasonable time as s/he dresses the lower body, OR there is a con cern for safety when s/he dresses the lower body DRESSING - LOWER BODY - SCORE: 6-CAIO TOILETING: TOILETING - STEP 1: Does the patient require assistance with toileting? Yes. TOILETING - STEP 2: Does the patient require the assistance of a helper? No. TOILETING - SCORE: 6-CAIO BLADDER MANAGEMENT: Activity did not occur on this shift BLADDER MANAGEMENT - SCORE: 7-IND BOWEL MANAGEMENT: Activity did not occur on this shift BOWEL MANAGEMENT - SCORE: 7-IND TRANSFERS: BED, CHAIR, WHEELCHAIR: Activity did not occur on this shift TRANSFERS: BED, CHAIR, WHEELCHAIR - SCORE: 0-UNK TRANSFERS: TOILET: TRANSFERS: TOILET - STEP 1: Does the patient require assistance with toilet transfers? Yes. TRANSFERS: TOILET - STEP 2: Does the patient require the assistance of a helper? No. Patient only requires an assistive device ospina ch as a grab bar or special seat, OR s/he takes more than reasonable time to perform toilet transfers , OR there is a safety concern when s/he performs toilet transfers. TRANSFERS: TOILET - SCORE: 6-CAIO TRANSFERS: SHOWER: Activity did not occur on this shift TRANSFERS: SHOWER - SCORE: 0-UNK TRANSFERS: TUB: TRANSFERS: TUB - STEP 1: Does the patient require assistance with tub transfers? Yes. TRANSFERS: TUB - STEP 2: Does the patient require the assistance of a helper? No. Only requires the assistance of an assistive device, OR takes more than reasonable time, OR there is a concern for safety when s/he performs tub transfers TRANSFERS: TUB - SCORE: 6-CAIO LOCOMOTION: WALK: Activity did not occur on this shift LOCOMOTION: WALK - SCORE: 0-UNK LOCOMOTION: WHEELCHAIR: Activity did not occur on this shift LOCOMOTION: WHEELCHAIR - SCORE: 0-UNK LOCOMOTION: STAIRS: Activity did not occur on this shift LOCOMOTION: STAIRS - SCORE: 0-UNK COMPREHENSION: COMPREHENSION - STEP 1: Does the patient require help to understand complex and abstract ideas (such as current events, finan uma, discharge planning, medical issues, relationships, etc)? No. COMPREHENSION - STEP 2: Does the patient need extra time, require an assistive device (such as glasses, hearing aids, or an a ugmentative communication system), OR does s/he have mild difficulty expressing complex and abstract ideas (including mild dysarthria or mild word-finding problems)? No. COMPREHENSION - SCORE: 7-IND EXPRESSION EXPRESSION: TYPE: Non-Vocal EXPRESSION - STEP 1: Does the patient require help expressing complex and abstract ideas (such as current events, finances , discharge planning, medical issues, relationships, etc)? No. EXPRESSION - STEP 2: Does the patient need extra time, require an assistive device (such as augmentive communication syste m or a communication board), OR does s/he have mild difficulty expressing complex and abstract ideas (including mild dysarthria or mild word-find problems)? No. EXPRESSION - SCORE: 7-IND SOCIAL INTERACTION: SOCIAL INTERACTION - STEP 1: Does the patient require a helper to interact with others in social and therapeutic situations? No. SOCIAL INTERACTION - STEP 2: Does the patient need extra time in social situations, OR does s/he interact with staff, other patien ts, and family members ONLY in structured environments, OR does s/he require medication for social in teraction? No. SOCIAL INTERACTION - SCORE: 7-IND PROBLEM SOLVING: PROBLEM SOLVING - STEP 1: Does the patient need help to solve complex problems such as managing a checking account or confronti ng interpersonal problems? No. PROBLEM SOLVING - STEP 2: Does the patient require extra time to make decisions or solve problems, OR does s/he have slight dif ficulty reading, initiating, or self-correcting in unfamiliar situations? No. PROBLEM SOLVING - SCORE: 7-IND MEMORY: MEMORY - STEP 1: Does the patient need help to remember frequently encountered people, daily routines, and executing r equests? No. MEMORY - STEP 2: Does the patient have slight difficulty recognizing frequently encountered people, daily routines, or executing requests without the need for repetition or using self-initiated or environmental cues to remember? No. MEMORY - SCORE: 7-IND SIGNATURE PANEL: The following modified sections: Eating - Score, Grooming - Score, Bathing - Score, Dressing - Upper Body - Score, Dressing - Lower Body - Score, Toileting - Score, Transfers: Bed, Chair, Wheelchair - S core, Transfers: Toilet - Score, Transfers: Shower - Score, Transfers: Tub - Score, Comprehension - S core, Expression - Score, Social Interaction - Score, Problem Solving - Score, Memory - Score were [e lectronically] signed by VANDANA Fofana on FriSep 05 2017 15:32:57 T-0500 ([facility] Time)
--- NOTE | 2017-09-06 03:43 | FAST ---
SHIFT START DATE/TIME: 09/05/2017 19:00 (CDT) SHIFT END DATE/TIME: 09/06/2017 07:00 (CDT) NAME BETY GOODSON DATE OF : 1955 DATE OF ADMISSION: 08/29/2017 17:49 (CDT) PHONE: AGE: 62 N# [id number] GENDER: Male ENCOUNTER PHYSICIAN: Dr. Migel Ray M.D. ADMISSION DIAGNOSIS: - Debility 16 - Debility (16) Bowel Obstruction, Colon Cancer. EATING: Activity did not occur on this shift EATING - SCORE: 0-UNK GROOMING: Wash, rinse, and dry hands GROOMING - STEP 1: Does the patient require assistance when grooming? Yes. GROOMING - STEP 2: Does the patient require the assistance of a helper? No. The patient only requires an assistive devic e, OR takes more than reasonable time to groom, OR there is a concern for safety as the patient groom s GROOMING - SCORE: 6-CAIO BATHING: Activity did not occur on this shift BATHING - SCORE: 0-UNK DRESSING - UPPER BODY: Patient is not dressing in public clothing ARTICLES SCORE Total number of steps: 0 DRESSING - UPPER BODY - SCORE: 0-UNK DRESSING - LOWER BODY: Patient is not dressing in public clothing ARTICLES SCORE Total number of steps: 0 DRESSING - LOWER BODY - SCORE: 0-UNK TOILETING: TOILETING - STEP 1: Does the patient require assistance with toileting? Yes. TOILETING - STEP 2: Does the patient require the assistance of a helper? No. TOILETING - SCORE: 6-CAIO BLADDER MANAGEMENT: BLADDER MANAGEMENT - STEP 1: Does the patient control the bladder completely and intentionally without equipment or devices or med ications, and is always continent? No. BLADDER MANAGEMENT - STEP 2: Does the patient require the assistance of a helper? No, patient requires and independently uses an a ssistive device, such as a urinal, bedpan, bedside commode, catheter, absorbent pad, or collecting de vice BLADDER MANAGEMENT - SCORE: 6-CAIO BOWEL MANAGEMENT: Activity did not occur on this shift BOWEL MANAGEMENT - SCORE: 7-IND TRANSFERS: BED, CHAIR, WHEELCHAIR: TRANSFERS: BED, CHAIR, WHEELCHAIR - STEP 1: Does the patient require assistance with bed, chair, or wheelchair transfers? Yes. TRANSFERS: BED, CHAIR, WHEELCHAIR - STEP 2: Does the patient require the assistance of a helper? No. Patient only requires an assistive device fo r bed, chair, wheelchair transfers such as a sliding board, grab bar, or brace, OR s/he takes more th an reasonable time, OR there is a safety concern when s/he performs the transfers TRANSFERS: BED, CHAIR, WHEELCHAIR - SCORE: 6-CAIO TRANSFERS: TOILET: TRANSFERS: TOILET - STEP 1: Does the patient require assistance with toilet transfers? Yes. TRANSFERS: TOILET - STEP 2: Does the patient require the assistance of a helper? No. Patient only requires an assistive device ospina ch as a grab bar or special seat, OR s/he takes more than reasonable time to perform toilet transfers , OR there is a safety concern when s/he performs toilet transfers. TRANSFERS: TOILET - SCORE: 6-CAIO TRANSFERS: SHOWER: Activity did not occur on this shift TRANSFERS: SHOWER - SCORE: 0-UNK TRANSFERS: TUB: Activity did not occur on this shift TRANSFERS: TUB - SCORE: 0-UNK LOCOMOTION: WALK: Activity did not occur on this shift LOCOMOTION: WALK - SCORE: 0-UNK LOCOMOTION: WHEELCHAIR: Activity did not occur on this shift LOCOMOTION: WHEELCHAIR - SCORE: 0-UNK COMPREHENSION: COMPREHENSION: TYPE: Both COMPREHENSION - STEP 1: Does the patient require help to understand complex and abstract ideas (such as current events, finan uma, discharge planning, medical issues, relationships, etc)? No. COMPREHENSION - STEP 2: Does the patient need extra time, require an assistive device (such as glasses, hearing aids, or an a ugmentative communication system), OR does s/he have mild difficulty expressing complex and abstract ideas (including mild dysarthria or mild word-finding problems)? Yes. COMPREHENSION - SCORE: 6-CAIO EXPRESSION EXPRESSION: TYPE: Both EXPRESSION - STEP 1: Does the patient require help expressing complex and abstract ideas (such as current events, finances , discharge planning, medical issues, relationships, etc)? No. EXPRESSION - STEP 2: Does the patient need extra time, require an assistive device (such as augmentive communication syste m or a communication board), OR does s/he have mild difficulty expressing complex and abstract ideas (including mild dysarthria or mild word-find problems)? No. EXPRESSION - SCORE: 7-IND SOCIAL INTERACTION: SOCIAL INTERACTION - STEP 1: Does the patient require a helper to interact with others in social and therapeutic situations? No. SOCIAL INTERACTION - STEP 2: Does the patient need extra time in social situations, OR does s/he interact with staff, other patien ts, and family members ONLY in structured environments, OR does s/he require medication for social in teraction? No. SOCIAL INTERACTION - SCORE: 7-IND PROBLEM SOLVING: PROBLEM SOLVING - STEP 1: Does the patient need help to solve complex problems such as managing a checking account or confronti ng interpersonal problems? No. PROBLEM SOLVING - STEP 2: Does the patient require extra time to make decisions or solve problems, OR does s/he have slight dif ficulty reading, initiating, or self-correcting in unfamiliar situations? Yes, patient needs extra ti me. PROBLEM SOLVING - SCORE: 6-CAIO MEMORY: MEMORY - STEP 1: Does the patient need help to remember frequently encountered people, daily routines, and executing r equests? No. MEMORY - STEP 2: Does the patient have slight difficulty recognizing frequently encountered people, daily routines, or executing requests without the need for repetition or using self-initiated or environmental cues to remember? No. MEMORY - SCORE: 7-IND
[2017-09-06] MEDS: METOPROLOL XL 25 MG TAB PO SCH (05:09)
[2017-09-06 07:47] LABS: Magnesium 1.8 mg/dL (1.8-2.5); Potassium 3.6 mEq/L (3.6-5.0)
[2017-09-06 07:52] LABS: Absolute Monocytes 0.8 K/uL (0.1-1.3); Absolute Neutrophil 2.6 K/uL (1.8-8.0); Basophils % 0.3 % (0-1.3); Hematocrit 32.4 % (39.6-49.0); Lymphocytes % 22.6 % (15.3-44.8); MCH 26.6 pg (27.0-35.0); MCV 81.1 fL (80-100); MPV 7.8 fL (7.6-11.3); Monocytes % 17.6 % (3.3-12.3)
[2017-09-06] MEDS: FINASTERIDE 5 MG TAB PO SCH (07:56)
[2017-09-06] MEDS: ENOXAPARIN 40 MG/0.4 ML SQ SCH (07:56)
[2017-09-06] MEDS: cloNIDine HCl 0.1 MG TAB PO SCH ×2 (07:56→19:53)
[2017-09-06] MEDS: PROMOD 30 ML DOSE PO SCH ×2 (07:57→19:54)
[2017-09-06 08:19] LABS: Blood Morphology Comment NOT SEEN (NOT SEEN); Platelet Estimate ADEQ
[2017-09-06] MEDS: ENSURE CLEAR 200 ML CAN PO SCH ×2 (10:21→19:54)
--- NOTE | 2017-09-06 15:57 | R.PN ---
ENCOUNTER DATE AND TIME: 09/06/2017 14:57 (CDT) NAME BETY GOODSON DATE OF : 1955 DATE OF ADMISSION: 08/29/2017 17:49 (CDT) Bowel Obstruction, Colon CancerCHIEF COMPLAINT: Debility, bowel obstruction SUBJECTIVE: Pt denied any Shortness of Breath. Pt denied any depression. Performed bed mobility with modified independence. He ambulated 500' with modified independence using a rolling walker. Up and down 15 steps with modified independence. VITAL SIGNS Temperature: 97.2 F SBP/DBP: 140/89 Pulse: 86 Resp: 16 MEDICATION ALLERGIES: No Known Drug Allergies (NKDA) ENVIRONMENTAL ALLERGIES: None Known - Substance Allergies None Known - Other Allergies None Known NURSING: - Shower allowing shower PRECAUTIONS: - Fall Precaution chair alarm,bed alarm ACTIVITIES OOB only with supervision THERAPIES: - Occupational Therapy Evaluate and Treat. - Physical Therapy Evaluate and Treat. PHYSICAL EXAM - Gen Alert and awake Lying in bed No apparent distress Oriented to: person, time, and place - Vital Signs Temperature: 98 F SBP/DBP: 125/87 Pulse: 82 Resp: 16 Vital signs stable, afebrile - Skin incisions intact Normacephalic - Eyes No abnormalities - ENMT No abnormalities - Neck No abnormalities - CVS RRR - Chest Clear - Abd Soft - GI nondistended Deferred - No abnormalities - Ext No significant edema - MSK 4/5 weakness in both lower extremities. - Neuro No focal deficits - Psych No abnormalities ASSESSMENT: Pt. is a 62 yo Right-handed white male.On 08/12/2017 he was admitted to [facility] with diagnosis Bowel Obstruction, Colon Cancer.His impairment category is Debility 16 - Debility (16).Pre-morbidly, Pt. was independent/mod-I in Self-Care, Locomotion, Sphincter Control, Transfers Control, Communication, and Social Cognition; and he had good Sphincter Control.Currently, he has def icits of Locomotion, Endurance, Safety Awareness, Transfers Control, Balance, and Self-Care.Pt. is no w referred to [facility] for acute in-patient rehabilitation in order to maxim ize patient's functional independence in activities of daily living, strength, ROM, and mobility.- Re hab Goal Patient has realistic goal of being discharged at assistance level 6-Lucero to reside at Home with Fam nereida/Relatives. MDM/PLAN: - Diet Type Continue GI SOFT - Physical Therapy Gait dysfunction - to improve, our physical therapists will perform initial evaluation of pt's statu s upon admission and devise an individualized program for Gait Training, and Wheel Chair mobility Inability to transfer - to improve, our physical therapists will perform initial evaluation of pt's status upon admission and devise an individualized program for Bed mobility Need for home safety evaluation - to improve, our physical therapists will perform initial evaluatio n of pt's status upon admission and devise an individualized program for Home Evaluation Need in caregiver upon discharge - to improve, our physical therapists will perform initial evaluati on of pt's status upon admission and devise an individualized program for Caregiver Training New precaution - to improve, our physical therapists will perform initial evaluation of pt's status upon admission and devise an individualized program for Patient precaution education Edema - to improve, our physical therapists will perform initial evaluation of pt's status upon admi ssion and devise an individualized program for Elevation Training, and Lymphedema Therapy Poor balance - to improve, our physical therapists will perform initial evaluation of pt's status up on admission and devise an individualized program for Balance Training Poor endurance - to improve, our physical therapists will perform initial evaluation of pt's status upon admission and devise an individualized program for Endurance Training Weakness - to improve, our physical therapists will perform initial evaluation of pt's status upon a dmission and devise an individualized program for Aquatic Therapy, Neuromuscular Reeducation, and Str engthening Achieving independence - to improve, our physical therapists will perform initial evaluation of pt's status upon admission and devise an individualized program for Community Reintegration Activities - Diet - Liquid Texture Continue Regular - Tube Feed Continue N/A - Fall Precaution chair alarm,bed alarm - Diet - Solid Texture Continue Regular - Shower allowing shower - Occupational Therapy ADL deficits - to improve, our occupation therapists will perform initial evaluation of pt's status upon admission and devise an individualized program for Bathing, Bed mobility, Community Reintegratio n, Cooking, Dressing, Eating, Fine Motor Skills, Grooming, Homemaking, Kitchen Mobility, Laundry, Pat ient Education, Safety Awareness, Splinting - Positioning, Transfers(Toilet, Tub, Shower), and Wheel Chair Management Need for managed care provider - to improve, our occupation therapists will perform initial evaluation of pt's status upon admission and devise an individualized program for Caregiver Training Weakness - to improve, our occupation therapists will perform initial evaluation of pt's status upon admission and devise an individualized program for Aquatic Therapy, Balance, Endurance, UE ROM, and UE strengthening FUNCTIONAL STATUS: UPDATED AT WEEKLY TEAM CONFERENCE - Bladder Same accident frequency: 1-Dep - No accidents in the past 7 days - Bowel Same accident frequency: 7-Ind - No accidents in the past 7 days - Walking Same score based on distance walked: 3(>=150ft) - Wheelchair Same score based on distance traveled: 0(N/A) FUNCTIONAL STATUS: - Self-Care A. Eating [place] B. Grooming [place] C. Bathing sup D. Dressing - Upper sup E. Dressing - Lower sup F. Toileting sup - Sphincter Control G: Bladder control Dep H: Bowel control Ind - Transfers Control I. Bed/Chair/Wheelchair sup J. Toilet sup K. Tub/Shower sup - Locomotion L. Walk/Wheelchair (C) sup L. Walk/Wheelchair (W) sup M. Stairs ADNO - Communication N. Comprehension (B) Ind O. Expression (B) Ind - Social Cognition P. Social Interaction Ind Q. Problem Solving Ind R. Memory Ind - Endurance Fair - Balance Fair - Safety Awareness Fair CURRENT FUNC. DEFICITS: Locomotion, Endurance, Safety Awareness, Transfers Control, Balance, and Self-Care SIGNATURE PANEL: (CDT)
--- NOTE | 2017-09-07 02:44 | FAST ---
SHIFT START DATE/TIME: 09/06/2017 19:00 (CDT) SHIFT END DATE/TIME: 09/07/2017 07:00 (CDT) NAME BETY GOODSON DATE OF : 1955 DATE OF ADMISSION: 08/29/2017 17:49 (CDT) PHONE: AGE: 62 [facility]# [id number] GENDER: Male ENCOUNTER PHYSICIAN: Dr. Migel Ray M.D. ADMISSION DIAGNOSIS: - Debility 16 - Debility (16) Bowel Obstruction, Colon Cancer. EATING: Activity did not occur on this shift EATING - SCORE: 0-UNK GROOMING: Comb/brush hair Oral care Wash, rinse, and dry face Wash, rinse, and dry hands GROOMING - STEP 1: Does the patient require assistance when grooming? Yes. GROOMING - STEP 2: Does the patient require the assistance of a helper? Yes. GROOMING - STEP 3: How much assistance does the patient require from the helper? Only prior equipment preparation/set up from the helper GROOMING - SCORE: 5-SUP BATHING: Activity did not occur on this shift BATHING - SCORE: 0-UNK DRESSING - UPPER BODY: Patient is not dressing in public clothing ARTICLES SCORE Total number of steps: 0 DRESSING - UPPER BODY - SCORE: 0-UNK DRESSING - LOWER BODY: Patient is not dressing in public clothing ARTICLES SCORE Total number of steps: 0 DRESSING - LOWER BODY - SCORE: 0-UNK TOILETING: TOILETING - STEP 1: Does the patient require assistance with toileting? Yes. TOILETING - STEP 2: Does the patient require the assistance of a helper? Yes. TOILETING - STEP 3: How much assistance does the patient require from the helper? Only supervision TOILETING - SCORE: 5-SUP BLADDER MANAGEMENT: BLADDER MANAGEMENT - STEP 1: Does the patient control the bladder completely and intentionally without equipment or devices or med ications, and is always continent? No. BLADDER MANAGEMENT - STEP 2: Does the patient require the assistance of a helper? No, patient only requires extra time BLADDER MANAGEMENT - SCORE: 6-CAIO BOWEL MANAGEMENT: BOWEL MANAGEMENT - STEP 1: Does the patient control bowels completely and intentionally without equipment devices or medications AND is always continent? No. BOWEL MANAGEMENT - STEP 2: Does the patient require the assistance of a helper? No, patient requires medication for control such as stool softeners, suppositories, laxatives, enemas, or OTC medications BOWEL MANAGEMENT - SCORE: 6-CAIO TRANSFERS: BED, CHAIR, WHEELCHAIR: TRANSFERS: BED, CHAIR, WHEELCHAIR - STEP 1: Does the patient require assistance with bed, chair, or wheelchair transfers? Yes. TRANSFERS: BED, CHAIR, WHEELCHAIR - STEP 2: Does the patient require the assistance of a helper? Yes. TRANSFERS: BED, CHAIR, WHEELCHAIR - STEP 3: How much assistance does the patient require from the helper? Only supervision TRANSFERS: BED, CHAIR, WHEELCHAIR - SCORE: 5-SUP TRANSFERS: TOILET: TRANSFERS: TOILET - STEP 1: Does the patient require assistance with toilet transfers? Yes. TRANSFERS: TOILET - STEP 2: Does the patient require the assistance of a helper? No. Patient only requires an assistive device ospian ch as a grab bar or special seat, OR s/he takes more than reasonable time to perform toilet transfers , OR there is a safety concern when s/he performs toilet transfers. TRANSFERS: TOILET - SCORE: 6-CAIO TRANSFERS: SHOWER: Activity did not occur on this shift TRANSFERS: SHOWER - SCORE: 0-UNK TRANSFERS: TUB: Activity did not occur on this shift TRANSFERS: TUB - SCORE: 0-UNK LOCOMOTION: WALK: Activity did not occur on this shift LOCOMOTION: WALK - SCORE: 0-UNK LOCOMOTION: WHEELCHAIR: Activity did not occur on this shift LOCOMOTION: WHEELCHAIR - SCORE: 0-UNK COMPREHENSION: COMPREHENSION - STEP 1: Does the patient require help to understand complex and abstract ideas (such as current events, finan uma, discharge planning, medical issues, relationships, etc)? No. COMPREHENSION - STEP 2: Does the patient need extra time, require an assistive device (such as glasses, hearing aids, or an a ugmentative communication system), OR does s/he have mild difficulty expressing complex and abstract ideas (including mild dysarthria or mild word-finding problems)? Yes. COMPREHENSION - SCORE: 6-CAIO EXPRESSION EXPRESSION - STEP 1: Does the patient require help expressing complex and abstract ideas (such as current events, finances , discharge planning, medical issues, relationships, etc)? No. EXPRESSION - STEP 2: Does the patient need extra time, require an assistive device (such as augmentive communication syste m or a communication board), OR does s/he have mild difficulty expressing complex and abstract ideas (including mild dysarthria or mild word-find problems)? No. EXPRESSION - SCORE: 7-IND SOCIAL INTERACTION: SOCIAL INTERACTION - STEP 1: Does the patient require a helper to interact with others in social and therapeutic situations? No. SOCIAL INTERACTION - STEP 2: Does the patient need extra time in social situations, OR does s/he interact with staff, other patien ts, and family members ONLY in structured environments, OR does s/he require medication for social in teraction? No. SOCIAL INTERACTION - SCORE: 7-IND PROBLEM SOLVING: PROBLEM SOLVING - STEP 1: Does the patient need help to solve complex problems such as managing a checking account or confronti ng interpersonal problems? No. PROBLEM SOLVING - STEP 2: Does the patient require extra time to make decisions or solve problems, OR does s/he have slight dif ficulty reading, initiating, or self-correcting in unfamiliar situations? Yes, patient needs extra ti me. PROBLEM SOLVING - SCORE: 6-CAIO MEMORY: MEMORY - STEP 1: Does the patient need help to remember frequently encountered people, daily routines, and executing r equests? No. MEMORY - STEP 2: Does the patient have slight difficulty recognizing frequently encountered people, daily routines, or executing requests without the need for repetition or using self-initiated or environmental cues to remember? No. MEMORY - SCORE: 7-IND SIGNATURE PANEL: The following modified sections: Eating - Score, Grooming - Score, Dressing - Upper Body - Score, James ssing - Lower Body - Score, Toileting - Score, Bladder Management - Score, Bowel Management - Score, Transfers: Bed, Chair, Wheelchair - Score, Transfers: Toilet - Score, Transfers: Shower - Score, Ordaz sfers: Tub - Score, Locomotion: Walk - Score, Locomotion: Wheelchair - Score, Comprehension - Score, Expression - Score, Social Interaction - Score, Problem Solving - Score, Memory - Score were [electro nically] signed by Giovanna Jean-Baptiste CNA on FriSep 07 2017 01:46:48 GMT-0500 (Central Daylight Time)
[2017-09-07] MEDS: METOPROLOL XL 25 MG TAB PO SCH (05:21)
[2017-09-07] MEDS: FINASTERIDE 5 MG TAB PO SCH (08:16)
[2017-09-07] MEDS: ENOXAPARIN 40 MG/0.4 ML SQ SCH (08:17)
[2017-09-07] MEDS: cloNIDine HCl 0.1 MG TAB PO SCH ×2 (08:17→20:12)
[2017-09-07] MEDS: PROMOD 30 ML DOSE PO SCH ×2 (08:19→20:13)
[2017-09-07] MEDS: ENSURE CLEAR 200 ML CAN PO SCH ×2 (08:20→20:12)
--- NOTE | 2017-09-07 15:04 | FAST ---
SHIFT START DATE/TIME: 09/06/2017 07:00 (CDT) SHIFT END DATE/TIME: 09/06/2017 19:00 (CDT) NAME BETY GOODSON DATE OF : 1955 DATE OF ADMISSION: 08/29/2017 17:49 (CDT) PHONE: AGE: 62 [facility]# [id number] GENDER: Male ENCOUNTER PHYSICIAN: Dr. Migel Ray M.D. ADMISSION DIAGNOSIS: - Debility 16 - Debility (16) Bowel Obstruction, Colon Cancer. EATING: EATING - STEP 1: Does the patient require assistance when eating? Yes. EATING - STEP 2: Does the patient require the assistance of a helper? No, patient only requires an assistive device, O R s/he takes more than reasonable time to eat, OR there is a safety concern, OR s/he requires modifie d food consistency EATING - SCORE: 6-CAIO GROOMING: Comb/brush hair Wash, rinse, and dry face Wash, rinse, and dry hands GROOMING - STEP 1: Does the patient require assistance when grooming? Yes. GROOMING - STEP 2: Does the patient require the assistance of a helper? No. The patient only requires an assistive devic e, OR takes more than reasonable time to groom, OR there is a concern for safety as the patient groom s GROOMING - SCORE: 6-CAIO BATHING: Activity did not occur on this shift BATHING - SCORE: 0-UNK DRESSING - UPPER BODY: Button down shirt or blouse - NOT tucked in (four steps) T-shirt/pullover shirt (four steps) ARTICLES SCORE Total number of steps: 8 DRESSING - UPPER BODY - STEP 1: Does the patient require help when dressing above the waist? Yes. DRESSING - UPPER BODY - STEP 2: Does the patient require the assistance of a helper? No. Patient only requires an assistive device, s uch as a button hook, velcro, or digester cook. OR s/he takes more than reasonable time as s/he dresses the upper body. OR there is a concern for safety when s/he dresses the upper body DRESSING - UPPER BODY - SCORE: 6-CAIO DRESSING - LOWER BODY: Elastic waist pants (three steps) Slip-on shoe - Left foot (one step) Slip-on shoe - Right foot (one step) Underwear (three steps) ARTICLES SCORE Total number of steps: 8 DRESSING - LOWER BODY - STEP 1: Does the patient require help when dressing below the waist? Yes. DRESSING - LOWER BODY - STEP 2: Does the patient require the assistance of a helper? No. Patient requires an assistive device such as a digester cook. OR s/he takes more than reasonable time as s/he dresses the lower body, OR there is a con cern for safety when s/he dresses the lower body DRESSING - LOWER BODY - SCORE: 6-CAIO TOILETING: TOILETING - STEP 1: Does the patient require assistance with toileting? Yes. TOILETING - STEP 2: Does the patient require the assistance of a helper? Yes. TOILETING - STEP 3: How much assistance does the patient require from the helper? Only supervision TOILETING - SCORE: 5-SUP BLADDER MANAGEMENT: BLADDER MANAGEMENT - STEP 1: Does the patient control the bladder completely and intentionally without equipment or devices or med ications, and is always continent? No. BLADDER MANAGEMENT - STEP 2: Does the patient require the assistance of a helper? No, patient requires and independently uses an a ssistive device, such as a urinal, bedpan, bedside commode, catheter, absorbent pad, or collecting de vice BLADDER MANAGEMENT - SCORE: 6-CAIO BLADDER MANAGEMENT - FREQUENCY OF ACCIDENTS: BLADDER MANAGEMENT(FA) - STEP 1: How many accidents has the patient had during the current shift? 0 BOWEL MANAGEMENT: Activity did not occur on this shift BOWEL MANAGEMENT - SCORE: 7-IND BOWEL MANAGEMENT - FREQUENCY OF ACCIDENTS: BOWEL MANAGEMENT(FA) - STEP 1: How many accidents has the patient had during the current shift? 0 TRANSFERS: BED, CHAIR, WHEELCHAIR: TRANSFERS: BED, CHAIR, WHEELCHAIR - STEP 1: Does the patient require assistance with bed, chair, or wheelchair transfers? Yes. TRANSFERS: BED, CHAIR, WHEELCHAIR - STEP 2: Does the patient require the assistance of a helper? No. Patient only requires an assistive device fo r bed, chair, wheelchair transfers such as a sliding board, grab bar, or brace, OR s/he takes more th an reasonable time, OR there is a safety concern when s/he performs the transfers TRANSFERS: BED, CHAIR, WHEELCHAIR - SCORE: 6-CAIO TRANSFERS: TOILET: TRANSFERS: TOILET - STEP 1: Does the patient require assistance with toilet transfers? Yes. TRANSFERS: TOILET - STEP 2: Does the patient require the assistance of a helper? No. Patient only requires an assistive device ospina ch as a grab bar or special seat, OR s/he takes more than reasonable time to perform toilet transfers , OR there is a safety concern when s/he performs toilet transfers. TRANSFERS: TOILET - SCORE: 6-CAIO TRANSFERS: SHOWER: Activity did not occur on this shift TRANSFERS: SHOWER - SCORE: 0-UNK TRANSFERS: TUB: Activity did not occur on this shift TRANSFERS: TUB - SCORE: 0-UNK LOCOMOTION: WALK: Activity did not occur on this shift LOCOMOTION: WALK - SCORE: 0-UNK LOCOMOTION: WHEELCHAIR: LOCOMOTION: WHEELCHAIR - STEP 1: Does the patient need help to go 150 feet in a wheelchair? No. LOCOMOTION: WHEELCHAIR - SCORE: 6-CAIO COMPREHENSION: COMPREHENSION: TYPE: Both COMPREHENSION - STEP 1: Does the patient require help to understand complex and abstract ideas (such as current events, finan uma, discharge planning, medical issues, relationships, etc)? No. COMPREHENSION - STEP 2: Does the patient need extra time, require an assistive device (such as glasses, hearing aids, or an a ugmentative communication system), OR does s/he have mild difficulty expressing complex and abstract ideas (including mild dysarthria or mild word-finding problems)? Yes. COMPREHENSION - SCORE: 6-CAIO EXPRESSION EXPRESSION: TYPE: Both EXPRESSION - STEP 1: Does the patient require help expressing complex and abstract ideas (such as current events, finances , discharge planning, medical issues, relationships, etc)? Yes. EXPRESSION - STEP 2: Does the patient require help to express basic necessities or ideas (such as hunger, thirst, sleep, s afety, daily schedule, room location, or discomfort) half or more of the time? No. EXPRESSION - STEP 3: How often does the patient need help to express directions and conversation about basic needs? Less t shau 10% of the time EXPRESSION - SCORE: 5-SUP SOCIAL INTERACTION: SOCIAL INTERACTION - STEP 1: Does the patient require a helper to interact with others in social and therapeutic situations? No. SOCIAL INTERACTION - STEP 2: Does the patient need extra time in social situations, OR does s/he interact with staff, other patien ts, and family members ONLY in structured environments, OR does s/he require medication for social in teraction? Yes, patient needs extra time SOCIAL INTERACTION - SCORE: 6-CAIO PROBLEM SOLVING: PROBLEM SOLVING - STEP 1: Does the patient need help to solve complex problems such as managing a checking account or confronti ng interpersonal problems? Yes. PROBLEM SOLVING - STEP 2: Does the patient solve basic routine problems half or more of the time? Yes. PROBLEM SOLVING - STEP 3: How often does the patient need help to solve basic routine problems? Less than 10% of the time PROBLEM SOLVING - SCORE: 5-SUP MEMORY: MEMORY - STEP 1: Does the patient need help to remember frequently encountered people, daily routines, and executing r equests? No. MEMORY - STEP 2: Does the patient have slight difficulty recognizing frequently encountered people, daily routines, or executing requests without the need for repetition or using self-initiated or environmental cues to remember? No. MEMORY - SCORE: 7-IND SIGNATURE PANEL: The following modified sections: Eating - Score, Grooming - Score, Bathing - Score, Dressing - Upper Body - Score, Dressing - Lower Body - Score, Toileting - Score, Bladder Management - Score, Bowel Man agement - Score, Transfers: Bed, Chair, Wheelchair - Score, Transfers: Toilet - Score, Transfers: Yessica wer - Score, Transfers: Tub - Score, Locomotion: Walk - Score, Locomotion: Wheelchair - Score, Compre hension - Score, Expression - Score, Social Interaction - Score, Problem Solving - Score, Memory - Sc ore were [electronically] signed by Santa Nam C.N.A. on FriSep 07 2017 14:03:43 T-0500 (Centra l Daylight Time)
--- NOTE | 2017-09-07 15:13 | FAST ---
SHIFT START DATE/TIME: 09/07/2017 07:00 (CDT) SHIFT END DATE/TIME: 09/07/2017 19:00 (CDT) NAME BETY GOODSON DATE OF : 1955 DATE OF ADMISSION: 08/29/2017 17:49 (CDT) PHONE: AGE: 62 [facility]# [id number] GENDER: Male ENCOUNTER PHYSICIAN: Dr. Migel Ray M.D. ADMISSION DIAGNOSIS: - Debility 16 - Debility (16) Bowel Obstruction, Colon Cancer. EATING: EATING - STEP 1: Does the patient require assistance when eating? Yes. EATING - STEP 2: Does the patient require the assistance of a helper? No, patient only requires an assistive device, O R s/he takes more than reasonable time to eat, OR there is a safety concern, OR s/he requires modifie d food consistency EATING - SCORE: 6-CAIO GROOMING: Comb/brush hair Wash, rinse, and dry face Wash, rinse, and dry hands GROOMING - STEP 1: Does the patient require assistance when grooming? Yes. GROOMING - STEP 2: Does the patient require the assistance of a helper? No. The patient only requires an assistive devic e, OR takes more than reasonable time to groom, OR there is a concern for safety as the patient groom s GROOMING - SCORE: 6-CAIO BATHING: Activity did not occur on this shift BATHING - SCORE: 0-UNK DRESSING - UPPER BODY: Activity did not occur on this shift ARTICLES SCORE Total number of steps: 0 DRESSING - UPPER BODY - SCORE: 0-UNK DRESSING - LOWER BODY: Activity did not occur on this shift ARTICLES SCORE Total number of steps: 0 DRESSING - LOWER BODY - SCORE: 0-UNK TOILETING: TOILETING - STEP 1: Does the patient require assistance with toileting? Yes. TOILETING - STEP 2: Does the patient require the assistance of a helper? No. TOILETING - SCORE: 6-CAIO BLADDER MANAGEMENT: BLADDER MANAGEMENT - STEP 1: Does the patient control the bladder completely and intentionally without equipment or devices or med ications, and is always continent? No. BLADDER MANAGEMENT - STEP 2: Does the patient require the assistance of a helper? No, patient requires and independently uses an a ssistive device, such as a urinal, bedpan, bedside commode, catheter, absorbent pad, or collecting de vice BLADDER MANAGEMENT - SCORE: 6-CAIO BLADDER MANAGEMENT - FREQUENCY OF ACCIDENTS: BLADDER MANAGEMENT(FA) - STEP 1: How many accidents has the patient had during the current shift? 0 BOWEL MANAGEMENT: Activity did not occur on this shift BOWEL MANAGEMENT - SCORE: 7-IND BOWEL MANAGEMENT - FREQUENCY OF ACCIDENTS: BOWEL MANAGEMENT(FA) - STEP 1: How many accidents has the patient had during the current shift? 0 TRANSFERS: BED, CHAIR, WHEELCHAIR: TRANSFERS: BED, CHAIR, WHEELCHAIR - STEP 1: Does the patient require assistance with bed, chair, or wheelchair transfers? No. TRANSFERS: BED, CHAIR, WHEELCHAIR - SCORE: 7-IND TRANSFERS: TOILET: TRANSFERS: TOILET - STEP 1: Does the patient require assistance with toilet transfers? No. TRANSFERS: TOILET - SCORE: 7-IND TRANSFERS: SHOWER: Activity did not occur on this shift TRANSFERS: SHOWER - SCORE: 0-UNK TRANSFERS: TUB: Activity did not occur on this shift TRANSFERS: TUB - SCORE: 0-UNK LOCOMOTION: WALK: LOCOMOTION: WALK - STEP 1: Does the patient need help to walk 150 feet? No. LOCOMOTION: WALK - STEP 2: Does the patient need an assistive device (such as an orthosis, prosthesis, crutches, or walker) to g o 150 feet, OR does s/he take more than reasonable time, OR is there a concern for safety? Yes, the p atient needs an assistive device LOCOMOTION: WALK - SCORE: 6-CAIO LOCOMOTION: WHEELCHAIR: Activity did not occur on this shift LOCOMOTION: WHEELCHAIR - SCORE: 0-UNK COMPREHENSION: COMPREHENSION: TYPE: Both COMPREHENSION - STEP 1: Does the patient require help to understand complex and abstract ideas (such as current events, finan uma, discharge planning, medical issues, relationships, etc)? No. COMPREHENSION - STEP 2: Does the patient need extra time, require an assistive device (such as glasses, hearing aids, or an a ugmentative communication system), OR does s/he have mild difficulty expressing complex and abstract ideas (including mild dysarthria or mild word-finding problems)? Yes. COMPREHENSION - SCORE: 6-CAIO EXPRESSION EXPRESSION: TYPE: Both EXPRESSION - STEP 1: Does the patient require help expressing complex and abstract ideas (such as current events, finances , discharge planning, medical issues, relationships, etc)? Yes. EXPRESSION - STEP 2: Does the patient require help to express basic necessities or ideas (such as hunger, thirst, sleep, s afety, daily schedule, room location, or discomfort) half or more of the time? No. EXPRESSION - STEP 3: How often does the patient need help to express directions and conversation about basic needs? Less t sahu 10% of the time EXPRESSION - SCORE: 5-SUP SOCIAL INTERACTION: SOCIAL INTERACTION - STEP 1: Does the patient require a helper to interact with others in social and therapeutic situations? No. SOCIAL INTERACTION - STEP 2: Does the patient need extra time in social situations, OR does s/he interact with staff, other patien ts, and family members ONLY in structured environments, OR does s/he require medication for social in teraction? Yes, patient needs extra time SOCIAL INTERACTION - SCORE: 6-CAIO PROBLEM SOLVING: PROBLEM SOLVING - STEP 1: Does the patient need help to solve complex problems such as managing a checking account or confronti ng interpersonal problems? Yes. PROBLEM SOLVING - STEP 2: Does the patient solve basic routine problems half or more of the time? Yes. PROBLEM SOLVING - STEP 3: How often does the patient need help to solve basic routine problems? Less than 10% of the time PROBLEM SOLVING - SCORE: 5-SUP MEMORY: MEMORY - STEP 1: Does the patient need help to remember frequently encountered people, daily routines, and executing r equests? No. MEMORY - STEP 2: Does the patient have slight difficulty recognizing frequently encountered people, daily routines, or executing requests without the need for repetition or using self-initiated or environmental cues to remember? No. MEMORY - SCORE: 7-IND SIGNATURE PANEL: The following modified sections: Eating - Score, Grooming - Score, Bathing - Score, Dressing - Upper Body - Score, Dressing - Lower Body - Score, Toileting - Score, Bladder Management - Score, Bowel Man agement - Score, Transfers: Bed, Chair, Wheelchair - Score, Transfers: Toilet - Score, Transfers: Yessica wer - Score, Transfers: Tub - Score, Locomotion: Walk - Score, Locomotion: Wheelchair - Score, Compre hension - Score, Expression - Score, Social Interaction - Score, Problem Solving - Score, Memory - Sc ore were [electronically] signed by Santa Nam C.N.A. on FriSep 07 2017 14:15:10 [facility] [place]-[id number] (Centra [place] Daylight Time)
--- NOTE | 2017-09-08 04:24 | FAST ---
SHIFT START DATE/TIME: 09/07/2017 19:00 (CDT) SHIFT END DATE/TIME: 09/08/2017 07:00 (CDT) NAME BETY GOODSON DATE OF : 1955 DATE OF ADMISSION: 08/29/2017 17:49 (CDT) PHONE: AGE: 62 [facility]# [id number] GENDER: Male ENCOUNTER PHYSICIAN: Dr. Migel Ray M.D. ADMISSION DIAGNOSIS: - Debility 16 - Debility (16) Bowel Obstruction, Colon Cancer. EATING: EATING - STEP 1: Does the patient require assistance when eating? Yes. EATING - STEP 2: Does the patient require the assistance of a helper? No, patient only requires an assistive device, O R s/he takes more than reasonable time to eat, OR there is a safety concern, OR s/he requires modifie d food consistency EATING - SCORE: 6-CAIO GROOMING: Comb/brush hair Oral care Wash, rinse, and dry face Wash, rinse, and dry hands GROOMING - STEP 1: Does the patient require assistance when grooming? Yes. GROOMING - STEP 2: Does the patient require the assistance of a helper? No. The patient only requires an assistive devic e, OR takes more than reasonable time to groom, OR there is a concern for safety as the patient groom s GROOMING - SCORE: 6-CAIO BATHING: Activity did not occur on this shift BATHING - SCORE: 0-UNK DRESSING - UPPER BODY: Patient is not dressing in public clothing ARTICLES SCORE Total number of steps: 0 DRESSING - UPPER BODY - SCORE: 0-UNK DRESSING - LOWER BODY: Patient is not dressing in public clothing ARTICLES SCORE Total number of steps: 0 DRESSING - LOWER BODY - SCORE: 0-UNK TOILETING: TOILETING - STEP 1: Does the patient require assistance with toileting? Yes. TOILETING - STEP 2: Does the patient require the assistance of a helper? No. TOILETING - SCORE: 6-CAIO BLADDER MANAGEMENT: BLADDER MANAGEMENT - STEP 1: Does the patient control the bladder completely and intentionally without equipment or devices or med ications, and is always continent? No. BLADDER MANAGEMENT - STEP 2: Does the patient require the assistance of a helper? No, patient requires and independently uses an a ssistive device, such as a urinal, bedpan, bedside commode, catheter, absorbent pad, or collecting de vice BLADDER MANAGEMENT - SCORE: 6-CAIO BLADDER MANAGEMENT - FREQUENCY OF ACCIDENTS: BLADDER MANAGEMENT(FA) - STEP 1: How many accidents has the patient had during the current shift? 0 BOWEL MANAGEMENT: Activity did not occur on this shift BOWEL MANAGEMENT - SCORE: 7-IND TRANSFERS: BED, CHAIR, WHEELCHAIR: TRANSFERS: BED, CHAIR, WHEELCHAIR - STEP 1: Does the patient require assistance with bed, chair, or wheelchair transfers? Yes. TRANSFERS: BED, CHAIR, WHEELCHAIR - STEP 2: Does the patient require the assistance of a helper? No. Patient only requires an assistive device fo r bed, chair, wheelchair transfers such as a sliding board, grab bar, or brace, OR s/he takes more th an reasonable time, OR there is a safety concern when s/he performs the transfers TRANSFERS: BED, CHAIR, WHEELCHAIR - SCORE: 6-CAIO TRANSFERS: TOILET: TRANSFERS: TOILET - STEP 1: Does the patient require assistance with toilet transfers? Yes. TRANSFERS: TOILET - STEP 2: Does the patient require the assistance of a helper? No. Patient only requires an assistive device ospina ch as a grab bar or special seat, OR s/he takes more than reasonable time to perform toilet transfers , OR there is a safety concern when s/he performs toilet transfers. TRANSFERS: TOILET - SCORE: 6-CAIO TRANSFERS: SHOWER: Activity did not occur on this shift TRANSFERS: SHOWER - SCORE: 0-UNK TRANSFERS: TUB: Activity did not occur on this shift TRANSFERS: TUB - SCORE: 0-UNK LOCOMOTION: WALK: Activity did not occur on this shift LOCOMOTION: WALK - SCORE: 0-UNK LOCOMOTION: WHEELCHAIR: Activity did not occur on this shift LOCOMOTION: WHEELCHAIR - SCORE: 0-UNK COMPREHENSION: COMPREHENSION: TYPE: Both COMPREHENSION - STEP 1: Does the patient require help to understand complex and abstract ideas (such as current events, finan uma, discharge planning, medical issues, relationships, etc)? No. COMPREHENSION - STEP 2: Does the patient need extra time, require an assistive device (such as glasses, hearing aids, or an a ugmentative communication system), OR does s/he have mild difficulty expressing complex and abstract ideas (including mild dysarthria or mild word-finding problems)? Yes. COMPREHENSION - SCORE: 6-CAIO EXPRESSION EXPRESSION: TYPE: Both EXPRESSION - STEP 1: Does the patient require help expressing complex and abstract ideas (such as current events, finances , discharge planning, medical issues, relationships, etc)? No. EXPRESSION - STEP 2: Does the patient need extra time, require an assistive device (such as augmentive communication syste m or a communication board), OR does s/he have mild difficulty expressing complex and abstract ideas (including mild dysarthria or mild word-find problems)? Yes. EXPRESSION - SCORE: 6-CAIO SOCIAL INTERACTION: SOCIAL INTERACTION - STEP 1: Does the patient require a helper to interact with others in social and therapeutic situations? No. SOCIAL INTERACTION - STEP 2: Does the patient need extra time in social situations, OR does s/he interact with staff, other patien ts, and family members ONLY in structured environments, OR does s/he require medication for social in teraction? No. SOCIAL INTERACTION - SCORE: 7-IND PROBLEM SOLVING: PROBLEM SOLVING - STEP 1: Does the patient need help to solve complex problems such as managing a checking account or confronti ng interpersonal problems? No. PROBLEM SOLVING - STEP 2: Does the patient require extra time to make decisions or solve problems, OR does s/he have slight dif ficulty reading, initiating, or self-correcting in unfamiliar situations? No. PROBLEM SOLVING - SCORE: 7-IND MEMORY: MEMORY - STEP 1: Does the patient need help to remember frequently encountered people, daily routines, and executing r equests? No. MEMORY - STEP 2: Does the patient have slight difficulty recognizing frequently encountered people, daily routines, or executing requests without the need for repetition or using self-initiated or environmental cues to remember? No. MEMORY - SCORE: 7-IND SIGNATURE PANEL: The following modified sections: Eating - Score, Grooming - Score, Bathing - Score, Dressing - Upper Body - Score, Dressing - Lower Body - Score, Toileting - Score, Bladder Management - Score, Bowel Man agement - Score, Transfers: Bed, Chair, Wheelchair - Score, Transfers: Toilet - Score, Transfers: Yessica wer - Score, Transfers: Tub - Score, Locomotion: Walk - Score, Locomotion: Wheelchair - Score, Compre hension - Score, Expression - Score, Social Interaction - Score, Problem Solving - Score, Memory - Sc ore were [electronically] signed by Cathy SaucedaNAmrit on FriSep 08 2017 03:25:54 T-0500 ( Central Daylight Time)
[2017-09-08] MEDS: METOPROLOL XL 25 MG TAB PO SCH (05:19)
[2017-09-08] MEDS: PROMOD 30 ML DOSE PO SCH ×2 (08:00→20:38)
[2017-09-08] MEDS: FINASTERIDE 5 MG TAB PO SCH (08:15)
[2017-09-08] MEDS: cloNIDine HCl 0.1 MG TAB PO SCH ×2 (08:15→20:37)
[2017-09-08] MEDS: ENSURE CLEAR 200 ML CAN PO SCH ×2 (08:16→20:38)
[2017-09-08] MEDS: ENOXAPARIN 40 MG/0.4 ML SQ SCH (08:16)
--- NOTE | 2017-09-08 15:26 | FAST ---
ENCOUNTER DATE AND TIME: 09/08/2017 08:00 (CDT) NAME BETY GOODSON DATE OF : 1955 DATE OF ADMISSION: 08/29/2017 17:49 (CDT) PHONE: AGE: 62 N# [id number] GENDER: Male ENCOUNTER PHYSICIAN: Dr. Migel Ray M.D. ADMISSION DIAGNOSIS: - Debility 16 - Debility (16) Bowel Obstruction, Colon Cancer. EATING: EATING - STEP 1: Does the patient require assistance when eating? No. EATING - SCORE: 7-IND GROOMING: Comb/brush hair Oral care Wash, rinse, and dry face Wash, rinse, and dry hands GROOMING - STEP 1: Does the patient require assistance when grooming? No. GROOMING - SCORE: 7-IND BATHING: Abdomen Buttocks Chest Left arm Left lower leg and foot Left upper leg Perineal area Right arm Right lower leg and foot Right upper leg BATHING - STEP 1: Does the patient require assistance when bathing? Yes. BATHING - STEP 2: Does the patient require the assistance of a helper? No. The patient only requires an assistive devic e such as a bath nitesh, OR the patient takes more than reasonable time to bathe, OR there is a concern for safety such as regulating water temperature as the patient bathes. BATHING - SCORE: 6-CAIO DRESSING - UPPER BODY: T-shirt/pullover shirt (four steps) ARTICLES SCORE Total number of steps: 4 DRESSING - UPPER BODY - STEP 1: Does the patient require help when dressing above the waist? Yes. DRESSING - UPPER BODY - STEP 2: Does the patient require the assistance of a helper? No. Patient only requires an assistive device, s uch as a button hook, velcro, or enhanced environmental operator. OR s/he takes more than reasonable time as s/he dresses the upper body. OR there is a concern for safety when s/he dresses the upper body DRESSING - UPPER BODY - SCORE: 6-CAIO DRESSING - LOWER BODY: ARTICLES SCORE Total number of steps: 0 DRESSING - LOWER BODY - STEP 1: Does the patient require help when dressing below the waist? Yes. DRESSING - LOWER BODY - STEP 2: Does the patient require the assistance of a helper? No. Patient requires an assistive device such as a enhanced environmental operator. OR s/he takes more than reasonable time as s/he dresses the lower body, OR there is a con cern for safety when s/he dresses the lower body DRESSING - LOWER BODY - SCORE: 6-CAIO TOILETING: TOILETING - STEP 1: Does the patient require assistance with toileting? Yes. TOILETING - STEP 2: Does the patient require the assistance of a helper? No. TOILETING - SCORE: 6-CAIO BLADDER MANAGEMENT: Activity did not occur on this shift BLADDER MANAGEMENT - SCORE: 7-IND BOWEL MANAGEMENT: Activity did not occur on this shift BOWEL MANAGEMENT - SCORE: 7-IND TRANSFERS: BED, CHAIR, WHEELCHAIR: Activity did not occur on this shift TRANSFERS: BED, CHAIR, WHEELCHAIR - SCORE: 0-UNK TRANSFERS: TOILET: TRANSFERS: TOILET - STEP 1: Does the patient require assistance with toilet transfers? Yes. TRANSFERS: TOILET - STEP 2: Does the patient require the assistance of a helper? No. Patient only requires an assistive device ospina ch as a grab bar or special seat, OR s/he takes more than reasonable time to perform toilet transfers , OR there is a safety concern when s/he performs toilet transfers. TRANSFERS: TOILET - SCORE: 6-CAIO TRANSFERS: SHOWER: Activity did not occur on this shift TRANSFERS: SHOWER - SCORE: 0-UNK TRANSFERS: TUB: TRANSFERS: TUB - STEP 1: Does the patient require assistance with tub transfers? Yes. TRANSFERS: TUB - STEP 2: Does the patient require the assistance of a helper? No. Only requires the assistance of an assistive device, OR takes more than reasonable time, OR there is a concern for safety when s/he performs tub transfers TRANSFERS: TUB - SCORE: 6-CAIO LOCOMOTION: WALK: Activity did not occur on this shift LOCOMOTION: WALK - SCORE: 0-UNK LOCOMOTION: WHEELCHAIR: Activity did not occur on this shift LOCOMOTION: WHEELCHAIR - SCORE: 0-UNK LOCOMOTION: STAIRS: Activity did not occur on this shift LOCOMOTION: STAIRS - SCORE: 0-UNK COMPREHENSION: COMPREHENSION: TYPE: Both COMPREHENSION - STEP 1: Does the patient require help to understand complex and abstract ideas (such as current events, finan uma, discharge planning, medical issues, relationships, etc)? No. COMPREHENSION - STEP 2: Does the patient need extra time, require an assistive device (such as glasses, hearing aids, or an a ugmentative communication system), OR does s/he have mild difficulty expressing complex and abstract ideas (including mild dysarthria or mild word-finding problems)? No. COMPREHENSION - SCORE: 7-IND EXPRESSION EXPRESSION: TYPE: Both EXPRESSION - STEP 1: Does the patient require help expressing complex and abstract ideas (such as current events, finances , discharge planning, medical issues, relationships, etc)? No. EXPRESSION - STEP 2: Does the patient need extra time, require an assistive device (such as augmentive communication syste m or a communication board), OR does s/he have mild difficulty expressing complex and abstract ideas (including mild dysarthria or mild word-find problems)? No. EXPRESSION - SCORE: 7-IND SOCIAL INTERACTION: SOCIAL INTERACTION - STEP 1: Does the patient require a helper to interact with others in social and therapeutic situations? No. SOCIAL INTERACTION - STEP 2: Does the patient need extra time in social situations, OR does s/he interact with staff, other patien ts, and family members ONLY in structured environments, OR does s/he require medication for social in teraction? No. SOCIAL INTERACTION - SCORE: 7-IND PROBLEM SOLVING: PROBLEM SOLVING - STEP 1: Does the patient need help to solve complex problems such as managing a checking account or confronti ng interpersonal problems? No. PROBLEM SOLVING - STEP 2: Does the patient require extra time to make decisions or solve problems, OR does s/he have slight dif ficulty reading, initiating, or self-correcting in unfamiliar situations? No. PROBLEM SOLVING - SCORE: 7-IND MEMORY: MEMORY - STEP 1: Does the patient need help to remember frequently encountered people, daily routines, and executing r equests? No. MEMORY - STEP 2: Does the patient have slight difficulty recognizing frequently encountered people, daily routines, or executing requests without the need for repetition or using self-initiated or environmental cues to remember? No. MEMORY - SCORE: 7-IND SIGNATURE PANEL: The following modified sections: Eating - Score, Grooming - Score, Bathing - Score, Dressing - Upper Body - Score, Dressing - Lower Body - Score, Toileting - Score, Transfers: Bed, Chair, Wheelchair - S core, Transfers: Toilet - Score, Transfers: Shower - Score, Transfers: Tub - Score, Comprehension - S core, Expression - Score, Social Interaction - Score, Problem Solving - Score, Memory - Score were [e lectronically] signed by Dipti Romero OT on FriSep 08 2017 14:28:41 T-0500 (Central Daylight T kacey)
--- NOTE | 2017-09-08 15:39 | FAST ---
SHIFT START DATE/TIME: 09/08/2017 07:00 (CDT) SHIFT END DATE/TIME: 09/08/2017 19:00 (CDT) NAME BETY GOODSON DATE OF : 1955 DATE OF ADMISSION: 08/29/2017 17:49 (CDT) PHONE: AGE: 62 [facility]# [id number] GENDER: Male ENCOUNTER PHYSICIAN: Dr. Migel Ray M.D. ADMISSION DIAGNOSIS: - Debility 16 - Debility (16) Bowel Obstruction, Colon Cancer. EATING: EATING - STEP 1: Does the patient require assistance when eating? No. EATING - SCORE: 7-IND GROOMING: GROOMING - STEP 1: Does the patient require assistance when grooming? Yes. GROOMING - STEP 2: Does the patient require the assistance of a helper? No. The patient only requires an assistive devic e, OR takes more than reasonable time to groom, OR there is a concern for safety as the patient groom s GROOMING - SCORE: 6-CAIO BATHING: Activity did not occur on this shift BATHING - SCORE: 0-UNK DRESSING - UPPER BODY: Activity did not occur on this shift ARTICLES SCORE Total number of steps: 0 DRESSING - UPPER BODY - SCORE: 0-UNK DRESSING - LOWER BODY: Activity did not occur on this shift ARTICLES SCORE Total number of steps: 0 DRESSING - LOWER BODY - SCORE: 0-UNK TOILETING: TOILETING - STEP 1: Does the patient require assistance with toileting? Yes. TOILETING - STEP 2: Does the patient require the assistance of a helper? No. TOILETING - SCORE: 6-CAIO BLADDER MANAGEMENT: BLADDER MANAGEMENT - STEP 1: Does the patient control the bladder completely and intentionally without equipment or devices or med ications, and is always continent? No. BLADDER MANAGEMENT - STEP 2: Does the patient require the assistance of a helper? No, patient requires and independently uses an a ssistive device, such as a urinal, bedpan, bedside commode, catheter, absorbent pad, or collecting de vice BLADDER MANAGEMENT - SCORE: 6-CAIO BOWEL MANAGEMENT: BOWEL MANAGEMENT - STEP 1: Does the patient control bowels completely and intentionally without equipment devices or medications AND is always continent? No. BOWEL MANAGEMENT - STEP 2: Does the patient require the assistance of a helper? No, patient requires medication for control such as stool softeners, suppositories, laxatives, enemas, or OTC medications BOWEL MANAGEMENT - SCORE: 6-CAIO TRANSFERS: BED, CHAIR, WHEELCHAIR: TRANSFERS: BED, CHAIR, WHEELCHAIR - STEP 1: Does the patient require assistance with bed, chair, or wheelchair transfers? Yes. TRANSFERS: BED, CHAIR, WHEELCHAIR - STEP 2: Does the patient require the assistance of a helper? No. Patient only requires an assistive device fo r bed, chair, wheelchair transfers such as a sliding board, grab bar, or brace, OR s/he takes more th an reasonable time, OR there is a safety concern when s/he performs the transfers TRANSFERS: BED, CHAIR, WHEELCHAIR - SCORE: 6-CAIO TRANSFERS: TOILET: TRANSFERS: TOILET - STEP 1: Does the patient require assistance with toilet transfers? Yes. TRANSFERS: TOILET - STEP 2: Does the patient require the assistance of a helper? No. Patient only requires an assistive device ospina ch as a grab bar or special seat, OR s/he takes more than reasonable time to perform toilet transfers , OR there is a safety concern when s/he performs toilet transfers. TRANSFERS: TOILET - SCORE: 6-CAIO TRANSFERS: SHOWER: Activity did not occur on this shift TRANSFERS: SHOWER - SCORE: 0-UNK TRANSFERS: TUB: Activity did not occur on this shift TRANSFERS: TUB - SCORE: 0-UNK LOCOMOTION: WALK: Activity did not occur on this shift LOCOMOTION: WALK - SCORE: 0-UNK LOCOMOTION: WHEELCHAIR: Activity did not occur on this shift LOCOMOTION: WHEELCHAIR - SCORE: 0-UNK COMPREHENSION: COMPREHENSION - SCORE: 0-UNK EXPRESSION EXPRESSION - SCORE: 0-UNK SOCIAL INTERACTION: SOCIAL INTERACTION - SCORE: 0-UNK PROBLEM SOLVING: PROBLEM SOLVING - SCORE: 0-UNK MEMORY: MEMORY - SCORE: 0-UNK SIGNATURE PANEL: The following modified sections: Eating - Score, Grooming - Score, Bathing - Score, Dressing - Upper Body - Score, Dressing - Lower Body - Score, Toileting - Score, Bladder Management - Score, Bowel Man agement - Score, Transfers: Bed, Chair, Wheelchair - Score, Transfers: Toilet - Score, Transfers: Yessica wer - Score, Transfers: Tub - Score, Locomotion: Walk - Score, Locomotion: Wheelchair - Score, Compre hension - Score, Expression - Score, Social Interaction - Score, Problem Solving - Score, Memory - Sc ore were [electronically] signed by Xavier Lange on FriSep 08 2017 14:41:35 GMT-0500 (Central Daylight Time)
--- NOTE | 2017-09-08 21:25 | P.PN ---
Subjective Date of Service: 09/08/17 Chief Complaint: colon cancer Subjective: Improving (WALKING WELL NOW. URINE FREQ OFTEN. STILL HAS DIARRHEA. ) MR GOODSON HAD COME WITH BOWEL OBSTRUCTION. HAS HAD SURGERY BY DR FISH, TOOK A LONG TIME TO RECOVER. STILL IS VERY WEAK, HAS HAD STRANGE EPISODE OF HEAD LAZO,ONE EPISODE OF SYNCOPE AND HYPERSENSITIVE TO NOISE. I ASKED DR SANCHEZ IF IT CAN BE MIGRAINE VARIANT. HE STARTED TOPAMAX. MRI AND EEG WERE NEGATIVE. HE IS SENT TO REHAB TO GET STRONGER. HE IS A LOT BETTER STARTING TO EAT Review of Systems 10-point ROS is otherwise unremarkable General: Weakness, Malaise Physical Examination - Vital Signs Temperature: 97.9 F Blood Pressure: 146/91 Pulse: 86 Respirations: 14 Pulse Ox (%): 98 - Physical Exam General: Alert, Mild distress HEENT: Atraumatic, PERRLA, EOMI Neck: Supple, JVD not distended Respiratory: Clear to auscultation bilaterally, Normal air movement Cardiovascular: Regular rate/rhythm, Normal S1 S2 Gastrointestinal: Normal bowel sounds, No tenderness Musculoskeletal: No tenderness Integumentary: No rashes Neurological: Normal speech, Normal tone, Normal affect Lymphatics: No axilla or inguinal lymphadenopathy - Studies Medications List Reviewed: Yes Assessment And Plan - Current Problems (Diagnosis) (1) Adynamic ileus Current Visit: No Status: Acute Plan: POST SURGICAL HE HAS LIQUD DIARRHEA NOW AND WILL FU WITH X .RAY ABLE TO EAT A LITTLE. LOT BETTER RESUME CARE STOP TPN ATE BF TODAY. X RAY SHOWS IMPROVEMENT. STARTING TO EAT LOT BETTER HOPEFULLY WELL TO GO HOME SOON. NOW HAS DIARRHEA SINCE SURGERY WILL START COLESTID FOR BINDING STOOL. C DIFF NEG. BUT WILL REDO. (2) Colon cancer Onset Date: 09/01/17 Current Visit: Yes Status: Chronic Plan: DR HARTMAN WILL FU (3) Hypoalbuminemia due to protein-calorie malnutrition Current Visit: No Status: Acute (4) Syncope Current Visit: No Status: Acute Plan: NO MOER BUT WILL FU ON WEAK SPELLS HE GETS WITH NO NEUROLOGICAL SYMPTOMS. (5) Urinary retention Current Visit: No Status: Acute (6) Syncope Onset Date: 09/01/17 Current Visit: Yes Status: Suspected Plan: EPISODES OF NEAR SYNCOPE. UNCLEAR ETIOLOGY. TOPAMAX DID NOT WORK. HE HAS SE. STOP IT. AND WILL DO IMITREX PRN. (7) Tachycardia Current Visit: Yes Status: Acute Plan: ON B ANITA ALREADY DO EKG. (8) Renal dysfunction Current Visit: Yes Status: Acute Plan: REPEAT SONOGRAM OF ABDOMEN AND CHECK FOR PVR
--- NOTE | 2017-09-08 21:34 | R.PN ---
ENCOUNTER DATE AND TIME: 09/08/2017 20:33 (CDT) NAME BETY GOODSON DATE OF : 1955 DATE OF ADMISSION: 08/29/2017 17:49 (CDT) Bowel Obstruction, Colon CancerCHIEF COMPLAINT: Debility, bowel obstruction SUBJECTIVE: Pt denied any Shortness of Breath. Pt denied any depression. Performed bed mobility with independence. He ambulated 1500' with independence using a rolling walker . Up and down 15 steps with independence. VITAL SIGNS Temperature: 97.9 F SBP/DBP: 146/91 Pulse: 86 Resp: 16 MEDICATION ALLERGIES: No Known Drug Allergies (NKDA) ENVIRONMENTAL ALLERGIES: None Known - Substance Allergies None Known - Other Allergies None Known NURSING: - Shower allowing shower PRECAUTIONS: - Fall Precaution chair alarm,bed alarm ACTIVITIES OOB only with supervision THERAPIES: - Occupational Therapy Evaluate and Treat. - Physical Therapy Evaluate and Treat. PHYSICAL EXAM - Gen Alert and awake Lying in bed No apparent distress Oriented to: person, time, and place - Skin incisions intact Normacephalic - Eyes No abnormalities - ENMT No abnormalities - Neck No abnormalities - CVS RRR - Chest Clear - Abd Soft - GI nondistended Deferred - No abnormalities - Ext No significant edema - MSK 4/5 weakness in both lower extremities. - Neuro No focal deficits - Psych No abnormalities ASSESSMENT: Pt. is a 62 yo Right-handed white male.On 08/12/[address] [facility] with diagnosis Bowel Obstruction, Colon Cancer.His impairment category is Debility 16 - Debility (16).Pre-morbidly, Pt. was independent/mod-I in Self-Care, Locomotion, Sphincter Control, Transfers Control, Communication, and Social Cognition; and he had good Sphincter Control.Currently, he has def icits of Locomotion, Endurance, Safety Awareness, Transfers Control, Balance, and Self-Care.Pt. is no w referred to [facility] for acute in-patient rehabilitation in order to maxim ize patient's functional independence in activities of daily living, strength, ROM, and mobility.- Re hab Goal Patient has realistic goal of being discharged at assistance level 6-Lucero to reside at Home with Fam nereida/Relatives. MDM/PLAN: - Diet Type Continue GI SOFT - Physical Therapy Gait dysfunction - to improve, our physical therapists will perform initial evaluation of pt's statu s upon admission and devise an individualized program for Gait Training, and Wheel Chair mobility Inability to transfer - to improve, our physical therapists will perform initial evaluation of pt's status upon admission and devise an individualized program for Bed mobility Need for home safety evaluation - to improve, our physical therapists will perform initial evaluatio n of pt's status upon admission and devise an individualized program for Home Evaluation Need in caregiver upon discharge - to improve, our physical therapists will perform initial evaluati on of pt's status upon admission and devise an individualized program for Caregiver Training New precaution - to improve, our physical therapists will perform initial evaluation of pt's status upon admission and devise an individualized program for Patient precaution education Edema - to improve, our physical therapists will perform initial evaluation of pt's status upon admi ssion and devise an individualized program for Elevation Training, and Lymphedema Therapy Poor balance - to improve, our physical therapists will perform initial evaluation of pt's status up on admission and devise an individualized program for Balance Training Poor endurance - to improve, our physical therapists will perform initial evaluation of pt's status upon admission and devise an individualized program for Endurance Training Weakness - to improve, our physical therapists will perform initial evaluation of pt's status upon a dmission and devise an individualized program for Aquatic Therapy, Neuromuscular Reeducation, and Str engthening Achieving independence - to improve, our physical therapists will perform initial evaluation of pt's status upon admission and devise an individualized program for Community Reintegration Activities - Diet - Liquid Texture Continue Regular - Tube Feed Continue N/A - Fall Precaution chair alarm,bed alarm - Diet - Solid Texture Continue Regular - Shower allowing shower - Occupational Therapy ADL deficits - to improve, our occupation therapists will perform initial evaluation of pt's status upon admission and devise an individualized program for Bathing, Bed mobility, Community Reintegratio n, Cooking, Dressing, Eating, Fine Motor Skills, Grooming, Homemaking, Kitchen Mobility, Laundry, Pat ient Education, Safety Awareness, Splinting - Positioning, Transfers(Toilet, Tub, Shower), and Wheel Chair Management Need for early breastfeeding care specialist - to improve, our occupation therapists will perform initial evaluation of pt's status upon admission and devise an individualized program for Caregiver Training Weakness - to improve, our occupation therapists will perform initial evaluation of pt's status upon admission and devise an individualized program for Aquatic Therapy, Balance, Endurance, UE ROM, and UE strengthening FUNCTIONAL STATUS: UPDATED AT WEEKLY TEAM CONFERENCE - Bladder Same accident frequency: 1-Dep - No accidents in the past 7 days - Bowel Same accident frequency: 7-Ind - No accidents in the past 7 days - Walking Same score based on distance walked: 3(>=150ft) - Wheelchair Same score based on distance traveled: 0(N/A) FUNCTIONAL STATUS: - Self-Care A. Eating Luc[place] B. Grooming [place] C. Bathing sup D. Dressing - Upper sup E. Dressing - Lower sup F. Toileting sup - Sphincter Control G: Bladder control Dep H: Bowel control Ind - Transfers Control I. Bed/Chair/Wheelchair sup J. Toilet sup K. Tub/Shower sup - Locomotion L. Walk/Wheelchair (C) sup L. Walk/Wheelchair (W) sup M. Stairs ADNO - Communication N. Comprehension (B) Ind O. Expression (B) Ind - Social Cognition P. Social Interaction Ind Q. Problem Solving Ind R. Memory Ind - Endurance Fair - Balance Fair - Safety Awareness Fair CURRENT FUNC. DEFICITS: Locomotion, Endurance, Safety Awareness, Transfers Control, Balance, and Self-Care SIGNATURE PANEL: (CDT)
--- NOTE | 2017-09-09 04:54 | FAST ---
SHIFT START DATE/TIME: 09/08/2017 19:00 (CDT) SHIFT END DATE/TIME: 09/09/2017 07:00 (CDT) NAME BETY GOODSON DATE OF : 1955 DATE OF ADMISSION: 08/29/2017 17:49 (CDT) PHONE: AGE: 62 [facility]# [id number] GENDER: Male ENCOUNTER PHYSICIAN: Dr. Migel Ray M.D. ADMISSION DIAGNOSIS: - Debility 16 - Debility (16) Bowel Obstruction, Colon Cancer. EATING: EATING - STEP 1: Does the patient require assistance when eating? Yes. EATING - STEP 2: Does the patient require the assistance of a helper? No, patient only requires an assistive device, O R s/he takes more than reasonable time to eat, OR there is a safety concern, OR s/he requires modifie d food consistency EATING - SCORE: 6-CAIO GROOMING: Comb/brush hair Oral care Wash, rinse, and dry face Wash, rinse, and dry hands GROOMING - STEP 1: Does the patient require assistance when grooming? Yes. GROOMING - STEP 2: Does the patient require the assistance of a helper? No. The patient only requires an assistive devic e, OR takes more than reasonable time to groom, OR there is a concern for safety as the patient groom s GROOMING - SCORE: 6-CAIO BATHING: Activity did not occur on this shift BATHING - SCORE: 0-UNK DRESSING - UPPER BODY: Patient is not dressing in public clothing ARTICLES SCORE Total number of steps: 0 DRESSING - UPPER BODY - SCORE: 0-UNK DRESSING - LOWER BODY: Patient is not dressing in public clothing ARTICLES SCORE Total number of steps: 0 DRESSING - LOWER BODY - SCORE: 0-UNK TOILETING: TOILETING - STEP 1: Does the patient require assistance with toileting? Yes. TOILETING - STEP 2: Does the patient require the assistance of a helper? No. TOILETING - SCORE: 6-CAIO BLADDER MANAGEMENT: BLADDER MANAGEMENT - STEP 1: Does the patient control the bladder completely and intentionally without equipment or devices or med ications, and is always continent? No. BLADDER MANAGEMENT - STEP 2: Does the patient require the assistance of a helper? No, patient requires and independently uses an a ssistive device, such as a urinal, bedpan, bedside commode, catheter, absorbent pad, or collecting de vice BLADDER MANAGEMENT - SCORE: 6-CAIO BLADDER MANAGEMENT - FREQUENCY OF ACCIDENTS: BLADDER MANAGEMENT(FA) - STEP 1: How many accidents has the patient had during the current shift? 0 BOWEL MANAGEMENT: Activity did not occur on this shift BOWEL MANAGEMENT - SCORE: 7-IND TRANSFERS: BED, CHAIR, WHEELCHAIR: TRANSFERS: BED, CHAIR, WHEELCHAIR - STEP 1: Does the patient require assistance with bed, chair, or wheelchair transfers? Yes. TRANSFERS: BED, CHAIR, WHEELCHAIR - STEP 2: Does the patient require the assistance of a helper? No. Patient only requires an assistive device fo r bed, chair, wheelchair transfers such as a sliding board, grab bar, or brace, OR s/he takes more th an reasonable time, OR there is a safety concern when s/he performs the transfers TRANSFERS: BED, CHAIR, WHEELCHAIR - SCORE: 6-CAIO TRANSFERS: TOILET: TRANSFERS: TOILET - STEP 1: Does the patient require assistance with toilet transfers? Yes. TRANSFERS: TOILET - STEP 2: Does the patient require the assistance of a helper? No. Patient only requires an assistive device ospina ch as a grab bar or special seat, OR s/he takes more than reasonable time to perform toilet transfers , OR there is a safety concern when s/he performs toilet transfers. TRANSFERS: TOILET - SCORE: 6-CAIO TRANSFERS: SHOWER: Activity did not occur on this shift TRANSFERS: SHOWER - SCORE: 0-UNK TRANSFERS: TUB: Activity did not occur on this shift TRANSFERS: TUB - SCORE: 0-UNK LOCOMOTION: WALK: Activity did not occur on this shift LOCOMOTION: WALK - SCORE: 0-UNK LOCOMOTION: WHEELCHAIR: Activity did not occur on this shift LOCOMOTION: WHEELCHAIR - SCORE: 0-UNK COMPREHENSION: COMPREHENSION: TYPE: Both COMPREHENSION - STEP 1: Does the patient require help to understand complex and abstract ideas (such as current events, finan uma, discharge planning, medical issues, relationships, etc)? No. COMPREHENSION - STEP 2: Does the patient need extra time, require an assistive device (such as glasses, hearing aids, or an a ugmentative communication system), OR does s/he have mild difficulty expressing complex and abstract ideas (including mild dysarthria or mild word-finding problems)? Yes. COMPREHENSION - SCORE: 6-CAIO EXPRESSION EXPRESSION: TYPE: Both EXPRESSION - STEP 1: Does the patient require help expressing complex and abstract ideas (such as current events, finances , discharge planning, medical issues, relationships, etc)? No. EXPRESSION - STEP 2: Does the patient need extra time, require an assistive device (such as augmentive communication syste m or a communication board), OR does s/he have mild difficulty expressing complex and abstract ideas (including mild dysarthria or mild word-find problems)? No. EXPRESSION - SCORE: 7-IND SOCIAL INTERACTION: SOCIAL INTERACTION - STEP 1: Does the patient require a helper to interact with others in social and therapeutic situations? No. SOCIAL INTERACTION - STEP 2: Does the patient need extra time in social situations, OR does s/he interact with staff, other patien ts, and family members ONLY in structured environments, OR does s/he require medication for social in teraction? No. SOCIAL INTERACTION - SCORE: 7-IND PROBLEM SOLVING: PROBLEM SOLVING - STEP 1: Does the patient need help to solve complex problems such as managing a checking account or confronti ng interpersonal problems? No. PROBLEM SOLVING - STEP 2: Does the patient require extra time to make decisions or solve problems, OR does s/he have slight dif ficulty reading, initiating, or self-correcting in unfamiliar situations? No. PROBLEM SOLVING - SCORE: 7-IND MEMORY: MEMORY - STEP 1: Does the patient need help to remember frequently encountered people, daily routines, and executing r equests? No. MEMORY - STEP 2: Does the patient have slight difficulty recognizing frequently encountered people, daily routines, or executing requests without the need for repetition or using self-initiated or environmental cues to remember? No. MEMORY - SCORE: 7-IND SIGNATURE PANEL: The following modified sections: Eating - Score, Grooming - Score, Bathing - Score, Dressing - Upper Body - Score, Dressing - Lower Body - Score, Toileting - Score, Bladder Management - Score, Bowel Man agement - Score, Transfers: Bed, Chair, Wheelchair - Score, Transfers: Toilet - Score, Transfers: Yessica wer - Score, Transfers: Tub - Score, Locomotion: Walk - Score, Locomotion: Wheelchair - Score, Compre hension - Score, Expression - Score, Social Interaction - Score, Problem Solving - Score, Memory - Sc ore were [electronically] signed by Cathy SaucedaNAmrit on FriSep 09 2017 03:56:35 [facility]-0500 ( Central Daylight Time)
[2017-09-09] MEDS: METOPROLOL XL 25 MG TAB PO SCH (05:36)
[2017-09-09] MEDS: ENOXAPARIN 40 MG/0.4 ML SQ SCH (07:27)
[2017-09-09] MEDS: ENSURE CLEAR 200 ML CAN PO SCH ×2 (08:00→21:12)
[2017-09-09] MEDS: cloNIDine HCl 0.1 MG TAB PO SCH ×2 (08:13→21:11)
[2017-09-09] MEDS: COLESTIPOL 1 GM TAB PO SCH ×2 (08:14→21:11)
[2017-09-09] MEDS: PROMOD 30 ML DOSE PO SCH ×2 (08:14→21:12)
[2017-09-09] MEDS: FINASTERIDE 5 MG TAB PO SCH (08:55)
--- NOTE | 2017-09-09 11:18 | FAST ---
SHIFT START DATE/TIME: 09/09/2017 07:00 (CDT) SHIFT END DATE/TIME: 09/09/2017 19:00 (CDT) NAME BETY GOODSON DATE OF : 1955 DATE OF ADMISSION: 08/29/2017 17:49 (CDT) PHONE: AGE: 62 N# [id number] GENDER: Male ENCOUNTER PHYSICIAN: Dr. Migel Ray M.D. ADMISSION DIAGNOSIS: - Debility 16 - Debility (16) Bowel Obstruction, Colon Cancer. EATING: EATING - STEP 1: Does the patient require assistance when eating? Yes. EATING - STEP 2: Does the patient require the assistance of a helper? No, patient only requires an assistive device, O R s/he takes more than reasonable time to eat, OR there is a safety concern, OR s/he requires modifie d food consistency EATING - SCORE: 6-CAIO GROOMING: Comb/brush hair Oral care Wash, rinse, and dry face Wash, rinse, and dry hands GROOMING - STEP 1: Does the patient require assistance when grooming? Yes. GROOMING - STEP 2: Does the patient require the assistance of a helper? No. The patient only requires an assistive devic e, OR takes more than reasonable time to groom, OR there is a concern for safety as the patient groom s GROOMING - SCORE: 6-CAIO BATHING: Activity did not occur on this shift BATHING - SCORE: 0-UNK DRESSING - UPPER BODY: Activity did not occur on this shift T-shirt/pullover shirt (four steps) ARTICLES SCORE Total number of steps: 4 DRESSING - UPPER BODY - SCORE: 0-UNK DRESSING - LOWER BODY: Activity did not occur on this shift ARTICLES SCORE Total number of steps: 0 DRESSING - LOWER BODY - SCORE: 0-UNK TOILETING: TOILETING - STEP 1: Does the patient require assistance with toileting? Yes. TOILETING - STEP 2: Does the patient require the assistance of a helper? No. TOILETING - SCORE: 6-CAIO BLADDER MANAGEMENT: BLADDER MANAGEMENT - STEP 1: Does the patient control the bladder completely and intentionally without equipment or devices or med ications, and is always continent? No. BLADDER MANAGEMENT - STEP 2: Does the patient require the assistance of a helper? No, patient requires and independently uses an a ssistive device, such as a urinal, bedpan, bedside commode, catheter, absorbent pad, or collecting de vice BLADDER MANAGEMENT - SCORE: 6-CAIO BOWEL MANAGEMENT: BOWEL MANAGEMENT - STEP 1: Does the patient control bowels completely and intentionally without equipment devices or medications AND is always continent? Yes. BOWEL MANAGEMENT - SCORE: 7-IND TRANSFERS: BED, CHAIR, WHEELCHAIR: TRANSFERS: BED, CHAIR, WHEELCHAIR - STEP 1: Does the patient require assistance with bed, chair, or wheelchair transfers? Yes. TRANSFERS: BED, CHAIR, WHEELCHAIR - STEP 2: Does the patient require the assistance of a helper? No. Patient only requires an assistive device fo r bed, chair, wheelchair transfers such as a sliding board, grab bar, or brace, OR s/he takes more th an reasonable time, OR there is a safety concern when s/he performs the transfers TRANSFERS: BED, CHAIR, WHEELCHAIR - SCORE: 6-CAIO TRANSFERS: TOILET: TRANSFERS: TOILET - STEP 1: Does the patient require assistance with toilet transfers? Yes. TRANSFERS: TOILET - STEP 2: Does the patient require the assistance of a helper? No. Patient only requires an assistive device ospina ch as a grab bar or special seat, OR s/he takes more than reasonable time to perform toilet transfers , OR there is a safety concern when s/he performs toilet transfers. TRANSFERS: TOILET - SCORE: 6-CAIO TRANSFERS: SHOWER: Activity did not occur on this shift TRANSFERS: SHOWER - SCORE: 0-UNK TRANSFERS: TUB: Activity did not occur on this shift TRANSFERS: TUB - SCORE: 0-UNK LOCOMOTION: WALK: Activity did not occur on this shift LOCOMOTION: WALK - SCORE: 0-UNK LOCOMOTION: WHEELCHAIR: Activity did not occur on this shift LOCOMOTION: WHEELCHAIR - SCORE: 0-UNK COMPREHENSION: COMPREHENSION - SCORE: 0-UNK EXPRESSION EXPRESSION - SCORE: 0-UNK SOCIAL INTERACTION: SOCIAL INTERACTION - SCORE: 0-UNK PROBLEM SOLVING: PROBLEM SOLVING - SCORE: 0-UNK MEMORY: MEMORY - SCORE: 0-UNK SIGNATURE PANEL: The following modified sections: Eating - Score, Grooming - Score, Bathing - Score, Dressing - Upper Body - Score, Dressing - Lower Body - Score, Toileting - Score, Bladder Management - Score, Bowel Man agement - Score, Transfers: Bed, Chair, Wheelchair - Score, Transfers: Toilet - Score, Transfers: Yessica wer - Score, Transfers: Tub - Score, Locomotion: Walk - Score, Locomotion: Wheelchair - Score, Compre hension - Score, Expression - Score, Social Interaction - Score, Problem Solving - Score, Memory - Sc ore were [electronically] signed by Xavier Lange on FriSep 09 2017 10:20:09 GMT-0500 (Central Daylight Time)
--- NOTE | 2017-09-09 12:14 | P.PN ---
Subjective Date of Service: 09/09/17 Chief Complaint: colon cancer Subjective: Improving MR GOODSON HAD COME WITH BOWEL OBSTRUCTION. HAS HAD SURGERY BY DR FISH, TOOK A LONG TIME TO RECOVER. STILL IS VERY WEAK, HAS HAD STRANGE EPISODE OF HEAD LAZO,ONE EPISODE OF SYNCOPE AND HYPERSENSITIVE TO NOISE. I ASKED DR SANCHEZ IF IT CAN BE MIGRAINE VARIANT. HE STARTED TOPAMAX. MRI AND EEG WERE NEGATIVE. HE IS SENT TO REHAB TO GET STRONGER. HE IS A LOT BETTER STARTING TO EAT STABLE EATING WELL BP HAS GONE HIGHER AGAIN. Review of Systems 10-point ROS is otherwise unremarkable Physical Examination - Vital Signs Temperature: 97.4 F Blood Pressure: 149/101 Pulse: 83 Respirations: 16 Pulse Ox (%): 97 - Physical Exam General: Alert HEENT: Atraumatic, PERRLA, EOMI Neck: Supple, JVD not distended Respiratory: Clear to auscultation bilaterally, Normal air movement Cardiovascular: Regular rate/rhythm, Normal S1 S2 Gastrointestinal: Normal bowel sounds, No tenderness Musculoskeletal: No tenderness Integumentary: No rashes Neurological: Normal speech, Normal tone, Normal affect Lymphatics: No axilla or inguinal lymphadenopathy - Studies Medications List Reviewed: Yes Assessment And Plan - Current Problems (Diagnosis) (1) Adynamic ileus Current Visit: No Status: Acute Plan: POST SURGICAL HE HAS LIQUD DIARRHEA NOW AND WILL FU WITH X .RAY ABLE TO EAT A LITTLE. LOT BETTER RESUME CARE STOP TPN ATE BF TODAY. X RAY SHOWS IMPROVEMENT. STARTING TO EAT LOT BETTER HOPEFULLY WELL TO GO HOME SOON. NOW HAS DIARRHEA SINCE SURGERY WILL START COLESTID FOR BINDING STOOL. C DIFF NEG. BUT WILL REDO. (2) Colon cancer Onset Date: 09/01/17 Current Visit: Yes Status: Chronic Plan: DR HARTMAN WILL FU (3) Hypoalbuminemia due to protein-calorie malnutrition Current Visit: No Status: Acute (4) Syncope Current Visit: No Status: Acute Plan: NO MOER BUT WILL FU ON WEAK SPELLS HE GETS WITH NO NEUROLOGICAL SYMPTOMS. (5) Urinary retention Current Visit: No Status: Acute (6) Syncope Onset Date: 09/01/17 Current Visit: Yes Status: Suspected Plan: EPISODES OF NEAR SYNCOPE. UNCLEAR ETIOLOGY. TOPAMAX DID NOT WORK. HE HAS SE. STOP IT. AND WILL DO IMITREX PRN. (7) Tachycardia Current Visit: Yes Status: Acute Plan: ON B ANITA ALREADY DO EKG. (8) Renal dysfunction Current Visit: Yes Status: Acute Plan: REPEAT SONOGRAM OF ABDOMEN AND CHECK FOR PVR (9) HTN (hypertension) Current Visit: Yes Status: Acute Plan: RESUMEHOME MEDS.
--- NOTE | 2017-09-09 18:44 | FAST ---
ENCOUNTER DATE AND TIME: 09/09/2017 08:00 (CDT) NAME BETY GOODSON DATE OF : 1955 DATE OF ADMISSION: 08/29/2017 17:49 (CDT) PHONE: AGE: 62 N# [id number] GENDER: Male ENCOUNTER PHYSICIAN: Dr. Migel Ray M.D. ADMISSION DIAGNOSIS: - Debility 16 - Debility (16) Bowel Obstruction, Colon Cancer. EATING: Activity did not occur on this shift EATING - SCORE: 0-UNK GROOMING: Activity did not occur on this shift GROOMING - SCORE: 0-UNK BATHING: Activity did not occur on this shift BATHING - SCORE: 0-UNK DRESSING - UPPER BODY: Activity did not occur on this shift Patient is not dressing in public clothing ARTICLES SCORE Total number of steps: 0 DRESSING - UPPER BODY - SCORE: 0-UNK DRESSING - LOWER BODY: Activity did not occur on this shift Patient is not dressing in public clothing ARTICLES SCORE Total number of steps: 0 DRESSING - LOWER BODY - SCORE: 0-UNK TOILETING: Activity did not occur on this shift TOILETING - SCORE: 0-UNK BLADDER MANAGEMENT: Activity did not occur on this shift BLADDER MANAGEMENT - SCORE: 7-IND BOWEL MANAGEMENT: Activity did not occur on this shift BOWEL MANAGEMENT - SCORE: 7-IND TRANSFERS: BED, CHAIR, WHEELCHAIR: TRANSFERS: BED, CHAIR, WHEELCHAIR - STEP 1: Does the patient require assistance with bed, chair, or wheelchair transfers? No. TRANSFERS: BED, CHAIR, WHEELCHAIR - SCORE: 7-IND TRANSFERS: TOILET: Activity did not occur on this shift TRANSFERS: TOILET - SCORE: 0-UNK TRANSFERS: SHOWER: Activity did not occur on this shift TRANSFERS: SHOWER - SCORE: 0-UNK TRANSFERS: TUB: Activity did not occur on this shift TRANSFERS: TUB - SCORE: 0-UNK LOCOMOTION: WALK: LOCOMOTION: WALK - STEP 1: Does the patient need help to walk 150 feet? No. LOCOMOTION: WALK - STEP 2: Does the patient need an assistive device (such as an orthosis, prosthesis, crutches, or walker) to g o 150 feet, OR does s/he take more than reasonable time, OR is there a concern for safety? No. LOCOMOTION: WALK - SCORE: 7-IND LOCOMOTION: WHEELCHAIR: Activity did not occur on this shift LOCOMOTION: WHEELCHAIR - SCORE: 0-UNK LOCOMOTION: STAIRS: LOCOMOTION: STAIRS - STEP 1: Does the patient need help to go up and down 12 to 14 stairs? No. LOCOMOTION: STAIRS - STEP 2: Does the patient require an assistive device - such as handrails or cane - to go up and down one flig ht of stairs, OR does s/he take more than reasonable time, OR is there a concern for safety? Yes, the patient requires an assistive device LOCOMOTION: STAIRS - SCORE: 6-CAIO COMPREHENSION: COMPREHENSION - SCORE: 0-UNK EXPRESSION EXPRESSION - SCORE: 0-UNK SOCIAL INTERACTION: SOCIAL INTERACTION - SCORE: 0-UNK PROBLEM SOLVING: PROBLEM SOLVING - SCORE: 0-UNK MEMORY: MEMORY - SCORE: 0-UNK SIGNATURE PANEL: The following modified sections: Transfers: Bed, Chair, Wheelchair - Score, Transfers: Toilet - Score , Locomotion: Walk - Score, Locomotion: Wheelchair - Score, Locomotion: Stairs - Score were [electron icamarlys] signed by Kodak Olivier PT on FriSep 09 2017 17:46:02 T-0500 (Central Daylight Time)
--- NOTE | 2017-09-09 19:09 | R.PN ---
ENCOUNTER DATE AND TIME: 09/09/2017 18:07 (CDT) NAME BETY GOODSON DATE OF : 1955 DATE OF ADMISSION: 08/29/2017 17:49 (CDT) Bowel Obstruction, Colon CancerCHIEF COMPLAINT: Debility, bowel obstruction SUBJECTIVE: Pt denied any Shortness of Breath. Pt denied any depression. Performed bed mobility with independence. He ambulated 1500' with independence without an assistive d evice. Up and down 91 steps with independence. VITAL SIGNS Temperature: 97.9 F SBP/DBP: 149/101 Pulse: 83 Resp: 16 MEDICATION ALLERGIES: No Known Drug Allergies (NKDA) ENVIRONMENTAL ALLERGIES: None Known - Substance Allergies None Known - Other Allergies None Known NURSING: - Shower allowing shower PRECAUTIONS: - Fall Precaution chair alarm,bed alarm ACTIVITIES OOB only with supervision THERAPIES: - Occupational Therapy Evaluate and Treat. - Physical Therapy Evaluate and Treat. PHYSICAL EXAM - Gen Alert and awake Lying in bed No apparent distress Oriented to: person, time, and place - Skin incisions intact Normacephalic - Eyes No abnormalities - ENMT No abnormalities - Neck No abnormalities - CVS RRR - Chest Clear - Abd Soft - GI nondistended Deferred - No abnormalities - Ext No significant edema - MSK 4/5 weakness in both lower extremities. - Neuro No focal deficits - Psych No abnormalities ASSESSMENT: Pt. is a 62 yo Right-handed white male.On 08/12/2017 he was admitted to [facility] with diagnosis Bowel Obstruction, Colon Cancer.His impairment category is Debility 16 - Debility (16).Pre-morbidly, Pt. was independent/mod-I in Self-Care, Locomotion, Sphincter Control, Transfers Control, Communication, and Social Cognition; and he had good Sphincter Control.Currently, he has def icits of Locomotion, Endurance, Safety Awareness, Transfers Control, Balance, and Self-Care.Pt. is no w referred to [facility] for acute in-patient rehabilitation in order to maxim ize patient's functional independence in activities of daily living, strength, ROM, and mobility.- Re hab Goal Patient has realistic goal of being discharged at assistance level 6-Lucero to reside at Home with Fam nereida/Relatives. MDM/PLAN: - Diet Type Continue GI SOFT - Physical Therapy Gait dysfunction - to improve, our physical therapists will perform initial evaluation of pt's statu s upon admission and devise an individualized program for Gait Training, and Wheel Chair mobility Inability to transfer - to improve, our physical therapists will perform initial evaluation of pt's status upon admission and devise an individualized program for Bed mobility Need for home safety evaluation - to improve, our physical therapists will perform initial evaluatio n of pt's status upon admission and devise an individualized program for Home Evaluation Need in caregiver upon discharge - to improve, our physical therapists will perform initial evaluati on of pt's status upon admission and devise an individualized program for Caregiver Training New precaution - to improve, our physical therapists will perform initial evaluation of pt's status upon admission and devise an individualized program for Patient precaution education Edema - to improve, our physical therapists will perform initial evaluation of pt's status upon admi ssion and devise an individualized program for Elevation Training, and Lymphedema Therapy Poor balance - to improve, our physical therapists will perform initial evaluation of pt's status up on admission and devise an individualized program for Balance Training Poor endurance - to improve, our physical therapists will perform initial evaluation of pt's status upon admission and devise an individualized program for Endurance Training Weakness - to improve, our physical therapists will perform initial evaluation of pt's status upon a dmission and devise an individualized program for Aquatic Therapy, Neuromuscular Reeducation, and Str engthening Achieving independence - to improve, our physical therapists will perform initial evaluation of pt's status upon admission and devise an individualized program for Community Reintegration Activities - Diet - Liquid Texture Continue Regular - Tube Feed Continue N/A - Fall Precaution chair alarm,bed alarm - Diet - Solid Texture Continue Regular - Shower allowing shower - Occupational Therapy ADL deficits - to improve, our occupation therapists will perform initial evaluation of pt's status upon admission and devise an individualized program for Bathing, Bed mobility, Community Reintegratio n, Cooking, Dressing, Eating, Fine Motor Skills, Grooming, Homemaking, Kitchen Mobility, Laundry, Pat ient Education, Safety Awareness, Splinting - Positioning, Transfers(Toilet, Tub, Shower), and Wheel Chair Management Need for post anesthesia care unit nurse - to improve, our occupation therapists will perform initial evaluation of pt's status upon admission and devise an individualized program for Caregiver Training Weakness - to improve, our occupation therapists will perform initial evaluation of pt's status upon admission and devise an individualized program for Aquatic Therapy, Balance, Endurance, UE ROM, and UE strengthening FUNCTIONAL STATUS: UPDATED AT WEEKLY TEAM CONFERENCE - Bladder Same accident frequency: 1-Dep - No accidents in the past 7 days - Bowel Same accident frequency: 7-Ind - No accidents in the past 7 days - Walking Same score based on distance walked: 3(>=150ft) - Wheelchair Same score based on distance traveled: 0(N/A) FUNCTIONAL STATUS: - Self-Care A. Eating [place] B. Grooming [place] C. Bathing sup D. Dressing - Upper sup E. Dressing - Lower sup F. Toileting sup - Sphincter Control G: Bladder control Dep H: Bowel control Ind - Transfers Control I. Bed/Chair/Wheelchair sup J. Toilet sup K. Tub/Shower sup - Locomotion L. Walk/Wheelchair (C) sup L. Walk/Wheelchair (W) sup M. Stairs ADNO - Communication N. Comprehension (B) Ind O. Expression (B) Ind - Social Cognition P. Social Interaction Ind Q. Problem Solving Ind R. Memory Ind - Endurance Fair - Balance Fair - Safety Awareness Fair CURRENT FUNC. DEFICITS: Locomotion, Endurance, Safety Awareness, Transfers Control, Balance, and Self-Care SIGNATURE PANEL: (CDT)
[2017-09-09] MEDS: TAMSULOSIN 0.4 MG SR CAP PO SCH (21:11)
--- NOTE | 2017-09-10 04:31 | FAST ---
SHIFT START DATE/TIME: 09/09/2017 19:00 (CDT) SHIFT END DATE/TIME: 09/10/2017 07:00 (CDT) NAME BETY GOODSON DATE OF : 1955 DATE OF ADMISSION: 08/29/2017 17:49 (CDT) PHONE: AGE: 62 N# [id number] GENDER: Male ENCOUNTER PHYSICIAN: Dr. Migel Ray M.D. ADMISSION DIAGNOSIS: - Debility 16 - Debility (16) Bowel Obstruction, Colon Cancer. EATING: Activity did not occur on this shift EATING - SCORE: 0-UNK GROOMING: Comb/brush hair Oral care Wash, rinse, and dry face Wash, rinse, and dry hands GROOMING - STEP 1: Does the patient require assistance when grooming? Yes. GROOMING - STEP 2: Does the patient require the assistance of a helper? No. The patient only requires an assistive devic e, OR takes more than reasonable time to groom, OR there is a concern for safety as the patient groom s GROOMING - SCORE: 6-CAIO BATHING: Activity did not occur on this shift BATHING - SCORE: 0-UNK DRESSING - UPPER BODY: Patient is not dressing in public clothing ARTICLES SCORE Total number of steps: 0 DRESSING - UPPER BODY - SCORE: 0-UNK DRESSING - LOWER BODY: Patient is not dressing in public clothing ARTICLES SCORE Total number of steps: 0 DRESSING - LOWER BODY - SCORE: 0-UNK TOILETING: TOILETING - STEP 1: Does the patient require assistance with toileting? Yes. TOILETING - STEP 2: Does the patient require the assistance of a helper? No. TOILETING - SCORE: 6-CAIO BLADDER MANAGEMENT: BLADDER MANAGEMENT - STEP 1: Does the patient control the bladder completely and intentionally without equipment or devices or med ications, and is always continent? No. BLADDER MANAGEMENT - STEP 2: Does the patient require the assistance of a helper? Yes. BLADDER MANAGEMENT - STEP 3: How much assistance does the patient require from the helper? Only supervision, stand-by, cuing, or c oaxing BLADDER MANAGEMENT - SCORE: 5-SUP BOWEL MANAGEMENT: BOWEL MANAGEMENT - STEP 1: Does the patient control bowels completely and intentionally without equipment devices or medications AND is always continent? No. BOWEL MANAGEMENT - STEP 2: Does the patient require the assistance of a helper? Yes. BOWEL MANAGEMENT - STEP 3: How much assistance does the patient require from the helper? Patient requires supervision, stand by, cueing, coaxing, or setup of equipment - placing within reach of patient and emptying device / bedpa nd or BSC bucket - to maintain either satisfactory bowel pattern or managing an external device such as an absorbent pad, colostomy bag / ileostomy bag BOWEL MANAGEMENT - SCORE: 5-SUP TRANSFERS: BED, CHAIR, WHEELCHAIR: TRANSFERS: BED, CHAIR, WHEELCHAIR - STEP 1: Does the patient require assistance with bed, chair, or wheelchair transfers? Yes. TRANSFERS: BED, CHAIR, WHEELCHAIR - STEP 2: Does the patient require the assistance of a helper? No. Patient only requires an assistive device fo r bed, chair, wheelchair transfers such as a sliding board, grab bar, or brace, OR s/he takes more th an reasonable time, OR there is a safety concern when s/he performs the transfers TRANSFERS: BED, CHAIR, WHEELCHAIR - SCORE: 6-CAIO TRANSFERS: TOILET: TRANSFERS: TOILET - STEP 1: Does the patient require assistance with toilet transfers? Yes. TRANSFERS: TOILET - STEP 2: Does the patient require the assistance of a helper? No. Patient only requires an assistive device osipna ch as a grab bar or special seat, OR s/he takes more than reasonable time to perform toilet transfers , OR there is a safety concern when s/he performs toilet transfers. TRANSFERS: TOILET - SCORE: 6-CAIO TRANSFERS: SHOWER: Activity did not occur on this shift TRANSFERS: SHOWER - SCORE: 0-UNK TRANSFERS: TUB: Activity did not occur on this shift TRANSFERS: TUB - SCORE: 0-UNK LOCOMOTION: WALK: Activity did not occur on this shift LOCOMOTION: WALK - SCORE: 0-UNK LOCOMOTION: WHEELCHAIR: Activity did not occur on this shift LOCOMOTION: WHEELCHAIR - SCORE: 0-UNK COMPREHENSION: COMPREHENSION - STEP 1: Does the patient require help to understand complex and abstract ideas (such as current events, finan uma, discharge planning, medical issues, relationships, etc)? No. COMPREHENSION - STEP 2: Does the patient need extra time, require an assistive device (such as glasses, hearing aids, or an a ugmentative communication system), OR does s/he have mild difficulty expressing complex and abstract ideas (including mild dysarthria or mild word-finding problems)? Yes. COMPREHENSION - SCORE: 6-CAIO EXPRESSION EXPRESSION - STEP 1: Does the patient require help expressing complex and abstract ideas (such as current events, finances , discharge planning, medical issues, relationships, etc)? No. EXPRESSION - STEP 2: Does the patient need extra time, require an assistive device (such as augmentive communication syste m or a communication board), OR does s/he have mild difficulty expressing complex and abstract ideas (including mild dysarthria or mild word-find problems)? No. EXPRESSION - SCORE: 7-IND SOCIAL INTERACTION: SOCIAL INTERACTION - STEP 1: Does the patient require a helper to interact with others in social and therapeutic situations? No. SOCIAL INTERACTION - STEP 2: Does the patient need extra time in social situations, OR does s/he interact with staff, other patien ts, and family members ONLY in structured environments, OR does s/he require medication for social in teraction? No. SOCIAL INTERACTION - SCORE: 7-IND PROBLEM SOLVING: PROBLEM SOLVING - STEP 1: Does the patient need help to solve complex problems such as managing a checking account or confronti ng interpersonal problems? No. PROBLEM SOLVING - STEP 2: Does the patient require extra time to make decisions or solve problems, OR does s/he have slight dif ficulty reading, initiating, or self-correcting in unfamiliar situations? No. PROBLEM SOLVING - SCORE: 7-IND MEMORY: MEMORY - STEP 1: Does the patient need help to remember frequently encountered people, daily routines, and executing r equests? No. MEMORY - STEP 2: Does the patient have slight difficulty recognizing frequently encountered people, daily routines, or executing requests without the need for repetition or using self-initiated or environmental cues to remember? No. MEMORY - SCORE: 7-IND SIGNATURE PANEL: The following modified sections: Eating - Score, Grooming - Score, Dressing - Upper Body - Score, James ssing - Lower Body - Score, Toileting - Score, Bladder Management - Score, Bowel Management - Score, Transfers: Bed, Chair, Wheelchair - Score, Transfers: Toilet - Score, Transfers: Shower - Score, Ordaz sfers: Tub - Score, Locomotion: Walk - Score, Locomotion: Wheelchair - Score, Comprehension - Score, Expression - Score, Social Interaction - Score, Problem Solving - Score, Memory - Score were [electro nically] signed by Giovanna Jean-Baptiste CNA on FriSep 10 2017 02:50:09 T-0500 (Central Daylight Time)
[2017-09-10] MEDS: METOPROLOL XL 25 MG TAB PO SCH (05:04)
[2017-09-10] MEDS: ENOXAPARIN 40 MG/0.4 ML SQ SCH (08:18)
[2017-09-10] MEDS: COLESTIPOL 1 GM TAB PO SCH ×2 (08:19→20:37)
[2017-09-10] MEDS: FINASTERIDE 5 MG TAB PO SCH (08:19)
[2017-09-10] MEDS: NIFEDIPINE XL 90 MG TABLET PO SCH (08:19)
[2017-09-10] MEDS: ENSURE CLEAR 200 ML CAN PO SCH ×2 (08:20→20:37)
[2017-09-10] MEDS: cloNIDine HCl 0.1 MG TAB PO SCH ×2 (08:20→20:37)
[2017-09-10] MEDS: PROMOD 30 ML DOSE PO SCH ×2 (08:20→20:37)
--- NOTE | 2017-09-10 16:57 | FAST ---
ENCOUNTER DATE AND TIME: 09/10/2017 08:00 (CDT) NAME BETY GOODSON DATE OF : 1955 DATE OF ADMISSION: 08/29/2017 17:49 (CDT) PHONE: AGE: 62 N# [id number] GENDER: Male ENCOUNTER PHYSICIAN: Dr. Migel Ray M.D. ADMISSION DIAGNOSIS: - Debility 16 - Debility (16) Bowel Obstruction, Colon Cancer. EATING: Activity did not occur on this shift EATING - SCORE: 0-UNK GROOMING: Activity did not occur on this shift GROOMING - SCORE: 0-UNK BATHING: Activity did not occur on this shift BATHING - SCORE: 0-UNK DRESSING - UPPER BODY: Activity did not occur on this shift Patient is not dressing in public clothing ARTICLES SCORE Total number of steps: 0 DRESSING - UPPER BODY - SCORE: 0-UNK DRESSING - LOWER BODY: Activity did not occur on this shift Patient is not dressing in public clothing ARTICLES SCORE Total number of steps: 0 DRESSING - LOWER BODY - SCORE: 0-UNK TOILETING: Activity did not occur on this shift TOILETING - SCORE: 0-UNK BLADDER MANAGEMENT: Activity did not occur on this shift BLADDER MANAGEMENT - SCORE: 7-IND BOWEL MANAGEMENT: Activity did not occur on this shift BOWEL MANAGEMENT - SCORE: 7-IND TRANSFERS: BED, CHAIR, WHEELCHAIR: TRANSFERS: BED, CHAIR, WHEELCHAIR - STEP 1: Does the patient require assistance with bed, chair, or wheelchair transfers? No. TRANSFERS: BED, CHAIR, WHEELCHAIR - SCORE: 7-IND TRANSFERS: TOILET: Activity did not occur on this shift TRANSFERS: TOILET - SCORE: 0-UNK TRANSFERS: SHOWER: Activity did not occur on this shift TRANSFERS: SHOWER - SCORE: 0-UNK TRANSFERS: TUB: Activity did not occur on this shift TRANSFERS: TUB - SCORE: 0-UNK LOCOMOTION: WALK: LOCOMOTION: WALK - STEP 1: Does the patient need help to walk 150 feet? No. LOCOMOTION: WALK - STEP 2: Does the patient need an assistive device (such as an orthosis, prosthesis, crutches, or walker) to g o 150 feet, OR does s/he take more than reasonable time, OR is there a concern for safety? No. LOCOMOTION: WALK - SCORE: 7-IND LOCOMOTION: WHEELCHAIR: Activity did not occur on this shift LOCOMOTION: WHEELCHAIR - SCORE: 0-UNK LOCOMOTION: STAIRS: LOCOMOTION: STAIRS - STEP 1: Does the patient need help to go up and down 12 to 14 stairs? No. LOCOMOTION: STAIRS - STEP 2: Does the patient require an assistive device - such as handrails or cane - to go up and down one flig ht of stairs, OR does s/he take more than reasonable time, OR is there a concern for safety? Yes, the patient requires an assistive device LOCOMOTION: STAIRS - SCORE: 6-CAIO COMPREHENSION: COMPREHENSION - SCORE: 0-UNK EXPRESSION EXPRESSION - SCORE: 0-UNK SOCIAL INTERACTION: SOCIAL INTERACTION - SCORE: 0-UNK PROBLEM SOLVING: PROBLEM SOLVING - SCORE: 0-UNK MEMORY: MEMORY - SCORE: 0-UNK SIGNATURE PANEL: The following modified sections: Transfers: Bed, Chair, Wheelchair - Score, Transfers: Toilet - Score , Locomotion: Walk - Score, Locomotion: Wheelchair - Score, Locomotion: Stairs - Score were [electron icamarlys] signed by Kodak Olivier, PT on FriSep 10 2017 15:59:03 GMT-0500 (Central Daylight Time)
--- NOTE | 2017-09-10 17:42 | FAST ---
SHIFT START DATE/TIME: 09/10/2017 07:00 (CDT) SHIFT END DATE/TIME: 09/10/2017 19:00 (CDT) NAME BETY GOODSON DATE OF : 1955 DATE OF ADMISSION: 08/29/2017 17:49 (CDT) PHONE: AGE: [address] [facility]# [id number] GENDER: Male ENCOUNTER PHYSICIAN: Dr. Migel Ray M.D. ADMISSION DIAGNOSIS: - Debility 16 - Debility (16) Bowel Obstruction, Colon Cancer. EATING: EATING - STEP 1: Does the patient require assistance when eating? Yes. EATING - STEP 2: Does the patient require the assistance of a helper? No, patient only requires an assistive device, O R s/he takes more than reasonable time to eat, OR there is a safety concern, OR s/he requires modifie d food consistency EATING - SCORE: 6-CAIO GROOMING: Comb/brush hair Wash, rinse, and dry face GROOMING - STEP 1: Does the patient require assistance when grooming? Yes. GROOMING - STEP 2: Does the patient require the assistance of a helper? No. The patient only requires an assistive devic e, OR takes more than reasonable time to groom, OR there is a concern for safety as the patient groom s GROOMING - SCORE: 6-CAIO BATHING: Activity did not occur on this shift BATHING - SCORE: 0-UNK DRESSING - UPPER BODY: T-shirt/pullover shirt (four steps) ARTICLES SCORE Total number of steps: 4 DRESSING - UPPER BODY - STEP 1: Does the patient require help when dressing above the waist? Yes. DRESSING - UPPER BODY - STEP 2: Does the patient require the assistance of a helper? No. Patient only requires an assistive device, s uch as a button hook, velcro, or contract technician. OR s/he takes more than reasonable time as s/he dresses the upper body. OR there is a concern for safety when s/he dresses the upper body DRESSING - UPPER BODY - SCORE: 6-CAIO DRESSING - LOWER BODY: Elastic waist pants (three steps) Slip-on shoe - Left foot (one step) Slip-on shoe - Right foot (one step) Underwear (three steps) ARTICLES SCORE Total number of steps: 8 DRESSING - LOWER BODY - STEP 1: Does the patient require help when dressing below the waist? Yes. DRESSING - LOWER BODY - STEP 2: Does the patient require the assistance of a helper? No. Patient requires an assistive device such as a contract technician. OR s/he takes more than reasonable time as s/he dresses the lower body, OR there is a con cern for safety when s/he dresses the lower body DRESSING - LOWER BODY - SCORE: 6-CAIO TOILETING: TOILETING - STEP 1: Does the patient require assistance with toileting? Yes. TOILETING - STEP 2: Does the patient require the assistance of a helper? No. TOILETING - SCORE: 6-CAIO BLADDER MANAGEMENT: BLADDER MANAGEMENT - STEP 1: Does the patient control the bladder completely and intentionally without equipment or devices or med ications, and is always continent? No. BLADDER MANAGEMENT - STEP 2: Does the patient require the assistance of a helper? No, patient requires and independently uses an a ssistive device, such as a urinal, bedpan, bedside commode, catheter, absorbent pad, or collecting de vice BLADDER MANAGEMENT - SCORE: 6-CAIO BLADDER MANAGEMENT - FREQUENCY OF ACCIDENTS: BLADDER MANAGEMENT(FA) - STEP 1: How many accidents has the patient had during the current shift? 0 BOWEL MANAGEMENT: BOWEL MANAGEMENT - STEP 1: Does the patient control bowels completely and intentionally without equipment devices or medications AND is always continent? Yes. BOWEL MANAGEMENT - SCORE: 7-IND BOWEL MANAGEMENT - FREQUENCY OF ACCIDENTS: BOWEL MANAGEMENT(FA) - STEP 1: How many accidents has the patient had during the current shift? 0 TRANSFERS: BED, CHAIR, WHEELCHAIR: TRANSFERS: BED, CHAIR, WHEELCHAIR - STEP 1: Does the patient require assistance with bed, chair, or wheelchair transfers? No. TRANSFERS: BED, CHAIR, WHEELCHAIR - SCORE: 7-IND TRANSFERS: TOILET: TRANSFERS: TOILET - STEP 1: Does the patient require assistance with toilet transfers? No. TRANSFERS: TOILET - SCORE: 7-IND TRANSFERS: SHOWER: Activity did not occur on this shift TRANSFERS: SHOWER - SCORE: 0-UNK TRANSFERS: TUB: Activity did not occur on this shift TRANSFERS: TUB - SCORE: 0-UNK LOCOMOTION: WALK: LOCOMOTION: WALK - STEP 1: Does the patient need help to walk 150 feet? No. LOCOMOTION: WALK - STEP 2: Does the patient need an assistive device (such as an orthosis, prosthesis, crutches, or walker) to g o 150 feet, OR does s/he take more than reasonable time, OR is there a concern for safety? No. LOCOMOTION: WALK - SCORE: 7-IND LOCOMOTION: WHEELCHAIR: Activity did not occur on this shift LOCOMOTION: WHEELCHAIR - SCORE: 0-UNK COMPREHENSION: COMPREHENSION: TYPE: Both COMPREHENSION - STEP 1: Does the patient require help to understand complex and abstract ideas (such as current events, finan uma, discharge planning, medical issues, relationships, etc)? No. COMPREHENSION - STEP 2: Does the patient need extra time, require an assistive device (such as glasses, hearing aids, or an a ugmentative communication system), OR does s/he have mild difficulty expressing complex and abstract ideas (including mild dysarthria or mild word-finding problems)? Yes. COMPREHENSION - SCORE: 6-CAIO EXPRESSION EXPRESSION: TYPE: Both EXPRESSION - STEP 1: Does the patient require help expressing complex and abstract ideas (such as current events, finances , discharge planning, medical issues, relationships, etc)? No. EXPRESSION - STEP 2: Does the patient need extra time, require an assistive device (such as augmentive communication syste m or a communication board), OR does s/he have mild difficulty expressing complex and abstract ideas (including mild dysarthria or mild word-find problems)? Yes. EXPRESSION - SCORE: 6-CAIO SOCIAL INTERACTION: SOCIAL INTERACTION - STEP 1: Does the patient require a helper to interact with others in social and therapeutic situations? No. SOCIAL INTERACTION - STEP 2: Does the patient need extra time in social situations, OR does s/he interact with staff, other patien ts, and family members ONLY in structured environments, OR does s/he require medication for social in teraction? No. SOCIAL INTERACTION - SCORE: 7-IND PROBLEM SOLVING: PROBLEM SOLVING - STEP 1: Does the patient need help to solve complex problems such as managing a checking account or confronti ng interpersonal problems? No. PROBLEM SOLVING - STEP 2: Does the patient require extra time to make decisions or solve problems, OR does s/he have slight dif ficulty reading, initiating, or self-correcting in unfamiliar situations? Yes, patient needs extra ti me. PROBLEM SOLVING - SCORE: 6-CAIO MEMORY: MEMORY - STEP 1: Does the patient need help to remember frequently encountered people, daily routines, and executing r equests? No. MEMORY - STEP 2: Does the patient have slight difficulty recognizing frequently encountered people, daily routines, or executing requests without the need for repetition or using self-initiated or environmental cues to remember? Yes. MEMORY - SCORE: 6-CAIO SIGNATURE PANEL: The following modified sections: Eating - Score, Grooming - Score, Bathing - Score, Dressing - Upper Body - Score, Dressing - Lower Body - Score, Toileting - Score, Bladder Management - Score, Bowel Man agement - Score, Transfers: Bed, Chair, Wheelchair - Score, Transfers: Toilet - Score, Transfers: Yessica wer - Score, Transfers: Tub - Score, Locomotion: Walk - Score, Locomotion: Wheelchair - Score, Compre hension - Score, Expression - Score, Social Interaction - Score, Problem Solving - Score, Memory - Sc ore were [electronically] signed by Cathy CamposNAmrit on FriSep 10 2017 16:44:48 T-0500 (Centra l Daylight Time)
[2017-09-10] MEDS: TAMSULOSIN 0.4 MG SR CAP PO SCH (20:37)
--- NOTE | 2017-09-10 21:36 | R.PN ---
ENCOUNTER DATE AND TIME: 09/10/2017 20:33 (CDT) NAME BETY GOODSON DATE OF : 1955 DATE OF ADMISSION: 08/29/2017 17:49 (CDT) Bowel Obstruction, Colon CancerCHIEF COMPLAINT: Debility, bowel obstruction SUBJECTIVE: Pt denied any Shortness of Breath. Pt denied any depression. Performed bed mobility with independence. He ambulated 1500' with independence without an assistive d evice. Up and down 91 steps with independence. VITAL SIGNS Temperature: 97.9 F SBP/DBP: 152/97 Pulse: 76 Resp: 16 MEDICATION ALLERGIES: No Known Drug Allergies (NKDA) ENVIRONMENTAL ALLERGIES: None Known - Substance Allergies None Known - Other Allergies None Known NURSING: - Shower allowing shower PRECAUTIONS: - Fall Precaution chair alarm,bed alarm ACTIVITIES OOB only with supervision THERAPIES: - Occupational Therapy Evaluate and Treat. - Physical Therapy Evaluate and Treat. PHYSICAL EXAM - Gen Alert and awake Lying in bed No apparent distress Oriented to: person, time, and place - Skin incisions intact Normacephalic - Eyes No abnormalities - ENMT No abnormalities - Neck No abnormalities - CVS RRR - Chest Clear - Abd Soft - GI nondistended Deferred - No abnormalities - Ext No significant edema - MSK 4/5 weakness in both lower extremities. - Neuro No focal deficits - Psych No abnormalities ASSESSMENT: Pt. is a 62 yo Right-handed white male.On 08/12/2017 he was admitted to [facility] with diagnosis Bowel Obstruction, Colon Cancer.His impairment category is Debility 16 - Debility (16).Pre-morbidly, Pt. was independent/mod-I in Self-Care, Locomotion, Sphincter Control, Transfers Control, Communication, and Social Cognition; and he had good Sphincter Control.Currently, he has def icits of Locomotion, Endurance, Safety Awareness, Transfers Control, Balance, and Self-Care.Pt. is no w referred to [facility] for acute in-patient rehabilitation in order to maxim ize patient's functional independence in activities of daily living, strength, ROM, and mobility.- Re hab Goal Patient has realistic goal of being discharged at assistance level 6-Lucero to reside at Home with Fam nereida/Relatives. MDM/PLAN: - Diet Type Continue GI SOFT - Physical Therapy Gait dysfunction - to improve, our physical therapists will perform initial evaluation of pt's statu s upon admission and devise an individualized program for Gait Training, and Wheel Chair mobility Inability to transfer - to improve, our physical therapists will perform initial evaluation of pt's status upon admission and devise an individualized program for Bed mobility Need for home safety evaluation - to improve, our physical therapists will perform initial evaluatio n of pt's status upon admission and devise an individualized program for Home Evaluation Need in caregiver upon discharge - to improve, our physical therapists will perform initial evaluati on of pt's status upon admission and devise an individualized program for Caregiver Training New precaution - to improve, our physical therapists will perform initial evaluation of pt's status upon admission and devise an individualized program for Patient precaution education Edema - to improve, our physical therapists will perform initial evaluation of pt's status upon admi ssion and devise an individualized program for Elevation Training, and Lymphedema Therapy Poor balance - to improve, our physical therapists will perform initial evaluation of pt's status up on admission and devise an individualized program for Balance Training Poor endurance - to improve, our physical therapists will perform initial evaluation of pt's status upon admission and devise an individualized program for Endurance Training Weakness - to improve, our physical therapists will perform initial evaluation of pt's status upon a dmission and devise an individualized program for Aquatic Therapy, Neuromuscular Reeducation, and Str engthening Achieving independence - to improve, our physical therapists will perform initial evaluation of pt's status upon admission and devise an individualized program for Community Reintegration Activities - Diet - Liquid Texture Continue Regular - Tube Feed Continue N/A - Fall Precaution chair alarm,bed alarm - Diet - Solid Texture Continue Regular - Shower allowing shower - Occupational Therapy ADL deficits - to improve, our occupation therapists will perform initial evaluation of pt's status upon admission and devise an individualized program for Bathing, Bed mobility, Community Reintegratio n, Cooking, Dressing, Eating, Fine Motor Skills, Grooming, Homemaking, Kitchen Mobility, Laundry, Pat ient Education, Safety Awareness, Splinting - Positioning, Transfers(Toilet, Tub, Shower), and Wheel Chair Management Need for auto care center manager - to improve, our occupation therapists will perform initial evaluation of pt's status upon admission and devise an individualized program for Caregiver Training Weakness - to improve, our occupation therapists will perform initial evaluation of pt's status upon admission and devise an individualized program for Aquatic Therapy, Balance, Endurance, UE ROM, and UE strengthening FUNCTIONAL STATUS: UPDATED AT WEEKLY TEAM CONFERENCE - Bladder Same accident frequency: 1-Dep - No accidents in the past 7 days - Bowel Same accident frequency: 7-Ind - No accidents in the past 7 days - Walking Same score based on distance walked: 3(>=150ft) - Wheelchair Same score based on distance traveled: 0(N/A) FUNCTIONAL STATUS: - Self-Care A. Eating Lucero B. Grooming [place] C. Bathing sup D. Dressing - Upper sup E. Dressing - Lower sup F. Toileting sup - Sphincter Control G: Bladder control Dep H: Bowel control Ind - Transfers Control I. Bed/Chair/Wheelchair sup J. Toilet sup K. Tub/Shower sup - Locomotion L. Walk/Wheelchair (C) sup L. Walk/Wheelchair (W) sup M. Stairs ADNO - Communication N. Comprehension (B) Ind O. Expression (B) Ind - Social Cognition P. Social Interaction Ind Q. Problem Solving Ind R. Memory Ind - Endurance Fair - Balance Fair - Safety Awareness Fair CURRENT FUNC. DEFICITS: Locomotion, Endurance, Safety Awareness, Transfers Control, Balance, and Self-Care SIGNATURE PANEL: (CDT)
--- NOTE | 2017-09-11 02:59 | FAST ---
SHIFT START DATE/TIME: 09/10/2017 19:00 (CDT) SHIFT END DATE/TIME: 09/11/2017 07:00 (CDT) NAME BETY GOODSON DATE OF : 1955 DATE OF ADMISSION: 08/29/2017 17:49 (CDT) PHONE: AGE: 62 [facility]# [id number] GENDER: Male ENCOUNTER PHYSICIAN: Dr. Migel Ray M.D. ADMISSION DIAGNOSIS: - Debility 16 - Debility (16) Bowel Obstruction, Colon Cancer. EATING: Activity did not occur on this shift EATING - SCORE: 0-UNK GROOMING: Comb/brush hair Oral care Wash, rinse, and dry face Wash, rinse, and dry hands GROOMING - STEP 1: Does the patient require assistance when grooming? Yes. GROOMING - STEP 2: Does the patient require the assistance of a helper? No. The patient only requires an assistive devic e, OR takes more than reasonable time to groom, OR there is a concern for safety as the patient groom s GROOMING - SCORE: 6-CAIO BATHING: Activity did not occur on this shift BATHING - SCORE: 0-UNK DRESSING - UPPER BODY: Patient is not dressing in public clothing ARTICLES SCORE Total number of steps: 0 DRESSING - UPPER BODY - SCORE: 0-UNK DRESSING - LOWER BODY: Patient is not dressing in public clothing ARTICLES SCORE Total number of steps: 0 DRESSING - LOWER BODY - SCORE: 0-UNK TOILETING: TOILETING - STEP 1: Does the patient require assistance with toileting? Yes. TOILETING - STEP 2: Does the patient require the assistance of a helper? No. TOILETING - SCORE: 6-CAIO BLADDER MANAGEMENT: BLADDER MANAGEMENT - STEP 1: Does the patient control the bladder completely and intentionally without equipment or devices or med ications, and is always continent? No. BLADDER MANAGEMENT - STEP 2: Does the patient require the assistance of a helper? No, patient requires and independently uses an a ssistive device, such as a urinal, bedpan, bedside commode, catheter, absorbent pad, or collecting de vice BLADDER MANAGEMENT - SCORE: 6-CAIO BOWEL MANAGEMENT: BOWEL MANAGEMENT - STEP 1: Does the patient control bowels completely and intentionally without equipment devices or medications AND is always continent? No. BOWEL MANAGEMENT - STEP 2: Does the patient require the assistance of a helper? No, patient requires and manages independently a n assistive device such as a bedpan, bedside commode, absorbent pad, incontinent device, or collectin g device BOWEL MANAGEMENT - SCORE: 6-CAIO TRANSFERS: BED, CHAIR, WHEELCHAIR: TRANSFERS: BED, CHAIR, WHEELCHAIR - STEP 1: Does the patient require assistance with bed, chair, or wheelchair transfers? Yes. TRANSFERS: BED, CHAIR, WHEELCHAIR - STEP 2: Does the patient require the assistance of a helper? No. Patient only requires an assistive device fo r bed, chair, wheelchair transfers such as a sliding board, grab bar, or brace, OR s/he takes more th an reasonable time, OR there is a safety concern when s/he performs the transfers TRANSFERS: BED, CHAIR, WHEELCHAIR - SCORE: 6-CAIO TRANSFERS: TOILET: TRANSFERS: TOILET - STEP 1: Does the patient require assistance with toilet transfers? Yes. TRANSFERS: TOILET - STEP 2: Does the patient require the assistance of a helper? No. Patient only requires an assistive device ospina ch as a grab bar or special seat, OR s/he takes more than reasonable time to perform toilet transfers , OR there is a safety concern when s/he performs toilet transfers. TRANSFERS: TOILET - SCORE: 6-CAIO TRANSFERS: SHOWER: Activity did not occur on this shift TRANSFERS: SHOWER - SCORE: 0-UNK TRANSFERS: TUB: Activity did not occur on this shift TRANSFERS: TUB - SCORE: 0-UNK LOCOMOTION: WALK: Activity did not occur on this shift LOCOMOTION: WALK - SCORE: 0-UNK LOCOMOTION: WHEELCHAIR: Activity did not occur on this shift LOCOMOTION: WHEELCHAIR - SCORE: 0-UNK COMPREHENSION: COMPREHENSION - STEP 1: Does the patient require help to understand complex and abstract ideas (such as current events, finan uma, discharge planning, medical issues, relationships, etc)? No. COMPREHENSION - STEP 2: Does the patient need extra time, require an assistive device (such as glasses, hearing aids, or an a ugmentative communication system), OR does s/he have mild difficulty expressing complex and abstract ideas (including mild dysarthria or mild word-finding problems)? Yes. COMPREHENSION - SCORE: 6-CAIO EXPRESSION EXPRESSION - STEP 1: Does the patient require help expressing complex and abstract ideas (such as current events, finances , discharge planning, medical issues, relationships, etc)? No. EXPRESSION - STEP 2: Does the patient need extra time, require an assistive device (such as augmentive communication syste m or a communication board), OR does s/he have mild difficulty expressing complex and abstract ideas (including mild dysarthria or mild word-find problems)? No. EXPRESSION - SCORE: 7-IND SOCIAL INTERACTION: SOCIAL INTERACTION - STEP 1: Does the patient require a helper to interact with others in social and therapeutic situations? No. SOCIAL INTERACTION - STEP 2: Does the patient need extra time in social situations, OR does s/he interact with staff, other patien ts, and family members ONLY in structured environments, OR does s/he require medication for social in teraction? No. SOCIAL INTERACTION - SCORE: 7-IND PROBLEM SOLVING: PROBLEM SOLVING - STEP 1: Does the patient need help to solve complex problems such as managing a checking account or confronti ng interpersonal problems? No. PROBLEM SOLVING - STEP 2: Does the patient require extra time to make decisions or solve problems, OR does s/he have slight dif ficulty reading, initiating, or self-correcting in unfamiliar situations? No. PROBLEM SOLVING - SCORE: 7-IND MEMORY: MEMORY - STEP 1: Does the patient need help to remember frequently encountered people, daily routines, and executing r equests? No. MEMORY - STEP 2: Does the patient have slight difficulty recognizing frequently encountered people, daily routines, or executing requests without the need for repetition or using self-initiated or environmental cues to remember? No. MEMORY - SCORE: 7-IND SIGNATURE PANEL: The following modified sections: Eating - Score, Grooming - Score, Dressing - Upper Body - Score, James ssing - Lower Body - Score, Toileting - Score, Bladder Management - Score, Bowel Management - Score, Transfers: Bed, Chair, Wheelchair - Score, Transfers: Toilet - Score, Transfers: Shower - Score, Ordaz sfers: Tub - Score, Locomotion: Walk - Score, Locomotion: Wheelchair - Score, Comprehension - Score, Expression - Score, Social Interaction - Score, Problem Solving - Score, Memory - Score were [electro nically] signed by Giovanna Jean-Baptiste CNA on FriSep 11 2017 02:01:11 GMT-0500 (Central Daylight Time)
[2017-09-11] MEDS: METOPROLOL XL 25 MG TAB PO SCH (05:22)
[2017-09-11 06:21] LABS: Absolute Lymphocytes (CBC) 1.4 K/uL (0.7-4.9); Absolute Monocytes 0.6 K/uL (0.1-1.3); Absolute Neutrophil 2.3 K/uL (1.8-8.0); Basophils % 1.3 % (0-1.3); Eosinophils % 3.2 % (0-4.4); Hematocrit 33.3 % (39.6-49.0); Lymphocytes % 30.8 % (15.3-44.8); MCH 27.1 pg (27.0-35.0); MCV 82.1 fL (80-100); MPV 7.3 fL (7.6-11.3); Monocytes % 13.1 % (3.3-12.3); RBC Red Blood Cell Count 4.06 M/uL (4.33-5.43)
[2017-09-11] MEDS: ENOXAPARIN 40 MG/0.4 ML SQ SCH (07:05)
[2017-09-11 07:18] VITALS: BP 140/93; TEMP 97.6
[2017-09-11 08:16] LABS: Albumin 2.9 g/dL (3.2-5.5); Potassium 3.4 mEq/L (3.6-5.0); Prealbumin 22.4 mg/dl (18-38)
[2017-09-11] MEDS: COLESTIPOL 1 GM TAB PO SCH (08:22)
[2017-09-11] MEDS: NIFEDIPINE XL 90 MG TABLET PO SCH (08:22)
[2017-09-11] MEDS: FINASTERIDE 5 MG TAB PO SCH (08:22)
[2017-09-11] MEDS: ENSURE CLEAR 200 ML CAN PO SCH (08:23)
[2017-09-11] MEDS: cloNIDine HCl 0.1 MG TAB PO SCH (08:23)
[2017-09-11] MEDS: PROMOD 30 ML DOSE PO SCH (08:23)
--- NOTE | 2017-09-11 11:06 | FAST ---
SHIFT START DATE/TIME: 09/11/2017 07:00 (CDT) SHIFT END DATE/TIME: 09/11/2017 19:00 (CDT) NAME BETY GOODSON DATE OF : 1955 DATE OF ADMISSION: 08/29/2017 17:49 (CDT) PHONE: AGE: 62 N# [id number] GENDER: Male ENCOUNTER PHYSICIAN: Dr. Migel Ray M.D. ADMISSION DIAGNOSIS: - Debility 16 - Debility (16) Bowel Obstruction, Colon Cancer. EATING: EATING - STEP 1: Does the patient require assistance when eating? No. EATING - SCORE: 7-IND GROOMING: Comb/brush hair Wash, rinse, and dry face Wash, rinse, and dry hands GROOMING - STEP 1: Does the patient require assistance when grooming? No. GROOMING - SCORE: 7-IND BATHING: Activity did not occur on this shift BATHING - SCORE: 0-UNK DRESSING - UPPER BODY: T-shirt/pullover shirt (four steps) ARTICLES SCORE Total number of steps: 4 DRESSING - UPPER BODY - STEP 1: Does the patient require help when dressing above the waist? Yes. DRESSING - UPPER BODY - STEP 2: Does the patient require the assistance of a helper? No. Patient only requires an assistive device, s uch as a button hook, velcro, or english and reading instructor. OR s/he takes more than reasonable time as s/he dresses the upper body. OR there is a concern for safety when s/he dresses the upper body DRESSING - UPPER BODY - SCORE: 6-CAIO DRESSING - LOWER BODY: Elastic waist pants (three steps) Slip-on shoe - Left foot (one step) Slip-on shoe - Right foot (one step) ARTICLES SCORE Total number of steps: 5 DRESSING - LOWER BODY - STEP 1: Does the patient require help when dressing below the waist? Yes. DRESSING - LOWER BODY - STEP 2: Does the patient require the assistance of a helper? No. Patient requires an assistive device such as a english and reading instructor. OR s/he takes more than reasonable time as s/he dresses the lower body, OR there is a con cern for safety when s/he dresses the lower body DRESSING - LOWER BODY - SCORE: 6-CAIO TOILETING: TOILETING - STEP 1: Does the patient require assistance with toileting? No. TOILETING - SCORE: 7-IND BLADDER MANAGEMENT: BLADDER MANAGEMENT - STEP 1: Does the patient control the bladder completely and intentionally without equipment or devices or med ications, and is always continent? Yes. BLADDER MANAGEMENT - SCORE: 7-IND BLADDER MANAGEMENT - FREQUENCY OF ACCIDENTS: BLADDER MANAGEMENT(FA) - STEP 1: How many accidents has the patient had during the current shift? 0 BOWEL MANAGEMENT: Activity did not occur on this shift BOWEL MANAGEMENT - SCORE: 7-IND TRANSFERS: BED, CHAIR, WHEELCHAIR: TRANSFERS: BED, CHAIR, WHEELCHAIR - STEP 1: Does the patient require assistance with bed, chair, or wheelchair transfers? No. TRANSFERS: BED, CHAIR, WHEELCHAIR - SCORE: 7-IND TRANSFERS: TOILET: TRANSFERS: TOILET - STEP 1: Does the patient require assistance with toilet transfers? No. TRANSFERS: TOILET - SCORE: 7-IND TRANSFERS: SHOWER: Activity did not occur on this shift TRANSFERS: SHOWER - SCORE: 0-UNK TRANSFERS: TUB: Activity did not occur on this shift TRANSFERS: TUB - SCORE: 0-UNK LOCOMOTION: WALK: LOCOMOTION: WALK - STEP 1: Does the patient need help to walk 150 feet? No. LOCOMOTION: WALK - STEP 2: Does the patient need an assistive device (such as an orthosis, prosthesis, crutches, or walker) to g o 150 feet, OR does s/he take more than reasonable time, OR is there a concern for safety? No. LOCOMOTION: WALK - SCORE: 7-IND LOCOMOTION: WHEELCHAIR: Activity did not occur on this shift LOCOMOTION: WHEELCHAIR - SCORE: 0-UNK COMPREHENSION: COMPREHENSION: TYPE: Both COMPREHENSION - STEP 1: Does the patient require help to understand complex and abstract ideas (such as current events, finan uma, discharge planning, medical issues, relationships, etc)? Yes. COMPREHENSION - STEP 2: Does the patient require help to understand questions or statements about basic needs or ideas (such as hunger, thirst, sleep, safety, daily schedule, room location, or discomfort) half or more of the t kacey? No. COMPREHENSION - STEP 3: How often does the patient need help to understand directions and conversation about basic needs? Les s than 10% of the time COMPREHENSION - SCORE: 5-SUP EXPRESSION EXPRESSION: TYPE: Both EXPRESSION - STEP 1: Does the patient require help expressing complex and abstract ideas (such as current events, finances , discharge planning, medical issues, relationships, etc)? No. EXPRESSION - STEP 2: Does the patient need extra time, require an assistive device (such as augmentive communication syste m or a communication board), OR does s/he have mild difficulty expressing complex and abstract ideas (including mild dysarthria or mild word-find problems)? Yes. EXPRESSION - SCORE: 6-CAIO SOCIAL INTERACTION: SOCIAL INTERACTION - STEP 1: Does the patient require a helper to interact with others in social and therapeutic situations? No. SOCIAL INTERACTION - STEP 2: Does the patient need extra time in social situations, OR does s/he interact with staff, other patien ts, and family members ONLY in structured environments, OR does s/he require medication for social in teraction? No. SOCIAL INTERACTION - SCORE: 7-IND PROBLEM SOLVING: PROBLEM SOLVING - STEP 1: Does the patient need help to solve complex problems such as managing a checking account or confronti ng interpersonal problems? No. PROBLEM SOLVING - STEP 2: Does the patient require extra time to make decisions or solve problems, OR does s/he have slight dif ficulty reading, initiating, or self-correcting in unfamiliar situations? Yes, patient needs extra ti me. PROBLEM SOLVING - SCORE: 6-CAIO MEMORY: MEMORY - STEP 1: Does the patient need help to remember frequently encountered people, daily routines, and executing r equests? No. MEMORY - STEP 2: Does the patient have slight difficulty recognizing frequently encountered people, daily routines, or executing requests without the need for repetition or using self-initiated or environmental cues to remember? Yes. MEMORY - SCORE: 6-CAIO SIGNATURE PANEL: The following modified sections: Eating - Score, Grooming - Score, Bathing - Score, Dressing - Upper Body - Score, Dressing - Lower Body - Score, Toileting - Score, Bladder Management - Score, Bowel Man agement - Score, Transfers: Bed, Chair, Wheelchair - Score, Transfers: Toilet - Score, Transfers: Yessica wer - Score, Transfers: Tub - Score, Locomotion: Walk - Score, Locomotion: Wheelchair - Score, Compre hension - Score, Expression - Score, Social Interaction - Score, Problem Solving - Score, Memory - Sc ore were [electronically] signed by Minal CamposA. on FriSep 11 2017 10:08:43 T-0500 (Centra l Daylight Time)
--- NOTE | 2017-09-16 14:51 | FAST ---
ENCOUNTER DATE AND TIME: 09/10/2017 08:00 (CDT) NAME BETY GOODSON DATE OF : 1955 DATE OF ADMISSION: 08/29/2017 17:49 (CDT) PHONE: AGE: 62 N# [id number] GENDER: Male ENCOUNTER PHYSICIAN: Dr. Migel Ray M.D. ADMISSION DIAGNOSIS: - Debility 16 - Debility (16) Bowel Obstruction, Colon Cancer. EATING: EATING - STEP 1: Does the patient require assistance when eating? No. EATING - SCORE: 7-IND GROOMING: Comb/brush hair Oral care Wash, rinse, and dry face Wash, rinse, and dry hands GROOMING - STEP 1: Does the patient require assistance when grooming? No. GROOMING - SCORE: 7-IND BATHING: Abdomen Buttocks Chest Left arm Left lower leg and foot Left upper leg Perineal area Right arm Right lower leg and foot Right upper leg BATHING - STEP 1: Does the patient require assistance when bathing? Yes. BATHING - STEP 2: Does the patient require the assistance of a helper? No. The patient only requires an assistive devic e such as a bath nitesh, OR the patient takes more than reasonable time to bathe, OR there is a concern for safety such as regulating water temperature as the patient bathes. BATHING - SCORE: 6-CAIO DRESSING - UPPER BODY: T-shirt/pullover shirt (four steps) ARTICLES SCORE Total number of steps: 4 DRESSING - UPPER BODY - STEP 1: Does the patient require help when dressing above the waist? No. DRESSING - UPPER BODY - SCORE: 7-IND DRESSING - LOWER BODY: Elastic waist pants (three steps) Slip-on shoe - Left foot (one step) Slip-on shoe - Right foot (one step) Sock - Left foot (one step) Sock - Right foot (one step) Underwear (three steps) ARTICLES SCORE Total number of steps: 10 DRESSING - LOWER BODY - STEP 1: Does the patient require help when dressing below the waist? No. DRESSING - LOWER BODY - SCORE: 7-IND TOILETING: TOILETING - STEP 1: Does the patient require assistance with toileting? No. TOILETING - SCORE: 7-IND BLADDER MANAGEMENT: Activity did not occur on this shift BLADDER MANAGEMENT - SCORE: 7-IND BOWEL MANAGEMENT: Activity did not occur on this shift BOWEL MANAGEMENT - SCORE: 7-IND TRANSFERS: BED, CHAIR, WHEELCHAIR: Activity did not occur on this shift TRANSFERS: BED, CHAIR, WHEELCHAIR - SCORE: 0-UNK TRANSFERS: TOILET: TRANSFERS: TOILET - STEP 1: Does the patient require assistance with toilet transfers? No. TRANSFERS: TOILET - SCORE: 7-IND TRANSFERS: SHOWER: Activity did not occur on this shift TRANSFERS: SHOWER - SCORE: 0-UNK TRANSFERS: TUB: TRANSFERS: TUB - STEP 1: Does the patient require assistance with tub transfers? Yes. TRANSFERS: TUB - STEP 2: Does the patient require the assistance of a helper? No. Only requires the assistance of an assistive device, OR takes more than reasonable time, OR there is a concern for safety when s/he performs tub transfers TRANSFERS: TUB - SCORE: 6-CAIO LOCOMOTION: WALK: Activity did not occur on this shift LOCOMOTION: WALK - SCORE: 0-UNK LOCOMOTION: WHEELCHAIR: Activity did not occur on this shift LOCOMOTION: WHEELCHAIR - SCORE: 0-UNK LOCOMOTION: STAIRS: Activity did not occur on this shift LOCOMOTION: STAIRS - SCORE: 0-UNK COMPREHENSION: COMPREHENSION: TYPE: Both COMPREHENSION - STEP 1: Does the patient require help to understand complex and abstract ideas (such as current events, finan uma, discharge planning, medical issues, relationships, etc)? No. COMPREHENSION - STEP 2: Does the patient need extra time, require an assistive device (such as glasses, hearing aids, or an a ugmentative communication system), OR does s/he have mild difficulty expressing complex and abstract ideas (including mild dysarthria or mild word-finding problems)? No. COMPREHENSION - SCORE: 7-IND EXPRESSION EXPRESSION: TYPE: Both EXPRESSION - STEP 1: Does the patient require help expressing complex and abstract ideas (such as current events, finances , discharge planning, medical issues, relationships, etc)? No. EXPRESSION - STEP 2: Does the patient need extra time, require an assistive device (such as augmentive communication syste m or a communication board), OR does s/he have mild difficulty expressing complex and abstract ideas (including mild dysarthria or mild word-find problems)? No. EXPRESSION - SCORE: 7-IND SOCIAL INTERACTION: SOCIAL INTERACTION - STEP 1: Does the patient require a helper to interact with others in social and therapeutic situations? No. SOCIAL INTERACTION - STEP 2: Does the patient need extra time in social situations, OR does s/he interact with staff, other patien ts, and family members ONLY in structured environments, OR does s/he require medication for social in teraction? No. SOCIAL INTERACTION - SCORE: 7-IND PROBLEM SOLVING: PROBLEM SOLVING - STEP 1: Does the patient need help to solve complex problems such as managing a checking account or confronti ng interpersonal problems? No. PROBLEM SOLVING - STEP 2: Does the patient require extra time to make decisions or solve problems, OR does s/he have slight dif ficulty reading, initiating, or self-correcting in unfamiliar situations? No. PROBLEM SOLVING - SCORE: 7-IND MEMORY: MEMORY - STEP 1: Does the patient need help to remember frequently encountered people, daily routines, and executing r equests? No. MEMORY - STEP 2: Does the patient have slight difficulty recognizing frequently encountered people, daily routines, or executing requests without the need for repetition or using self-initiated or environmental cues to remember? No. MEMORY - SCORE: 7-IND SIGNATURE PANEL: The following modified sections: Eating - Score, Grooming - Score, Bathing - Score, Dressing - Upper Body - Score, Dressing - Lower Body - Score, Toileting - Score, Transfers: Bed, Chair, Wheelchair - S core, Transfers: Toilet - Score, Transfers: Tub - Score, Transfers: Shower - Score, Comprehension - S core, Expression - Score, Social Interaction - Score, Problem Solving - Score, Memory - Score were [e lectronically] signed by Dipti Romero OT on FriSep 16 2017 13:53:23 T-0500 ([facility]
== END 2017-09-11 12:50 | disposition home or self-care (01) | DRG 948 ==
LOC: 5TH 17:49
PROVIDERS: ADMIT Psychiatry & Neurology Neurology with Special Qualifications in Child Neurology; ATTEND Psychiatry & Neurology Neurology with Special Qualifications in Child Neurology
DX: R53.81 Other malaise (principal); C18.9 Malignant neoplasm of colon, unspecified; E46 Unspecified protein-calorie malnutrition; I10 Essential (primary) hypertension; N40.0 Benign prostatic hyperplasia without lower urinary tract symptoms; I48.91 Unspecified atrial fibrillation; E78.5 Hyperlipidemia, unspecified; R19.7 Diarrhea, unspecified; R55 Syncope and collapse; R33.9 Retention of urine, unspecified; R00.0 Tachycardia, unspecified; Z68.27 Body mass index [BMI] 27.0-27.9, adult
CPT/HCPCS: 36415; 74018; 76770; 76857; 80048; 81001; 82040; 82962; 83735; 84134; 85025; 87086; 87088; 87493; 93005; J1650

== ENCOUNTER 2017-09-22 08:29 | Day surgery (SDC) | payer OTHER ==
[2017-09-19 10:58] LABS: Absolute Lymphocytes (CBC) 1.2 K/uL (0.7-4.9); Absolute Monocytes 0.4 K/uL (0.1-1.3); Absolute Neutrophil 1.4 K/uL (1.8-8.0); Basophils % 0.4 % (0-1.3); Eosinophils % 3.8 % (0-4.4); Lymphocytes % 37.8 % (15.3-44.8); MCH 25.7 pg (27.0-35.0); MCV 82.1 fL (80-100); MPV 8.3 fL (7.6-11.3); Monocytes % 13.6 % (3.3-12.3)
[2017-09-19 11:22] LABS: Potassium 3.8 mEq/L (3.6-5.0)
[2017-09-22] MEDS ORDERED: FENTANYL CITR 100 MCG/2 ML ONE (08:55)
[2017-09-22] MEDS ORDERED: LIDOCAINE 2% MPF 5 ML VIAL ONE (08:55)
[2017-09-22] MEDS ORDERED: PROPOFOL 200 MG/20 ML VIAL IV ONE (08:55)
[2017-09-22] MEDS ORDERED: MIDAZOLAM HCL 2 MG/2 ML INJ ONE (08:55)
[2017-09-22] MEDS ORDERED: CEFAZOLIN/SWI 1gm 1 GM/10 ML SYR ONE (09:02)
[2017-09-22] MEDS ORDERED: Ringers Lactate 1,000 ML IV ONE (09:02)
[2017-09-22] MEDS ORDERED: NS 0.9% VIAL 10 ML ONE ×2 (09:12→10:17)
[2017-09-22] MEDS ORDERED: LIDOCAINE 1% 20 ML MDV ONE (09:13)
[2017-09-22] MEDS ORDERED: HEPARIN 5000 UNIT/ML 1 ML VIAL ONE (09:13)
[2017-09-22] MEDS ORDERED: KETOROLAC 30 MG/ML INJ ONE (10:41)
--- NOTE | 2017-09-22 10:55 | P.BOP ---
Preoperative diagnosis: colon cancer Postoperative diagnosis: same Primary procedure: 1. Placement of Portacath Secondary procedure: 2. Interpretation of fluoroscopy Estimated blood loss: <5cc Specimen: none Findings: as above Anesthesia: General Complications: None Implants: single lumen portacath Transferred to: Recovery Room Condition: Good
--- NOTE | 2017-09-22 11:22 | RAD REPORT ---
EXAM DESCRIPTION: RAD - Chest Single View - 09/22/2017 11:13 am CLINICAL HISTORY: Venous catheter placement. COMPARISON: 08/17/2017 FINDINGS: Portable technique limits examination quality. Left-sided venous catheter tip in the SVC. No postprocedure pneumothorax. The heart is normal in size . Tortuous thoracic aorta. IMPRESSION: No postprocedure pneumothorax.
--- NOTE | 2017-09-22 11:26 | RAD REPORT ---
EXAM DESCRIPTION: RAD - Fluoroscopy <1 Hour - 09/22/2017 11:20 am CLINICAL HISTORY: Venous catheter insertion. COMPARISON: None. FINDINGS: Fluoroscopic imaging is submitted from placement of a venous catheter. Details of the pro cedure not available.
[2017-09-22 12:19] VITALS: BP 156/97; TEMP 98; O2SAT 98
--- NOTE | 2017-09-22 23:03 | OP ---
Surgeon: Deonte Chen MD Preoperative Diagnosis: Colon cancer. Postoperative Diagnosis: Colon cancer. Procedures: 1.Placement of Port-A-Cath. 2.Interpretation of fluoroscopy. Anesthesia: General plus local. Implant: A single-lumen Port-A-Cath. Indications: This is the case of a 62-year-old patient in need for chemotherapy. Port-A-Cath was re quest. The benefits, alternatives, and risks of Port-A-Cath placement were fully explained to the pa tient and the , which include but not limited to infection, bleeding, damage to adjacent structur es, anesthesia complication, pneumothorax, hemothorax, pericardiac tamponade, pericarditis, breakage of the catheter, pulmonary emboli, deep vein thrombosis, PE, [place], even . He also understands thi s may not relieve any symptoms. He might need more than one surgical intervention. He understands w hen the chemotherapy is finished, he will return to remove the Port-A-Cath as soon as possible. He a lso understands that the need of maintenance of the Port-A-Cath is not in use for more than a month s o to contact us or primary doctor to arrange for the home health agency to go there monthly. Description Of Procedure: The patient was brought to the operating room, placed in supine position. Anesthesia was given without complication. The chest was prepped and draped in a sterile fashion. was obtained followed by 18-gauge needle in the left subclavian vein with the first attemp t. A guidewire was passed through, used fluoroscopy into the innominate vessel and the needle was re moved. After that, we created a pocket in the left upper chest to lodge the Port-A-Cath. We put an introducer sheath through the guidewire under direct visualization with fluoroscopy. We removed the guidewire, put the catheter in and removed the introducer sheath and tunnelled the catheter underneat h the skin to meet that new incision in the left upper chest with the fluoroscopy. The catheter was cut to proper size connected to the Port-A-Cath using the recenterer's specifications. The Port-A- Cath was secured in place to the subcutaneous tissue, sutured to the subcutaneous tissue. The area w as irrigated. We flushed the area with Tobar needle with excellent backflow and inflow. This was pa cked with heparin. Fluoroscopy was used once again to verify proper placement and it looks good. At that moment, I proceeded to close the subcutaneous tissue with 3-0 chromic and Steri-Strip on top. Sponge count and instrument counts were correct. The patient brought back from Trendelenburg to norm al position, sent to recovery in stable condition. Then a chest x-ray was ordered stat. Disposition: Home. Activity: As tolerated. No heavy lifting. Followup: Follow up in my office in 1 week. Call for appointment on [phone]. Discharge Instructions: Keep the area dry for 48 hours, then may shower. Keep Steri-Strips intact. Medications: Include Tylenol No. 3 q.4 hours p.r.n. pain and Bactrim DS p.o. b.i.d. LEX/QIANA Voice ID: [id number] Report ID: [id number]
== END 2017-09-22 12:17 | disposition home or self-care (01) ==
LOC: OR 08:29
PROVIDERS: ATTEND Surgery
PROC: 0JH60WZ Insertion of Totally Implantable Vascular Access Device into Chest Subcutaneous Tissue and Fascia, Open Approach (ICD-10-PCS; principal; 2017-09-22 11:00)
DX: Z45.2 Encounter for adjustment and management of vascular access device (principal); C18.9 Malignant neoplasm of colon, unspecified; I10 Essential (primary) hypertension; K21.9 Gastro-esophageal reflux disease without esophagitis; Z79.82 Long term (current) use of aspirin; Z90.49 Acquired absence of other specified parts of digestive tract; Z82.49 Family history of ischemic heart disease and other diseases of the circulatory system; Z80.42 Family history of malignant neoplasm of prostate
CPT/HCPCS: 36415; 71045; 76000; 80048; 85025; C1788; J0690; J1644; J2250; J3010

== ENCOUNTER 2019-03-29 11:18 | Day surgery (SDC) | payer OTHER ==
[2019-03-25 13:09] LABS: Absolute Lymphocytes (CBC) 1.2 K/uL (0.7-4.9); Basophils % 0.8 % (0-1.3); Hematocrit 38.6 % (39.6-49.0); Lymphocytes % 25.4 % (15.3-44.8); MPV 8.3 fL (7.6-11.3); RBC Red Blood Cell Count 4.37 M/uL (4.33-5.43)
[2019-03-25 13:26] LABS: Potassium 3.9 mmol/L (3.5-5.1)
--- NOTE | 2019-03-25 14:00 | RAD REPORT ---
EXAM DESCRIPTION: Josie Whittington (2 Views)03/25/2019 1:52 pm CLINICAL HISTORY: Preop for central venous line placement COMPARISON: 2018 FINDINGS: The lungs appear clear of acute infiltrate. The heart is mildly enlarged A central venous line has its tip overlying the proximal superior vena cava pointing laterally
--- NOTE | 2019-03-25 14:30 | EKG ---
Test Date: 2019-03-25 Test Time: 13:05:48 Tire Specialist: TG MEASUREMENT RESULTS: Intervals: Rate: 57 HI: 164 QRSD: 80 QT: 422 QTc: 410 Maybeury: P: 61 HI: 164 QRS: -35 T: 0 INTERPRETIVE STATEMENTS: Sinus bradycardia Left axis deviation Low voltage QRS Cannot rule out Anterior infarct, age undetermined Abnormal ECG Compared to ECG 09/04/2017 10:17:38 Low QRS voltage now present Myocardial infarct finding now present Sinus rhythm no longer present T-wave abnormality no longer present Electronically Signed On 03-25-19 14:29:50 TRENCH DIGGER HELPER by Josh Jones
[2019-03-29] MEDS ORDERED: Ringers Lactate 1,000 ML IV ONE (11:41)
[2019-03-29] MEDS ORDERED: CEFAZOLIN/SWI 1gm 1 GM/10 ML SYR ONE (11:46)
[2019-03-29] MEDS ORDERED: LIDOCAINE 2% MPF 5 ML VIAL ONE (12:22)
[2019-03-29] MEDS ORDERED: FENTANYL CITR 100 MCG/2 ML ONE (12:22)
[2019-03-29] MEDS ORDERED: PROPOFOL 200 MG/20 ML VIAL IV ONE (12:22)
[2019-03-29] MEDS ORDERED: MIDAZOLAM HCL 2 MG/2 ML INJ ONE (12:23)
[2019-03-29] MEDS ORDERED: NS 0.9% VIAL 20 ML ONE (12:44)
[2019-03-29] MEDS ORDERED: HEPARIN 5000 UNIT/ML 1 ML VIAL ONE (12:44)
[2019-03-29] MEDS ORDERED: LIDOCAINE 1% 20 ML MDV ONE (12:44)
--- NOTE | 2019-03-29 14:07 | P.BOP ---
Preoperative diagnosis: colon cancer Postoperative diagnosis: same Primary procedure: 1. Placement of new right subclavian portacath Secondary procedure: 2. Removal of old non functioning left subclavian portacath Other procedure(s): 3. Interpretation of fluoroscopy Estimated blood loss: <5cc Specimen: old PC Findings: as above Anesthesia: General Complications: None Transferred to: Recovery Room Condition: Good
[2019-03-29] MEDS: LABETALOL HCL 100 MG/20 ML ONE ×2 (14:24→14:34)
[2019-03-29] MEDS ORDERED: HYDRALAZINE HCL 20 MG/ML VIAL ONE (14:39)
[2019-03-29] MEDS: HYDROMORPHONE HCL 1 MG/ML INJ ONE ×2 (14:43→14:48)
--- NOTE | 2019-03-29 14:47 | RAD REPORT ---
EXAM DESCRIPTION: RAD - Chest Single View - 03/29/2019 2:34 pm CLINICAL HISTORY: Left-sided Port-A-Cath removal, right-sided Port-A-Cath placement, postprocedure f ilm COMPARISON: March 25 TECHNIQUE: AP portable chest image was obtained 1429 hours . FINDINGS: Lungs are clear. No pneumothorax. Right-sided Port-A-Cath has been placed. Tip is in the p roximal SVC. No acute lung parenchymal process. Cardiomediastinal silhouette stable. IMPRESSION: Right subclavian Port-A-Cath with the tip in the proximal SVC. No pneumothorax.
--- NOTE | 2019-03-29 15:13 | RAD REPORT ---
EXAM DESCRIPTION: RAD - Fluoroscopy <1 Hour - 03/29/2019 2:13 pm CLINICAL HISTORY: Venous catheter insertion. PORT-A-CATH PLACEMENT IN OR4 COMPARISON: <Comparisons> FINDINGS: Fluoroscopic imaging is submitted from placement of a venous catheter. Details of the pro cedure not available. Fluoroscopy time: 1.5 minutes
[2019-03-29] MEDS ORDERED: CODEINE 30MG/APAP 300MG TAB ONE (15:32)
[2019-03-29] MEDS ORDERED: CODEINE 30MG/APAP 300MG TAB PO ONE (15:35)
[2019-03-29 16:20] VITALS: BP 165/89; TEMP 98; O2SAT 98
--- NOTE | 2019-03-30 00:14 | DS ---
Date of Discharge: 03/29/2019 Diagnosis: Colon cancer. Procedures: Placement of a new right subclavian Port-A-Cath, removal of an old nonfunctional left ospina bclavian Port-A-Cath, and interpretation of fluoroscopy. Disposition: Home after the chest x-ray is verified. Followup: Follow up in my office in 1 week. Call for appointment, [phone]. Keep area dry for 48 h ours, then may shower. Steri-Strips intact. Medications: Include Tylenol No. 3 q.4 hours p.r.n. pain. LEX/QIANA Voice ID: [id number] Report ID: [id number]
--- NOTE | 2019-03-30 00:17 | OP ---
Date of Procedure: 03/29/2019 Surgeon: Deonte Chen MD Preoperative Diagnosis: Colon cancer. Postoperative Diagnosis: Colon cancer. Procedures: 1.Placement of a new right subclavian Port-A-Cath. 2.Removal of old nonfunctional left subclavian Port-A-Cath. 3.Interpretation of fluoroscopy. Implant: A new Port-A-Cath. Anesthesia: General plus local. Indications: This is the case of a 63-year-old patient, who comes to us with need of chemotherapy. Patient has an old Port-A-Cath more than a year ago. He has no access. They are trying to access __ , so he was brought here for placement of a new Port-A-Cath, removal of an old nonfunctional Port-A-Cath. The benefits, alternatives, and risks were fully explained, which include, but are not limited to infection, bleeding, damage to adjacent structures, anesthesia complications, nonhealing w ound, AK, and even . He also understands the chance for pneumothorax, hemothorax, cardiac arrhy thmias, pericardiac tamponade, pericarditis, DVT, PE, [place] and even . He understood that he shoul d be flushed every month while not in use and remove this as soon as he finished the chemotherapy. Description Of Procedure: The patient was brought to the operating room, placed in supine position. Anesthesia was done without complication. The chest was prepped and draped in a sterile fashion. A time-out was called. We made an incision in the left upper chest, accessed the catheter. We notice d the catheter was nonfunctional. When we put the wire through it, it was nonfunctional, so we remov ed the catheter proximal and distal. Port-A-Cath was sent in 2 segments, distal and proximal. A sma ll incision was made in the upper chest to open an access to Port-A-Cath and it was removed. Pressur e was applied. The area was closed with 3-0 chromic. This was done in Trendelenburg position. The patient tolerated the procedure well. Then, we went to the right side. On the right side, we procee ded to prep and drape the right subclavian area in the usual sterile fashion, put the patient in the Trendelenburg position, placed an 18-gauge needle on the first attempt in the right subclavian vein. Guidewire was passed through, got into the superior vena cava using fluoroscopy. A needle was remov ed. A small pocket was created in the right chest region. We proceeded to place an introducer sheat h under fluoroscopy through the guidewire. Then the catheter was placed in and introducer sheath was peeled off. The catheter was tunneled underneath the skin to meet that new incision in the right up per chest and cut to proper size and connected to Port-A-Cath using the lease operator's specifications . The Port-A-Cath was tested. No leakage. Excellent backflow and inflow, secured in place with 3-0 chromic. We irrigated the area, closed the subcutaneous tissue with 3-0 chromic, and Steri-Strips o n top. Patient was brought back to normal position. Patient tolerated the procedure well. Patient was sent to Recovery in stable condition. LEX/QIANA Voice ID: [id number] Report ID: [id number]
== END 2019-03-29 15:50 | disposition home or self-care (01) ==
LOC: OR 11:18
PROVIDERS: ATTEND Surgery
PROC: 0JPT3WZ Removal of Totally Implantable Vascular Access Device from Trunk Subcutaneous Tissue and Fascia, Percutaneous Approach (ICD-10-PCS; principal; 2019-03-29 13:30)
PROC: 0JH63WZ Insertion of Totally Implantable Vascular Access Device into Chest Subcutaneous Tissue and Fascia, Percutaneous Approach (ICD-10-PCS; 2019-03-29 13:30)
DX: T82.594A Other mechanical complication of infusion catheter, initial encounter (principal); C18.9 Malignant neoplasm of colon, unspecified; I10 Essential (primary) hypertension; N40.0 Benign prostatic hyperplasia without lower urinary tract symptoms; Z79.82 Long term (current) use of aspirin; Z80.42 Family history of malignant neoplasm of prostate; Z82.49 Family history of ischemic heart disease and other diseases of the circulatory system
CPT/HCPCS: 36590; 36561; 93005; 85025; 80048; 36415; 88300; 71045; 71046; 76000; J0360; J2704; J1644 ×2; J2250; J3010; J1170; J0690; J7120; C1788

== ENCOUNTER 2022-06-12 19:02 | Emergency (ER) | payer OTHER ==
[2022-06-12] MEDS ORDERED: NA CHLORIDE 0.9% 1,000 ML ONE (20:10)
[2022-06-12 20:34] LABS: Hematocrit 32.1 % (39.6-49.0); MCV 81.8 fL (80-100); MPV 8.7 fL (7.6-11.3); RBC Red Blood Cell Count 3.93 M/uL (4.33-5.43)
[2022-06-12 21:15] LABS: Albumin 2.3 g/dL (3.4-5.0); Protein, Total 6.1 g/dL (6.4-8.2)
[2022-06-12 21:20] LABS: Potassium 2.9 mmol/L (3.5-5.1)
[2022-06-12 21:22] LABS: Magnesium 0.8 mg/dL (1.6-2.4)
[2022-06-12 21:25] LABS: Bilirubin Total 42.4 mg/dL (0.2-1.0)
[2022-06-12 21:30] LABS: Platelet Estimate ADEQ
[2022-06-12 21:31] LABS: Anisocytosis 3+; Blood Morphology Comment NOTED (NOT SEEN); Ovalocytes SLIGHT; Poikilocytosis 3+; Target Cells 2+; Teardrop Cell FEW
[2022-06-12] MEDS ORDERED: NA CHLORIDE 0.9% 500 ML ONE ×2 (22:27→23:52)
[2022-06-12] MEDS ORDERED: KCL 20 MEQ/100 mL IVPB 200 ML IV ONE (22:27)
[2022-06-12] MEDS ORDERED: Magnesium Sulfate 2gm IVPB 4 G/100 ML BAG IV ONE (22:28)
--- NOTE | 2022-06-12 22:59 | ER ---
Nurse's Notes [facility] Name: Cheo Madrid Age: 66 yrs Sex: Male : 1955 Arrival Date: 06/12/2022 Time: 19:08 Bed 20 Private MD: Diagnosis: Hypomagnesemia;Hypokalemia;Acute kidney injury;Biliary mass;Hyperbilirubinemia Presentation: 06/12 19:32 Chief complaint: Patient states: Dr muniz is his doctor for his liver cancer and she kd3 called us to tell us that his potassium levels are low and to bring him to the ER. He has been yellow for about two weeks now. Coronavirus screen: Vaccine status: Patient reports receiving the 2nd dose of the covid vaccine. Ebola Screen: No symptoms or risks identified at this time. Initial Sepsis Screen: Does the patient meet any 2 criteria? No. Patient's initial sepsis screen is negative. Does the patient have a suspected source of infection? No. Patient's initial sepsis screen is negative. Risk Assessment: Do you want to hurt yourself or someone else? Patient reports no desire to harm self or others. Onset of symptoms was June 12, 2022. 19:32 Method Of Arrival: Ambulatory kd3 19:32 Acuity: RANDOLPH 3 kd3 Triage Assessment: 19:36 General: Appears uncomfortable, Behavior is calm, cooperative. Pain: Denies pain. kd3 Historical: - Allergies: 19:36 No Known Allergies; kd3 - Immunization history:: Adult Immunizations up to date. - Social history:: Smoking status: Patient denies any tobacco usage or history of. - Family history:: not pertinent. Screenin:00 Abuse screen: Denies threats or abuse. Denies injuries from another. Nutritional ha1 screening: No deficits noted. Tuberculosis screening: No symptoms or risk factors identified. 21:[address] [facility] ED Fall Risk Assessment (Adult) History of falling in the last 3 months, ha1 including since admission No falls in past 3 months (0 pts) Confusion or Disorientation No (0 pts) Intoxicated or Sedated No (0 pts) Impaired Gait No (0 pts) Mobility Assist Device Used No (0 pt) Altered Elimination Yes (1 pt) Score/Fall Risk Level 0 - 2 = Low Risk Oriented to surroundings, Maintained a safe environment, Educated pt \T\ family on fall prevention, incl call for assistance when getting out of bed, Hourly rounding (assess needs \T\ fall precautionary measures) done. Assessment: 21:00 General: Appears comfortable, Behavior is calm, cooperative. Pain: Denies pain. Neuro: ha1 Level of Consciousness is awake, alert, obeys commands, Oriented to person, place, time, situation. Cardiovascular: Capillary refill < 3 seconds Patient's skin is warm and dry. Respiratory: Airway is patent Respiratory effort is even, unlabored, Respiratory pattern is regular, symmetrical. GI: Abdomen is flat, non-distended, Bowel sounds present X 4 quads. Reports colon and liver cancer. : No signs and/or symptoms were reported regarding the genitourinary system. EENT: Eyes yellow coloring on the sclera.. Derm: Skin is dry, Skin is jaundiced. Musculoskeletal: Circulation, motion, and sensation intact. 22:00 Reassessment: Patient and/or family updated on plan of care and expected duration. Pain ha1 level reassessed. Patient is alert, oriented x 3, equal unlabored respirations, skin warm/dry/pink. Patient denies pain at this time. 23:00 Reassessment: Patient and/or family updated on plan of care and expected duration. Pain ha1 level reassessed. Patient is alert, oriented x 3, equal unlabored respirations, skin warm/dry/pink. Patient denies pain at this time. Vital Signs: 19:32 BP 117 / 89; Pulse 79; Resp 19; Pulse Ox 99% on R/A; Weight 82.55 kg; Height 5 ft. 7 kd3 in. (170.18 cm); 19:32 Temp 98.6(O); kd3 21:00 BP 130 / 93; Pulse 74; Resp 18 S; Pulse Ox 100% on R/A; ha1 22:00 BP 132 / 86; Pulse 69; Resp 18 S; Pulse Ox 100% on R/A; ha1 19:32 Body Mass Index 28.50 (82.55 kg, 170.18 cm) kd3 ED Course: 19:08 Patient arrived in ED. ja2 19:30 Lance Seaman MD is Attending Physician. rt 19:36 Triage completed. kd3 19:36 Arm band placed on left wrist. kd3 20:22 Inserted saline lock: 20 gauge in right antecubital area, using aseptic technique. kd3 Blood collected. 20:23 CBC with Diff Sent. kd3 20:23 Magnesium Sent. kd3 20:23 BMP Sent. kd3 20:23 Hepatic Function Sent. kd3 20:41 Notified ED physician of a critical lab result(s). WBC 1.9. kl 21:00 Patient has correct armband on for positive identification. Placed in gown. Bed in low ha1 position. Call light in reach. Side rails up X 1. Adult w/ patient. 21:05 Doretha Pretty, RN is Primary Nurse. ha1 21:21 Notified ED physician of a critical lab result(s). mag 0.8 potassium 2.9. kl 02 00:00 No provider procedures requiring assistance completed. Patient transferred, IV remains ha1 in place. Administered Medications: 06/12 20:23 Drug: NS 0.9% 1000 ml Route: IV; Rate: 1 bolus; Site: right antecubital; kd3 22:17 Drug: Magnesium Sulfate 4 grams Route: IVPB; Infused Over: 4 hrs; Site: right ha1 antecubital; 22:19 Drug: Potassium Chloride 40 mEq Route: IV; Rate: calculated rate; Site: right ha1 antecubital; Medication: 06/13 00:01 VIS not applicable for this client. ha1 Outcome: 06/12 22:59 ER care complete, transfer ordered by . rt 06/13 00:00 Transferred by ground EMS to [facility], Note: by [place] [id number] EMS Condition: stable 00:02 Patient left the ED. ha1 Signatures: Peyton Wu RN RN kl Alexander, Jessica ja2 Doucette, Kyli, RN RN 3 Doretha Pretty RN RN ha1 [place], Ryan, MD MD rt
--- NOTE | 2022-06-12 22:59 | EDPHYS ---
Physician Documentation [facility] Name: Cheo Madrid Age: 66 yrs Sex: Male : 1955 Arrival Date: 06/12/2022 Time: 19:08 Bed 20 Private MD: ED Physician Lance Seaman HPI: 06/12 21:17 This 66 yrs old Black Male presents to ER via Ambulatory with complaints of Abnormal rt Lab Results. 21:17 Patient is on chemotherapy for colon cancer presents to the ED with a generalized rt weakness, reported hypokalemia on outpatient labs. The patient also reports worsening jaundice as well as about a 10 pound weight loss in the past month. Denies other acute complaints, symptoms are moderate in severity, no other aggravating alleviating factors.. Historical: - Allergies: 19:36 No Known Allergies; kd3 - Immunization history:: Adult Immunizations up to date. - Social history:: Smoking status: Patient denies any tobacco usage or history of. - Family history:: not pertinent. ROS: 21:17 Cardiovascular: Negative for chest pain, palpitations, and edema, Respiratory: Negative rt for shortness of breath, cough, wheezing, and pleuritic chest pain, Abdomen/GI: Negative for abdominal pain, nausea, vomiting, diarrhea, and constipation, MS/Extremity: Negative for injury and deformity, Neuro: Negative for headache, weakness, numbness, tingling, and seizure, Psych: Negative for depression, anxiety, suicide ideation, homicidal ideation, and hallucinations. 21:17 Constitutional: Positive for malaise, weight loss. 21:17 Eyes: Positive for icterus, Negative for acute changes. 21:17 Skin: Positive for jaundice, Negative for lesions. Exam: 21:17 Constitutional: This is a well developed, well nourished patient who is awake, alert, rt and in no acute distress. Head/Face: Normocephalic, atraumatic. Chest/axilla: Normal chest wall appearance and motion. Nontender with no deformity. No lesions are appreciated. Cardiovascular: Regular rate and rhythm with a normal S1 and S2. No gallops, murmurs, or rubs. Normal PMI, no JVD. No pulse deficits. Respiratory: Lungs have equal breath sounds bilaterally, clear to auscultation and percussion. No rales, rhonchi or wheezes noted. No increased work of breathing, no retractions or nasal flaring. Abdomen/GI: Soft, non-tender, with normal bowel sounds. No distension or tympany. No guarding or rebound. No evidence of tenderness throughout. Male : Normal genitalia with no discharge or lesions. MS/ Extremity: Pulses equal, no cyanosis. Neurovascular intact. Full, normal range of motion. Neuro: Awake and alert, GCS 15, oriented to person, place, time, and situation. Cranial nerves II-XII grossly intact. Motor strength 5/5 in all extremities. Sensory grossly intact. Cerebellar exam normal. Normal gait. Psych: Awake, alert, with orientation to person, place and time. Behavior, mood, and affect are within normal limits. 21:17 Eyes: Scleral icterus, pupils equally round and reactive to light. 21:17 ENT: Dry mucous membranes. Vital Signs: 19:32 BP 117 / 89; Pulse 79; Resp 19; Pulse Ox 99% on R/A; Weight 82.55 kg; Height 5 ft. 7 kd3 in. (170.18 cm); 19:32 Temp 98.6(O); kd3 21:00 BP 130 / 93; Pulse 74; Resp 18 S; Pulse Ox 100% on R/A; ha1 22:00 BP 132 / 86; Pulse 69; Resp 18 S; Pulse Ox 100% on R/A; ha1 19:32 Body Mass Index 28.50 (82.55 kg, 170.18 cm) kd3 MDM: 19:37 Patient medically screened. rt 23:00 Differential Diagnosis Electrolyte abnormality, hyperbilirubinemia. Data reviewed: rt vital signs, nurses notes, lab test result(s), EKG, radiologic studies. Management of patient was discussed with the following: Hospitalist: Spoke with accepting hospitalist at [facility]. Hook Tender: Discussed with patient's oncologist, recommends transfer. I considered the following discharge prescriptions or medication management in the emergency department Medications were administered in the Emergency Department. See MAR. Test considered but Not performed: MRI: Outpatient MRI that was done that shows a biliary mass. Historians other than the Patient: Spouse/Significant Other: Discussed patient's recent course with the . External Records Reviewed: Outpatient labs: Reviewed old labs, patient has a new hyperbilirubinemia, hypomagnesemia, hypokalemia, acute kidney injury. Outpatient radiology: Reviewed prior imaging. Care significantly affected by the following chronic conditions: Colorectal cancer. 06/12 19:38 Order name: CBC with Diff; Complete Time: 21:34 rt 06/12 19:38 Order name: Magnesium; Complete Time: 21:32 rt 06/12 19:38 Order name: BMP; Complete Time: 21:32 rt 06/12 19:38 Order name: Hepatic Function; Complete Time: 21:32 rt 06/12 20:43 Order name: Manual Differential; Complete Time: 21:34 EDMS 06/12 21:49 Order name: SARS RAPID rt 06/12 19:38 Order name: EKG; Complete Time: 19:39 rt Administered Medications: 20:23 Drug: NS 0.9% 1000 ml Route: IV; Rate: 1 bolus; Site: right antecubital; kd3 22:17 Drug: Magnesium Sulfate 4 grams Route: IVPB; Infused Over: 4 hrs; Site: right ha1 antecubital; 22:19 Drug: Potassium Chloride 40 mEq Route: IV; Rate: calculated rate; Site: right ha1 antecubital; Disposition Summary: 06/12/22 22:59 Transfer Ordered Transfer Location: [facility] rt Reason: Higher level of care rt Condition: Fair rt Problem: new rt Symptoms: are unchanged rt Accepting Physician: Daryl(06/13/22 00:02) ha1 Diagnosis - Hypomagnesemia rt - Hypokalemia rt - Acute kidney injury rt - Biliary mass rt - Hyperbilirubinemia rt Forms: - Medication Reconciliation Form rt - SBAR form rt Signatures: Dispatcher [employer] Fany Shah RN RN kd3 Doretha Pretty RN RN ha1 Lance Seaman MD MD rt Corrections: (The following items were deleted from the chart) 06/13 00:02 06/12 22:59 Daryl rt ha1
[2022-06-12 23:23] LABS: SARS-CoV-2 Antigen Rapid Res Negative (Negative)
[2022-06-13 00:21] VITALS: TEMP 98.6
[2022-06-13 00:27] VITALS: O2SAT 100
[2022-06-13 00:32] VITALS: BP 132/86
== END 2022-06-13 00:02 | disposition short-term general hospital (02) ==
LOC: ER 19:02
DX: E87.6 Hypokalemia (principal); E83.42 Hypomagnesemia; E80.6 Other disorders of bilirubin metabolism; N17.9 Acute kidney failure, unspecified; K83.9 Disease of biliary tract, unspecified; Z20.822 Contact with and (suspected) exposure to COVID-19; Z85.038 Personal history of other malignant neoplasm of large intestine
CPT/HCPCS: 93005; 85025; 80048; 36415; 83735; 80076; 96375; 96374; 99285; 87811; J3480; J3475; J7040 ×2; J7030